=== PATIENT | male | born 1970 | race Caucasian/White ===

== ENCOUNTER 2024-09-09 12:04 | Inpatient (IN) | payer OTHER, SELFPAY ==
[2024-09-09] VITALS (14 sets, daily range): BP systolic 82–143; BP diastolic 61–116; PULSE 74–104; RESP 12–21; TEMP 35.7–36; O2SAT 94–100; BMI 22.7; BMI 23.4
--- NOTE | 2024-09-09 12:17 | ED.RN ---
PT PRESDENTS TO THE ED WITH HIS PARENTS AT BEDSIDE. PT STSTAES HE HAS BEEN HAVING A SUPRESSED APPETITE FOR APROX 8 MONTHS, WHEN HE EATS HE HAS N/V. HE HAS NOT SEEN PCP, DECIDED TO START HERE TODAY. HAS LOST APROX 60LBS IN THE PAST 8 MONTHS. NO DAILY MEDS OUTSIDE OF ELDERBERRY SUPPLEMENT AND A MULTI VIT
--- NOTE | 2024-09-09 12:38 | ED.VIS.GI ---
HPI HPI - GI History of Present Illness Chief Complaint: Abd Pain Detail of Chief Complaint: Nausea, weight loss, abdominal distention Informant: patient Narrative Narrative: Patient presents with weight loss as well as nausea and abdominal bloating ongoing for 6 to 7 months. Patient states he has no primary care physician. He finally got tired of the weight loss and he is complaining of feeling weak with no energy. He has nausea and vomiting usually after he eats about 15 to 20 minutes later.. He denies blood in stool or black tarry stool. He denies urinary symptoms. He tells me has no medical history. No prior abdominal surgeries. [facility] Medical History (Updated 09/09/24 @ 14:[address] Abbie Michelle MD) No significant past medical history Home Medications ?Medication ?Instructions ?Recorded ?Last Taken ?Type multivitamin (Daily Multi-Vitamin 1 tab PO DAILY 09/09/24 09/08/24 History tablet) Allergy/AdvReac Type Severity Reaction Status Date / Time No Known Allergies Allergy Verified 09/09/24 12:12 Family History (Updated 09/09/24 @ 14:[address] Abbie Michelle MD) Mother Hypertension Father No problems noted. Surgical History (Updated 09/09/24 @ 14:[address] Abbie Michelle MD) History of skin graft Social History (Updated 09/09/24 @ 14:[address] Abbie Michelle MD) household members: none Smoking Status: Never smoker alcohol intake: never substance use type: does not use ROS ROS ED Review of Systems ROS Unobtainable: other Constitutional Constitutional ED: Reports lethargy; Denies chills, fever(s), sweats or weight loss Eyes Eyes: Denies blurry vision, change in vision or diplopia ENT ENT ED: Denies rhinorrhea or sore throat Cardiovascular Cardiovascular: Denies chest pain, orthopnea or racing heartbeat Respiratory/Chest Respiratory/Chest: Denies cough, dyspnea, dyspnea on exertion, orthopnea or sputum Gastrointestinal Gastrointestinal: Reports nausea, vomiting and other Details: Abdominal distention, weight loss ; Denies abdominal pain or diarrhea Genitourinary Genitourinary ED: Denies dysuria, hematuria or urinary frequency Musculoskeletal Musculoskeletal: Denies arthralgias, back pain, myalgias or neck pain Integumentary Denies abscess, Abrasions or rash Neurologic Neurologic: Denies headache(s) or weakness Psychiatric Psychiatric: Denies anxiety, depression or suicidal thoughts Endocrine Endocrinology: Denies polydipsia, polyphagia or polyuria Hematologic/Lymphatic Hematologic/Lymphatic: Denies easy bleeding, easy bruising or lymphadenopathy Allergic/Immunologic Allergic/Immunologic ED: Denies mouth swelling, tongue swelling or urticaria EXAM Physical Exam Const Vital Signs: 09/09/24 12:06 09/09/24 14:05 09/09/24 14:16 Temperature 96.2 F L 96.2 F L Temperature Source Temporal Pulse Rate 104 H 94 94 Respiratory Rate 16 16 16 Blood Pressure 101/73 129/114 H 129/114 H Blood Pressure Mean 82 119 119 Pulse Ox 94 100 100 Oxygen Delivery Method Room Air Room Air Positive well nourished and well developed General Appearance ED: well developed and NAD HEENT Reports TM's clear and moist mucous membranes normocephalic and atraumatic; Negative for trauma or tenderness Tympanic Membrane ED: Yes TM's clear Eyes PERRL and EOMs intact bilaterally General Eye ED: Negative for pale conjunctiva or scleral icterus Neck no lymphadenopathy, supple and no JVD General: Negative for tenderness Chest Wall inspection of chest normal and palpation of chest normal Chest: Negative for tenderness Resp normal respiratory effort and clear to auscultation bilaterally Effort and Inspection: Negative for respiratory distress or pain with movement Auscultation: Negative for rhonchi, wheezes or diminished lung sounds Cardio regular rate, regular rhythm, S1 normal heart sound, S2 normal heart sound and no murmurs Peripheral Pulses: pulses 2+ throughout GI normal to inspection, nondistended, normoactive bowel sounds, soft to palpation, non-tender, non-distended and no masses Back/Spine no CVA tenderness and no thoracic nor lumbar tenderness Extremity normal to inspection General Extremety ED: Negative for edema General Extremity: Negative for edema Neuro oriented x3, CN's II-XII intact bilaterally, no sensory deficits noted and gait normal Sensorium / Orientation: awake, alert, oriented to person, oriented to place and oriented to time Motor Exam: strength 5/5 throughout and strength abnormal Psych mental status grossly normal Skin no rashes or lesions noted and no wounds MDM MDM MDM Narrative Medical decision making narrative: Patient presents with complaint of not feeling well for 6 to 7 months. Given history of night sweats and ongoing weight loss over 6 or 7 months concern for malignancy. Patient has not been seeing primary care physician. IV line established. CBC with differential obtained showing an 11.7 with hemoglobin 18.7 and platelet count of 206. Chemistries were significant for sodium 139 with potassium 2.4 and chloride of 82. CO2 was 16.8. BUN to 48 and creatinine 10.7. Lactate 2.0. Glucose 190. LFTs normal. Lipase was 241. CT scan of the abdomen pelvis obtained read by radiology as distended and thickened distal esophagus could represent achalasia. No other significant findings other than some mild evidence of nonfocal layer mucosal enhancement in distal small bowel which can indicate inflammatory bowel disease. Patient was ordered potassium chloride IV. Discussed case with hospitalist will evaluate patient for admission. I do not think patient has DKA suspect likely acute renal failure. Hospitalist did order beta hydroxybutyrate which was elevated 3.5 and recommended that we start patient on an insulin drip for the possibility of DKA given elevated glucose at 190. I did order the insulin drip at hospitalist request and patient will go to the ICU. Lab Data Attestation: I reviewed the patient's lab results. Labs: Laboratory Results - last 24 hr 09/09/24 09/09/24 12:15 12:58 WBC 11.7 H RBC 6.54 H Hgb 18.7 H* Hct 51.6 MCV 78.9 L MCH 28.6 MCHC 36.2 H RDW Std Deviation 36.9 RDW Coeff of Keerthi 13.1 Plt Count 206 MPV 13.8 H Immature Gran % (Auto) 0.400 Neut % (Auto) 87.9 H Lymph % (Auto) 5.9 L [place] % (Auto) 5.5 Eos % (Auto) 0.1 Baso % (Auto) 0.2 Absolute Neuts (auto) 10.3 H Absolute Lymphs (auto) 0.69 L Nucleated RBC % 0 Sodium 139 Potassium 2.4 L* Chloride 82 L Carbon Dioxide 16.8 L Anion Gap 40 H BUN 248 H* Creatinine 10.70 H* Estim Creat Clear Calc 7.44 L* Est GFR (MDRD) Non-Af 5 L BUN/Creatinine Ratio 23.2 H Glucose 190 H Lactic Acid 2.0 Calcium 10.6 Magnesium 4.8 H Total Bilirubin 1.16 AST 9 ALT 17 Alkaline Phosphatase 91 Total Protein 8.3 Albumin 5.0 Globulin 3.3 Albumin/Globulin Ratio 1.5 Lipase 241 H b-Hydroxybutyric mmol/L 3.5 Radiography Diagnostic Testing: Clinical Impression(s) from Imaging Studies Abdomen/Pelvis CT 09/09/24 13:15 IMPRESSION: The distal esophagus is dilated to 5 cm, which can indicate achalasia. Consider direct visualization. Cholelithiasis. Liver cysts There is a 2 cm uncomplicated fat containing left inguinal hernia. There is nonfocal layered mucosal enhancement in the distal small bowel, which can indicate inflammatory bowel disease. [facility] Initial EKG: Attestation: I personally reviewed and interpreted this EKG as follows: Comments: Sinus rhythm with rate of 86 bpm with prolonged QT of 458. QTc is 548 Critical Care Time Critical care time (excluding procedures): 30-74 minutes, Including time spent:, Discussing w/Patient &/or Family/Field Operations Technician, Discussing w/Consultants, Arranging Admission or Transfer, Performing Direct Patient Care at Bedside and - (30 minutes) Discharge Plan Dx/Rx/DC Orders Clinical Impression: Acute renal failure, Acute hypokalemia, Hyperglycemia, Abnormal weight loss Disposition Disposition: Acute Care [facility]
[2024-09-09 12:54] LABS: Absolute Lymphocyte Count 0.69 X10^3/uL (0.83-4.51); Absolute Neutrophil Count 10.3 X10^3/uL (2.0-7.7); Basophil# 0.02 X10^3/uL; Basophil% 0.2 % (0-1); Eosinophil# 0.01 X10^3/uL; Eosinophils% 0.1 % (0-5); Hematocrit 51.6 % (40-54); Lymphocyte # 0.69 X10^3/ul (0.83-4.51); Lymphocyte % 5.9 % (19-41); Mean Corp Hgb Conc 36.2 g/dL (32-36); Mean Corpuscular Hgb 28.6 pg (27.0-32.0); Mean Corpuscular Volume 78.9 fL (80-94); Mean Platelet Vol. 13.8 fl (6.2-12.0); Monocyte# 0.64 X10^3/uL; Monocyte% 5.5 % (0-10); NRBC Flagged by Analyzer 0 % (0-5); Neutrophil # 10.33 X10^3/uL (2.7-7.7); Neutrophil % 87.9 % (47-70); Platelet Count 206 K/mm3 (150-450); RBC Distribution Width CV 13.1 % (11.6-14.6); RBC Distribution Width SD 36.9 fl (35.1-43.9); Red Blood Count 6.54 M/mm3 (4.6-6.2); White Blood Count 11.7 K/mm3 (4.4-11.0)
[2024-09-09] MEDS: 0.9% Normal Saline (1000mL) 1,000 ML 125 ML IV (12:55)
[2024-09-09 12:56] LABS: Differential Indicated SCAN CRITERIA MET; Hemoglobin 18.7 g/dL (13.0-16.5)
--- NOTE | 2024-09-09 13:15 | CT_ITS ---
PROCEDURE: ABDOMEN/PELVIS W IV CONT ONLY 09/09/2024 REASON FOR EXAM: ABDOMINAL PAIN, WEIGHT LOSS, NIGHT SWEATS TECHNIQUE: Abdomen and pelvis CT with intravenous contrast. Coronal and Sagittal reconstruction series were provided. PATIENT PREPARATION: Per protocol ORAL CONTRAST TYPE: None. CONTRAST: 98 cc [id number] One or more dose reduction techniques were used (e.g., Automated exposure control, adjustment of the mA and/or kV according to patient size, use of iterative reconstruction technique. RADIATION DOSE SUMMARY: DLP: 631.51 mGycm COMPARISON: None FINDINGS: Lung bases: The distal esophagus is dilated to 5 cm, which can indicate achalasia. Liver: There is a cyst in the left hepatic lobe measuring 4.3 cm. There is a cyst in the left hepatic lobe measuring 3.5 cm. There is a 3 cm cyst in the medial right hepatic lobe. There is a cyst in the right hepatic lobe measuring 1 cm at the gallbladder fossa. Gallbladder: There are stones in the gallbladder with the largest measuring 0.6 cm. There is no visible gallbladder wall thickening or pericholecystic inflammation. Spleen: Unremarkable Pancreas: Unremarkable Adrenals: Unremarkable Kidneys: Unremarkable Bladder: Nondistended Reproductive Organs: Unremarkable Bowel: Gas and stool is noted in the colon with a minimal stool load. There is nonfocal layered mucosal enhancement in the distal small bowel, which can indicate inflammatory bowel disease. Small bowel loops are not distended. There is scattered diverticuli in the distal colon with no visible diverticulitis. There is a 2 cm uncomplicated fat containing left inguinal hernia. Appendix: Unremarkable Lymph nodes: There is no pathologic adenopathy. Vasculature: Unremarkable Peritoneum / Retroperitoneum: There is no free air or free fluid. Bones: There is no acute bony abnormality. CT/Abdomen/Pelvis W IV Cont ONLY IMPRESSION: The distal esophagus is dilated to 5 cm, which can indicate achalasia. Conside r direct visualization. Cholelithiasis. Liver cysts There is a 2 cm uncomplicated fat containing left inguinal hernia. There is nonfocal layered mucosal enhancement in the distal small bowel, which can indicate inflammatory bowel disease. [facility]
[2024-09-09 13:39] LABS: Lipase 241 U/L (13-75)
[2024-09-09 13:54] LABS: ALB/GLOB Ratio 1.5 RATIO (0.9-2.4); AST(SGOT) 9 U/L (<=37); Alanine Aminotransfer ALT/SGPT 17 U/L (<=46); Alkaline Phosphatase 91 U/L (40-129); Anion Gap 40 (5-15); BUN 248 mg/dL (4-19); BUN/Creat Ratio 23.2 RATIO (10-20); Calcium,Total 10.6 mg/dL (7.6-11.0); Carbon Dioxide 16.8 mmol/L (21.0-32.0); Chloride 82 mmol/L (98-108); EST Glomerular Filtration Rate 5 (>60); Estimated Creatinine Clearance 7.44 ml/min (50-250); Globulin 3.3 g/dL (2.2-4.2); Glucose 190 mg/dL (70-99); Potassium 2.4 mmol/L (3.3-5.1); Protein, Total 8.3 g/dL (5.9-8.4); Sodium Level 139 mmol/L (133-145); Total Bilirubin 1.16 mg/dL (0.00-1.30)
--- NOTE | 2024-09-09 14:08 | CM.ED ---
Social Work SW met with patient and patient parents. Patient states he has not been feeling well over the last several months and has lost a significant amount of weight. Patient and parents state that patient does not have a PCP and has not been to a physician since symptoms started. [facility] provider list was given for patient to assist in finding a primary care doctor. Patient does have a job that he works around 30 hours a week, however he states that he has not been able to work over the last week. 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 Abbi from [employer] was contacted to meet with patient, however Abbi states that patient is over income and will not qualify for Medicaid. Patient was given financial assistance forms from registration. Vee Leyva, LEATHER LEVELER, LEAD SOFTWARE TESTER
--- NOTE | 2024-09-09 14:15 | HP.PCM.HOS_ITS ---
HPI - General General Date of Admission: 09/09/24 Date of Service: 09/09/24 Chief Complaint: Intractable N/V, unable to take adequate PO, weight loss, abd bloating. HPI Narrative The patient is a 53 y/o M w/ no prior notable PMHx who presents to the [facility] ED on 09/09/2024 with history of significant persistent nausea with poor oral intake as well as abdominal bloating and distention with significant weight loss for last 6 to 7 months with no established primary care physician thus prompting eventual decision to be evaluated in the ED. He denies any alteration to the appearance of his stools or any urinary symptoms. He notes persistent emesis associated with any oral intake attempts. Has had been able to keep liquids down and some full liquids but nearly all solids come back up. He reports ~ 60-70 lb weight loss over the last 12 months. He does state he is continuing to make urine and usually urinates twice a day. He states previously had been very dark but has become more clear recently. His parents were present note that he is had a significant decline over the last 3 weeks. He also does have bruises on his lower legs and states this may be happening in his sleep even. Workup in the ED included T96.2 Temporal, heart rate 104, BP 101/73, respiratory rate 16, 94% room air, CBC with WBC 11.7, hemoglobin 18.7, platelets 206 with left shift and lymphopenia, CMP with potassium 2.4, chloride 82, carbon oxide 16.8, anion gap 40, BUN/creatinine 248/10.70, GFR 5, glucose 190, lactic acid 2.0, hepatic profile not marked appearing, lipase 241, CT abdomen pelvis with distal esophagus dilated to 5 cm possible indicative of achalasia, cholelithiasis, liver cyst, 2 cm uncomplicated fat-containing left inguinal hernia, nonfocal layered mucosal enhancement the distal small bowel of unclear significance. In the ED patient administered maintenance IV fluids. REPLACED BY [facility] Medical History (Updated 09/09/24 @ 14:[address] Abbie Michelle MD) No significant past medical history Home Medications ?Medication ?Instructions ?Recorded ?Last Taken ?Type multivitamin (Daily Multi-Vitamin 1 tab PO DAILY 09/0909/08/24 History tablet) Allergy/AdvReac Type Severity Reaction Status Date / Time No Known Allergies Allergy Verified 09/09/24 12:12 Family History (Updated 09/09/24 @ 14:[address] Abbie Michelle MD) Mother Hypertension Father No problems noted. Surgical History (Updated 09/09/24 @ 14:[address] Abbie Michelle MD) History of skin graft Social History (Updated 09/09/24 @ 14:[address] Abbie Michelle MD) household members: none Smoking Status: Never smoker alcohol intake: never substance use type: does not use ROS ROS Narrative Admission Review of Systems: CONSTITUTIONAL: No fever, chills, + weight loss, weakness or fatigue. HEENT: Eyes: No visual loss, blurred vision, double vision or yellow sclerae. Ears, Nose, Throat: No hearing loss, sneezing, congestion, runny nose or sore throat. SKIN: No rash or itching, lesions, wounds. CARDIOVASCULAR: No chest pain, chest pressure or chest discomfort, palpitations, edema, orthopnea, syncopal events. RESPIRATORY: No shortness of breath, cough or sputum, wheezing, hemoptysis. GASTROINTESTINAL: + anorexia, nausea, vomiting, abdominal distention/fullness. No constipation, diarrhea, abdominal pain, melena, BRBPR. GENITOURINARY: No dysuria, frequency, urgency or retention. NEUROLOGICAL: No headache, dizziness, syncope, paralysis, ataxia, numbness or tingling in the extremities, focal weakness, change in bowel or bladder control, seizure. MUSCULOSKELETAL: + muscle, back pain, joint pain or stiffness. HEMATOLOGIC: No anemia. + Easy bleeding/bruising. LYMPHATICS: No enlarged nodes. No history of splenectomy. PSYCHIATRIC: No history of depression or anxiety. ENDOCRINOLOGIC: No reports of sweating, cold or heat intolerance. No polyuria or polydipsia. ALLERGIES: No history of asthma, hives, eczema or rhinitis. Vital Signs Vital Signs Vital Signs: 09/09/24 12:06 Temperature 96.2 F L Temperature Source Temporal Pulse Rate 104 H Respiratory Rate 16 Blood Pressure 101/73 Blood Pressure Mean 82 Pulse Ox 94 Oxygen Delivery Method Room Air Weight Weight: 145 lb 3.2 oz Body Mass Index (BMI) 22.7 Physical Exam Narrative Physical Examination: General: Awake, alert, oriented x 3 and cooperative, seated upright in bed in no apparent distress, denies any current pain. Skin: Normal color, normal turgor, no icterus, no cyanosis except notable very stage ecchymoses especially to his distal extremities as well as some on the right lateral flank. HEENT: AT/NC, EOMI, PERRLA, mildly dry MM, no carotid bruits or JVD noted. Lungs: CTA bilaterally, moderate effort, mild decrease BL bases, no rales, ronchi or wheezing. Heart: Regular rate and rhythm; no gallop, rub audible. Abdomen: Soft, NTTP, ND, mildly hypoactive BS, no appreciated HSM. Extremities: No cyanosis, clubbing, or edema, see skin. Neurological: Patient awake, alert, oriented as noted, cognitive function intact; pupils equally reactive to light and accommodation, cranial nerves gross normal, moving all 4 extremities, no focal deficits, strength moderately globally decreased Psychiatric: Affect appears to be otherwise normal, no acute evidence of depressive or anxiety feelings. Results Lab / Micro Data 09/09/24 12:15 09/09/24 12:15 Labs: Laboratory Results - last 24 hr 09/09/24 12:15: WBC 11.7 H, RBC 6.54 H, Hgb 18.7 H*, Hct 51.6, MCV 78.9 L, MCH 28.6, MCHC 36.2 H, RDW Std Deviation 36.9, RDW Coeff of Keerthi 13.1, Plt Count 206, MPV 13.8 H, Immature Gran % (Auto) 0.400, Neut % (Auto) 87.9 H, Lymph % (Auto) 5.9 L, [place] % (Auto) 5.5, Eos % (Auto) 0.1, Baso % (Auto) 0.2, Absolute Neuts (auto) 10.3 H, Absolute Lymphs (auto) 0.69 L, Nucleated RBC % 0, Sodium 139, P otassium 2.4 L*, Chloride 82 L, Carbon Dioxide 16.8 L, Anion Gap 40 H, BUN 248 H*, Creatinine 10.70 H*, Estim Creat Clear Calc 7.44 L*, Est GFR (MDRD) Non-Af 5 L, BUN/Creatinine Ratio 23.2 H, Glucose 190 H, Calcium 10.6, Total Bilirubin 1.16, AST 9, ALT 17, Alkaline Phosphatase 91, Total Protein 8.3, Albumin 5.0, Globulin 3.3, Albumin/Globulin Ratio 1.5, Lipase 241 H 09/09/24 12:58: Lactic Acid 2.0 Imaging Radiology Impression Abdomen/Pelvis CT 09/09/24 13:15 IMPRESSION: The distal esophagus is dilated to 5 cm, which can indicate achalasia. Consider direct visualization. Cholelithiasis. Liver cysts There is a 2 cm uncomplicated fat containing left inguinal hernia. There is nonfocal layered mucosal enhancement in the distal small bowel, which can indicate inflammatory bowel disease. Reading [facility] Assessment & Plan Assessment/Plan (1) Acute renal failure: PLAN: Plan The patient is a 53 y/o M w/ no prior notable PMHx who presents to the [facility] ED on 09/09/2024 with history of significant persistent nausea with poor oral intake as well as abdominal bloating and distention with significant weight loss for last 6 to 7 months with no established primary care physician thus prompting eventual decision to be evaluated in the ED. #1. Persistent nausea, poor intake, abdominal distention with incidentally noted dilated distal esophagus: Patient with persistent emesis with oral intake attempts and given CT findings concern will admit to PCU given notable electrolyte disturbances concurrently, still awaiting workup for possible DKA new onset as noted below, will maintain on IV PPI, when oral intake at this time to clear liquids only, speech therapy consulted, gastroenterology consulted for upper endoscopy, will maintain n.p.o. status after midnight, continue aggressive hydration as noted below. #2. Acute kidney injury with #3, #4: Secondary to possible poor oral intake but significantly elevated creatinine with no clear previous baseline and unclear duration of time. Admission BUN/Cr 248/10.70, prior baseline creatinine unknown but patient denies any previous medical history. Will continue to hydrate, will initiate on bicarb,hold nephrotoxic medications and repeat chemistry in AM, will obtain UA, renal US, FeNa assessment and Nephrology consultation. #3. Metabolic acidosis with notable Hyperglycemia without diabetic history: Admission CMP with anion gap 40, glucose 190 with no diabetic history, hydroxybutyrate acid level requested, urinalysis requested, hemoglobin A1c requested, some concern for possibly new onset diabetes with DKA and conjunction with #1, will continue aggressively hydrate, awaiting these labs and if appropriate will initiate insulin drip. While awaiting hydroxybutyrate acid level will also pre-emptively obtain serum osmolality certainly could be HHS. #4. Hypokalemia: Admission K+ 2.4, magnesium level requested, supplementation given, repeat level in AM. #5. DVT prophylaxis: SCDs, will hold off on chemoprophylaxis given planned upper endoscopy in case of biopsy needs. Charges/Coding Visit Charges Inpatient E&M: 42397 Init Hosp L3
[2024-09-09] MEDS: Potassium Chloride 10mEq/100mL 10 MEQ/100 ML IV.SOLN. 100 MEQ IV BOLUS ×6 (14:28→23:12)
[2024-09-09 14:37] LABS: BETA-HYDROXYBUTYRATE 3.5 mmol/L (0.0-0.3)
--- NOTE | 2024-09-09 14:45 | EKG12_ITS ---
Test Reason : Blood Pressure : */* mmHG Vent. Rate : 86 BPM Atrial Rate : 86 BPM P-R Int : 154 ms QRS Dur : 96 ms QT Int : 458 ms P-R-T Axes : 43 2 60 degrees QTcB Int : 548 ms Normal sinus rhythm Prolonged QT Abnormal ECG Confirmed by MARII PINTO, CHAN ([id number]), image editor VARUN MACK ([id number]) on 09/14/2024 9:02:13 AM Referred By: RU/UG Confirmed By: CHAN COLVIN MD
[2024-09-09 14:48] LABS: Magnesium 4.8 mg/dL (1.5-2.2)
--- NOTE | 2024-09-09 14:51 | US_ITS ---
EXAM: US Retroperitoneal Limited, Renal CLINICAL INDICATION: EWA TECHNIQUE: Real-time limited ultrasound of the retroperitoneum with image documentation. COMPARISON: No relevant prior studies available. FINDINGS: RIGHT KIDNEY: Unremarkable. No stones. No hydronephrosis. The right kidney measures 9.2 x 5.5 x 6.5 cm. LEFT KIDNEY: Unremarkable. No stones. No hydronephrosis. The left kidney measures 10.6 x 4.9 x 6.1 cm. BLADDER: Bladder wall thickening which may be due to the decompressed state of the bladder or due to cystitis. US/Kidney and Bladder IMPRESSION: Bladder wall thickening which may be due to the decompressed state of the bladd er or due to cystitis. Reading Location: [id number]
[2024-09-09 15:22] LABS: Hemoglobin A1c 6.5 % (<=5.6)
[2024-09-09 15:27] LABS: Osmolality, Serum 406 mOsm/KG (275-295)
[2024-09-09] MEDS: Insulin Lispro 100 UNIT in 0.9% Normal Saline (100mL Bag) 99 ML 6.6 UNIT CONT INF (15:29)
[2024-09-09 15:30] LABS: Phosphorus 9.6 mg/dL (2.7-4.5)
[2024-09-09] MEDS: 0.9% Normal Saline (1000mL) 1,000 ML 999 ML IV ×2 (16:17→17:19)
[2024-09-09 16:28] LABS: Allen Test Positive; Base Excess -5 mmol/L (-2 to +2); Bicarbonate 17.9 mmol/L (22-26); Blood Gas Specimen Type ART; Mode Not entered; O2 Delivery Device Not entered; PO2 113 mmHG (75-100); SITE R Radial; SO2 99 % (95-99); Total Carbon Dioxide 19 mmol/L; pCO2 22.3 mmHg (35-45); pH 7.51 (7.35-7.45)
[2024-09-09 16:39] LABS: Bedside Glucose 130 mg/dL (74-106)
[2024-09-09 17:08] LABS: Reflex Lactate? Y
[2024-09-09 17:11] LABS: Bacteria 0 SEEN /hpf (None Seen); Mucous, Urine 0 SEEN /hpf (<or=2+)
[2024-09-09] MEDS: Pantoprazole Sodium 40 MG in 0.9% Normal Saline (100mL MB+) 100 ML 330 MG IV ×2 (17:19→21:36)
[2024-09-09] MEDS: Dextrose 10%-Water 250 ML 999 ML IV (17:20)
[2024-09-09 17:28] LABS: Bedside Glucose 54 mg/dL (74-106)
[2024-09-09 17:33] LABS: Anion Gap 33 (5-15); BUN 243 mg/dL (4-19); BUN/Creat Ratio 25.1 RATIO (10-20); Calcium,Total 9.6 mg/dL (7.6-11.0); Carbon Dioxide 16.8 mmol/L (21.0-32.0); Chloride 89 mmol/L (98-108); Creatinine, Serum 9.67 mg/dL (0.70-1.20); EST Glomerular Filtration Rate 6 (>60); Estimated Creatinine Clearance 8.23 ml/min (50-250); Glucose 82 mg/dL (70-99); Potassium 2.5 mmol/L (3.3-5.1); Sodium Level 138 mmol/L (133-145)
[2024-09-09 17:33] LABS: Color, Urine Yellow (Yellow); Glucose, Dipstick Normal (Normal); Ketone-Dipstick Negative (Negative); Leukocyte Esterase-Dipstick Negative /ul (Negative); Nitrite-Dipstick Negative (Negative); Occult Blood-Urine 25 /ul (Negative); Protein-Dipstick 30 mg/dl (Negative); Urine Clarity Sl. Cloudy (Clear); Urine Urobilinogen Normal (Normal)
[2024-09-09 17:39] LABS: Urine Bilirubin Dipstick 1 mg/dL (Negative)
[2024-09-09 18:07] LABS: Bedside Glucose 181 mg/dL (74-106)
[2024-09-09 18:12] LABS: Urine Sodium < 20 mmol/L (Not Establ.)
[2024-09-09] MEDS: KCL 20MEQ in D5.45NS 20 MEQ/1,000 ML IV.SOLN. 150 MEQ IV (18:28)
[2024-09-09 18:46] LABS: Lactic Acid 1.6 mmol/L (0.0-2.0)
[2024-09-09 18:49] LABS: Bedside Glucose 149 mg/dL (74-106)
[2024-09-09 19:11] LABS: Red Blood Cells-Urine 0-5 SEEN /hpf (0-5); Squamous Epithelial Cells - UA 0-5 SEEN /hpf (0-5); White Blood Cells 0-5 SEEN /hpf (0-5)
[2024-09-09 19:12] LABS: Amorphous Sediment 1+
--- NOTE | 2024-09-09 19:26 | EX.PCM.CON.G ---
HPI Consult Data Date of Consult: 09/11/24 HPI Narrative Reason for Consultation: Persistent nausea vomiting HPI Narrative: KESHAV ARMSTRONG, is a 53 M who presents Patient presents with weight loss as well as nausea and abdominal bloating ongoing for 6 to 7 months. Patient states he has no primary care physician. He finally got tired of the weight loss and he is complaining of feeling weak with no energy. He has nausea and vomiting usually after he eats about 15 to 20 minutes later. [facility] Medical History No significant past medical history Home Medications ?Medication ?Instructions ?Recorded ?Last Taken ?Type multivitamin (Daily Multi-Vitamin 1 tab PO DAILY 09/09/24 09/08/24 History tablet) Allergy/AdvReac Type Severity Reaction Status Date / Time No Known Allergies Allergy Verified 09/10/24 11:04 Family History Mother Hypertension Father No problems noted. Surgical History History of skin graft Social History household members: none Smoking Status: Never smoker alcohol intake: never substance use type: does not use ROS Constitutional Constitutional: Denies fatigue, fever(s), poor appetite, weight gain or weight loss Gastrointestinal Gastrointestinal: Denies belching, bloating, change in bowel habits, change in stool character, chewing difficulty, coffee ground emesis, constipation, cramping, diarrhea, dyspepsia, dysphagia, early satiety, excessive flatus, fecal incontinence, heartburn, hematemesis, hematochezia, hemorrhoids, loose stools, melena, nausea, odynophagia, rectal bleeding, tenesmus, vomiting or weight changes Physical Exam Const alert, oriented x3, no apparent distress and healthy appearing General Appearance: cooperative GI normal to inspection, nondistended, normoactive bowel sounds, soft to palpation, non-tender and non-distended Percussion: normal to percussion Rectal Exam: deferred Lab / Micro Data 09/10/24 04:52 09/11/24 04:35 Labs: Laboratory Results - last 24 hr 09/09/24 12:15: WBC 11.7 H, RBC 6.54 H, Hgb 18.7 H*, Hct 51.6, MCV 78.9 L, MCH 28.6, MCHC 36.2 H, RDW Std Deviation 36.9, RDW Coeff of [place] 13.1, Plt Count 206, MPV 13.8 H, Immature Gran % (Auto) 0.400, Neut % (Auto) 87.9 H, Lymph % (Auto) 5.9 L, [place] % (Auto) 5.5, Eos % (Auto) 0.1, Baso % (Auto) 0.2, Absolute Neuts (auto) 10.3 H, Absolute Lymphs (auto) 0.69 L, Nucleated RBC % 0, Sodium 139, Potassium 2.4 L*, Chloride 82 L, Carbon Dioxide 16.8 L, Anion Gap 40 H, BUN 248 H*, Creatinine 10.70 H*, Estim Creat Clear Calc 7.44 L*, Est GFR (MDRD) Non-Af 5 L, BUN/Creatinine Ratio 23.2 H, Glucose 190 H, Hemoglobin A1c 6.5 H, Calcium 10.6, Phosphorus 9.6 H*, Magnesium 4.8 H, Total Bilirubin 1.16, AST 9, ALT 17, Alkaline Phosphatase 91, Total Protein 8.3, Albumin 5.0, Globulin 3.3, Albumin/Globulin Ratio 1.5, Lipase 241 H, b-Hydroxybutyric mmol/L 3.5 09/09/24 12:58: Lactic Acid 2.0 09/09/24 14:40: Serum Osmolality 406 H 09/09/24 16:08: POC Glucose 130 H 09/09/24 16:20: Sodium 138, Potassium 2.5 L*, Chloride 89 L, Carbon Dioxide 16.8 L, Anion Gap 33 H, BUN 243 H*, Creatinine 9.67 H*, Estim Creat Clear Calc 8.23 L*, Est GFR (MDRD) Non-Af 6 L, BUN/Creatinine Ratio 25.1 H, Glucose 82, Calcium 9.6 09/09/24 17:00: Urine Color Yellow, Urine Clarity Sl. Cloudy, Urine pH 6.0, Ur Specific [place] 1.020, Urine Protein 30 H, Urine Glucose (UA) Normal, Urine Ketones Negative, Urine Occult Blood 25 H, Urine Nitrite Negative, Urine Bilirubin 1 H, Urine Urobilinogen Normal, Ur Leukocyte Esterase Negative, Urine RBC 0-5 SEEN, Urine WBC 0-5 SEEN, Ur Squamous Epith Cells 0-5 SEEN, Amorphous Sediment 1+, Urine Bacteria 0 SEEN, Urine Mucus 0 SEEN, Ur Random Sodium < 20, Urine Creatinine 284.00 H 09/09/24 17:11: POC Glucose 54 L 09/09/24 17:40: Lactic Acid 1.6 09/09/24 17:42: POC Glucose 181 H 09/09/24 18:28: POC Glucose 149 H Micro: Microbiology 09/09/24 16:20 Nasal Secretion MRSA (PCR) - Final ABG Data ABG results: ABG 09/09/24 16:24 Specimen Type ART Sample Site R Radial pH 7.51 H Bicarbonate Actual 17.9 L Total CO2 19 Base Excess -5 L O2 Saturation 99 O2 % 21.0 ABG pCO2 22.3 L ABG pO2 113 H [place] Test Positive O2 Delivery Device Not entered Vent Mode Not entered Imaging Radiology Impression Abdomen/Pelvis CT 09/09/24 13:15 IMPRESSION: The distal esophagus is dilated to 5 cm, which can indicate achalasia. Consider direct visualization. Cholelithiasis. Liver cysts There is a 2 cm uncomplicated fat containing left inguinal hernia. There is nonfocal layered mucosal enhancement in the distal small bowel, which can indicate inflammatory bowel disease. [facility] Renal Ultrasound 09/09/24 14:51 IMPRESSION: Bladder wall thickening which may be due to the decompressed state of the bladder or due to cystitis. Reading Location: [id number] Assessment & Plan Assessment/Plan (1) Acute renal failure: PLAN: Plan The patient is a 53 y/o with history of significant persistent nausea with poor oral intake as well as dysphagia and weight loss for last [address] findings concern for achalasia. He will need to undergo an upper endoscopy to evaluate his upper GI tract. He was explained alternatives, risk and benefits including withstanding bleeding, infection, subs, perforation, need for emergent urgent he will have an ASA of 3. Charges/Coding Visit Charges Inpatient E&M: 11261 Init Hosp L3
[2024-09-09 20:07] LABS: Bedside Glucose 132 mg/dL (74-106)
[2024-09-09] MEDS: 0.9% Saline Lock 10 ML Syringe IV (20:42)
[2024-09-09] MEDS: Ondansetron 4 MG/2 ML Vial IV (20:42)
[2024-09-09 20:54] LABS: Bedside Glucose 103 mg/dL (74-106)
[2024-09-09 21:51] LABS: Anion Gap 24 (5-15); BUN 230 mg/dL (4-19); BUN/Creat Ratio 28.5 RATIO (10-20); Calcium,Total 8.5 mg/dL (7.6-11.0); Carbon Dioxide 17.4 mmol/L (21.0-32.0); Chloride 98 mmol/L (98-108); Creatinine, Serum 8.06 mg/dL (0.70-1.20); EST Glomerular Filtration Rate 7 (>60); Estimated Creatinine Clearance 9.56 ml/min (50-250); Glucose 105 mg/dL (70-99); Potassium 2.5 mmol/L (3.3-5.1); Sodium Level 139 mmol/L (133-145)
[2024-09-09 21:53] LABS: Bedside Glucose 80 mg/dL (74-106)
[2024-09-09 22:55] LABS: Bedside Glucose 77 mg/dL (74-106)
[2024-09-10] VITALS (26 sets, daily range): BP systolic 100–130; BP diastolic 69–100; PULSE 62–93; RESP 10–18; TEMP 35.9–36.8; O2SAT 95–100; BMI 24.0
[2024-09-10] MEDS: Dextrose 10%-Water 250 ML 999 ML IV (00:20)
[2024-09-10 00:35] LABS: Bedside Glucose 59 mg/dL (74-106)
[2024-09-10 01:18] LABS: Bedside Glucose 163 mg/dL (74-106)
[2024-09-10] MEDS: KCL 20MEQ in D5.45NS 20 MEQ/1,000 ML IV.SOLN. 150 MEQ IV ×3 (01:56→18:26)
[2024-09-10 02:08] LABS: Bedside Glucose 132 mg/dL (74-106)
[2024-09-10 02:38] LABS: Anion Gap 21 (5-15); BUN 219 mg/dL (4-19); BUN/Creat Ratio 30.5 RATIO (10-20); Calcium,Total 8.2 mg/dL (7.6-11.0); Carbon Dioxide 17.4 mmol/L (21.0-32.0); Chloride 98 mmol/L (98-108); Creatinine, Serum 7.18 mg/dL (0.70-1.20); EST Glomerular Filtration Rate 8 (>60); Estimated Creatinine Clearance 10.74 ml/min (50-250); Glucose 176 mg/dL (70-99); Potassium 2.5 mmol/L (3.3-5.1); Sodium Level 137 mmol/L (133-145)
[2024-09-10 03:18] LABS: Bedside Glucose 137 mg/dL (74-106)
[2024-09-10 04:16] LABS: Bedside Glucose 169 mg/dL (74-106)
[2024-09-10] MEDS: 0.9% Saline Lock 10 ML Syringe IV (04:57)
[2024-09-10] MEDS: Potassium Chloride 10mEq/100mL 10 MEQ/100 ML IV.SOLN. 100 MEQ IV BOLUS ×5 (05:00→09:58)
[2024-09-10 05:10] LABS: Absolute Lymphocyte Count 0.87 X10^3/uL (0.83-4.51); Absolute Neutrophil Count 8.2 X10^3/uL (2.0-7.7); Basophil# 0.04 X10^3/uL; Basophil% 0.4 % (0-1); Eosinophil# 0.13 X10^3/uL; Eosinophils% 1.3 % (0-5); Hematocrit 36.9 % (40-54); Hemoglobin 13.4 g/dL (13.0-16.5); Lymphocyte # 0.87 X10^3/ul (0.83-4.51); Lymphocyte % 8.9 % (19-41); Mean Corp Hgb Conc 36.3 g/dL (32-36); Mean Corpuscular Volume 79.9 fL (80-94); Mean Platelet Vol. 12.4 fl (6.2-12.0); Monocyte# 0.55 X10^3/uL; Monocyte% 5.6 % (0-10); NRBC Flagged by Analyzer 0 % (0-5); Neutrophil % 83.6 % (47-70); Platelet Count 141 K/mm3 (150-450); RBC Distribution Width CV 13.2 % (11.6-14.6); RBC Distribution Width SD 37.7 fl (35.1-43.9); Red Blood Count 4.62 M/mm3 (4.6-6.2); White Blood Count 9.8 K/mm3 (4.4-11.0)
[2024-09-10 05:21] LABS: Bedside Glucose 100 mg/dL (74-106)
[2024-09-10 05:27] LABS: Phosphorus 3.7 mg/dL (2.7-4.5)
[2024-09-10 06:14] LABS: Magnesium 3.5 mg/dL (1.5-2.2)
[2024-09-10 06:15] LABS: Bedside Glucose 92 mg/dL (74-106)
[2024-09-10 06:55] LABS: ALB/GLOB Ratio 1.8 RATIO (0.9-2.4); AST(SGOT) 9 U/L (<=37); Alanine Aminotransfer ALT/SGPT 10 U/L (<=46); Albumin, Serum 3.5 g/dL (3.5-5.0); Alkaline Phosphatase 60 U/L (40-129); Anion Gap 22 (5-15); BUN 216 mg/dL (4-19); BUN/Creat Ratio 33.1 RATIO (10-20); Calcium,Total 8.6 mg/dL (7.6-11.0); Carbon Dioxide 17.3 mmol/L (21.0-32.0); Chloride 101 mmol/L (98-108); Creatinine, Serum 6.53 mg/dL (0.70-1.20); EST Glomerular Filtration Rate 9 (>60); Estimated Creatinine Clearance 11.81 ml/min (50-250); Glucose 90 mg/dL (70-99); Potassium 2.5 mmol/L (3.3-5.1); Protein, Total 5.5 g/dL (5.9-8.4); Sodium Level 140 mmol/L (133-145); Total Bilirubin 0.86 mg/dL (0.00-1.30)
[2024-09-10 07:06] LABS: Bedside Glucose 83 mg/dL (74-106)
[2024-09-10 08:16] LABS: Bedside Glucose 79 mg/dL (74-106)
[2024-09-10 09:18] LABS: Bedside Glucose 99 mg/dL (74-106)
[2024-09-10 10:16] LABS: Bedside Glucose 110 mg/dL (74-106)
[2024-09-10 10:20] LABS: Anion Gap 19 (5-15); BUN 204 mg/dL (4-19); Calcium,Total 8.6 mg/dL (7.6-11.0); Carbon Dioxide 18.2 mmol/L (21.0-32.0); Chloride 102 mmol/L (98-108); Creatinine, Serum 5.83 mg/dL (0.70-1.20); EST Glomerular Filtration Rate 11 (>60); Estimated Creatinine Clearance 13.22 ml/min (50-250); Glucose 108 mg/dL (70-99); Potassium 3.2 mmol/L (3.3-5.1); Sodium Level 140 mmol/L (133-145)
--- NOTE | 2024-09-10 10:45 | CASEMGMT ---
MARIEL ARIAS Assessment Face to Face with patient for initial transition planning/care coordination assessment. MARIEL ARIAS introduced self and role at [facility], pt voices understanding. Pt is A&Ox4 and is resting comfortably in bed and is calm. Pt's parents at bedside. Care providers, pharmacy, and demographics verified. Admitting dx: EWA, Concern DKA, Intractable N/V LACE Strata: 1 PCP: No PCP. A provider list has been given to the pt Specialists: Denies Preferred Pharmacy: [facility] Insurance: SP. Per chart review, Abbi has seen the pt and the pt is over income for [employer] as he works over 30 hrs/ week Prescription Benefit: Denies current. Pt educated about free services such as Good [facility]. CM to follow. LNOK: Tova and Andrew (Mother and Father) Living Arrangements: Pt lives alone in a 2 story home with 10-12 steps to enter. Pt's parents live 5 miles away ADLs/IADLs: Pt reports that he is entirely independent and denies concerns. 6-Click score is 22. Transportation: Self, parents. Denies concerns DME: Access to a cane. Per ICU rounds, there is concern for a new dx of DM. Pt states that he does not have a BGM or supplies. Pt was encouraged to get established with a PCP and/or an landscape contractor for f/u care if warranted. Pt was educated on affordable BGM and supplies through [employer] and the pt states that he would prefer to go that route if needed. Pt states that he can afford this and denies further questions or concerns at this time. HHC/SNF: Denies Pt?s goal: Home Plan: Anticipate DC home once medically ready, follow for Rx costs and new DM supplies. Pt states that he feels safe returning home alone and that he has great support through his parents that live close. Pt denies further questions, concerns, or needs at this time. Gigi Barrow RN, CM
--- NOTE | 2024-09-10 10:50 | NURSING ---
Patient off unit for EGD, report given to Endo RN, all questions and concerns answered.
[2024-09-10 11:37] LABS: Bedside Glucose 102 mg/dL (74-106)
--- NOTE | 2024-09-10 11:38 | PCM.PRE.AN2 ---
ASA Classification* ASA Classification ASA Classification: 3 (3E) Assessment & Plan Anesthesia* Anesthesia Assessment Anesthesia Assessment: Discussed sedation and/or anesthesia options, risks, benefits, and alternatives with patient/parents/legal guardian/POA. Questions invited. The patient/parents/legal guardian/POA seems to understand and agrees to proceed with anesthesia plan. Reviewed the physical assessment, medical history, allergy history and patient home medications list prior to surgery/procedure/anesthetic and documented any changes. Performed airway and anesthesia risk assessments. Procedural Plan Add'l anesthesia plan details: Patient still has an AG of 19. On an insulin GTT and being repleated potassium. Talked with GI doctor. He would still like to proceed. Will get EKG and proceed with MAC anesthetic Anesthesia Type Anesthesia Type: MAC History Source History Obtained from:: Patient and Chart Anesthesia Focused Assessment* Temperature: 97.2 F Pulse Rate: 71 Blood Pressure: 111/82 Respiratory Rate: 16 Pulse Ox: 100 Airway Assessment Mouth opens: >3 cm Mallampati Score: II Focused Labs Anesthesia Preop lab: CBC WBC 9.8 K/mm3 (4.4-11.0) 09/10/24 04:52 09/10/24 RBC 4.62 M/mm3 (4.6-6.2) 09/10/24 04:52 09/10/24 Hgb 13.4 g/dL (13.0-16.5) 09/10/24 04:52 09/10/24 Hct 36.9 % (40-54) L 09/10/24 04:52 09/10/24 Plt Count 141 K/mm3 (150-450) L 09/10/24 04:52 09/10/24 CHEMISTRY Potassium 3.2 mmol/L (3.3-5.1) L 09/10/24 09:00 09/10/24 Sodium 140 mmol/L (133-145) 09/10/24 09:00 09/10/24 Magnesium 3.5 mg/dL (1.5-2.2) H 09/10/24 04:52 09/10/24 Phosphorus 3.7 mg/dL (2.7-4.5) 09/10/24 04:52 09/10/24 BUN 204 mg/dL (4-19) H* 09/10/24 09:00 09/10/24 Creatinine 5.83 mg/dL (0.70-1.20) H 09/10/24 09:00 09/10/24 Glucose 108 mg/dL (70-99) H 09/10/24 09:00 09/10/24 POC Glucose 102 mg/dL (74-106) 09/10/24 11:03 09/10/24 COAG Pre-Assessment Diagnosis/Proposed Procedure Planned Operative Procedure(s): EGD Anesthesia History Anesthesia History - repair miller: Anesthesia History - repair miller Hx Hospitalization Any Problems With Anesthesia Cholinesterase deficiency You/Your Family Experience fever (hyperthermia) with Relationship Recent Exposure to Contagious No 09/10/24 11:06 Disease Does patient have nerve stimulator Patient instructed to have device shut off --Does patient have Pacemaker or ICD? When Was Last Pacemaker Check QUESTION #4 FULL TEXT: You/Your Family Experience fever (hyperthermia) with Anesthesia Last Oral Intake Last Oral intake: Last Oral Intake NPO since Meds taken in AM with sips of water? Meds patient instructed to take am of surgery PONV PONV - repair miller: PONV - repair miller Female HX of Motion Sickness HX of N/V After Surgery Non-Smoker Duration of Surgery greater than 60 minutes Number of Risk Factors PONV Score Height & Weight Height & Weight: Anesthesia: Height & Weight Height 5 ft 6.93 in 09/10/24 10:22 Weight: 69.4 kg 09/10/24 10:22 Body Mass Index (BMI) 24.0 09/10/24 05:33 Respiratory Assessment Respiratory Assessment - repair miller: Respiratory Tract Infection Hx - repair miller Hx Respiratory Tract Infection STOP Sleep Apnea STOP Sleep Apnea - repair miller: STOP Sleep Apnea - repair miller Hx Hypertension No 09/09/24 16:04 Hx Sleep Apnea No 09/09/24 16:04 CPAP BIPAP Do you snore loudly (louder No 09/09/24 16:04 than talking or can be heard Do you often feel tired/ No 09/09/24 16:04 fatigued/ sleepy during daytime? Has anyone observed you stop No 09/09/24 16:04 breathing during sleep? STOP Results Negative 09/09/24 16:04 QUESTION #5 FULL TEXT : Do you snore loudly (louder than talking or can be heard through closed doors)? Tobacco Use History Tobacco Use History - repair miller: Tobacco Use History - repair miller Tobacco Use Smoking Status Never smoker 09/09/24 16:04 Hx Tobacco Use No 09/09/24 16:04 Years Smoking Packs Smoked per Day Smoking Cessation Date was within the last 15 years Hx Smoking Cessation Date Hx Smoking Cessation Counseling Hematologic Medial History Hematologic Hx - repair miller: Hematologic Medical Hx - band splicer Hx of Blood Transfusion No 09/09/24 16:04 Hx of Transfusion in last 3 No 09/09/24 16:04 Months Date of Last Transfusion (if within last 3 months) Ever experience any problems No 09/09/24 16:04 with transfusion(s)? Specify any problems Hx of Preganancy in last 3 N/A 09/09/24 16:04 Months Nurse Filling Out Transfusion [email or web address] 09/09/24 16:04 & Questions: Date: 09/09/24 09/09/24 16:04 Time: 18:16 09/09/24 16:04 Patient unable to answer at this time (ie. confused, unrespo /Reproduction History /Reproductive History - repair miller: /Reproductive Hx- repair miller Hx Now Gestational Age (in weeks): EDC: Hx Hx Para Hx Section SAB Active Medications Active Medications: Current Medications Generic Name Dose Route Start Last Admin Trade Name Freq PRN Reason Stop Dose Admin Acetaminophen 650 mg 09/09/24 15:56 Acetaminophen 650 Mg Suppository RC Q4H PRN PRN Fever, pain 1-10 Acetaminophen 650 mg 09/09/24 15:56 Acetaminophen 650 Mg/20 Ml Udc PO Q4H PRN PRN fever, pain 1-10 Al Hydroxide/Mg Hydroxide 30 ml 09/09/24 15:56 Mag Hydrox/Al Hydrox/Simeth 30 Ml Udc PO Q6H PRN PRN Gastric Burning Pantoprazole Sodium 40 mg/ 110 mls @ 330 mls/hr 09/09/24 15:56 09/09/24 21:56 Sodium Chloride IV Infused Q12 FREEMAN Infusion Dextrose 250 mls @ 999 mls/hr 09/09/24 15:56 09/10/24 00:36 Dextrose 10%-Water IV Infused .Q16M PRN Infusion Hypoglycemic Protocol Protocol Potassium Chloride/Dextrose/Sod Cl 20 meq in 1,000 mls @ 150 mls/hr 09/09/24 18:10 09/10/24 10:50 IV 0 mls/hr .Q6H40M FREEMAN Infusion Ondansetron HCl 4 mg 09/09/24 15:56 09/09/24 20:42 Ondansetron 4 Mg/2 Ml Vial IV 4 mg Q8H PRN PRN Administration NAUSEA/VOMITING Senna/Docusate Sodium 2 tablet 09/09/24 15:56 Senna/Docusate Sodium 1 Tablet PO BID PRN PRN Constipation Sodium Chloride 10 - 40 ml 09/09/24 16:43 09/10/24 04:57 0.9% Saline Lock 10 Ml Syringe IV 40 ml UD PRN Administration SALINE FLUSH PFSH Medical History No significant past medical history Home Medications ?Medication ?Instructions ?Recorded ?Last Taken ?Type multivitamin (Daily Multi-Vitamin 1 tab PO DAILY 09/09/24 09/08/24 History tablet) Allergy/AdvReac Type Severity Reaction Status Date / Time No Known Allergies Allergy Verified 09/10/24 11:04 Family History Mother Hypertension Father No problems noted. Surgical History History of skin graft Social History household members: none Smoking Status: Never smoker alcohol intake: never substance use type: does not use Review of Systems (Anesthesia) ROS Narrative System reviewed and no additional complaints, except as documented. Physical Exam Const alert and oriented x3 HEENT dentition normal Resp normal respiratory effort and normal air movement Cardio regular rate and regular rhythm Neuro oriented x3 and moves all extremities
--- NOTE | 2024-09-10 11:45 | EGD_PTH ---
PATIENT: KESHAV ARMSTRONG LOC: [facility] U#:[id number] AGE/SX: 53/M ROOM: [facility] RE09/09/[address]: Dr. Jimenez Renee DO : 1970 BED: 1 DIS: 09/12/2024 SPEC #: [id number] RECD: 09/10/24 13:33 STATUS: RADHA REQ #: [id number] LUISA: 09/10/24 11:[address]: Alo Cronin DEPT: SURGICAL PATHOLOGY RECD BY: Scot Huntley ENTERED: 09/10/24 15:12 SP TYPE: EGD BIOPSY OT DR: MD Dr. Emeli hCong MD Dr. Mark Tereletsky, No Primary Care Phys Tissues: A - Esophagus, NOS Procedures: Surgery Specimen Level IV HEADER OPERATION: EGD with biopsy and dilitation PRE-OP DIAGNOSIS: Nausea/vomiting TISSUE SUBMITTED: A- Distal esophagus biopsy MICROSCOPIC DIAGNOSIS A. Esophagus, distal, biopsy: Squamous mucosa with mild reactive changes. Negative for eosinophils. MICROSCOPIC DESCRIPTION Slides are reviewed. GROSS DESCRIPTION A. Received in formalin in a container labeled with the patient's name, date of , and distal esophagus biopsy are 2 rizo-pink fragments of mucosal tissue each measuring 0.5 x 0.2 x 0.2 cm. Submitted in toto in A1. [facility] 09-10-2024 CPT:32645
--- NOTE | 2024-09-10 11:49 | EKG12_ITS ---
Test Reason : PRE OP Blood Pressure : */* mmHG Vent. Rate : 68 BPM Atrial Rate : 68 BPM P-R Int : 156 ms QRS Dur : 96 ms QT Int : 414 ms P-R-T Axes : 31 11 43 degrees QTcB Int : 440 ms Normal sinus rhythm Low voltage QRS Borderline ECG When compared with ECG of 09-Sep-2024 14:55, MANUAL COMPARISON REQUIRED DATA IS UNCONFIRMED Confirmed by MARII PINTO, CHAN ([id number]), desk editor VARUN MACK ([id number]) on 09/14/2024 9:47:35 AM Referred By: Confirmed By: CHAN COLVIN MD
--- NOTE | 2024-09-10 12:20 | PCM.PN.BLA ---
Progress Note Patient has been n.p.o. for upper endoscopy today to see why he cannot eat. Physical Exam Const alert, oriented x3, no apparent distress and healthy appearing General Appearance: cooperative GI normal to inspection, nondistended, normoactive bowel sounds, soft to palpation, non-tender and non-distended Percussion: normal to percussion Rectal Exam: deferred Assessment & Plan Assessment/Plan (1) Acute renal failure: PLAN: Plan 53 y/o M w/ no prior notable PMHx who presents to [facility] ED on 09/09/2024 with history of significant persistent nausea with poor oral intake as well as abdominal bloating and distention with significant weight loss for last 6 to 7 months Persistent nausea, poor intake, abdominal distention with incidentally noted dilated distal esophagus. Patient will undergo an upper endoscopy to evaluate upper GI tract. He was explained alternatives, risk and benefits including missed any bleeding, infection, sepsis, perforation, need for more surgery . He will have an ASA of 3. Visit Charges Inpatient E&M: 94358 Subs Hosp L3
--- NOTE | 2024-09-10 12:56 | OP.EGD_ITS ---
Patient Name: Thai Stringer Procedure Date: 09/10/2024 12:22 PM Date of : 1970 Age: 53 Procedure: Upper GI endoscopy Indications: Dysphagia Providers: Alo Cronin DO Medicines: Monitored Anesthesia Care Patient Profile: This is a 53 year old male. Refer to note in patient chart for documentation of history and physical. Patient has symptoms of dysphagia with both liquids and solids. The symptoms first began within the past few months. Complications: No immediate complications. Procedure: Pre-Anesthesia Assessment: - Prior to the procedure, a History and Physical was performed, and patient medications and allergies were reviewed. The patient is competent. The risks and benefits of the procedure and the sedation options and risks were discussed with the patient. All questions were answered and informed consent was obtained. Patient identification and proposed procedure were verified by the physician in the pre-procedure area. Mental Status Examination: alert and oriented. Airway Examination: normal oropharyngeal airway and neck mobility. Respiratory Examination: clear to auscultation. CV Examination: normal. Prophylactic Antibiotics: The patient does not require prophylactic antibiotics. Prior Anticoagulants: The patient has taken no anticoagulant or antiplatelet agents. ASA Grade Assessment: II - A patient with mild systemic disease. After reviewing the risks and benefits, the patient was deemed in satisfactory condition to undergo the procedure. The anesthesia plan was to use monitored anesthesia care (MAC). Immediately prior to administration of medications, the patient was re-assessed for adequacy to receive sedatives. The heart rate, respiratory rate, oxygen saturations, blood pressure, adequacy of pulmonary ventilation, and response to care were monitored throughout the procedure. The physical status of the patient was re-assessed after the procedure. After obtaining informed consent, the endoscope was passed under direct vision. Throughout the procedure, the patient's blood pressure, pulse, and oxygen saturations were monitored continuously. The Endoscope was introduced through the mouth, and advanced to the second part of duodenum. The upper GI endoscopy was accomplished without difficulty. The patient tolerated the procedure well. Scope In: 12:36:52 PM Scope Out: 12:44:17 PM Total Procedure Duration Time 0 hours 7 minutes 25 seconds Findings: Abnormal motility was noted in the lower third of the esophagus. The cricopharyngeus was normal. There is a decrease in motility of the esophageal body. The distal esophagus/lower esophageal sphincter is spastic, but gives up passage to the endoscope. Primary peristaltic waves are noted. Biopsies were taken with a cold forceps for histology. Verification of patient identification for the specimen was done. A guidewire was placed and the scope was withdrawn. Dilation was performed with a Savary dilator with no resistance at 51 Fr. The dilation site was examined and showed mild mucosal disruption. Estimated blood loss was minimal. No gross lesions were noted in the entire examined stomach. No gross lesions were noted in the first portion of the duodenum. Impression: - Abnormal esophageal motility, consistent with achalasia. Biopsied. Dilated. - No gross lesions in the entire stomach. - No gross lesions in the first portion of the duodenum. Recommendation: - Discharge patient to home. - Resume previous diet. - Continue present medications. - Await pathology results. Procedure Code(s): --- Professional --- 59996, Esophagogastroduodenoscopy, flexible, transoral; with insertion of guide wire followed by passage of dilator(s) through esophagus over guide wire 17855, 59,51, Esophagogastroduodenoscopy, flexible, transoral; with biopsy, single or multiple CPT copyright 2021 [employer]. All rights reserved. The codes documented in this report are preliminary and upon information coder review may be revised to meet current compliance requirements. Alo Cronin DO 09/10/2024 12:55:52 PM This report has been signed electronically. Number of Addenda: 0 Note Initiated On: 09/10/2024 12:22 PM
--- NOTE | 2024-09-10 12:56 | OP.CCLET_ITS ---
09/10/2024 No Primary Care Physician Re : Upper GI endoscopy procedure for Thai Stringer Dear Care Physician This procedure was performed on August. My impressions and recommendations are as follows: Impressions : - Abnormal esophageal motility, consistent with achalasia. Biopsied. Dilated. - No gross lesions in the entire stomach. - No gross lesions in the first portion of the duodenum. Recommendations : - Discharge patient to home. - Resume previous diet. - Continue present medications. - Await pathology results. My findings are described in the full procedure note, which is enclosed. If I can be of further assistance, please feel free to contact me at . Sincerely, Alo Cronin, 09/10/2024 12:55:52 PM This report has been signed electronically.
--- NOTE | 2024-09-10 12:59 | PCM.POST.ANE ---
Anesthesia: Postop Eval I Current Vital Signs Temperature: 98.2 F Pulse Rate: 89 Blood Pressure: 104/70 Respiratory Rate: 16 Pulse Ox: 97 Oxygen Delivery Method: Room Air Assessment Airway patent: Yes Spontaneous unlabored respirations: Yes Mental status: Awake and Calm nausea: No Vomiting: No Anesthesia Complication: No Fluid Hydration Crystalloid volume administer (ml): 50 Total IV fluid infused: 50 Progress Note Anesthesia document: Postop Eval 1 completed: Yes
[2024-09-10] MEDS: Pantoprazole Sodium 40 MG in 0.9% Normal Saline (100mL MB+) 100 ML 330 MG IV (13:55)
--- NOTE | 2024-09-10 14:35 | PCM.POSTANE2 ---
Anesthesia Postop Eval I Sum Postop Eval Completion status Anesthesia document: Postop Eval 1 completed: Yes Anesthesia Postop Eval I Summary Anesthesia Postop Eval I Summary: Anesthesia Postop Eval I: Assessment Summary Airway patent Yes 09/10/24 13:00 [email or web address] Spontaneous unlabored Yes 09/10/24 13:00 [email or web address] respirations Mental status Awake,Calm 09/10/24 13:00 [email or web address] nausea No 09/10/24 13:00 [email or web address] Vomiting No 09/10/24 13:00 [email or web address] Anesthesia Postop Eval I: Fluid Summary Crystalloid volume administer 50 09/10/24 13:00 [email or web address] (ml) Colloids volume administered ( ml) Blood Product volume administered (ml) Total IV fluid infused 50 09/10/24 13:00 [email or web address] Anesthesia Postop Eval I: Summary Notes Anesthesia Complication No 09/10/24 13:00 [email or web address] Anesthesia Complication Comment: Post-operative progress note Anesthesia: Postop Eval II Evaluation Mental status: Awake Pain Level: 0 nausea: No Vomiting: No Complications Anesthesia Complication: No
--- NOTE | 2024-09-10 14:46 | CON.PCM.RE_ITS ---
Assessment & Plan Assessment/Plan (1) Acute renal failure: (2) Acute hypokalemia: PLAN: Plan This is a pleasant 53-year-old male with no known past medical history presented to the emergency room with complaints of unintentional weight loss, extreme lethargy, lab work demonstrated creatinine 10.70, BUN to 48, hemoglobin 18.7, lactic acid 2.0, carbon dioxide 16, potassium 2.4. Patient was initially treated with aggressive IV fluid resuscitation, today creatinine improved to 5.83. Patient is nonoliguric. Potassium was low on admission, and is slowly improving. Renal ultrasound did not show any hydronephrosis, CT nondistended bladder, normal kidneys. Possible EWA from extreme volume depletion. With IV fluids kidney function improving. Can keep on current IV fluids for another day. Blood pressures acceptable. UA was of benign. No acute indication for renal placement therapy. Baseline creatinine unknown. Will follow serum creatinine trajectory. Patient was not taking any NSAIDs. Patient is off insulin drip. Hemoglobin A1c 6.5%. Lab work ordered for the morning. Further orders forthcoming as hospitalization evolves, thank you for allowing us participate in the care of Mr. Stringer. Nephrology plan reviewed with Dr. Renee. HPI Consult Data Date of Consult: 09/10/24 HPI Narrative HPI Narrative: KESHAV STRINGER, is a 53 M with no known past medical history, does not follow with PCP who presented to the emergency room yesterday with complaints of extreme lethargy, intractable nausea and vomiting, unable to take adequate oral intake and weight loss around 50 pounds over the last 4 to 6 months. Workup in the ER creatinine 10.7, BUN to 48, potassium 2.4, bicarb 16, lactic acid 2.0, white count 11.7. Patient had CT abdomen and pelvis did not show distended bladder, kidneys unremarkable, distal esophagus dilated 5 cm. Patient was admitted to ICU, concern for possible DKA and was started on insulin drip also started on IV PPI. Nephrology consulted in view of elevated creatinine. Patient denies any NSAIDs. Does not take any medications. Denies hematuria. Denies arthralgias. Denies rash. [facility] Medical History No significant past medical history Home Medications ?Medication ?Instructions ?Recorded ?Last Taken ?Type multivitamin (Daily Multi-Vitamin 1 tab PO DAILY 09/0909/08/24 History tablet) Allergy/AdvReac Type Severity Reaction Status Date / Time No Known Allergies Allergy Verified 09/10/24 11:04 Family History Mother Hypertension Father No problems noted. Surgical History History of skin graft Social History household members: none Smoking Status: Never smoker alcohol intake: never substance use type: does not use ROS ROS Narrative As in HPI Physical Exam Narrative Alert and oriented x 3, no apparent distress S1, S2, RRR Lungs sound clear Abdomen soft, nontender No edema Lab / Micro Data 09/10/24 04:52 09/10/24 09:00 Labs: Laboratory Results - last 24 hr 09/09/24 12:15: Hemoglobin A1c 6.5 H, Phosphorus 9.6 H*, Magnesium 4.8 H 09/09/24 14:40: Serum Osmolality 406 H 09/09/24 16:08: POC Glucose 130 H 09/09/24 16:20: Sodium 138, Potassium 2.5 L*, Chloride 89 L, Carbon Dioxide 16.8 L, Anion Gap 33 H, BUN 243 H*, Creatinine 9.67 H*, Estim Creat Clear Calc 8.23 L*, Est GFR (MDRD) Non-Af 6 L, BUN/Creatinine Ratio 25.1 H, Glucose 82, Calcium 9.6 09/09/24 17:00: Urine Color Yellow, Urine Clarity Sl. Cloudy, Urine pH 6.0, Ur Specific [place] 1.020, Urine Protein 30 H, Urine Glucose (UA) Normal, Urine Ketones Negative, Urine Occult Blood 25 H, Urine Nitrite Negative, Urine Bilirubin 1 H, Urine Urobilinogen Normal, Ur Leukocyte Esterase Negative, Urine RBC 0-5 SEEN, Urine WBC 0-5 SEEN, Ur Squamous Epith Cells 0-5 SEEN, Amorphous Sediment 1+, Urine Bacteria 0 SEEN, Urine Mucus 0 SEEN, Ur Random Sodium < 20, U rine Creatinine 284.00 H 09/09/24 17:11: POC Glucose 54 L 09/09/24 17:40: Lactic Acid 1.6 09/09/24 17:42: POC Glucose 181 H 09/09/24 18:28: POC Glucose 149 H 09/09/24 19:40: POC Glucose 132 H 09/09/24 20:33: Sodium 139, Potassium 2.5 L*, Chloride 98, Carbon Dioxide 17.4 L , Anion Gap 24 H, BUN 230 H*, Creatinine 8.06 H*, Estim Creat Clear Calc 9.56 L* , Est GFR (MDRD) Non-Af 7 L, BUN/Creatinine Ratio 28.5 H, Glucose 105 H, Calcium 8.5 09/09/24 20:34: POC Glucose 103 09/09/24 21:32: POC Glucose 80 09/09/24 22:38: POC Glucose 77 09/10/24 00:15: POC Glucose 59 L 09/10/24 00:58: Sodium 137, Potassium 2.5 L*, Chloride 98, Carbon Dioxide 17.4 L , Anion Gap 21 H, BUN 219 H*, Creatinine 7.18 H, Estim Creat Clear Calc 10.74 L, Est GFR (MDRD) Non-Af 8 L, BUN/Creatinine Ratio 30.5 H, Glucose 176 H, Calcium 8.2, POC Glucose 163 H 09/10/24 01:49: POC Glucose 132 H 09/10/24 02:58: POC Glucose 137 H 09/10/24 03:56: POC Glucose 169 H 09/10/24 04:52: WBC 9.8, RBC 4.62, Hgb 13.4, Hct 36.9 L, MCV 79.9 L, MCH 29.0, M CHC 36.3 H, RDW Std Deviation 37.7, RDW Coeff of Keerthi 13.2, Plt Count 141 L, MPV 12.4 H, Immature Gran % (Auto) 0.200, Neut % (Auto) 83.6 H, Lymph % (Auto) 8.9 L , [place] % (Auto) 5.6, Eos % (Auto) 1.3, Baso % (Auto) 0.4, Absolute Neuts (auto) 8.2 H, Absolute Lymphs (auto) 0.87, Nucleated RBC % 0, Sodium 140, Potassium 2.5 L*, Chloride 101, Carbon Dioxide 17.3 L, Anion Gap 22 H, BUN 216 H*, Creatinine 6.53 H, Estim Creat Clear Calc 11.81 L, Est GFR (MDRD) Non-Af 9 L, B UN/Creatinine Ratio 33.1 H, Glucose 90, Calcium 8.6, Phosphorus 3.7, Magnesium 3.5 H, Total Bilirubin 0.86, AST 9, ALT 10, Alkaline Phosphatase 60, Total Protein 5.5 L, Albumin 3.5, Globulin 2.0 L, Albumin/Globulin Ratio 1.8 09/10/24 04:59: POC Glucose 100 09/10/24 05:57: POC Glucose 92 09/10/24 06:48: POC Glucose 83 09/10/24 07:46: POC Glucose 79 09/10/24 08:53: POC Glucose 99 09/10/24 09:00: Sodium 140, Potassium 3.2 L, Chloride 102, Carbon Dioxide 18.2 L , Anion Gap 19 H, BUN 204 H*, Creatinine 5.83 H, Estim Creat Clear Calc 13.22 L, Est GFR (MDRD) Non-Af 11 L, BUN/Creatinine Ratio 35.0 H, Glucose 108 H, Calcium 8.6 09/10/24 09:57: POC Glucose 110 H 09/10/24 11:03: POC Glucose 102 Micro: Microbiology 09/09/24 16:20 Nasal Secretion MRSA (PCR) - Final ABG Data ABG results: ABG 09/09/24 16:24 Specimen Type ART Sample Site R Radial pH 7.51 H Bicarbonate Actual 17.9 L Total CO2 19 Base Excess -5 L O2 Saturation 99 O2 % 21.0 ABG pCO2 22.3 L ABG pO2 113 H [place] Test Positive O2 Delivery Device Not entered Vent Mode Not entered Imaging Radiology Impression Renal Ultrasound 09/09/24 14:51 IMPRESSION: Bladder wall thickening which may be due to the decompressed state of the bladder or due to cystitis. Reading Location: [id number]
--- NOTE | 2024-09-10 15:50 | CASEMGMT ---
Social Work Pt admitted with no health insurance. Pt has been seen by Abbi from [facility] and does not qualify for Medicaid. VIPUL met with pt and pt's parents. Pt inquiring about how to obtain insurance. Pt is employed and works 30+ hours a week. VIPUL encouraged pt to call HR department at his employer to discuss insurance coverage options through his employer. VIPUL also provided pt and parent with verbal and written information on the [place] [employer]. VIPUL provided information on [facility] and encouraged pt to make an appointment with the Tire Service Supervisor there and with a PCP. CM at [facility] can assist with applying for insurance. Pt and parents receptive to following up with and [facility] for PCP and Case Management. MERCEDES Chan
[2024-09-10] MEDS: Ensure Plus High Protein 120 ML LIQUID PO ×2 (17:26→20:37)
--- NOTE | 2024-09-10 17:42 | PN.HOSP_ITS ---
Reason for Visit Reason for Visit: Diagnoses Acute kidney failure, unspecified (09/09/24) Subjective Subjective Patient was seen and examined today, I took him off the insulin drip today-he has no evidence of diabetes. I talked with nephrology and they feel that the patient had acidosis due to renal failure. Patient underwent an EGD today due to weight loss and difficulty swallowing, there was noted to be abnormal esophageal motility consistent with achalasia, the esophagus was dilated, there was no evidence of any esophagitis or gastritis/duodenitis. Patient remains on IV fluids at this time. Patient's BUN today was 204 and creatinine was 5.83, potassium was 3.2. Objective Data Objective Data Vital Signs: Vital Signs Temp Pulse Resp BP Pulse Ox O2 Del Method 96.6 F L 89 16 130/91 H 100 Room Air 09/10/24 14:00 09/10/24 16:58 09/10/24 16:58 09/10/24 16:58 09/10/24 16:58 09/10/24 16:59 Oxygen Delivery Method Room Air Weight: 69.4 kg Body Mass Index (BMI) 24.0 Intake & Output: Intake and Output for Last 24 Hours 09/08/24 09/09/24 09/10/24 23:59 23:59 23:59 Intake Total 3542.09 / 3542.09 3600.79 / 3600.79 Output Total 200 / 200 1500 / 1500 Balance 3342.09 / 3342.09 2100.79 / 2100.79 Medical Nutrition Assessment Dietitian: Malnutrition Criteria Met Start: 09/10/24 15:49 Freq: Status: Active Protocol: Document 09/10/24 15:49 (Rec: 09/10/24 15:49 [id number]) Nutrition Malnutrition Evidence of Yes Malnutrition Exists Malnutrition (severe Chronic ): Clinical Problem Chronic Disease or Condition Related Malnutrition Etiology chronic related to swallowing difficulties Signs/Symptoms as evidenced by PO intakes meeting <75% of estimated nutrition needs for 1 year, 42lbs (21.5%) unintentional weight loss in 1 year and moderate fat/muscle loss to orbital and temporal regions Status Active Problem Recommendation Dietitian Advance diet as tolerated to CCD/Renal Low Protein diet Recommendations/ to manage medical conditions. Changes Will order 120mL ensure plus high protein 4x daily with medpass to provide supplemental energy and promote weight maintenance/gain. Lab / Micro Data 09/10/24 04:52 09/10/24 09:00 Labs: Laboratory Results - last 24 hr 09/09/24 17:00: Urine RBC 0-5 SEEN, Urine WBC 0-5 SEEN, Ur Squamous Epith Cells 0-5 SEEN, Amorphous Sediment 1+, Urine Bacteria 0 SEEN, Urine Mucus 0 SEEN, Ur Random Sodium < 20, Urine Creatinine 284.00 H 09/09/24 17:40: Lactic Acid 1.6 09/09/24 17:42: POC Glucose 181 H 09/09/24 18:28: POC Glucose 149 H 09/09/24 19:40: POC Glucose 132 H 09/09/24 20:33: Sodium 139, Potassium 2.5 L*, Chloride 98, Carbon Dioxide 17.4 L , Anion Gap 24 H, BUN 230 H*, Creatinine 8.06 H*, Estim Creat Clear Calc 9.56 L* , Est GFR (MDRD) Non-Af 7 L, BUN/Creatinine Ratio 28.5 H, Glucose 105 H, Calcium 8.5 09/09/24 20:34: POC Glucose 103 09/09/24 21:32: POC Glucose 80 09/09/24 22:38: POC Glucose 77 09/10/24 00:15: POC Glucose 59 L 09/10/24 00:58: Sodium 137, Potassium 2.5 L*, Chloride 98, Carbon Dioxide 17.4 L , Anion Gap 21 H, BUN 219 H*, Creatinine 7.18 H, Estim Creat Clear Calc 10.74 L, Est GFR (MDRD) Non-Af 8 L, BUN/Creatinine Ratio 30.5 H, Glucose 176 H, Calcium 8.2, POC Glucose 163 H 09/10/24 01:49: POC Glucose 132 H 09/10/24 02:58: POC Glucose 137 H 09/10/24 03:56: POC Glucose 169 H 09/10/24 04:52: WBC 9.8, RBC 4.62, Hgb 13.4, Hct 36.9 L, MCV 79.9 L, MCH 29.0, M CHC 36.3 H, RDW Std Deviation 37.7, RDW Coeff of Keerthi 13.2, Plt Count 141 L, MPV 12.4 H, Immature Gran % (Auto) 0.200, Neut % (Auto) 83.6 H, Lymph % (Auto) 8.9 L , [place] % (Auto) 5.6, Eos % (Auto) 1.3, Baso % (Auto) 0.4, Absolute Neuts (auto) 8.2 H, Absolute Lymphs (auto) 0.87, Nucleated RBC % 0, Sodium 140, Potassium 2.5 L*, Chloride 101, Carbon Dioxide 17.3 L, Anion Gap 22 H, BUN 216 H*, Creatinine 6.53 H, Estim Creat Clear Calc 11.81 L, Est GFR (MDRD) Non-Af 9 L, B UN/Creatinine Ratio 33.1 H, Glucose 90, Calcium 8.6, Phosphorus 3.7, Magnesium 3.5 H, Total Bilirubin 0.86, AST 9, ALT 10, Alkaline Phosphatase 60, Total Protein 5.5 L, Albumin 3.5, Globulin 2.0 L, Albumin/Globulin Ratio 1.8 09/10/24 04:59: POC Glucose 100 09/10/24 05:57: POC Glucose 92 09/10/24 06:48: POC Glucose 83 09/10/24 07:46: POC Glucose 79 09/10/24 08:53: POC Glucose 99 09/10/24 09:00: Sodium 140, Potassium 3.2 L, Chloride 102, Carbon Dioxide 18.2 L , Anion Gap 19 H, BUN 204 H*, Creatinine 5.83 H, Estim Creat Clear Calc 13.22 L, Est GFR (MDRD) Non-Af 11 L, BUN/Creatinine Ratio 35.0 H, Glucose 108 H, Calcium 8.6 09/10/24 09:57: POC Glucose 110 H 09/10/24 11:03: POC Glucose 102 Micro: Microbiology 09/09/24 16:20 Nasal Secretion MRSA (PCR) - Final Radiography Diagnostic Testing: Radiology Impression Renal Ultrasound 09/09/24 14:51 IMPRESSION: Bladder wall thickening which may be due to the decompressed state of the bladder or due to cystitis. Reading Location: [facility] Physical Exam Const alert, oriented x3, no apparent distress, average body habitus and healthy appearing General Appearance: cooperative, well kempt and well developed Orientation / Consciousness: awake, oriented to person, oriented to place and oriented to time HEENT normocephalic, head/scalp atraumatic and moist oral mucous membranes Eyes PERRL, EOMs intact bilaterally and conjunctivae normal Neck supple, no JVD, thyroid normal and no carotid bruits General: trachea midline Resp normal respiratory effort, no retractions, no use of accessory muscles and clear to auscultation bilaterally Auscultation: Negative for rales, rhonchi or wheezes Cardio regular rate, regular rhythm, S1 normal heart sound, S2 normal heart sound, no murmurs, no rub and no gallops GI normal to inspection, nondistended, normoactive bowel sounds, soft to palpation, non-tender and non-distended Extremity no clubbing, cyanosis or edema Skin no rashes or lesions noted General Skin Exam: no breakdown Neuro oriented x3, CN's II-XII intact bilaterally, moves all extremities, no focal motor deficits and no sensory deficits noted Sensorium / Orientation: awake and alert Speech: speech normal Psych affect normal Assessment & Plan Assessment/Plan (1) Acute renal failure: PLAN: Plan 1. Acute renal failure-probably secondary to dehydration, patient's BUN and creatinine are improving on IV fluids, nephrology is participating in his care. #2 anion gap acidosis-secondary to renal failure, BMP will be rechecked tomorrow morning #3 achalasia-patient's esophagus was dilated today #4 severe weight loss secondary to achalasia-nutritional services is seeing the patient #5 hypokalemia-BMP will be monitored, potassium level is improved at this time Total clinical time spent by myself addressing the patient's medical issues, reviewing all of his data, and collaborating with patient's care team: 35 minutes Charges/Coding Visit Charges Inpatient E&M: 90656 Subs Hosp L2
[2024-09-10] MEDS: Pantoprazole Sodium 40 MG Tablet PO (20:36)
[2024-09-11] VITALS: BP 106/72; PULSE 75; RESP 12; TEMP 36.6; O2SAT 92
[2024-09-11] MEDS: KCL 20MEQ in D5.45NS 20 MEQ/1,000 ML IV.SOLN. 150 MEQ IV ×4 (01:15→22:32)
[2024-09-11 04:00] VITALS: BP 116/85; PULSE 67; RESP 16; TEMP 36.8; O2SAT 99
[2024-09-11 04:34] VITALS: BMI 25.0
[2024-09-11 05:22] LABS: Phosphorus 2.7 mg/dL (2.7-4.5)
[2024-09-11 05:29] VITALS: BP 114/85; PULSE 73; RESP 18; TEMP 36.4; O2SAT 98
[2024-09-11 05:48] LABS: Albumin, Serum 3.3 g/dL (3.5-5.0); Anion Gap 14 (5-15); BUN 156 mg/dL (4-19); BUN/Creat Ratio 52.7 RATIO (10-20); Calcium,Total 8.6 mg/dL (7.6-11.0); Carbon Dioxide 19.6 mmol/L (21.0-32.0); Chloride 110 mmol/L (98-108); Creatinine, Serum 2.96 mg/dL (0.70-1.20); EST Glomerular Filtration Rate 24 (>60); Estimated Creatinine Clearance 26.04 ml/min (50-250); Glucose 153 mg/dL (70-99); Potassium 3.3 mmol/L (3.3-5.1); Sodium Level 144 mmol/L (133-145)
[2024-09-11 08:55] VITALS: BP 117/79; PULSE 73; RESP 16; TEMP 36.4; O2SAT 100
[2024-09-11] MEDS: Pantoprazole Sodium 40 MG Tablet PO ×2 (09:00→20:24)
[2024-09-11] MEDS: Ensure Plus High Protein 120 ML LIQUID PO ×3 (09:01→17:44)
[2024-09-11 15:08] VITALS: BP 104/89; PULSE 83; RESP 16; TEMP 36.8; O2SAT 98
--- NOTE | 2024-09-11 16:07 | PN.RENAL_ITS ---
Subjective Subjective no new complaints Objective Data Objective Data Vital Signs: Vital Signs Temp Pulse Resp BP Pulse Ox O2 Del Method 98.2 F 83 16 104/89 H 98 Room Air 09/11/24 15:08 09/11/24 15:08 09/11/24 15:08 09/11/24 15:08 09/11/24 15:08 09/11/24 15:08 Oxygen Delivery Method Room Air Weight: 72.5 kg Body Mass Index (BMI) 25.0 Intake & Output: Intake and Output for Last 24 Hours 09/09/24 09/10/24 09/11/24 23:59 23:59 23:59 Intake Total 3542.09 / 3542.09 4553.29 / 4553.29 3300 / 3300 Output Total 200 / 200 2300 / 3500 2900 / 2900 Balance 3342.09 / 3342.09 2253.29 / 1053.29 400 / 400 Medical Nutrition Assessment Dietitian: Malnutrition Criteria Met Start: 09/10/24 15:49 Freq: Status: Active Protocol: Document 09/10/24 15:49 LO (Rec: 09/10/24 15:49 [id number]) Nutrition Malnutrition Evidence of Yes Malnutrition Exists Malnutrition (severe Chronic ): Clinical Problem Chronic Disease or Condition Related Malnutrition Etiology chronic related to swallowing difficulties Signs/Symptoms as evidenced by PO intakes meeting <75% of estimated nutrition needs for 1 year, 42lbs (21.5%) unintentional weight loss in 1 year and moderate fat/muscle loss to orbital and temporal regions Status Active Problem Recommendation Dietitian Advance diet as tolerated to CCD/Renal Low Protein diet Recommendations/ to manage medical conditions. Changes Will order 120mL ensure plus high protein 4x daily with medpass to provide supplemental energy and promote weight maintenance/gain. Lab / Micro Data 09/10/24 04:52 09/11/24 04:35 Labs: Laboratory Results - last 24 hr 09/11/24 04:35: Sodium 144, Potassium 3.3, Chloride 110 H, Carbon Dioxide 19.6 L , Anion Gap 14, BUN 156 H*, Creatinine 2.96 H, Estim Creat Clear Calc 26.04 L, E st GFR (MDRD) Non-Af 24 L, BUN/Creatinine Ratio 52.7 H, Glucose 153 H, Calcium 8.6, Phosphorus 2.7, Albumin 3.3 L Micro: Microbiology 09/09/24 16:20 Nasal Secretion MRSA (PCR) - Final Physical Exam Narrative Alert and oriented x 3, no apparent distress S1, S2, RRR Lungs sound clear Abdomen soft, nontender No edema Assessment & Plan Assessment/Plan (1) Acute renal failure: (2) Acute hypokalemia: PLAN: Plan This is a pleasant 53-year-old male with no known past medical history presented to the emergency room with complaints of unintentional weight loss, extreme lethargy, lab work demonstrated creatinine 10.70, BUN 248, hemoglobin 18.7, lactic acid 2.0, carbon dioxide 16, potassium 2.4. Patient was initially treated with aggressive IV fluid resuscitation. Renal ultrasound did not show any hydronephrosis, CT nondistended bladder, normal kidneys. Possible EWA from extreme volume depletion. With IV fluids kidney function improving. he is now able to swallow without issues cr is better
--- NOTE | 2024-09-11 17:28 | PCM.PN.BLA ---
Progress Note Patient did tolerate liquids and would like to advance his diet. Physical Exam Const alert, oriented x3, no apparent distress, average body habitus and healthy appearing General Appearance: cooperative, well kempt and well developed Orientation / Consciousness: awake, oriented to person, oriented to place and oriented to time HEENT normocephalic, head/scalp atraumatic and moist oral mucous membranes Eyes PERRL, EOMs intact bilaterally and conjunctivae normal Neck supple, no JVD, thyroid normal and no carotid bruits General: trachea midline Resp normal respiratory effort, no retractions, no use of accessory muscles and clear to auscultation bilaterally Auscultation: Negative for rales, rhonchi or wheezes Cardio regular rate, regular rhythm, S1 normal heart sound, S2 normal heart sound, no murmurs, no rub and no gallops GI normal to inspection, nondistended, normoactive bowel sounds, soft to palpation, non-tender and non-distended Extremity no clubbing, cyanosis or edema Skin no rashes or lesions noted General Skin Exam: no breakdown Neuro oriented x3, CN's II-XII intact bilaterally, moves all extremities, no focal motor deficits and no sensory deficits noted Sensorium / Orientation: awake and alert Speech: speech normal Psych affect normal Assessment & Plan Assessment/Plan (1) Acute renal failure: (2) Acute hypokalemia: (3) Abnormal weight loss: (4) Dysphagia: PLAN: Esophageal dysphagia secondary to type I or type II achalasia. He is status post only mild dilation endoscopically. He will have to come back as an outpatient for further dilation and manometry studies to see what type of motility he has and whether he should get a myotomy with Monica fundoplication versus dilation by serial exams and Botox therapy. PLAN: Plan This is a pleasant 53-year-old male with no known past medical history presented to the emergency room with complaints of unintentional weight loss, extreme lethargy, lab work demonstrated creatinine 10.70, BUN 248, hemoglobin 18.7, lactic acid 2.0, carbon dioxide 16, potassium 2.4. Patient was initially treated with aggressive IV fluid resuscitation. Renal ultrasound did not show any hydronephrosis, CT nondistended bladder, normal kidneys. cr is better Visit Charges Inpatient E&M: 79143 Subs Hosp L3
--- NOTE | 2024-09-11 19:30 | PN.HOSP_ITS ---
Reason for Visit Reason for Visit: Diagnoses Hypokalemia (09/09/24) Acute kidney failure, unspecified (09/09/24) Dysphagia, unspecified (09/09/24) Abnormal weight loss (09/09/24) Subjective Subjective Patient was seen and examined today, his creatinine is improved-his creatinine was 2.96 and BUN was 156 today. Patient has no complaints to this examiner. BMP will be repeated in the morning. Objective Data Objective Data Vital Signs: Vital Signs Temp Pulse Resp BP Pulse Ox O2 Del Method 98.2 F 83 16 104/89 H 98 Room Air 09/11/24 15:08 09/11/24 15:08 09/11/24 15:08 09/11/24 15:08 09/11/24 15:08 09/11/24 15:08 Oxygen Delivery Method Room Air Weight: 72.5 kg Body Mass Index (BMI) 25.0 Intake & Output: Intake and Output for Last 24 Hours 09/09/24 09/10/24 09/11/24 23:59 23:59 23:59 Intake Total 3542.09 / 3542.09 4553.29 / 4553.29 3800 / 3800 Output Total 200 / 200 2300 / 3500 3550 / 3550 Balance 3342.09 / 3342.09 2253.29 / 1053.29 250 / 250 Medical Nutrition Assessment Dietitian: Malnutrition Criteria Met Start: 09/10/24 15:49 Freq: Status: Active Protocol: Document 09/10/24 15:49 LO (Rec: 09/10/24 15:49 LO [id number]) Nutrition Malnutrition Evidence of Yes Malnutrition Exists Malnutrition (severe Chronic ): Clinical Problem Chronic Disease or Condition Related Malnutrition Etiology chronic related to swallowing difficulties Signs/Symptoms as evidenced by PO intakes meeting <75% of estimated nutrition needs for 1 year, 42lbs (21.5%) unintentional weight loss in 1 year and moderate fat/muscle loss to orbital and temporal regions Status Active Problem Recommendation Dietitian Advance diet as tolerated to CCD/Renal Low Protein diet Recommendations/ to manage medical conditions. Changes Will order 120mL ensure plus high protein 4x daily with medpass to provide supplemental energy and promote weight maintenance/gain. Lab / Micro Data 09/10/24 04:52 09/12/24 05:18 Labs: Laboratory Results - last 24 hr 09/11/24 04:35: Sodium 144, Potassium 3.3, Chloride 110 H, Carbon Dioxide 19.6 L , Anion Gap 14, BUN 156 H*, Creatinine 2.96 H, Estim Creat Clear Calc 26.04 L, E st GFR (MDRD) Non-Af 24 L, BUN/Creatinine Ratio 52.7 H, Glucose 153 H, Calcium 8.6, Phosphorus 2.7, Albumin 3.3 L Micro: Microbiology 09/09/24 16:20 Nasal Secretion MRSA (PCR) - Final Physical Exam Narrative alert, oriented x3, no apparent distress, average body habitus and healthy appearing General Appearance: cooperative, well kempt and well developed Orientation / Consciousness: awake, oriented to person, oriented to place and oriented to time HEENT normocephalic, head/scalp atraumatic and moist oral mucous membranes Eyes PERRL, EOMs intact bilaterally and conjunctivae normal Neck supple, no JVD, thyroid normal and no carotid bruits General: trachea midline Resp normal respiratory effort, no retractions, no use of accessory muscles and clear to auscultation bilaterally Auscultation: Negative for rales, rhonchi or wheezes Cardio regular rate, regular rhythm, S1 normal heart sound, S2 normal heart sound, no murmurs, no rub and no gallops GI normal to inspection, nondistended, normoactive bowel sounds, soft to palpation, non-tender and non-distended Extremity no clubbing, cyanosis or edema Skin no rashes or lesions noted General Skin Exam: no breakdown Neuro oriented x3, CN's II-XII intact bilaterally, moves all extremities, no focal motor deficits and no sensory deficits noted Sensorium / Orientation: awake and alert Speech: speech normal Psych affect normal Assessment & Plan Assessment/Plan (1) Acute renal failure: PLAN: Plan 1. Acute renal failure-probably secondary to dehydration, patient's BUN and creatinine are improving on IV fluids, nephrology is participating in his care. #2 anion gap acidosis-secondary to renal failure, BMP will be rechecked tomorrow morning #3 achalasia-patient's esophagus was dilated today #4 severe weight loss secondary to achalasia-nutritional services is seeing the patient #5 hypokalemia-BMP will be monitored, potassium level is improved at this time #6 chronic moderate protein caloric malnutrition-as evidenced by p.o. intake meeting less than 75% of estimated nutritional needs for 1 year, 42 pound unintentional weight loss in 1 year and moderate fat and muscle loss to orbital and temporal regions-advance diet as tolerated to CCD/renal low-protein diet to manage medical conditions, nutritional services ordered 120 cc Ensure Plus high- protein 4 times a day with med Pass, nutritional services will follow Total clinical time spent by myself addressing the patient's medical issues, reviewing all of his data, and collaborating with patient's care team: 35 minutes Charges/Coding Visit Charges Inpatient E&M: 40524 Subs Hosp L2
[2024-09-11 20:21] VITALS: BP 121/82; PULSE 82; RESP 16; TEMP 35.9; O2SAT 97
[2024-09-12 02:30] VITALS: BP 114/85; PULSE 87; RESP 18; TEMP 35.9; O2SAT 98
[2024-09-12 05:10] VITALS: BMI 25.2
[2024-09-12] MEDS: KCL 20MEQ in D5.45NS 20 MEQ/1,000 ML IV.SOLN. 150 MEQ IV (05:17)
[2024-09-12 06:39] LABS: Anion Gap 12 (5-15); BUN 92 mg/dL (4-19); BUN/Creat Ratio 84.7 RATIO (10-20); Calcium,Total 8.5 mg/dL (7.6-11.0); Carbon Dioxide 20.8 mmol/L (21.0-32.0); Chloride 121 mmol/L (98-108); Creatinine, Serum 1.08 mg/dL (0.70-1.20); EST Glomerular Filtration Rate 82 (>60); Estimated Creatinine Clearance 71.38 ml/min (50-250); Glucose 131 mg/dL (70-99); Potassium 3.6 mmol/L (3.3-5.1); Sodium Level 154 mmol/L (133-145)
[2024-09-12 07:00] VITALS: PULSE 80
[2024-09-12 07:36] VITALS: BP 114/84; PULSE 89; RESP 16; TEMP 36.2; O2SAT 100
[2024-09-12] MEDS: 0.9% Saline Lock 10 ML Syringe IV (07:44)
[2024-09-12] MEDS: Ondansetron 4 MG/2 ML Vial IV (07:44)
[2024-09-12] MEDS: Pantoprazole Sodium 40 MG Tablet PO (07:47)
--- NOTE | 2024-09-12 10:46 | DCINST_ITS ---
Discharge Instructions Diet Discharge Diet: No restrictions DC O2, CPAP, BIPAP needs Home O2 Discharge instructions: No Dressing / Incision Discharge Activity: Return to Normal Activity Weight Bearing Status: Full weight bearing Follow Up Care Test Results: Test results from this visit will be discussed in further detail at your follow- up appointment, if applicable. Discharge Plan Admission Admit Date/Time: 09/09/24 14:43 Primary Reason for Your Visit: Acute kidney failure, achalasia Attending Provider: Jimenez Renee Primary Care Provider: Care Physician,No Primary Consulting Providers: Abbie Michelle; Emeli Lynn Instructions Additional Instructions / Restrictions: Follow-up with the primary care physician within 2 to 3 weeks Discharge Orders/Prescriptions Prescriptions: New pantoprazole 40 mg Tablet,Delayed Release (Dr/Ec) 40 mg PO BID Qty: 60 0RF Continued multivitamin [Daily Multi-Vitamin] Tablet 1 tab PO DAILY Referrals / Follow Up: Care Physician,No Primary [Primary Care Provider] - Disposition Disposition (needs filled in before D/C Order can be placed): Home, Self Care
[2024-09-12 11:00] VITALS: BP 116/76; PULSE 110; PULSE 66; RESP 14; TEMP 36.7; O2SAT 94; O2SAT 95
--- NOTE | 2024-09-12 11:12 | PCM.DC.SUM ---
Providers Date of Admission: 09/09/24 Date of Discharge: 09/12/24 Primary Care Physician: Edwina Primary Care Phys Consultations 09/09/24 15:56 Consult: Gastroenterology Routine Consulting Provider: Tr[facility] Reason for Consult: intractable N/V, abnormal esophagus EMERGENT Consult: No Notified: Yes Date Notified: 09/09/24 Time Notified: 14:45 Method of Notification: Text Consult: Nephrology Routine Consulting Provider: Emeli Lynn Reason for Consult: EWA EMERGENT Consult: No Notified: Yes Date Notified: 09/09/24 Time Notified: 14:45 Method of Notification: Verbal Reason For Visit: EWA, CONCERN DKA, MA, INTRACTABLE N/V Diagnosis Discharge Diagnosis (1) Acute renal failure: Status: Acute Code(s): N17.9 - Acute kidney failure, unspecified Plan 1. Acute renal failure-probably secondary to dehydration, patient's BUN and creatinine are improving on IV fluids, nephrology is participating in his care. #2 anion gap acidosis-secondary to renal failure, BMP will be rechecked tomorrow morning #3 achalasia-patient's esophagus was dilated today #4 severe weight loss secondary to achalasia-nutritional services is seeing the patient #5 hypokalemia-BMP will be monitored, potassium level is improved at this time #6 chronic moderate protein caloric malnutrition-as evidenced by p.o. intake meeting less than 75% of estimated nutritional needs for 1 year, 42 pound unintentional weight loss in 1 year and moderate fat and muscle loss to orbital and temporal regions-advance diet as tolerated to CCD/renal low-protein diet to manage medical conditions, nutritional services ordered 120 cc Ensure Plus high-protein 4 times a day with med Pass, nutritional services will follow DKA was ruled out Total clinical time spent by myself addressing the patient's medical issues, reviewing all of his data, and collaborating with patient's care team: 35 minutes Medications at Discharge Home Medications multivitamin (Daily Multi-Vitamin tablet) 1 tab PO DAILY 09/09/24 pantoprazole 40 mg tablet,delayed release 40 mg PO BID #60 tabs 09/12/24 Hospital Course Operations None Procedures None Summary of Care Provided Minutes Spent on Discharge: 31 Hospital Course: Patient was seen and examined in the emergency room at [facility] after being sent in from a [facility] facility with complaint of abdominal distention loss of appetite. Patient was on no medications and did not have an established family doctor. Labs obtained in the emergency room showed a slightly elevated white blood cell count at 11.7, hemoglobin was 18.7, chemistry profile revealed a potassium of 2.5, BUN was 230 and creatinine was 8. Patient's glucose was 105, CT of the abdomen and and pelvis showed the distal esophagus to be dilated to 5 cm indicating achalasia, there was a question of inflammatory bowel disease due to a known focal layered mucosal enhancement in the distal small bowel. Patient was admitted to ICU for acute renal failure and suspected DKA, initially he was placed on insulin drip but his sugars declined and he was not felt to be in DKA. Insulin drip was stopped and he was given fluids and seen in consultation by nephrology. Ultrasound of the kidneys was obtained which showed no abnormality. It was felt that the patient's renal failure was secondary to persistent vomiting and volume depletion. Potassium was administered and labs were followed. Patient's renal functions improved, on 09/12/2024, patient's creatinine was normal. On that date, patient was seen and examined: On examination he appeared in good health and spirits. Vital signs as documented. Skin warm and dry and without overt rashes. Neck without JVD, neck was supple, trachea midline, thyroid was normal. Lungs clear bilaterally, normal air movement was noted. Heart exam notable for regular rhythm, normal sounds and absence of murmurs, rubs or gallops. Abdomen unremarkable and without evidence of organomegaly, masses, or abdominal aortic enlargement. Bowel sounds are present, abdomen is not distended. Extremities nonedematous, no cyanosis was noted, no clubbing was noted. Neuro: Cranial nerves II through XII are grossly intact, no focal motor deficits were noted, sensation to light touch and pinprick intact, motor exam 5/5 throughout. Psych: Patient is alert and oriented x3, he does not appear anxious or depressed, he does not appear agitated. Patient was discharged home in stable condition on 09/12/2024. Medical Records Data Medical Nutrition Assessment Dietitian: Malnutrition Criteria Met Start: 09/10/24 15:49 Freq: Status: Active Protocol: Document 09/10/24 15:49 LO (Rec: 09/10/24 15:49 LO [id number]) Nutrition Malnutrition Evidence of Yes Malnutrition Exists Malnutrition (severe Chronic ): Clinical Problem Chronic Disease or Condition Related Malnutrition Etiology chronic related to swallowing difficulties Signs/Symptoms as evidenced by PO intakes meeting <75% of estimated nutrition needs for 1 year, 42lbs (21.5%) unintentional weight loss in 1 year and moderate fat/muscle loss to orbital and temporal regions Status Active Problem Recommendation Dietitian Advance diet as tolerated to CCD/Renal Low Protein diet Recommendations/ to manage medical conditions. Changes Will order 120mL ensure plus high protein 4x daily with medpass to provide supplemental energy and promote weight maintenance/gain. Weight / BMI Weight Weight: 72.8 kg Body Mass Index (BMI) 25.2 ABG / Lab / Microbiology Data 09/10/24 04:52 09/12/24 05:18 Laboratory: Laboratory Results - last 24 hr 09/12/24 05:18: Sodium 154 H, Potassium 3.6, Chloride 121 H, Carbon Dioxide 20.8 L, Anion Gap 12, BUN 92 H, Creatinine 1.08, Estim Creat Clear Calc 71.38, Est GFR (MDRD) Non-Af 82, BUN/Creatinine Ratio 84.7 H, Glucose 131 H, Calcium 8.5 Microbiology: Microbiology 09/09/24 16:20 Nasal Secretion MRSA (PCR) - Final D/C Instructions Discharge Diet: No restrictions Weight Bearing Status: Full weight bearing DC O2, CPAP, BIPAP Needs Home O2 Discharge instructions: No Meaningful Use Info Meaningful Use Meaningful Use Diagnoses (Choose all that apply): None applicable Ischemic Stroke Statin Dosing Therapy Reference: STATIN DOSE THERAPY REFERENCE: * Patients > 75 years receive moderate or high dose statin therapy. * Patients 75 years or YOUNGER should receive HIGH intensity statin dose unless contraindicated. You will be required to document reason for non-treatment if statin daily dose does not meet guidelines. HIGH DOSE STATIN THERAPY DAILY Atorvastatin > than or = to 40 mg Rosuvastatin > than or = to 20 mg Amlodipine + Atorvastatin > than or = to 2.5/40 mg Ezetimibe + Simvastatin 10/80 mg Simvastatin 80mg Discharge Plan Admission Admit Date/Time: 09/09/24 14:43 Primary Reason for Your Visit: Acute kidney failure, achalasia Attending Provider: Jimenez Renee Primary Care Provider: Care Physician,No Primary Consulting Providers: Abbie Michelle; Emeli Lynn Instructions Additional Instructions / Restrictions: Follow-up with the primary care physician within 2 to 3 weeks Discharge Orders/Prescriptions Prescriptions: New pantoprazole 40 mg Tablet,Delayed Release (Dr/Ec) 40 mg PO BID Qty: 60 0RF Continued multivitamin [Daily Multi-Vitamin] Tablet 1 tab PO DAILY Referrals / Follow Up: Care Physician,No Primary [Primary Care Provider] - Disposition Disposition (needs filled in before D/C Order can be placed): Home, Self Care Charges/Coding Visit Charges Inpatient E&M: 20334 Disch Hosp >30min
== END 2024-09-12 12:08 | disposition home or self-care (01) | DRG 682 ==
LOC: ED 14:17 → ICU 15:07 → PCU 09-11 09:24
PROVIDERS: Internal Medicine Gastroenterology; Nurse Practitioner Adult Health; Admitting Provider Family Medicine; Emergency Provider Emergency Medicine; Visit Provider Internal Medicine
PROC: 0DJ08ZZ Inspection of Upper Intestinal Tract, Via Natural or Artificial Opening Endoscopic (ICD-10-PCS; CPT 43235; principal; 2024-09-10 11:40)
DX: N17.9 Acute kidney failure, unspecified (principal); E43 Unspecified severe protein-calorie malnutrition; E87.20 Acidosis, unspecified; K22.0 Achalasia of cardia; R13.10 Dysphagia, unspecified; E86.0 Dehydration; E87.6 Hypokalemia; R14.0 Abdominal distension (gaseous); R11.0 Nausea; R63.4 Abnormal weight loss; Z68.22 Body mass index [BMI] 22.0-22.9, adult
CPT/HCPCS: 36415; 36600; 74177; 76770; 80048; 80053; 80069; 81001; 82010; 82570; 82803; 82962; 83036; 83605; 83690; 83735; 83930; 84100; 84300; 85025; 87641; 88305; 93005; 94668; 94762; 97802; 99284; Q9967; A4216; C1769; J2405

== ENCOUNTER 2024-11-18 05:45 | Day surgery (SDC) | payer MEDICAID, SELFPAY ==
[2024-11-18] VITALS (8 sets, daily range): BP systolic 105–121; BP diastolic 75–89; PULSE 74–80; RESP 16–18; TEMP 36.7–36.8; O2SAT 96–100; BMI 25.5
--- OUTSIDE RECORDS SUMMARY | 2024-11-18 05:48 | XMS RPT_ITS | CCD ---
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 Name Role Phone HUNTER RUVALCABA Consulting Unavaila [facility] Admitting Unava ilable [facility] Primary Care Unava ilable [facility] Attending Unava ilable PROVIDER, UNKNOWN Consulting Unavailable PROVIDER, UNKNOWN Consulting Unavailable HUNTER RUVALCABA Consulting Unavaila ble [facility] Admitting Unava ilable [facility] Primary Care Unava ilable [facility] Attending Unava ilable PROVIDER, UNKNOWN Consulting Unavailable PROVIDER, UNKNOWN Consulting Unavailable IRAHETALEO STUMMEL SELECTOR- Admitting Unavailable IRAHETA, LEO STUMMEL SELECTOR- Primary Care Unavailable IRAHETA, LEO STUMMEL SELECTOR- Attending Unavailable HUNTER RUVALCABA Consulting Unavaila ble PROVIDER, UNKNOWN Consulting Unavailable PROVIDER, UNKNOWN Consulting Unavailable Dr. Lata Duron DO Emergency Provider Care Physician, No Primary Primary Care Provider Unavailable Miguel Angel PINTO, Dr. bAbie Negron Attending Provider Dr. Abbie Michelle MD Admit Provider Dr. Emeli Lynn MD Other Provider Dr. Abbie Michelle MD Other Provider Dr. Jimenez Renee DO Attending Provider [phone] Dr. Jimenez Renee DO Other Provider [phone] Dr. Alo Cronin DO Attending Provider Care Physician, No Primary Primary Care Unava ilable Abbie Michelle Consulting Unavailable Abbie Michelle Admitting Unavailable Abbie Michelle Referring Unavailable Alo Cronin Attending Unavailable Emeli Lynn Consulting Unavailable Jimenez Renee Consulting Unavailable Jimenez Renee Referring Unavailable Braden, [place] Referring Unavailable Braden, [place] Attending Unavailable Care Physician, No Primary Primary Care Unava ilable Jimenez Renee Attending Unavailable Abbie Michelle Attending Unavailable Care Physician, No Primary Primary Care Unava ilable Aviva VSC, Kassandra Referring Unavailable Aviva VSC, Kassandra Primary Care Unavailable FriendAlo Attending Unavailable Abbie Michelle L Admitting Unavailable Abbie Michelle Consulting Unavailable Jimenez Renee Attending Unavailable Care Physician, No Primary Primary Care Unava ilable Emeli Lynn Consulting Unavailable Medications Current Medications Medication Drug Class(es) Dates Sig (Normalized) Sig (Original) Multivitamin (Daily Multi-Vitamin) tablet (2 sources) Start: 09-09-2024 Multivitamin (Daily Multi-Vitamin) tablet Active 1 {tbl} PO DAILY September 09, 2024 12:00am pantoprazole 40 mg delayed release oral tablet (1 source) Proton Pump Inhibitor Start: 09-12-2024 take 1 tablet by mouth twice daily Pantoprazole 40 mg Tablet,Delayed Release (Dr/Ec) Active 40 mg PO TWICE A DAY 60 September 12, 2024 12:00am Problems Problem Classification Problem Date Documented Da te Episodic/Chronic Abdominal pain (1 source) Unspecified abdominal pain; Translations: [Unspecified abdominal pain] Onset: 10-12-2024 Episodic Acute and unspecified renal failure (5 sources) Acute renal failure syndrome; Translations: [Acute kidney failure, unspecified] Onset: 09-23-2024 09-09-2024 Episodic Diabetes mellitus without complication (2 sources) Hyperglycemia; Translations: [Hyperglycemia, unspecified] 09-09-2024 Episodic Fluid and electrolyte disorders (4 sources) Acute hypokalemia; Translations: [Hypokalemia] Onset: 09-18-2024 09-09-2024 Episodic Other gastrointestinal disorders (2 sources) Dysphagia; Translations: [Dysphagia, unspecified] 09-11-2024 Episodic Other gastrointestinal disorders (1 source) Dysphagia, unspecified; Translations: [Dysphagia, unspecified] Onset: 09-18-2024 Episodic Other nutritional; endocrine; and metabolic disorders (3 sources) Abnormal weight loss; Translations: [Abnormal weight loss] 09-09-2024 Episodic Other nutritional; endocrine; and metabolic disorders (1 source) Abnormal weight loss; Translations: [Abnormal weight loss] Onset: 09-18-2024 Episodic Results Test Name Value Interpretation Reference Range Facility Anion gap in Serum or Plasma Ordered By: Jimenez Renee on 09-12-2024 Anion gap [Moles/Vol] 12 mmol/L - [facility] BUN/creatinine ratioOrdered By: Jimenez Renee on 09-12-2024 Urea nitrogen/Creatinine [Mass ratio] 84.7 mg/mg High 02-15 [facility] Basic Metabolic Profile (BMP )on 09-12-2024 BUN/CRE 84.7 RATIO High 02-15 [facility] Comment on above: Performed By: #### L [id number] #### [facility] [address] [place], [address] Calcium [Mass/Vol] 8.5 mg/dL Normal 7.6-11.0 [facility] Comment on above: Performed By: #### L [id number] #### [facility] [address] [place], [address] Chloride [Moles/Vol] 121 mmol/L High 98-108 [facility] Comment on above: Performed By: #### L [id number] #### [facility] [address] [place], [address] CO2 [Moles/Vol] 20.8 mmol/L Low 21.0-32.0 [facility] Comment on above: Performed By: #### L [id number] #### [facility] [address] [place], [address] Creatinine [Mass/Vol] 1.08 mg/dL Normal 0.70-1.20 [facility] Comment on above: Performed By: #### L [id number] #### [facility] [address] [place], [address] ECRCL 71.38 ml/min Normal 50-250 [facility] Comment on above: Performed By: #### L [id number] #### [facility] [address] [place], [address] GAP 12 Normal 5-15 [facility] Comment on above: Performed By: #### L [id number] #### [facility] [address] [place], [address] GFR/1.73 sq M.predicted among non-blacks MDRD (S/P/Bld) [Vol rate/Area] 82 mL/min/{1.73_m2} Normal >60 [facility] Comment on above: Result Comment: mL/m in/1.73m2 CKD-EPI Creatinine Equation (2020) Performed By: #### L 500.2500 #### [facility] [address] [place], [address] Glucose [Mass/Vol] 131 mg/dL High 70-99 [facility] Comment on above: Performed By: #### L 500.2500 #### [facility] [address] [facility] [place], [address] Potassium [Moles/Vol] 3.6 mmol/L Normal 3.3-5.1 [facility] Comment on above: Performed By: #### L 500.2500 #### [facility] [address] [place], [address] Sodium [Moles/Vol] 154 mmol/L High 133-145 [facility] Comment on above: Performed By: #### L [id number] #### [facility] [address] [place], [address] Urea nitrogen [Mass/Vol] 92 mg/dL High 4-19 [facility] Comment on above: Performed By: #### L [id number] #### [facility] [address] [place], [address] Carbon dioxide, total [Moles /volume] in Central venous bloodOrdered By: Jimenez Renee on 09-12-2024 CO2 [Moles/Vol] 20.8 mmol/L Low 21.0-32.0 [facility] Chloride assayOrdered By: Jocelin Renee on 09-12-2024 Chloride [Moles/Vol] 121 mmol/L High 98-108 [facility] Discharge Instructionon 08-27 Discharge Instruction [facility] Medical Records Department [address] [place] [address] Instructions for Home/Discharge Instructions 09/12/24 1046 MR#: [id number] Acct: [id number] Name: KESHAV ARMSTRONG Rep #: [id number] : 1970 53 From: Jimenez Renee DO PCP: Care Physician,No Primary Status:ADM IN Discharge Instructions Diet Discharge Diet: No restrictions DC O2, CPAP, BIPAP needs Home O2 Discharge instructions: No Dressing / Incision Discharge Activity: Return to Normal Activity Weight Bearing Status: Full weight bearing Follow Up Care Test Results: Test results from this visit will be discussed in further detail at your follow-up appointment, if applicable. Discharge Plan Admission Admit Date/Time: 09/09/24 14:43 Primary Reason for Your Visit: Acute kidney failure, achalasia Attending Provider: Jimenez Renee Primary Care Provider: Care Physician,No Primary Consulting Providers: Abbie Michelle; Emeli Lynn Instructions Additional Instructions / Restrictions: Follow-up with the primary care physician within 2 to 3 weeks Discharge Orders/Prescription s Prescriptions: New pantoprazole 40 mg Tablet,Delayed Release (Dr/Ec) 40 mg PO BID Qty: 60 0RF Continued multivitamin [Daily Multi-Vitamin] Tablet 1 tab PO DAILY Referrals / Follow Up: Care Physician,No Primary [Primary Care Provider] - Disposition Disposition (needs filled in before D/C Order can be placed): Home, Self Care 09/12/24 1112 Jimenez Renee DO CC: Dr. Abbie Michelle MD; Dr. Emeli Lynn MD; No Primary Care Physician Signed Normal [facility] Glomerular filtration rate ( GFR) estimation/1.73 sq m using serum, plasma, or whole bOrdered By: Jimenez Renee on 09-12-2024 GFR/1.73 sq M.predicted among non-blacks MDRD (S/P/Bld) [Vol rate/Area] 82 mL/min/{1.73_m2} >60 [facility] Comment on above: mL/min/1.73m2 CKD-EP I Creatinine Equation (2020) Potassium measurement (mass/ volume)Ordered By: Jimenez Renee on 09-12-2024 Potassium (Unsp spec) [Mass/Vol] 3.6 mmol/L 3.3-5.1 [facility] Serum creatinine measurement (mass/volume)Ordered By: Jimenez Renee on 09-12-2024 Creatinine [Mass/Vol] 1.08 mg/dL 0.70-1.20 [facility] Serum glucose measurement (m ass/volume)Ordered By: Jimenez Renee on 09-12-2024 Glucose [Mass/Vol] 131 mg/dL High 70-99 [facility] Serum or plasma calcium agueda urement (mass/volume)Ordered By: Jimenez Renee on 09-12-2024 Calcium [Mass/Vol] 8.5 mg/dL 7.6-11.0 [facility] Serum or plasma urea nitroge n measurement (mass/volume)Ordered By: Jimenez Renee on 09-12-2024 Urea nitrogen [Mass/Vol] 92 mg/dL High 4-19 [facility] Sodium levelOrdered By: Jimenez Renee on 09-12-2024 Sodium [Moles/Vol] 154 mmol/L High 133-145 [facility] Renal Profileon 09-11-2024 Albumin [Mass/Vol] 3.3 g/dL Low 3.5-5.0 [facility] Comment on above: Performed By: #### L 501.5500, L501.1200 #### [facility] [address] [place], [address] BUN/CRE 52.7 RATIO High 10-20 [facility] Comment on above: Performed By: #### L 501.5500, L501.1200 #### [facility] [address] [facility] [place], [address] Calcium [Mass/Vol] 8.6 mg/dL Normal 7.6-11.0 [facility] Comment on above: Performed By: #### L 501.5500, L501.1200 #### [facility] [address] [place], [address] Chloride [Moles/Vol] 110 mmol/L High 98-108 [facility] Comment on above: Performed By: #### L 501.5500, L501.1200 #### [facility] [address] [place], [address] CO2 [Moles/Vol] 19.6 mmol/L Low 21.0-32.0 [facility] Comment on above: Performed By: #### L 501.5500, L501.1200 #### [facility] [address] [place], [address] Creatinine [Mass/Vol] 2.96 mg/dL High 0.70-1.20 [facility] Comment on above: Performed By: #### L [id number], L501.1200 #### [facility] [address] [place], [address] ECRCL 26.04 ml/min Low 50-250 [facility] Comment on above: Performed By: #### L [id number], L501.1200 #### [facility] [address] [place], [address] GAP 14 Normal 5-15 [facility] Comment on above: Performed By: #### L [id number], L501.1200 #### [facility] [address] [place], [address] GFR/1.73 sq M.predicted among non-blacks MDRD (S/P/Bld) [Vol rate/Area] 24 mL/min/{1.73_m2} Low >60 [facility] Comment on above: Result Comment: mL/m in/1.73m2 CKD-EPI Creatinine Equation (2020) Performed By: #### L 501.5500, L501.1200 #### [facility] [address] [place], [address] Glucose [Mass/Vol] 153 mg/dL High 70-99 [facility] Comment on above: Performed By: #### L 501.5500, L501.1200 #### [facility] [address] [place], [address] Potassium [Moles/Vol] 3.3 mmol/L Normal 3.3-5.1 [facility] Comment on above: Result Comment: Hemo lysis present, Results??could be affected. ?? Performed By: #### L 501.5500, L501.1200 #### [facility] [address] [place], [address] Sodium [Moles/Vol] 144 mmol/L Normal 133-145 [facility] Comment on above: Performed By: #### L 501.5500, L501.1200 #### [facility] [address] [place], [address] Urea nitrogen [Mass/Vol] 156 mg/dL Invalid Interpretation Code 4 [facility] Comment on above: Result Comment: Crit ical Result(s) Called at: 09/11/2024-03:56 by: Ignacio Michelle to Debi Marcelo??Results read back by same. Performed By: #### L [id number], L501.1200 #### [facility] [address] [place], [address] Serum or plasma albumin agueda urement (mass/volume)Ordered By: Keyur Manning on 09-11-2024 Albumin [Mass/Vol] 3.3 g/dL Low 3.5-5.0 [facility] 12 Lead EKGon 09-10-2024 12 Lead EKG [facility] Services [address] [place] [address] 12 Lead EKG 09/10/24 1156 MR#: [id number] Acct: [id number] Name: KESHAV ARMSTRONG Rep #: [id number] : 1970 53 From: Tu Feliciano MD Attending Dr: Dr. Jimenez Renee DO Status: D IS IN Ordering Dr: Luis Torres MD Date: 09/10/24 Location: [facility] Sex: M C Admitted: 09/09/24 Test Reason : PRE OP Blood Pressure : */* mmHG Vent. Rate : 68 BPM Atrial Rate : 68 BPM P-R Int : 156 ms QRS Dur : 96 ms QT Int : 414 ms P-R-T Axes : 31 11 43 degrees QTcB Int : 440 ms Normal sinus rhythm Low voltage QRS Borderline ECG When compared with ECG of 09-Sep-2024 14:55, MANUAL COMPARISON REQUIRED DATA IS UNCONFIRMED Confirmed by BRADEN PINTO, TU ([id number]), station engineer chief VARUN MACK ([id number]) on 09/14/2024 9:47:35 AM Referred By: Confirmed By: TU FELICIANO MD 09/14/24 0947 Date Tu Feliciano MD CC: Dr. Luis Torres MD; Dr. Jimenez Renee, ; No Primary Care Physician Signed Normal [facility] Absolute lymphocyte countOrd ered By: Abbie Miguel Angel on 09-10-2024 Lymphocytes Auto (Unsp spec) [#/Vol] 0.87 10*3/uL 0.83-4.51 [facility] Absolute neutrophil countOrd ered By: Miguel Angel on 09-10-2024 Neutrophils (Bld) [#/Vol] 8.2 10*3/uL High 2.0-7.7 [facility] Automated lymphocyte count a s percentage of total leukocytesOrdered By: Miguel Angel on 09-10-2024 Lymphocytes/100 WBC Auto (Unsp spec) 8.9 % Low 19-41 [facility] Basic Metabolic Profile (BMP )on 09-10-2024 BUN/CRE 35.0 RATIO High 10-20 [facility] Comment on above: Performed By: #### L 501.5500, L501.1200 #### [facility] [address] [place], [place] [address], [address] Calcium [Mass/Vol] 8.6 mg/dL Normal 7.6-11.0 [facility] Comment on above: Performed By: #### L [id number], L501.1200 #### [facility] [address] [place], [address] Chloride [Moles/Vol] 102 mmol/L Normal 98-108 [facility] Comment on above: Performed By: #### L 501.5500, L501.1200 #### [facility] [address] [place], [address] CO2 [Moles/Vol] 18.2 mmol/L Low 21.0-32.0 [facility] Comment on above: Performed By: #### L 501.5500, L501.1200 #### [facility] [address] [place], [address] Creatinine [Mass/Vol] 5.83 mg/dL High 0.70-1.20 [facility] Comment on above: Performed By: #### L 501.5500, L501.1200 #### [facility] [address] [place], [address] ECRCL 13.22 ml/min Low 50-250 [facility] Comment on above: Performed By: #### L 501.5500, L501.1200 #### [facility] [address] [place], [address] GAP 19 High 5-15 [facility] Comment on above: Performed By: #### L 501.5500, L501.1200 #### [facility] [address] [place], [address] GFR/1.73 sq M.predicted among non-blacks MDRD (S/P/Bld) [Vol rate/Area] 11 mL/min/{1.73_m2} Low >60 [facility] Comment on above: Result Comment: mL/m in/1.73m2 CKD-EPI Creatinine Equation (2020) Performed By: #### L 501.5500, L501.1200 #### [facility] [address] [place], [address] Glucose [Mass/Vol] 108 mg/dL High 70-99 [facility] Comment on above: Performed By: #### L 501.5500, L501.1200 #### [facility] [address] [place], [address] Potassium [Moles/Vol] 3.2 mmol/L Low 3.3-5.1 [facility] Comment on above: Performed By: #### L 501.5500, L501.1200 #### [facility] [address] [place], [address] Sodium [Moles/Vol] 140 mmol/L Normal 133-145 [facility] Comment on above: Performed By: #### L 501.5500, L501.1200 #### [facility] [address] [place], [address] Urea nitrogen [Mass/Vol] 204 mg/dL Invalid Interpretation Code 4-19 [facility] Comment on above: Result Comment: Crit ical Result(s) Called at 1020: by: KEYUR ZAMORA TO [facility]. ??Results read back by same. Performed By: #### L [id number], L501.1200 #### [facility] [address] [place], [address] BUN/CRE 30.5 RATIO High 10-20 [facility] Comment on above: Order Comment: Call MD with results STAT Performed By: #### L 501.080 #### [facility] [address] [place], [address] Calcium [Mass/Vol] 8.2 mg/dL Normal 7.6-11.0 [facility] Comment on above: Order Comment: Call MD with results STAT Performed By: #### L 501.080 #### [facility] [address] [place], [address] Chloride [Moles/Vol] 98 mmol/L Normal 98-108 [facility] Comment on above: Order Comment: Call MD with results STAT Performed By: #### L 501.080 #### [facility] [address] [place], [address] CO2 [Moles/Vol] 17.4 mmol/L Low 21.0-32.0 [facility] Comment on above: Order Comment: Call MD with results STAT Performed By: #### L 501.080 #### [facility] [address] [place], [address] Creatinine [Mass/Vol] 7.18 mg/dL High 0.70-1.20 [facility] Comment on above: Order Comment: Call MD with results STAT Performed By: #### L 501.080 #### [facility] [address] [place], [address] ECRCL 10.74 ml/min Low 50-250 [facility] Comment on above: Order Comment: Call MD with results STAT Performed By: #### L 501.080 #### [facility] [address] [place], [address] GAP 21 High 5-15 [facility] Comment on above: Order Comment: Call MD with results STAT Performed By: #### L 501.080 #### [facility] [address] [place], [address] GFR/1.73 sq M.predicted among non-blacks MDRD (S/P/Bld) [Vol rate/Area] 8 mL/min/{1.73_m2} Low >60 [facility] Comment on above: Order Comment: Call MD with results STAT Result Comment: mL/m in/1.73m2 CKD-EPI Creatinine Equation (2020) Performed By: #### L 501.080 #### [facility] [address] [place], [address] Glucose [Mass/Vol] 176 mg/dL High 70-99 [facility] Comment on above: Order Comment: Call MD with results STAT Performed By: #### L 501.080 #### [facility] [address] [place], [address] Potassium [Moles/Vol] 2.5 mmol/L Invalid Interpretation Code 3.3-5.1 [facility] Comment on above: Order Comment: Call MD with results STAT Result Comment: Crit ical Result(s) Called at: by:??Results read back by same. Performed By: #### L 501.080 #### [facility] [address] [place], [address] Sodium [Moles/Vol] 137 mmol/L Normal 133-145 [facility] Comment on above: Order Comment: Call MD with results STAT Performed By: #### L 501.080 #### [facility] [address] [place], [address] Urea nitrogen [Mass/Vol] 219 mg/dL Invalid Interpretation Code 4-19 [facility] Comment on above: Order Comment: Call MD with results STAT Result Comment: Crit ical Result(s) Called at: 0237 by:??BELINDA ALLEN Results read back by same. Performed By: #### L 501.080 #### [facility] [address] [place], [address] Basophil percentageOrdered B y: Abbie White on 09-10-2024 Basophils/100 WBC (Bld) 0.4 % 0-1 [facility] Bedside Glucoseon 09-10-2024 FINGERSTICK GLU 102 mg/dL Normal 74-106 [facility] Comment on above: Result Comment: JAZMIN FERNANDES OF PATIENT CARE PER NURSING PROTOCOL Performed By: #### L [id number], L501.1200 #### [facility] [address] [place], [address] FINGERSTICK GLU 110 mg/dL High 74-106 [facility] Comment on above: Result Comment: JAZMIN GEMENT OF PATIENT CARE PER NURSING PROTOCOL Performed By: #### L [id number], L501.1200 #### [facility] [address] [place], [address] FINGERSTICK GLU 99 mg/dL Normal 74-106 [facility] Comment on above: Result Comment: JAZMIN GEMENT OF PATIENT CARE PER NURSING PROTOCOL Performed By: #### L 501.080 #### [facility] [address] [place], [address] FINGERSTICK GLU 79 mg/dL Normal 74-106 [facility] [facility] Comment on above: Result Comment: JAZMIN GEMENT OF PATIENT CARE PER NURSING PROTOCOL Performed By: #### L 501.5500, L501.1200 #### [facility] [address] [place], [address] FINGERSTICK GLU 83 mg/dL Normal 74-106 [facility] Comment on above: Result Comment: JAZMIN GEMENT OF PATIENT CARE PER NURSING PROTOCOL Performed By: #### L 501.5500, L501.1200 #### [facility] [address] [place], [address] FINGERSTICK GLU 92 mg/dL Normal 74-106 [facility] Comment on above: Result Comment: JAZMIN GEMENT OF PATIENT CARE PER NURSING PROTOCOL Performed By: #### L 501.5500, L501.1200 #### [facility] [address] [place], [address] FINGERSTICK GLU 100 mg/dL Normal 74-106 [facility] Comment on above: Result Comment: JAZMIN GEMENT OF PATIENT CARE PER NURSING PROTOCOL Performed By: #### L [id number] #### [facility] [address] [place], [address] FINGERSTICK GLU 169 mg/dL High 74-106 [facility] Comment on above: Result Comment: JAZMIN GEMENT OF PATIENT CARE PER NURSING PROTOCOL Performed By: #### L [id number] #### [facility] [address] [place], [address] FINGERSTICK GLU 137 mg/dL High 74-106 [facility] Comment on above: Result Comment: JAZMIN GEMENT OF PATIENT CARE PER NURSING PROTOCOL Performed By: #### L 501.080 #### [facility] [address] [place], [address] FINGERSTICK GLU 132 mg/dL High 74-106 [facility] Comment on above: Result Comment: JAZMIN GEMENT OF PATIENT CARE PER NURSING PROTOCOL Performed By: #### L 501.080 #### [facility] [address] [place], [address] FINGERSTICK GLU 163 mg/dL High 74-106 [facility] Comment on above: Result Comment: JAZMIN GEMENT OF PATIENT CARE PER NURSING PROTOCOL Performed By: #### L 501.080 #### [facility] [address] [place], [address] FINGERSTICK GLU 59 mg/dL Low 74-106 [facility] Comment on above: Result Comment: JAZMIN GEMENT OF PATIENT CARE PER NURSING PROTOCOL Performed By: #### L 501.080 #### [facility] [address] [place], [address] Bilirubin, totalOrdered By: Abbie Michelle on 09-10-2024 Bilirubin [Mass/Vol] 0.86 mg/dL 0.00-1.30 [facility] CBC W/Diff, Automatedon 08-27 Absolute Lymph 0.87 X10 3/uL Normal 0.83-4.51 [facility] Comment on above: Performed By: #### L 501.5500, L501.1200 #### [facility] [address] [place], [address] Absolute Neut 8.2 X10 3/uL High 2.0-7.7 [facility] Comment on above: Performed By: #### L [id number], L501.1200 #### [facility] [address] [place], [address] Basophils/100 WBC (Bld) 0.4 % Normal 0-1 [facility] Comment on above: Performed By: #### L [id number], L501.1200 #### [facility] [address] [place], [address] Eosinophils/100 WBC (Bld) 1.3 % Normal 0-5 [facility] Comment on above: Performed By: #### L [id number], L501.1200 #### [facility] [address] [place], [address] Erythrocyte distribution width (RBC) [Ratio] 13.2 % Normal 11.6-14.6 [facility] Comment on above: Performed By: #### L 501.5500, L501.1200 #### [facility] [address] [place], [address] Hematocrit (Bld) [Volume fraction] 36.9 % Low 40-54 [facility] Comment on above: Performed By: #### L 501.5500, L501.1200 #### [facility] [address] [place], [address] Hemoglobin (Bld) [Mass/Vol] 13.4 g/dL Normal 13.0-16.5 [facility] Comment on above: Performed By: #### L 501.5500, L501.1200 #### [facility] [address] [place], [address] IG% 0.200 Normal 0.0-0.9 [facility] Comment on above: Result Comment: IG% - Immature Granulocytes (promyelocytes, myelocytes and metamyelocytes) > 1% indicates that a LEFT SHIFT is Present. Performed By: #### L 501.5500, L501.1200 #### [facility] [address] [place], [address] Lymphocytes/100 WBC (Bld) 8.9 % Low 19-41 [facility] Comment on above: Performed By: #### L 501.5500, L501.1200 #### [facility] [address] [place], [address] MCH (RBC) [Entitic mass] 29.0 pg Normal 27.0-32.0 [facility] Comment on above: Performed By: #### L 501.5500, L501.1200 #### [facility] [address] [place], [address] MCHC (RBC) [Mass/Vol] 36.3 g/dL High 32-36 [facility] Comment on above: Performed By: #### L 501.5500, L501.1200 #### [facility] [address] [place], [address] MCV (RBC) [Entitic vol] 79.9 fL Low 80-94 [facility] Comment on above: Performed By: #### L 501.5500, L501.1200 #### [facility] [address] [place], [address] Monocytes/100 WBC (Bld) 5.6 % Normal 0-10 [facility] Comment on above: Performed By: #### L 501.5500, L501.1200 #### [facility] [address] [place], [address] Neutrophils/100 WBC (Bld) 83.6 % High 47-70 [facility] Comment on above: Performed By: #### L 501.5500, L501.1200 #### [facility] [address] [place], [address] Nucleated RBC (Bld) [#/Vol] 0 10*3/uL Normal 0-5 [facility] Comment on above: Performed By: #### L 501.5500, L501.1200 #### [facility] [address] [place], [address] Platelet mean volume (Bld) [Entitic vol] 12.4 fL High 6.2-12.0 [facility] Comment on above: Performed By: #### L 501.5500, L501.1200 #### [facility] [address] [place], [address] Platelets (Bld) [#/Vol] 141 10*3/uL Low 150-450 [facility] Comment on above: Performed By: #### L 501.5500, L501.1200 #### [facility] [address] [place], [address] RBC (Bld) [#/Vol] 4.62 10*6/uL Normal 4.6-6.2 [facility] Comment on above: Performed By: #### L 501.5500, L501.1200 #### [facility] [address] [place], [address] RDW SD 37.7 fl Normal 35.1-43.9 [facility] Comment on above: Performed By: #### L 501.5500, L501.1200 #### [facility] [address] [place], [address] WBC (Bld) [#/Vol] 9.8 10*3/uL Normal 4.4-11.0 [facility] Comment on above: Performed By: #### L 501.5500, L501.1200 #### [facility] [address] [place], [address] Comprehensive Metabolic Prof ilon 09-10-2024 Albumin [Mass/Vol] 3.5 g/dL Normal 3.5-5.0 [facility] Comment on above: Order Comment: Call MD with results STAT Performed By: #### L 501.080 #### [facility] [address] [place], [address] Albumin/Globulin [Mass ratio] 1.8 {ratio} Normal 0.9-2.4 [facility] Comment on above: Order Comment: Call MD with results STAT Performed By: #### L 501.080 #### [facility] [address] [place], [address] ALK PHOS 60 U/L Normal 40-129 [facility] Comment on above: Order Comment: Call MD with results STAT Performed By: #### L 501.080 #### [facility] [address] [place], [address] ALT [Catalytic activity/Vol] 10 U/L Normal <=46 [facility] Comment on above: Order Comment: Call MD with results STAT Performed By: #### L 501.080 #### [facility] [address] [place], [address] AST [Catalytic activity/Vol] 9 U/L Normal <=37 [facility] Comment on above: Order Comment: Call MD with results STAT Performed By: #### L 501.080 #### [facility] [address] [place], [address] Bilirubin [Mass/Vol] 0.86 mg/dL Normal 0.00-1.30 [facility] Comment on above: Order Comment: Call MD with results STAT Performed By: #### L 501.080 #### [facility] [address] [place], [address] BUN/CRE 33.1 RATIO High 10-20 [facility] Comment on above: Order Comment: Call MD with results STAT Performed By: #### L 501.080 #### [facility] [address] [place], [address] Calcium [Mass/Vol] 8.6 mg/dL Normal 7.6-11.0 [facility] Comment on above: Order Comment: Call MD with results STAT Performed By: #### L 501.080 #### [facility] [address] [place], [address] Chloride [Moles/Vol] 101 mmol/L Normal 98-108 [facility] Comment on above: Order Comment: Call MD with results STAT Performed By: #### L 501.080 #### [facility] [address] [place], [address] CO2 [Moles/Vol] 17.3 mmol/L Low 21.0-32.0 [facility] Comment on above: Order Comment: Call MD with results STAT Performed By: #### L 501.080 #### [facility] [address] [place], [address] Creatinine [Mass/Vol] 6.53 mg/dL High 0.70-1.20 [facility] Comment on above: Order Comment: Call MD with results STAT Performed By: #### L 501.080 #### [facility] [address] [place], [address] ECRCL 11.81 ml/min Low 50-250 [facility] Comment on above: Order Comment: Call MD with results STAT Performed By: #### L 501.080 #### [facility] [address] [place], [address] GAP 22 High 5-15 [facility] Comment on above: Order Comment: Call MD with results STAT Performed By: #### L 501.080 #### [facility] [address] [place], [address] GFR/1.73 sq M.predicted among non-blacks MDRD (S/P/Bld) [Vol rate/Area] 9 mL/min/{1.73_m2} Low >60 [facility] Comment on above: Order Comment: Call MD with results STAT Result Comment: mL/m in/1.73m2 CKD-EPI Creatinine Equation (2020) Performed By: #### L 501.080 #### [facility] [address] [place], [address] Globulin (S) [Mass/Vol] 2.0 g/dL Low 2.2-4.2 [facility] Comment on above: Order Comment: Call MD with results STAT Performed By: #### L 501.080 #### [facility] [address] [place], [address] Glucose [Mass/Vol] 90 mg/dL Normal 70-99 [facility] Comment on above: Order Comment: Call MD with results STAT Performed By: #### L 501.080 #### [facility] [address] [place], [address] Potassium [Moles/Vol] 2.5 mmol/L Invalid Interpretation Code 3.3-5.1 [facility] Comment on above: Order Comment: Call MD with results STAT Result Comment: Crit ical Result(s) Called at 0651: [facility] ??Results read back by same. Critical Result(s) Called at: by:??Results read back by same. Critical Result(s) Called at: by:??Results read back by same. Performed By: #### L 501.080 #### [facility] [address] [place], [address] Sodium [Moles/Vol] 140 mmol/L Normal 133-145 [facility] Comment on above: Order Comment: Call MD with results STAT Performed By: #### L 501.080 #### [facility] [address] [place], [address] T PROT 5.5 g/dL Low 5.9-8.4 [facility] Comment on above: Order Comment: Call MD with results STAT Performed By: #### L 501.080 #### [facility] [address] [place], [address] Urea nitrogen [Mass/Vol] 216 mg/dL Invalid Interpretation Code 4 [facility] Comment on above: Order Comment: Call MD with results STAT Result Comment: CRIT ICAL RESULT CALLED TO [place] BY KEYUR ZAMORA. RESULTS READ BACK BY SAME. 0655 Critical Result(s) Called at: by:??Results read back by same. Performed By: #### L 501.080 #### [facility] [address] [facility] [place], [place], [address] Consultation - Nephrologyon 09-10-2024 Consultation - Nephrology [facility] Medical Records Department [address] [place] [address] Consultation - Nephrology 09/10/24 1446 MR#: [id number] Acct: [id number] Name: KESHAV ARMSTRONG Rep #: [id number] : 1970 53 From: Keyur Manning [employer] PCP: Care Physician,No Primary Status:ADM IN Location: [place] [address] Assessment Plan Assessment/Plan (1) Acute renal failure: (2) Acute hypokalemia: PLAN: Plan This is a pleasant 53-year-old male with no known past medical history presented to the emergency room with complaints of unintentional weight loss, extreme lethargy, lab work demonstrated creatinine 10.70, BUN to 48, hemoglobin 18.7, lactic acid 2.0, carbon dioxide 16, potassium 2.4. Patient was initially treated with aggressive IV fluid resuscitation, today creatinine improved to 5.83. Patient is nonoliguric. Potassium was low on admission, and is slowly improving. Renal ultrasound did not show any hydronephrosis, CT nondistended bladder, normal kidneys. Possible EWA from extreme volume depletion. With IV fluids kidney function improving. Can keep on current IV fluids for another day. Blood pressures acceptable. UA was of benign. No acute indication for renal placement therapy. Baseline creatinine unknown. Will follow serum creatinine trajectory. Patient was not taking any NSAIDs. Patient is off insulin drip. Hemoglobin A1c 6.5%. Lab work ordered for the morning. Further orders forthcoming as hospitalization evolves, thank you for allowing us participate in the care of Mr. Armstrong. Nephrology plan reviewed with Dr. Renee. HPI Consult Data Date of Consult: 09/10/24 HPI Narrative HPI Narrative: KESHAV ARMSTRONG, is a 53 M with no known past medical history, does not follow with PCP who presented to the emergency room yesterday with complaints of extreme lethargy, intractable nausea and vomiting, unable to take adequate oral intake and weight loss around 50 pounds over the last 4 to 6 months. Workup in the ER creatinine 10.7, BUN to 48, potassium 2.4, bicarb 16, lactic acid 2.0, white count 11.7. Patient had CT abdomen and pelvis did not show distended bladder, kidneys unremarkable, distal esophagus dilated 5 cm. Patient was admitted to ICU, concern for possible DKA and was started on insulin drip also started on IV PPI. Nephrology consulted in view of elevated creatinine. Patient denies any NSAIDs. Does not take any medications. Denies hematuria. Denies arthralgias. Denies rash. [facility] Medical History No significant past medical history Home Medications ???Medication ???Instructions ???Recorded ???Last Taken ???Type multivitamin (Daily Multi-Vitamin 1 tab PO DAILY 09/09/24 09/08/24 History tablet) Allergy/AdvReac Type Severity Reaction Status Date / Time No Known Allergies Allergy Verified 09/10/24 11:04 Family History Mother Hypertension Father No problems noted. Surgical History History of skin graft Social History household members: none Smoking Status: Never smoker alcohol intake: never substance use type: does not use ROS ROS Narrative As in HPI Physical Exam Narrative Alert and oriented x 3, no apparent distress S1, S2, RRR Lungs sound clear Abdomen soft, nontender No edema Lab / Micro Data 09/10/24 04:52 09/10/24 09:00 Labs: Laboratory Results - last 24 hr 09/09/24 12:15: Hemoglobin A1c 6.5 H, Phosphorus 9.6 H*, Magnesium 4.8 H 09/09/24 14:40: Serum Osmolality 406 H 09/09/24 16:08: POC Glucose 130 H 09/09/24 16:20: Sodium 138, Potassium 2.5 L*, Chloride 89 L, Carbon Dioxide 16.8 L, Anion Gap 33 H, BUN 243 H*, Creatinine 9.67 H*, Estim Creat Clear Calc 8.23 L*, Est GFR (MDRD) Non-Af 6 L, B UN/Creatinine Ratio 25.1 H, Glucose 82, Calcium 9.6 09/09/24 17:00: Urine Color Yellow, Urine Clarity Sl. Cloudy, Urine pH 6.0, Ur Specific [place] 1.020, Urine Protein 30 H, Urine Glucose (UA) Normal, Urine Ketones Negative, Urine Occult Blood 25 H, Urine Nitrite Negative, Urine Bilirubin 1 H, Urine Urobilinogen Normal, Ur Leukocyte Esterase Negative, Urine RBC 0-5 SEEN, Urine WBC 0-5 SEEN, Ur Squamous Epith Cells 0-5 SEEN, Amorphous Sediment 1+, Urine Bacteria 0 SEEN, Urine Mucus 0 SEEN, Ur Random Sodium < 20, Urine Creatinine 284.00 H 09/09/24 17:11: POC Glucose 54 L 09/09/24 17:40: Lactic Acid 1.6 09/09/24 17:42: POC Glucose 181 H 09/09/24 18:28: POC Glucose 149 H 09/09/24 19:40: POC Glucose 132 H 09/09/24 20:33: Sodium 139, Potassium 2.5 L*, Chloride 98, Carbon Dioxide 17.4 L, Anion Gap 24 H, B UN 230 H*, Creatinine 8.06 H*, Estim Creat Clear Calc 9.56 L*, Est GFR (MDRD) Non-Af 7 L, B UN/Creatinine Ratio 28.5 H, (more content not included)... Normal [facility] EGD Reporton 09-10-2024 EGD Report [facility] Medical Records Department [address] [place] [address] EGD Report MR#: [id number] Acct: [id number] Name: KESHAV ARMSTRONG Rep #: [id number] : 1970 53 From: Alo Cronin DO PCP: Care Physician,No Primary Status:ADM IN Patient Name: Keshav Armstrong Procedure Date: 09/10/2024 12:22 PM Date of : 1970 Age: 53 Procedure: Upper GI endoscopy Indications: Dysphagia Providers: Alo Cronin DO Medicines: Monitored Anesthesia Care Patient Profile: This is a 53 year old male. Refer to note in patient chart for documentation of history and physical. Patient has symptoms of dysphagia with both liquids and solids. The symptoms first began within the past few months. Complications: No immediate complications. Procedure: Pre-Anesthesia Assessment: - Prior to the procedure, a History and Physical was performed, and patient medications and allergies were reviewed. The patient is competent. The risks and benefits of the procedure and the sedation options and risks were discussed with the patient. All questions were answered and informed consent was obtained. Patient identification and proposed procedure were verified by the physician in the pre-procedure area. Mental Status Examination: alert and oriented. Airway Examination: normal oropharyngeal airway and neck mobility. Respiratory Examination: clear to auscultation. CV Examination: normal. Prophylactic Antibiotics: The patient does not require prophylactic antibiotics. Prior Anticoagulants: The patient has taken no anticoagulant or antiplatelet agents. ASA Grade Assessment: II - A patient with mild systemic disease. After reviewing the risks and benefits, the patient was deemed in satisfactory condition to undergo the procedure. The anesthesia plan was to use monitored anesthesia care (MAC). Immediately prior to administration of medications, the patient was re-assessed for adequacy to receive sedatives. The heart rate, respiratory rate, oxygen saturations, blood pressure, adequacy of pulmonary ventilation, and response to care were monitored throughout the procedure. The physical status of the patient was re-assessed after the procedure. After obtaining informed consent, the endoscope was passed under direct vision. Throughout the procedure, the patient's blood pressure, pulse, and oxygen saturations were monitored continuously. The Endoscope was introduced through the mouth, and advanced to the second part of duodenum. The upper GI endoscopy was accomplished without difficulty. The patient tolerated the procedure well. Scope In: 12:36:52 PM Scope Out: 12:44:17 PM Total Procedure Duration Time 0 hours 7 minutes 25 seconds Findings: Abnormal motility was noted in the lower third of the esophagus. The cricopharyngeus was normal. There is a decrease in motility of the esophageal body. The distal esophagus/lower esophageal sphincter is spastic, but gives up passage to the endoscope. Primary peristaltic waves are noted. Biopsies were taken with a cold forceps for histology. Verification of patient identification for the specimen was done. A guidewire was placed and the scope was withdrawn. Dilation was performed with a Savary dilator with no resistance at 51 Fr. The dilation site was examined and showed mild mucosal disruption. Estimated blood loss was minimal. No gross lesions were noted in the entire examined stomach. No gross lesions were noted in the first portion of the duodenum. Impression: - Abnormal esophageal motility, consistent with achalasia. Biopsied. Dilated. - No gross lesions in the entire stomach. - No gross lesions in the first portion of the duodenum. Recommendation: - Discharge patient to home. - Resume previous diet. - Continue present medications. - Await pathology results. Procedure Code(s): --- Professional --- 28055, Esophagogastroduode noscopy, flexible, transoral; with insertion of guide wire followed by passage of dilator(s) through esophagus over guide wire 73113, 59,51, Esophagogastroduode noscopy, flexible, transoral; with biopsy, single or multiple CPT copyright 2021 [employer]. All rights reserved. The codes documented in this report are preliminary and upon debone supervisor review may be revised to meet current compliance requirements. Alo Cronin DO 09/10/2024 12:55:52 PM This report has been signed electronically. Number of Addenda: 0 Note Initiated On: 09/10/2024 12:22 PM 09/10/24 1255 Date Alo Cronin DO Cosigner Signature: Date (if indicated) CC: No Primary Care Physician; Alo Cronin DO Date Dictated: 09/10/24 1222 Date Transcribed: Software Quality Assurance Specialist: MILDRED Signed Normal [facility] Eosinophil percentageOrdered By: Abbie Miguel Angel on 09-10-2024 Eosinophils/100 WBC (Bld) 1.3 % 0-5 [facility] Erythrocyte distribution wid th ratioOrdered By: Abbie Michelle on 09-10-2024 Erythrocyte distribution width (RBC) [Ratio] 13.2 % 11.6-14.6 [facility] Erythrocyte distribution wid th standard deviationOrdered By: Abbie Michelle on 09-10-2024 Erythrocyte distribution width (RBC) [Ratio] 37.7 fl 35.1-43.9 [facility] deOrdered By: Jimenez Renee on 09-10-2024 Glucose [Mass/Vol] 102 mg/dL 74-106 [facility] Comment on above: MANAGEMENT OF PATIEN T CARE PER NURSING PROTOCOL Hematocrit Auto (Bld) [Volum e fraction]Ordered By: Abbie Michelle on 09-10-2024 Hematocrit (Bld) [Volume fraction] 36.9 % Low 40-54 [facility] Hemoglobin measurementOrdere d By: Abbie Michelle on 09-10-2024 Hemoglobin (Bld) [Mass/Vol] 13.4 g/dL 13.0-16.5 [facility] Immature granulocytes/100 WB C Auto (Bld)Ordered By: Abbie Michelle on 09-10-2024 Immature granulocytes/100 WBC (Bld) 0.200 % 0.0-0.9 [facility] Comment on above: IG% - Immature Granu locytes (promyelocytes, myelocytes and metamyelocytes) > 1% indicates that a LEFT SHIFT is Present. Laboratory - Chemistry and C hemistry - challengeOrdered By: Abbie Michelle on 09-10-2024 AST [Catalytic activity/Vol] 9 U/L <38 [facility] MCV (mean corpuscular volume ) determinationOrdered By: Abbie Michelle on 09-10-2024 MCV (RBC) [Entitic vol] 79.9 fL Low 80-94 [facility] MR/POSTOP.ANEon 09-10-2024 MR/POSTOP.ANE [facility] Medical Records Department [address] [place] [address] Anesthesia Postop Eval I 09/10/24 1259 MR#: [id number] Acct: [id number] Name: KESHAV ARMSTRONG Rep #: [id number] : 1970 53 From: To Green PCP: Care Physician,No Primary Status:ADM IN Y Race: C Location: ICU ICU09-27 Anesthesia: Postop Eval I Current Vital Signs Temperature: 98.2 F Pulse Rate: 89 Blood Pressure: 104/70 Respiratory Rate: 16 Pulse Ox: 97 Oxygen Delivery Method: Room Air Assessment Airway patent: Yes Spontaneous unlabored respirations: Yes Mental status: Awake and Calm nausea: No Vomiting: No Anesthesia Complication: No Fluid Hydration Crystalloid volume administer (ml): 50 Total IV fluid infused: 50 Progress Note Anesthesia document: Postop Eval 1 completed: Yes 09/10/24 1300 Date To Andersonignradha Signature: Date CC: Signed Normal [facility] MR/[id number] 09-10-2024 [facility] Medical Records Department [address] [place] [address] Anesthesia Postop Eval II 09/10/24 1435 MR#: [id number] Acct: [id number] Name: KESHAV ARMSTRONG Rep #: [id number] : 1970 53 From: Luis Torres MD PCP: Care Physician,No Primary Status:ADM IN Y Race: C Location: ICU ICU09-27 Anesthesia Postop Eval I Sum Postop Eval Completion status Anesthesia document: Postop Eval 1 completed: Yes Anesthesia Postop Eval I Summary Anesthesia Postop Eval I Summary: Anesthesia Postop Eval I: Assessment Summary Airway patent Yes 09/10/24 13:00 [email or web address] Spontaneous unlabored Yes 09/10/24 13:00 [email or web address] respirations Mental status Awake,Calm 09/10/24 13:00 [email or web address] nausea No 09/10/24 13:00 [email or web address] Vomiting No 09/10/24 13:00 [email or web address] Anesthesia Postop Eval I: Fluid Summary Crystalloid volume administer 50 09/10/24 13:00 [email or web address] (ml) Colloids volume administered ( ml) Blood Product volume administered (ml) Total IV fluid infused 50 09/10/24 13:00 [email or web address] Anesthesia Postop Eval I: Summary Notes Anesthesia Complication No 09/10/24 13:00 [email or web address] Anesthesia Complication Comment: Post-operative progress note Anesthesia: Postop Eval II Evaluation Mental status: Awake Pain Level: 0 nausea: No Vomiting: No Complications Anesthesia Complication: No 09/10/24 1435 Date Luis Torres MD Cosigner Signature: Date CC: Signed Normal [facility] Magnesiumon 09-10-2024 Magnesium [Mass/Vol] 3.5 mg/dL High 1.5-2.2 [facility] Comment on above: Performed By: #### L 501.080 #### [facility] Laboratory [address] [place] [address], [address] Magnesium measurement (mass/ volume)Ordered By: Abbie Michelle on 09-10-2024 Magnesium (Unsp spec) [Mass/Vol] 3.5 mg/dL High 1.5-2.2 [facility] Mean corpuscular hemoglobin (MCH) determinationOrdered By: Abbie Michelle on 09-10-2024 MCH (RBC) [Entitic mass] 29.0 pg 27.0-32.0 [facility] Mean corpuscular hemoglobin concentration (MCHC) determinationOrdered By: Abbie Michelle on 09-10-2024 MCHC (RBC) [Mass/Vol] 36.3 g/dL High 32-36 [facility] Mean platelet volume determi nationOrdered By: Abbie Michelle on 09-10-2024 Platelet mean volume (Bld) [Entitic vol] 12.4 fL High 6.2-12.0 [facility] Monocyte percentageOrdered B y: White on 09-10-2024 Monocytes/100 WBC (Bld) 5.6 % 0-10 [facility] Neutrophil percentageOrdered By: on 09-10-2024 Neutrophils/100 WBC (Bld) 83.6 % High 47-70 [facility] Nucleated red blood cell per centageOrdered By: White on 09-10-2024 Nucleated RBC/100 WBC (Bld) [Ratio] 0 % 0-5 [facility] Phosphoruson 09-10-2024 Phosphate [Mass/Vol] 3.7 mg/dL Normal 2.7-4.5 [facility] Comment on above: Performed By: #### L 501.080 #### [facility] Laboratory [address] [place] [address], [address] Platelet countOrdered By: Nette varghese Miguel Angel on 09-10-2024 Platelets (Bld) [#/Vol] 141 10*3/uL Low 150-450 [facility] RBC Auto (Bld) [#/Vol]Ordere d By: White on 09-10-2024 RBC (Bld) [#/Vol] 4.62 10*6/uL 4.6-6.2 [facility] Serum globulin measurementOr dered By: on 09-10-2024 Globulin (S) [Mass/Vol] 2.0 g/dL Low 2.2-4.2 [facility] Serum or plasma alanine rea otransferase (ALT) measurementOrdered By: on 09-10-2024 ALT [Catalytic activity/Vol] 10 U/L <47 [facility] Serum or plasma albumin/glob ulin mass ratioOrdered By: on 09-10-2024 Albumin/Globulin [Mass ratio] 1.8 {ratio} 0.9-2.4 [facility] Serum or plasma alkaline radha sphatase measurementOrdered By: on 09-10-2024 ALP [Catalytic activity/Vol] 60 U/L 40-129 [facility] Surgery Specimen Level Meli 09-10-2024 Surgery Specimen Level IV Patient Age/Sex Location Account Attending Physician KESHAV ARMSTRONG 53/M [facility] [id number] Dr. Jimenez Renee DO Specimen: [id number] Received: 09/10/24869 Status: RADHA Billingsley Num: [id number] Spec Type: EGD BIOPSY Evette Dr: Alo Cronin DO HEADER OPERATION: EGD with biopsy and dilitation PRE-OP DIAGNOSIS: Nausea/vomiting TISSUE SUBMITTED: A- Distal esophagus biopsy MICROSCOPIC DIAGNOSIS A. Esophagus, distal, biopsy: Squamous mucosa with mild reactive changes. Negative for eosinophils. MICROSCOPIC DESCRIPTION Slides are reviewed. GROSS DESCRIPTION A. Received in formalin in a container labeled with the patient's name, date of , and distal esophagus biopsy" are 2 rizo-pink fragments of mucosal tissue each measuring 0.5 x 0.2 x 0.2 cm. Submitted in toto in A1. [facility] 09-10-2024 [facility]:[id number] Patient Age/Sex Location Account Attending Physician KESHAV ARMSTRONG 53/M [facility] [id number] Dr. Jimenez Renee DO Signed (signatur e on file) Dr. Eliza Kay MD 09/22/24 7865 Normal [facility] Comment on above: Performed By: #### L [id number], L501.1200 #### [facility] Laboratory [address] [place], [address] Total proteinOrdered By: Nilda ray White on 09-10-2024 Protein [Mass/Vol] 5.5 g/dL Low 5.9-8.4 [facility] White blood cell (WBC) count Ordered By: Abbie White on 09-10-2024 WBC (Bld) [#/Vol] 9.8 10*3/uL 4.4-11.0 [facility] 12 Lead EKGon 09-09-2024 12 Lead EKG [facility] Cardiovascular Services [address] [place] [address] 12 Lead EKG 09/09/24 1455 MR#: [id number] Acct: [id number] Name: KESHAV ARMSTRONG Rep #: [id number] : 1970 53 From: Tu Feliciano MD Attending Dr: Dr. Jimenez Renee DO Status: D IS IN Ordering Dr: Lata Duron DO Date: 09/09/24 Location: [facility] Sex: M C Admitted: 09/09/24 Test Reason : Blood Pressure : */* mmHG Vent. Rate : 86 BPM Atrial Rate : 86 BPM P-R Int : 154 ms QRS Dur : 96 ms QT Int : 458 ms P-R-T Axes : 43 2 60 degrees QTcB Int : 548 ms Normal sinus rhythm Prolonged QT Abnormal ECG Confirmed by TU FELICIANO MD ([id number]), station engineer chief VARUN MACK ([id number]) on 09/14/2024 9:02:13 AM Referred By: CHRISTOFER/ORLANDO Confirmed By: TU FELICIANO MD 09/14/24 0902 Date Tu Feliciano MD CC: Dr. Jimenez Renee DO; Dr. Lata Duron DO; No Primary Care Physician Signed Normal [facility] Abdomen/Pelvis W IV Cont ONL Yon 09-09-2024 Abdomen/Pelvis W IV Cont ONLY [facility] Imaging Services [address] [place], [place] [address] Abdomen/Pelvis W IV Cont ONLY MR#: [id number] Acct: [id number] Name: KESHAV ARMSTRONG Rep #: [id number] : 1970 M 53 From: Yuri Mazariegos MD PCP: Care Physician,No Primary Status: REG ER Study: Abdomen/Pelvis W IV Cont ONLY Date of Exam: Exam# [id number] Ordering Dr: Lata Duron DO PROCEDURE: ABDOMEN/PELVIS W IV CONT ONLY 09/09/2024 REASON FOR EXAM: ABDOMINAL PAIN, WEIGHT LOSS, NIGHT SWEATS TECHNIQUE: Abdomen and pelvis CT with intravenous contrast. Coronal and Sagittal reconstruction series were provided. PATIENT PREPARATION: Per protocol ORAL CONTRAST TYPE: None. CONTRAST: 98 cc Isovue-300 One or more dose reduction techniques were used (e.g., Automated exposure control, adjustment of the mA and/or kV according to patient size, use of iterative reconstruction technique. RADIATION DOSE SUMMARY: DLP: 631.51 mGycm COMPARISON: None FINDINGS: Lung bases: The distal esophagus is dilated to 5 cm, which can indicate achalasia. Liver: There is a cyst in the left hepatic lobe measuring 4.3 cm. There is a cyst in the left hepatic lobe measuring 3.5 cm. There is a 3 cm cyst in the medial right hepatic lobe. There is a cyst in the right hepatic lobe measuring 1 cm at the gallbladder fossa. Gallbladder: There are stones in the gallbladder with the largest measuring 0.6 cm. There is no visible gallbladder wall thickening or pericholecystic inflammation. Spleen: Unremarkable Pancreas: Unremarkable Adrenals: Unremarkable Kidneys: Unremarkable Bladder: Nondistended Reproductive Organs: Unremarkable Bowel: Gas and stool is noted in the colon with a minimal stool load. There is nonfocal layered mucosal enhancement in the distal small bowel, which can indicate inflammatory bowel disease. Small bowel loops are not distended. There is scattered diverticuli in the distal colon with no visible diverticulitis. There is a 2 cm uncomplicated fat containing left inguinal hernia. Appendix: Unremarkable Lymph nodes: There is no pathologic adenopathy. Vasculature: Unremarkable Peritoneum / Retroperitoneum: There is no free air or free fluid. Bones: There is no acute bony abnormality. CT/Abdomen/Pelvis W IV Cont ONLY IMPRESSION: The distal esophagus is dilated to 5 cm, which can indicate achalasia. Consider direct visualization. Cholelithiasis. Liver cysts There is a 2 cm uncomplicated fat containing left inguinal hernia. There is nonfocal layered mucosal enhancement in the distal small bowel, which can indicate inflammatory bowel disease. Reading Location: LE CC: Dr. Lata Duron, DO; No Primary Care Physician Software Quality Assurance Specialist: Signed Normal [facility] Absolute lymphocyte countOrd ered By: Lata Duron on 09-09-2024 Lymphocytes Auto (Unsp spec) [#/Vol] 0.69 10*3/uL Low 0.83-4.51 [facility] Absolute neutrophil countOrd ered By: Lata Duron on 09-09-2024 Neutrophils (Bld) [#/Vol] 10.3 10*3/uL High 2.0-7.7 [facility] Amorphous sediment detection in urine sediment by light microscopyOrdered By: Lata Duron on 09-09-2024 Amorphous sediment LM Ql (Urine sed) 1+ [facility] Anion gap in Serum or Plasma Ordered By: Lata Duron on 09-09-2024 Anion gap [Moles/Vol] 40 mmol/L High 5-15 [facility] Assessment of wrist artery p atency prior to arterial punctureOrdered By: Abbie Michelle on 09-09-2024 Arterial patency Wrist artery --pre arterial puncture Positive [facility] Automated lymphocyte count a s percentage of total leukocytesOrdered By: Lata Duron on 09-09-2024 Lymphocytes/100 WBC Auto (Unsp spec) 5.9 % Low 19-41 [facility] BUN/creatinine ratioOrdered By: Lata Duron on 09-09-2024 Urea nitrogen/Creatinine [Mass ratio] 23.2 mg/mg High 10-20 [facility] Basic Metabolic Profile (BMP )on 09-09-2024 BUN/CRE 28.5 RATIO High 10- [facility] Comment on above: Order Comment: Call MD with results STAT Performed By: #### L [id number] #### [facility] Laboratory [address] [place] [place], [address] Calcium [Mass/Vol] 8.5 mg/dL Normal 7.6-11.0 [facility] Comment on above: Order Comment: Call MD with results STAT Performed By: #### L [id number] #### [facility] [address] [place], [address] Chloride [Moles/Vol] 98 mmol/L Normal 98-108 [facility] Comment on above: Order Comment: Call MD with results STAT Performed By: #### L [id number] #### [facility] [address] [place], [address] CO2 [Moles/Vol] 17.4 mmol/L Low 21.0-32.0 [facility] Comment on above: Order Comment: Call MD with results STAT Performed By: #### L [id number] #### [facility] [address] [place], [address] Creatinine [Mass/Vol] 8.06 mg/dL Invalid Interpretation Code 0.70-1.20 [facility] Comment on above: Order Comment: Call MD with results STAT Result Comment: Crit ical Result(s) Called at: by:??Results read back by same. Critical Result(s) Called at: 2150 by:??YESENIA BLACKWOOD TO PARMINDER TOURE Results read back by same. Performed By: #### L [id number] #### [facility] [address] [place], [address] ECRCL 9.56 ml/min Invalid Interpretation Code 50-250 [facility] Comment on above: Order Comment: Call MD with results STAT Performed By: #### L [id number] #### [facility] [address] [place], [address] GAP 24 High 5-15 [facility] Comment on above: Order Comment: Call MD with results STAT Performed By: #### L [id number] #### [facility] [address] [place], [address] GFR/1.73 sq M.predicted among non-blacks MDRD (S/P/Bld) [Vol rate/Area] 7 mL/min/{1.73_m2} Low >60 [facility] Comment on above: Order Comment: Call MD with results STAT Result Comment: mL/m in/1.73m2 CKD-EPI Creatinine Equation (2020) Performed By: #### L [id number] #### [facility] [address] [place], [address] Glucose [Mass/Vol] 105 mg/dL High 70-99 [facility] Comment on above: Order Comment: Call MD with results STAT Performed By: #### L [id number] #### [facility] [address] [place], [address] Potassium [Moles/Vol] 2.5 mmol/L Invalid Interpretation Code 3.3-5.1 [facility] Comment on above: Order Comment: Call MD with results STAT Result Comment: Crit ical Result(s) Called at: 2149 by: YESENIA BLACKWOOD TO PARMINDER TOURE??Results read back by same. Performed By: #### L [id number] #### [facility] [address] [place], [address] Sodium [Moles/Vol] 139 mmol/L Normal 133-145 [facility] Comment on above: Order Comment: Call MD with results STAT Performed By: #### L [id number] #### [facility] [address] [place], [address] Urea nitrogen [Mass/Vol] 230 mg/dL Invalid Interpretation Code 4-19 [facility] Comment on above: Order Comment: Call MD with results STAT Result Comment: Crit ical Result(s) Called at: 0 by:??YESENIA MORTON PARMINDER RAMOSUX Results read back by same. Performed By: #### L [id number] #### [facility] [address] [place], [address] BUN/CRE 25.1 RATIO High 10-20 [facility] Comment on above: Order Comment: Call MD with results STAT Performed By: #### L [id number], L501.1200 #### [facility] [address] [place], [address] Calcium [Mass/Vol] 9.6 mg/dL Normal 7.6-11.0 [facility] Comment on above: Order Comment: Call MD with results STAT Performed By: #### L [id number], L501.1200 #### [facility] [address] [place], [address] Chloride [Moles/Vol] 89 mmol/L Low 98-108 [facility] Comment on above: Order Comment: Call MD with results STAT Performed By: #### L [id number], L501.1200 #### [facility] [address] [place], [address] CO2 [Moles/Vol] 16.8 mmol/L Low 21.0-32.0 [facility] Comment on above: Order Comment: Call MD with results STAT Performed By: #### L [id number], [id number] #### [facility] [address] [place], [address] Creatinine [Mass/Vol] 9.67 mg/dL Invalid Interpretation Code 0.70-1.20 [facility] Comment on above: Order Comment: Call MD with results STAT Result Comment: Crit ical Result(s) Called at: by:??Results read back by same. Critical Result(s) Called at: 1732 by:??YESENIA CHÁVEZ Results read back by same. Performed By: #### L [id number], [id number] #### [facility] [address] [place], [address] ECRCL 8.23 ml/min Invalid Interpretation Code 50-250 [facility] Comment on above: Order Comment: Call MD with results STAT Performed By: #### L [id number], [id number] #### [facility] [address] [place], [address] GAP 33 High 5-15 [facility] Comment on above: Order Comment: Call MD with results STAT Performed By: #### L [id number], L501.1200 #### [facility] [address] [place], [address] GFR/1.73 sq M.predicted among non-blacks MDRD (S/P/Bld) [Vol rate/Area] 6 mL/min/{1.73_m2} Low >60 [facility] Comment on above: Order Comment: Call MD with results STAT Result Comment: mL/m in/1.73m2 CKD-EPI Creatinine Equation (2020) Performed By: #### L [id number], L501.1200 #### [facility] [address] [place], [address] Glucose [Mass/Vol] 82 mg/dL Normal 70-99 [facility] Comment on above: Order Comment: Call MD with results STAT Performed By: #### L [id number], [id number] #### [facility] [address] [place], [address] Potassium [Moles/Vol] 2.5 mmol/L Invalid Interpretation Code 3.3-5.1 [facility] Comment on above: Order Comment: Call MD with results STAT Result Comment: Crit ical Result(s) Called at: 1732 by:??YESENIA BLACKWOOD TO SHAW CHÁVEZ Results read back by same. Performed By: #### L [id number], [id number] #### [facility] [address] [place], [address] Sodium [Moles/Vol] 138 mmol/L Normal 133-145 [facility] Comment on above: Order Comment: Call MD with results STAT Performed By: #### L [id number], [id number] #### [facility] [address] [place], [address] Urea nitrogen [Mass/Vol] 243 mg/dL Invalid Interpretation Code 4-19 [facility] Comment on above: Order Comment: Call MD with results STAT Result Comment: Crit ical Result(s) Called at: 1732 by: YESENIA BLACKWOOD TO SHAW CHÁVEZ??Results read back by same. Performed By: #### L [id number], [id number] #### [facility] [address] [place], [address] Basophil percentageOrdered B y: Remus Ungur on 09-09-2024 Basophils/100 WBC (Bld) 0.2 % 0-1 [facility] Bedside Glucoseon 09-09-2024 FINGERSTICK GLU 77 mg/dL Normal 74-106 [facility] Comment on above: Result Comment: JAZMIN GEMENT OF PATIENT CARE PER NURSING PROTOCOL Performed By: #### L [id number] #### [facility] [address] [place], [address] FINGERSTICK GLU 80 mg/dL Normal 74-106 [facility] Comment on above: Result Comment: JAZMIN GEMENT OF PATIENT CARE PER NURSING PROTOCOL Performed By: #### L 501.080 #### [facility] [address] [place], [address] FINGERSTICK GLU 103 mg/dL Normal 74-106 [facility] Comment on above: Result Comment: JAZMIN GEMENT OF PATIENT CARE PER NURSING PROTOCOL Performed By: #### L [id number] #### [facility] [address] [place], [address] FINGERSTICK GLU 132 mg/dL High 74-106 [facility] Comment on above: Result Comment: JAZMIN GEMENT OF PATIENT CARE PER NURSING PROTOCOL Performed By: #### L 501.080 #### [facility] [address] [place], [address] FINGERSTICK GLU 149 mg/dL High 74-106 [facility] Comment on above: Result Comment: JAZMIN GEMENT OF PATIENT CARE PER NURSING PROTOCOL Performed By: #### L 501.080 #### [facility] [address] [place], [address] FINGERSTICK GLU 181 mg/dL High 74-106 [facility] Comment on above: Result Comment: JAZMIN GEMENT OF PATIENT CARE PER NURSING PROTOCOL Performed By: #### L 501.080 #### [facility] [address] [place], [address] FINGERSTICK GLU 54 mg/dL Low 74-106 [facility] Comment on above: Result Comment: JAZMIN GEMENT OF PATIENT CARE PER NURSING PROTOCOL Performed By: #### L [id number], [id number] #### [facility] [address] [place], [address] FINGERSTICK GLU 130 mg/dL High 74-106 [facility] Comment on above: Result Comment: JAZMIN GEMENT OF PATIENT CARE PER NURSING PROTOCOL Performed By: #### L 501.080 #### [facility] [address] [place], [address] Beta-Hydroxbytyrateon 2024 BETA-HYDROXYBUT 3.5 mmol/L Normal 0.0-0.3 [facility] Comment on above: Order Comment: Comme nts: may add to ED labs Performed By: #### L 501.6901, L501.5200 #### [facility] [address] [place], [address] Beta-hydroxybutyrateOrdered By: Abbie Michelle on 09-09-2024 Beta hydroxybutyrate [Mass/Vol] 3.5 mmol/L 0.0-0.3 [facility] Bilirubin Test strip Ql (U)O rdered By: Lata Duron on 09-09-2024 Bilirubin Ql (U) 1 mg/dL High Negative [facility] Comment on above: COLOR OF URINE MAY A FFECT DIPSTICK RESULTS. Bilirubin, totalOrdered By: Lata Duron on 09-09-2024 Bilirubin [Mass/Vol] 1.16 mg/dL 0.00-1.30 [facility] Blood Gases by CPSon 025 NING TEST Positive Normal [facility] Comment on above: Performed By: #### L 501.080 #### [facility] [address] [place], [address] Base excess Calc (Bld) [Moles/Vol] -5 mmol/L Low -2 to +2 [facility] Comment on above: Performed By: #### L [id number] #### [facility] [address] [place], [address] Blood Gas Type ART [facility] Comment on above: Performed By: #### L 501.080 #### [facility] [address] [place], [address] CO2 [Moles/Vol] 19 mmol/L [facility] Comment on above: Performed By: #### L 501.080 #### [facility] [address] [place], [address] FI02 21.0 Normal [facility] Comment on above: Performed By: #### L 501.080 #### [facility] [address] [place], [address] HCO3 (Bld) [Moles/Vol] 17.9 mmol/L Low 22-26 [facility] Comment on above: Performed By: #### L 501.080 #### [facility] [address] [place], [address] Mode Not entered Normal [facility] Comment on above: Performed By: #### L 501.080 #### [facility] [address] [place], [address] O2 Delivery Dev Not entered [facility] Comment on above: Performed By: #### L 501.080 #### [facility] [address] [place], [address] pCO2 22.3 mmHg Low 35-45 [facility] Comment on above: Performed By: #### L 501.080 #### [facility] [address] [place], [address] pH (Bld) 7.51 [pH] High 7.35-7.45 [facility] Comment on above: Performed By: #### L 501.080 #### [facility] [address] [place], [address] PO2 113 mmHG High 75-100 [facility] Comment on above: Performed By: #### L 501.080 #### [facility] [address] [place], [address] SITE R Radial Normal [facility] Comment on above: Performed By: #### L 501.080 #### [facility] [address] [place], [address] SO2 99 Normal 95-99 [facility] Comment on above: Performed By: #### L 501.080 #### [facility] [address] [place], [address] Blood base excess determinat ionOrdered By: Abbie Michelle on 09-09-2024 Base excess Calc (BldV) [Moles/Vol] -5 mmol/L Low -2-2 [facility] Blood bicarbonate measuremen tOrdered By: Abbie Michelle on 09-09-2024 HCO3 (Bld) [Moles/Vol] 17.9 mmol/L Low 22-26 [facility] CBC W/Diff, Automatedon Hemoglobin (Bld) [Mass/Vol] 18.7 g/dL Invalid Interpretation Code 13.0-16.5 [facility] Comment on above: Result Comment: CRIT ICAL VALUE CALLED TO DANI FLOYD (ER) 09/09/24 1256 Benedict Bustos. RESULTS READ BACK BY SAME. Performed By: #### L 501.5500, L501.1200 #### [facility] [address] [place], [address] Absolute Lymph 0.69 X10 3/uL Low 0.83-4.51 [facility] Comment on above: Performed By: #### L 501.5500, L501.1200 #### [facility] [address] [place], [address] Absolute Neut 10.3 X10 3/uL High 2.0-7.7 [facility] Comment on above: Performed By: #### L 501.5500, L501.1200 #### [facility] [address] [place], [address] Basophils/100 WBC (Bld) 0.2 % Normal 0-1 [facility] Comment on above: Performed By: #### L 501.5500, L501.1200 #### [facility] [address] [place], [address] Eosinophils/100 WBC (Bld) 0.1 % Normal 0-5 [facility] Comment on above: Performed By: #### L 501.5500, L501.1200 #### [facility] [address] [place], [address] Erythrocyte distribution width (RBC) [Ratio] 13.1 % Normal 11.6-14.6 [facility] Comment on above: Performed By: #### L 501.5500, L501.1200 #### [facility] [address] [place], [address] Hematocrit (Bld) [Volume fraction] 51.6 % Normal 40-54 [facility] Comment on above: Performed By: #### L 501.5500, L501.1200 #### [facility] [address] [place], [address] IG% 0.400 Normal 0.0-0.9 [facility] Comment on above: Result Comment: IG% - Immature Granulocytes (promyelocytes, myelocytes and metamyelocytes) > 1% indicates that a LEFT SHIFT is Present. Performed By: #### L 501.5500, L501.1200 #### [facility] [address] [place], [address] Lymphocytes/100 WBC (Bld) 5.9 % Low 19-41 [facility] Comment on above: Performed By: #### L 501.5500, L501.1200 #### [facility] [address] [place], [address] MCH (RBC) [Entitic mass] 28.6 pg Normal 27.0-32.0 [facility] Comment on above: Performed By: #### L 501.5500, L501.1200 #### [facility] [address] [place], [address] MCHC (RBC) [Mass/Vol] 36.2 g/dL High 32-36 [facility] Comment on above: Performed By: #### L 501.5500, L501.1200 #### [facility] [address] [place], [address] MCV (RBC) [Entitic vol] 78.9 fL Low 80-94 [facility] Comment on above: Performed By: #### L 501.5500, L501.1200 #### [facility] [address] [place], [address] Monocytes/100 WBC (Bld) 5.5 % Normal 0-10 [facility] Comment on above: Performed By: #### L 501.5500, L501.1200 #### [facility] [address] [place], [address] Neutrophils/100 WBC (Bld) 87.9 % High 47-70 [facility] Comment on above: Performed By: #### L 501.5500, L501.1200 #### [facility] [address] [place], [address] Nucleated RBC (Bld) [#/Vol] 0 10*3/uL Normal 0-5 [facility] Comment on above: Performed By: #### L 501.5500, L501.1200 #### [facility] [address] [place], [address] Platelet mean volume (Bld) [Entitic vol] 13.8 fL High 6.2-12.0 [facility] Comment on above: Performed By: #### L 501.5500, L501.1200 #### [facility] [address] [place], [address] Platelets (Bld) [#/Vol] 206 10*3/uL Normal 150-450 [facility] Comment on above: Performed By: #### L 501.5500, L501.1200 #### [facility] [address] [place], [address] RBC (Bld) [#/Vol] 6.54 10*6/uL High 4.6-6.2 [facility] Comment on above: Performed By: #### L 501.5500, L501.1200 #### [facility] [address] [place], [address] RDW SD 36.9 fl Normal 35.1-43.9 [facility] Comment on above: Performed By: #### L 501.5500, L501.1200 #### [facility] [address] [place], [address] WBC (Bld) [#/Vol] 11.7 10*3/uL High 4.4-11.0 [facility] Comment on above: Performed By: #### L 501.5500, L501.1200 #### [facility] [address] [place], [address] Carbon dioxide, total [Moles /volume] in Central venous bloodOrdered By: Lata Duron on 09-09-2024 CO2 [Moles/Vol] 16.8 mmol/L Low 21.0-32.0 [facility] Chloride assayOrdered By: Re long Duron on 09-09-2024 Chloride [Moles/Vol] 82 mmol/L Low 98-108 [facility] Comprehensive Metabolic Prof ilon 09-09-2024 Albumin [Mass/Vol] 5.0 g/dL Normal 3.5-5.0 [facility] Comment on above: Performed By: #### L 501.5500, L501.1200 #### [facility] [address] [place], [address] Albumin/Globulin [Mass ratio] 1.5 {ratio} Normal 0.9-2.4 [facility] Comment on above: Performed By: #### L 501.5500, L501.1200 #### [facility] [address] [place], [address] ALK PHOS 91 U/L Normal 40-129 [facility] Comment on above: Performed By: #### L 501.5500, L501.1200 #### [facility] [address] [place], [address] ALT [Catalytic activity/Vol] 17 U/L Normal <=46 [facility] Comment on above: Performed By: #### L 501.5500, L501.1200 #### [facility] [address] [place], [address] AST [Catalytic activity/Vol] 9 U/L Normal <=37 [facility] Comment on above: Performed By: #### L 501.5500, L501.1200 #### [facility] [address] [place], [address] Bilirubin [Mass/Vol] 1.16 mg/dL Normal 0.00-1.30 [facility] Comment on above: Performed By: #### L 501.5500, L501.1200 #### [facility] [address] [place], [address] BUN/CRE 23.2 RATIO High 10-20 [facility] Comment on above: Performed By: #### L 501.5500, L501.1200 #### [facility] [address] [place], [address] Calcium [Mass/Vol] 10.6 mg/dL Normal 7.6-11.0 [facility] Comment on above: Performed By: #### L 501.5500, L501.1200 #### [facility] [address] [place], [address] Chloride [Moles/Vol] 82 mmol/L Low 98-108 [facility] Comment on above: Performed By: #### L 501.5500, L501.1200 #### [facility] [address] [place], [address] CO2 [Moles/Vol] 16.8 mmol/L Low 21.0-32.0 [facility] Comment on above: Performed By: #### L 501.5500, L501.1200 #### [facility] [address] [place], [address] Creatinine [Mass/Vol] 10.70 mg/dL Invalid Interpretation Code 0.70-1.20 [facility] Comment on above: Result Comment: Crit ical Result(s) Called at: by:??Results read back by same. Critical Result(s) Called at 1354: by: KEYUR ZAMORA TO DTENNANT. ??Results read back by same. Performed By: #### L 501.5500, L501.1200 #### [facility] [address] [place], [address] ECRCL 7.44 ml/min Invalid Interpretation Code 50-250 [facility] Comment on above: Performed By: #### L 501.5500, L501.1200 #### [facility] [address] [place], [address] GAP 40 High 5-15 [facility] Comment on above: Performed By: #### L 501.5500, L501.1200 #### [facility] [address] [place], [address] GFR/1.73 sq M.predicted among non-blacks MDRD (S/P/Bld) [Vol rate/Area] 5 mL/min/{1.73_m2} Low >60 [facility] Comment on above: Result Comment: mL/m in/1.73m2 CKD-EPI Creatinine Equation (2020) Performed By: #### L 501.5500, L501.1200 #### [facility] [address] [place], [address] Globulin (S) [Mass/Vol] 3.3 g/dL Normal 2.2-4.2 [facility] Comment on above: Performed By: #### L 501.5500, L501.1200 #### [facility] [address] [place], [address] Glucose [Mass/Vol] 190 mg/dL High 70-99 [facility] Comment on above: Performed By: #### L 501.5500, L501.1200 #### [facility] [address] [place], [address] Potassium [Moles/Vol] 2.4 mmol/L Invalid Interpretation Code 3.3-5.1 [facility] Comment on above: Result Comment: Crit ical Result(s) Called at 1354: by: KEYUR ZAMORA TO DTENNANT. ??Results read back by same. Performed By: #### L 501.5500, L501.1200 #### [facility] [address] [place], [address] Sodium [Moles/Vol] 139 mmol/L Normal 133-145 [facility] Comment on above: Performed By: #### L 501.5500, L501.1200 #### [facility] [address] [place], [address] T PROT 8.3 g/dL Normal 5.9-8.4 [facility] Comment on above: Performed By: #### L 501.5500, L501.1200 #### [facility] [address] [place], [address] Urea nitrogen [Mass/Vol] 248 mg/dL Invalid Interpretation Code 4-19 [facility] Comment on above: Result Comment: Crit ical Result(s) Called at 1353: by: KEYUR ZAMORA TO DTENNANT. ??Results read back by same. Performed By: #### L 501.5500, L501.1200 #### [facility] [address] [place], [address] Creatinine, Urine (random)on 09-09-2024 UR CREAT 284.00 mg/dL High 39.00-259.00 [facility] Comment on above: Performed By: #### L 501.5500, L501.1200 #### [facility] [address] [place], [address] Emergency Department Summary on 09-09-2024 Emergency Department Summary [facility] Medical Records Department [address] [place] [address] Emergency Department Summary 09/09/24 MR#: [id number] Acct: [id number] Name: PIETROJULIAKESHAV DARRICK Rep #: [id number] : 1970 53 From: Remus Ungur DO PCP: Care Physician,No Primary Status:ADM IN Location: ICU ICU06-1 HPI HPI - GI History of Present Illness Chief Complaint: Abd Pain Detail of Chief Complaint: Nausea, weight loss, abdominal distention Informant: patient Narrative Narrative: Patient presents with weight loss as well as nausea and abdominal bloating ongoing for 6 to 7 months. Patient states he has no primary care physician. He finally got tired of the weight loss and he is complaining of feeling weak with no energy. He has nausea and vomiting usually after he eats about 15 to 20 minutes later.. He denies blood in stool or black tarry stool. He denies urinary symptoms. He tells me has no medical history. No prior abdominal surgeries. [facility] Medical History (Updated 09/09/24 @ 14:[address] Abbie Michelle MD) No significant past medical history Home Medications ???Medication ???Instructions ???Recorded ???Last Taken ???Type multivitamin (Daily Multi-Vitamin 1 tab PO DAILY 09/09/24 09/08/24 History tablet) Allergy/AdvReac Type Severity Reaction Status Date / Time No Known Allergies Allergy Verified 09/09/24 12:12 Family History (Updated 09/09/24 @ 14:[address] Abbie Mcihelle MD) Mother Hypertension Father No problems noted. Surgical History (Updated 09/09/24 @ 14:[address] Abbie Michelle MD) History of skin graft Social History (Updated 09/09/24 @ 14:[address] Abbie Michelle MD) household members: none Smoking Status: Never smoker alcohol intake: never substance use type: does not use ROS ROS ED Review of Systems ROS Unobtainable: other Constitutional Constitutional ED: Reports lethargy; Denies chills, fever(s), sweats or weight loss Eyes Eyes: Denies blurry vision, change in vision or diplopia ENT ENT ED: Denies rhinorrhea or sore throat Cardiovascular Cardiovascular: Denies chest pain, orthopnea or racing heartbeat Respiratory/Chest Respiratory/Chest: Denies cough, dyspnea, dyspnea on exertion, orthopnea or sputum Gastrointestinal Gastrointestinal: Reports nausea, vomiting and other Details: Abdominal distention, weight loss ; Denies abdominal pain or diarrhea Genitourinary Genitourinary ED: Denies dysuria, hematuria or urinary frequency Musculoskeletal Musculoskeletal: Denies arthralgias, back pain, myalgias or neck pain Integumentary Denies abscess, Abrasions or rash Neurologic Neurologic: Denies headache(s) or weakness Psychiatric Psychiatric: Denies anxiety, depression or suicidal thoughts Endocrine Endocrinology: Denies polydipsia, polyphagia or polyuria Hematologic/Lymphat ic Hematologic/Lymphat ic: Denies easy bleeding, easy bruising or lymphadenopathy Allergic/Immunologi c Allergic/Immunologi c ED: Denies mouth swelling, tongue swelling or urticaria EXAM Physical Exam Const Vital Signs: 09/09/24 12:06 09/09/24 14:05 09/09/24 14:16 Temperature 96.2 F L 96.2 F L Temperature Source Temporal Pulse Rate 104 H 94 94 Respiratory Rate 16 16 16 Blood Pressure 101/73 129/114 H 129/114 H Blood Pressure Mean 82 119 119 Pulse Ox 94 100 100 Oxygen Delivery Method Room Air Room Air Positive well nourished and well developed General Appearance ED: well developed and NAD HEENT Reports TM's clear and moist mucous membranes normocephalic and atraumatic; Negative for trauma or tenderness Tympanic Membrane ED: Yes TM's clear Eyes PERRL and EOMs intact bilaterally General Eye ED: Negative for pale conjunctiva or scleral icterus Neck no lymphadenopathy, supple and no JVD General: Negative for tenderness Chest Wall inspection of chest normal and palpation of chest normal Chest: Negative for tenderness Resp normal respiratory effort and clear to auscultation bilaterally Effort and Inspection: Negative for respiratory distress or pain with movement Auscultation: Negative for rhonchi, wheezes or diminished lung sounds Cardio regular rate, regular rhythm, S1 normal heart sound, S2 normal heart sound and no murmurs Peripheral Pulses: pulses 2+ throughout GI normal to inspection, nondistended, normoactive bowel sounds, soft to palpation, non-tender, non- distended and no masses Back/Spine no CVA tenderness and no thoracic nor lumbar tenderness Extremity normal to inspection General Extremety ED: Negative for edema General Extremity: Negative for edema Neuro oriented x3, CN's II-XII intact bilaterally, no sensory deficits noted and gait normal Sensorium / Orientation: awake, alert, oriented to person, oriented to place and oriented to time Motor Exam: stren (more content not included)... Normal [facility] Eosinophil percentageOrdered By: Lata Duron on 09-09-2024 Eosinophils/100 WBC (Bld) 0.1 % 0-5 [facility] Erythrocyte distribution wid th ratioOrdered By: Lata Koenigefrain on 09-09-2024 Erythrocyte distribution width (RBC) [Ratio] 13.1 % 11.6-14.6 [facility] Erythrocyte distribution wid th standard deviationOrdered By: Rem Oliverio on 09-09-2024 Erythrocyte distribution width (RBC) [Ratio] 36.9 fl 35.1-43.9 [facility] Glomerular filtration rate ( GFR) estimation/1.73 sq m using serum, plasma, or whole bOrdered By: Lata Duron on 09-09-2024 GFR/1.73 sq M.predicted among non-blacks MDRD (S/P/Bld) [Vol rate/Area] 5 mL/min/{1.73_m2} Low >60 [facility] Comment on above: mL/min/1.73m2 CKD-EP I Creatinine Equation (2020) H AND P Exam - [facility] 09-09-2024 H&P Exam - Hospitalist [facility] Medical Records Department [address] [place] [address] H P Exam - Hospitalist 09/09/24 1415 MR#: [id number] Acct: [id number] Name: KESHAV ARMSTRONG Rep #: [id number] : 1970 53 From: Abbie Michelle MD PCP: Care Physician,No Primary Status:ADM IN Location: ICU ICU06-1 HPI - General General Date of Admission: 09/09/24 Date of Service: 09/09/24 Chief Complaint: Intractable N/V, unable to take adequate PO, weight loss, abd bloating. HPI Narrative The patient is a 53 y/o M w/ no prior notable PMHx who presents to the [facility] ED on 09/09/2024 with history of significant persistent nausea with poor oral intake as well as abdominal bloating and distention with significant weight loss for last 6 to 7 months with no established primary care physician thus prompting eventual decision to be evaluated in the ED. He denies any alteration to the appearance of his stools or any urinary symptoms. He notes persistent emesis associated with any oral intake attempts. Has had been able to keep liquids down and some full liquids but nearly all solids come back up. He reports 60-70 lb weight loss over the last 12 months. He does state he is continuing to make urine and usually urinates twice a day. He states previously had been very dark but has become more clear recently. His parents were present note that he is had a significant decline over the last 3 weeks. He also does have bruises on his lower legs and states this may be happening in his sleep even. Workup in the ED included T96.2 Temporal, heart rate 104, BP 101/73, respiratory rate 16, 94% room air, CBC with WBC 11.7, hemoglobin 18.7, platelets 206 with left shift and lymphopenia, CMP with potassium 2.4, chloride 82, carbon oxide 16.8, anion gap 40, BUN/creatinine 248/10.70, GFR 5, glucose 190, lactic acid 2.0, hepatic profile not marked appearing, lipase 241, CT abdomen pelvis with distal esophagus dilated to 5 cm possible indicative of achalasia, cholelithiasis, liver cyst, 2 cm uncomplicated fat-containing left inguinal hernia, nonfocal layered mucosal enhancement the distal small bowel of unclear significance. In the ED patient administered maintenance IV fluids. [facility] Medical History (Updated 09/09/24 @ 14:[address] Abbie Michelle MD) No significant past medical history Home Medications ???Medication ???Instructions ???Recorded ???Last Taken ???Type multivitamin (Daily Multi-Vitamin 1 tab PO DAILY 09/09/24 09/08/24 History tablet) Allergy/AdvReac Type Severity Reaction Status Date / Time No Known Allergies Allergy Verified 09/09/24 12:12 Family History (Updated 09/09/24 @ 14:[address] Abbie Michelle MD) Mother Hypertension Father No problems noted. Surgical History (Updated 09/09/24 @ 14:[address] Abbie Michelle MD) History of skin graft Social History (Updated 09/09/24 @ 14:[address] Abbie Michelle MD) household members: none Smoking Status: Never smoker alcohol intake: never substance use type: does not use ROS ROS Narrative Admission Review of Systems: CONSTITUTIONAL: No fever, chills, + weight loss, weakness or fatigue. HEENT: Eyes: No visual loss, blurred vision, double vision or yellow sclerae. Ears, Nose, Throat: No hearing loss, sneezing, congestion, runny nose or sore throat. SKIN: No rash or itching, lesions, wounds. CARDIOVASCULAR: No chest pain, chest pressure or chest discomfort, palpitations, edema, orthopnea, syncopal events. RESPIRATORY: No shortness of breath, cough or sputum, wheezing, hemoptysis. GASTROINTESTINAL: + anorexia, nausea, vomiting, abdominal distention/fullness . No constipation, diarrhea, abdominal pain, melena, BRBPR. GENITOURINARY: No dysuria, frequency, urgency or retention. NEUROLOGICAL: No headache, dizziness, syncope, paralysis, ataxia, numbness or tingling in the extremities, focal weakness, change in bowel or bladder control, seizure. MUSCULOSKELETAL: + muscle, back pain, joint pain or stiffness. HEMATOLOGIC: No anemia. + Easy bleeding/bruising. LYMPHATICS: No enlarged nodes. No history of splenectomy. PSYCHIATRIC: No history of depression or anxiety. ENDOCRINOLOGIC: No reports of sweating, cold or heat intolerance. No polyuria or polydipsia. ALLERGIES: No history of asthma, hives, eczema or rhinitis. Vital Signs Vital Signs Vital Signs: 09/09/24 12:06 Temperature 96.2 F L Temperature Source Temporal Pulse Rate 104 H Respiratory Rate 16 Blood Pressure 101/73 Blood Pressure Mean 82 Pulse Ox 94 Oxygen Delivery Method Room Air Weight Weight: 145 lb 3.2 oz Body Mass Index (BMI) 22.7 Physical Exam Narrative Physical Examination: General: Awake, alert, oriented x 3 and cooperative, seated upright in bed in no apparent distress, denies any current pain. (more content not included)... Normal [facility] Hematocrit Auto (Bld) [Volum e fraction]Ordered By: Lata Duron on 09-09-2024 Hematocrit (Bld) [Volume fraction] 51.6 % 40-54 [facility] Hemoglobin A1con 09-09-2024 HbA1c (Bld) [Mass fraction] 6.5 % High <=5.6 [facility] Comment on above: Result Comment: Norm al < 5.7 % Prediabetic 5.7 - 6.4 % Diabetic >or= 6.5 % Please note range changes. Performed By: #### L [id number] #### [facility] Laboratory [address] [place], [place], [address] Hemoglobin A1c percentageOrd ered By: Abibe Michelle on 09-09-2024 HbA1c (Bld) [Mass fraction] 6.5 % High <5.7 [facility] Comment on above: Normal < 5.7 % Predi abetic 5.7 - 6.4 % Diabetic >or= 6.5 % Please note range changes. Hemoglobin measurementOrdere d By: Lata Duron on 09-09-2024 Hemoglobin (Bld) [Mass/Vol] 18.7 g/dL High 13.0-16.5 [facility] Comment on above: CRITICAL VALUE BRIGGS D TO DANI FLOYD (ER)09/09/24 1256 Benedict Bustos.RESULTS READ BACK BY SAME. Immature granulocytes/100 WB C Auto (Bld)Ordered By: Lata Duron on 09-09-2024 Immature granulocytes/100 WBC (Bld) 0.400 % 0.0-0.9 [facility] Comment on above: IG% - Immature Granu locytes (promyelocytes, myelocytes and metamyelocytes) > 1% indicates that a LEFT SHIFT is Present. Ketones Test strip Ql (U)Ord ered By: Lata Duron on 09-09-2024 Ketones Ql (U) Negative Negative [facility] Kidney and Bladderon 025 Kidney and Bladder [facility] Imaging Services [address] [place], [place] [address] Kidney and Bladder MR#: [id number] Acct: [id number] Name: KESHAV ARMSTRONG Rep #: [id number] : 1970 M 53 From: Jimenez Bhakta MD PCP: Care Physician,No Primary Status: ADM IN Study: Kidney and Bladder Date of Exam: 09/09/24 Exam# [id number] Ordering Dr: Abbie Michelle MD EXAM: US Retroperitoneal Limited, Renal CLINICAL INDICATION: EWA TECHNIQUE: Real-time limited ultrasound of the retroperitoneum with image documentation. COMPARISON: No relevant prior studies available. FINDINGS: RIGHT KIDNEY: Unremarkable. No stones. No hydronephrosis. The right kidney measures 9.2 x 5.5 x 6.5 cm. LEFT KIDNEY: Unremarkable. No stones. No hydronephrosis. The left kidney measures 10.6 x 4.9 x 6.1 cm. BLADDER: Bladder wall thickening which may be due to the decompressed state of the bladder or due to cystitis. US/Kidney and Bladder IMPRESSION: Bladder wall thickening which may be due to the decompressed state of the bladder or due to cystitis. Reading Location: [facility] CC: Dr. Abbie Michelle MD; No Primary Care Physician Software Quality Assurance Specialist: Signed Normal [facility] Laboratory - Chemistry and C hemistry - challengeOrdered By: Lata Duron on 09-09-2024 AST [Catalytic activity/Vol] 9 U/L <38 [facility] Lactic Acidon 09-09-2024 Lactate [Moles/Vol] 1.6 mmol/L Normal 0.0-2.0 [facility] Comment on above: Performed By: #### L 501.080 #### [facility] [address] [place], [place], [id number] Lactate [Moles/Vol] 2.0 mmol/L Normal 0.0-2.0 [facility] Comment on above: Order Comment: Y Result Comment: Crit ical Result(s) Called at 1354: by: KEYUR ZAMORA TO DTENNANT. ??Results read back by same. Performed By: #### L [id number], L501.1200 #### [facility] [address] [place], [place], [id number] Lactic acid measurementOrder ed By: Lata Duron on 09-09-2024 Lactate [Moles/Vol] 1.6 mmol/L 0.0-2.0 [facility] Lactate [Moles/Vol] 2.0 mmol/L 0.0-2.0 [facility] Comment on above: Critical Result(s) C alled at 1354: by: KEYUR ZAMORA TO DTENNANT. Results read back by same. Lipaseon 09-09-2024 Lipase [Catalytic activity/Vol] 241 U/L High 13-75 [facility] Comment on above: Result Comment: Plea note: LIPASE revised reference range effective 22. New Lipase methodology. Expected to produce lower values than the previous assay method. NEW Reference Range: 13 - 75 U/L Performed By: #### L 503.6005, L501.2450, L500.4050 #### [facility] [address] [place], [address] Lipase measurementOrdered By : Lata Duron on 09-09-2024 Lipase [Catalytic activity/Vol] 241 U/L High - [facility] Comment on above: Please note:LIPASE r evised reference range effective 22. New Lipase methodology. Expected to produce lower values than the previous assay method. NEW Reference Range: 13 - 75 U/L M8200.1000on 09-09-2024 M8200.1000 Normal Reference Range = Negative MRSA DNA Nose Ql AYSHA+probe GeneXpert Instrument, PCR method MRSA PCR MRSA NEGATIVE Normal [facility] Comment on above: Performed By: #### L 501.5500, L501.1200 #### [facility] [address] [facility] [place], [address] MCV (mean corpuscular volume ) determinationOrdered By: Lata Duron on 09-09-2024 MCV (RBC) [Entitic vol] 78.9 fL Low 80-94 [facility] MR/CON.PCM.GIon 09-09-2024 MR/CON.PCM.GI [facility] Medical Records Department [address] [place] [address] Consultation - GI 09/09/241925 MR#: [id number] Acct: [id number] Name: KESHAV ARMSTRONG Rep #: [id number] : 1970 53 From: Alo Friend DO PCP: Care Physician,No Primary Status:[facility]M [facility] Consult Data Date of Consult: 09/11/24 HPI Narrative Reason for Consultation: Persistent nausea vomiting HPI Narrative: KESHAV ARMSTRONG, is a 53 M who presents Patient presents with weight loss as well as nausea and abdominal bloating ongoing for 6 to 7 months. Patient states he has no primary care physician. He finally got tired of the weight loss and he is complaining of feeling weak with no energy. He has nausea and vomiting usually after he eats about 15 to 20 minutes later. [facility] Medical History No significant past medical history Home Medications ???Medication ???Instructions ???Recorded ???Last Taken ???Type multivitamin (Daily Multi-Vitamin 1 tab PO DAILY 09/09/24 09/08/24 History tablet) Allergy/AdvReac Type Severity Reaction Status Date / Time No Known Allergies Allergy Verified 09/10/24 11:04 Family History Mother Hypertension Father No problems noted. Surgical History History of skin graft Social History household members: none Smoking Status: Never smoker alcohol intake: never substance use type: does not use ROS Constitutional Constitutional: Denies fatigue, fever(s), poor appetite, weight gain or weight loss Gastrointestinal Gastrointestinal: Denies belching, bloating, change in bowel habits, change in stool character, chewing difficulty, coffee ground emesis, constipation, cramping, diarrhea, dyspepsia, dysphagia, early satiety, excessive flatus, fecal incontinence, heartburn, hematemesis, hematochezia, hemorrhoids, loose stools, melena, nausea, odynophagia, rectal bleeding, tenesmus, vomiting or weight changes Physical Exam Const alert, oriented x3, no apparent distress and healthy appearing General Appearance: cooperative GI normal to inspection, nondistended, normoactive bowel sounds, soft to palpation, non-tender and non- distended Percussion: normal to percussion Rectal Exam: deferred Lab / Micro Data 09/10/24 04:52 09/11/24 04:35 Labs: Laboratory Results - last 24 hr 09/09/24 12:15: WBC 11.7 H, RBC 6.54 H, Hgb 18.7 H*, Hct 51.6, MCV 78.9 L, MCH 28.6, MCHC 36.2 H, RDW Std Deviation 36.9, RDW Coeff of Keerthi 13.1, Plt Count 206, MPV 13.8 H, Immature Gran % (Auto) 0.400, Neut % (Auto) 87.9 H, Lymph % (Auto) 5.9 L, Forrest % (Auto) 5.5, Eos % (Auto) 0.1, Baso % (Auto) 0.2, Absolute Neuts (auto) 10.3 H, Absolute Lymphs (auto) 0.69 L, Nucleated RBC % 0, Sodium 139, Potassium 2.4 L*, Chloride 82 L, Carbon Dioxide 16.8 L, Anion Gap 40 H, BUN 248 H*, Creatinine 10.70 H*, Estim Creat Clear Calc 7.44 L*, Est GFR (MDRD) Non-Af 5 L, BUN/Creatinine Ratio 23.2 H, G lucose 190 H, Hemoglobin A1c 6.5 H, Calcium 10.6, Phosphorus 9.6 H*, Magnesium 4.8 H, Total Bilirubin 1.16, AST 9, ALT 17, Alkaline Phosphatase 91, Total Protein 8.3, Albumin 5.0, Globulin 3.3, Albumin/Globulin Ratio 1.5, Lipase 241 H, b-Hydroxybutyric mmol/L 3.5 09/09/24 12:58: Lactic Acid 2.0 09/09/24 14:40: Serum Osmolality 406 H 09/09/24 16:08: POC Glucose 130 H 09/09/24 16:20: Sodium 138, Potassium 2.5 L*, Chloride 89 L, Carbon Dioxide 16.8 L, Anion Gap 33 H, BUN 243 H*, Creatinine 9.67 H*, Estim Creat Clear Calc 8.23 L*, Est GFR (MDRD) Non-Af 6 L, B UN/Creatinine Ratio 25.1 H, Glucose 82, Calcium 9.6 09/09/24 17:00: Urine Color Yellow, Urine Clarity Sl. Cloudy, Urine pH 6.0, Ur Specific [place] 1.020, Urine Protein 30 H, Urine Glucose (UA) Normal, Urine Ketones Negative, Urine Occult Blood 25 H, Urine Nitrite Negative, Urine Bilirubin 1 H, Urine Urobilinogen Normal, Ur Leukocyte Esterase Negative, Urine RBC 0-5 SEEN, Urine WBC 0-5 SEEN, Ur Squamous Epith Cells 0-5 SEEN, Amorphous Sediment 1+, Urine Bacteria 0 SEEN, Urine Mucus 0 SEEN, Ur Random Sodium < 20, Urine Creatinine 284.00 H 09/09/24 17:11: POC Glucose 54 L 09/09/24 17:40: Lactic Acid 1.6 09/09/24 17:42: POC Glucose 181 H 09/09/24 18:28: POC Glucose 149 H Micro: Microbiology 09/09/24 16:20 Nasal Secretion MRSA (PCR) - Final ABG Data ABG results: ABG 09/09/24 16:24 Specimen Type ART Sample Site R Radial pH 7.51 H Bicarbonate Actual 17.9 L Total CO2 19 Base Excess -5 L O2 Saturation 99 O2 % 21.0 ABG pCO2 22.3 L ABG pO2 113 H Ning Test Positive O2 Delivery Device Not entered Vent Mode Not entered Imaging Ra (more content not included)... Normal [facility] Magnesiumon 09-09-2024 Magnesium [Mass/Vol] 4.8 mg/dL High 1.5-2.2 [facility] Comment on above: Order Comment: Comme nts: may add to ED labs Performed By: #### L 501.6901, L501.5200 #### [facility] [address] [place], [place], [id number] Magnesium measurement (mass/ volume)Ordered By: Abbie Michelle on 09-09-2024 Magnesium (Unsp spec) [Mass/Vol] 4.8 mg/dL High 1.5-2.2 [facility] Mean corpuscular hemoglobin (MCH) determinationOrdered By: Lata Duron on 09-09-2024 MCH (RBC) [Entitic mass] 28.6 pg 27.0-32.0 [facility] Mean corpuscular hemoglobin concentration (MCHC) determinationOrdered By: Lata Duron on 09-09-2024 MCHC (RBC) [Mass/Vol] 36.2 g/dL High 32-36 [facility] Mean platelet volume determi nationOrdered By: Lata Duron on 09-09-2024 Platelet mean volume (Bld) [Entitic vol] 13.8 fL High 6.2-12.0 [facility] Measurement, pHOrdered By: A ana m Michelle on 09-09-2024 pH (Unsp spec) 7.51 [pH] High 7.35-7.45 [facility] Microscopic analysis of urin e for red blood cells (RBC)Ordered By: Lata Duron on 09-09-2024 Microscopic analysis of urine for red blood cells (RBC) 0-5 SEEN /hpf 0-5 [facility] Monocyte percentageOrdered B y: Lata Duron on 09-09-2024 Monocytes/100 WBC (Bld) 5.5 % 0-10 [facility] Mucus LM Ql (Urine sed)Order ed By: Lata Duron on 09-09-2024 Mucus Ql (Urine sed) 0 SEEN /hpf [facility] Nasal methicillin resistant Staphylococcus aureus (MRSA) DNA detection by PCROrdered By: Abbie Michelle on 09-09-2024 MRSA DNA AYSHA+probe Ql (Nose) [facility] Neutrophil percentageOrdered By: Lata Duron on 09-09-2024 Neutrophils/100 WBC (Bld) 87.9 % High 47-70 [facility] Nitrite Test strip Ql (U)Ord ered By: Lata Duron on 09-09-2024 Nitrite Ql (U) Negative Negative [facility] No Panel InformationOrdered By: Abbie Michelle on 09-09-2024 Blood Gas Sample Site R Radial [facility] Blood Gas Specimen Type ART [facility] Blood Gas Vent Mode Not entered [facility] Oxygen Delivery Device Not entered [facility] Nucleated red blood cell per centageOrdered By: Lata Duron on 09-09-2024 Nucleated RBC/100 WBC (Bld) [Ratio] 0 % 0-5 [facility] Osmolality, Serumon 09-10-19 25 OSMOLALITY,SER 406 mOsm/KG High 275-295 [facility] Comment on above: Performed By: #### L 501.5500, L501.1200 #### [facility] [address] [place], [address] Phosphoruson 09-09-2024 Phosphate [Mass/Vol] 9.6 mg/dL Invalid Interpretation Code 2.7-4.5 [facility] Comment on above: Order Comment: Comme nts: May add to ED labs Result Comment: Crit ical Result(s) Called at: 1530 by: YESENIA BLACKWOOD TO DENI??Results read back by same. Performed By: #### L 501.5500, L501.1200 #### [facility] [address] [place], [address] Platelet countOrdered By: Margaux Duron on 09-09-2024 Platelets (Bld) [#/Vol] 206 10*3/uL 150-450 [facility] Potassium measurement (mass/ volume)Ordered By: Lata Duron on 09-09-2024 Potassium (Unsp spec) [Mass/Vol] 2.4 mmol/L Low 3.3-5.1 [facility] Comment on above: Critical Result(s) C alled at 1354: by: KEYUR ZAMORA TO [facility]. Results read back by same. Protein Test strip Ql (U)Ord ered By: Lata Duron on 09-09-2024 Protein Ql (U) 30 mg/dl High Negative [facility] RBC Auto (Bld) [#/Vol]Ordere d By: Lata Duron on 09-09-2024 RBC (Bld) [#/Vol] 6.54 10*6/uL High 4.6-6.2 [facility] Random urine creatinine agueda urement (mass/volume)Ordered By: Abbie Michelle on 09-09-2024 Creatinine Unsp time (U) [Mass/Vol] 284.00 mg/dL High 39.00-259.00 [facility] Serum creatinine measurement (mass/volume)Ordered By: Lata Duron on 09-09-2024 Creatinine [Mass/Vol] 10.70 mg/dL High 0.70-1.[address] [facility] Comment on above: Critical Result(s) C alled at: by: Results read back by same.Critical Result(s) Called at 1354: by: KEYUR ZAMORA TO DTENNANT. Results read back by same. Serum globulin measurementOr dered By: Lata Duron on 09-09-2024 Globulin (S) [Mass/Vol] 3.3 g/dL 2.2-4.2 [facility] Serum glucose measurement (m ass/volume)Ordered By: Lata Duron on 09-09-2024 Glucose [Mass/Vol] 190 mg/dL High 70-99 [facility] Serum or plasma alanine rea otransferase (ALT) measurementOrdered By: Lata Duron on 09-09-2024 ALT [Catalytic activity/Vol] 17 U/L <47 [facility] Serum or plasma albumin agueda urement (mass/volume)Ordered By: Lata Duron on 09-09-2024 Albumin [Mass/Vol] 5.0 g/dL 3.5-5.0 [facility] Serum or plasma albumin/glob ulin mass ratioOrdered By: Lata Duron on 09-09-2024 Albumin/Globulin [Mass ratio] 1.5 {ratio} 0.9-2.4 [facility] Serum or plasma alkaline radha sphatase measurementOrdered By: Lata Duron on 09-09-2024 ALP [Catalytic activity/Vol] 91 U/L 40-129 [facility] Serum or plasma calcium agueda urement (mass/volume)Ordered By: Lata Duron on 09-09-2024 Calcium [Mass/Vol] 10.6 mg/dL 7.6-11.0 [facility] Serum or plasma urea nitroge n measurement (mass/volume)Ordered By: Lata Duron on 09-09-2024 Urea nitrogen [Mass/Vol] 248 mg/dL High 4-19 [facility] Comment on above: Critical Result(s) C alled at 1353: by: KEYUR ZAMORA TO DTENNANT. Results read back by same. Sodium levelOrdered By: Justo Duron on 09-09-2024 Sodium [Moles/Vol] 139 mmol/L 133-145 [facility] Squamous epithelial cells de tection in urine sediment by light microscopyOrdered By: Lata Duron on 09-09-2024 Epithelial cells.squamous LM Ql (Urine sed) 0-5 SEEN /hpf 0-5 [facility] Total carbon dioxide measure mentOrdered By: Abbie Michelle on 09-09-2024 CO2 [Moles/Vol] 19 mmol/L [facility] Total proteinOrdered By: Maria Dolores Duron on 09-09-2024 Protein [Mass/Vol] 8.3 g/dL 5.9-8.4 [facility] Urinalysis, Completeon 09-09 AMORPHOUS 1+ Normal [facility] Comment on above: Order Comment: CLEAN CATCH Performed By: #### L 501.5500, L501.1200 #### [facility] [address] [place], [address] EPI,SQUAMOUS 0-5 SEEN Normal 0-5 [facility] Comment on above: Order Comment: CLEAN CATCH Performed By: #### L 501.5500, L501.1200 #### [facility] [address] [place], [address] RBC 0-5 SEEN Normal 0-5 [facility] Comment on above: Order Comment: CLEAN CATCH Performed By: #### L 501.5500, L501.1200 #### [facility] [address] [place], [address] WBC 0-5 SEEN Normal 0-5 [facility] Comment on above: Order Comment: CLEAN CATCH Performed By: #### L 501.5500, L501.1200 #### [facility] [address] [place], [address] BACTERIA 0 SEEN Normal None Seen [facility] Comment on above: Order Comment: CLEAN CATCH Performed By: #### L 501.5500, L501.1200 #### [facility] [address] [place], [address] Mucus Ql (Urine sed) 0 SEEN Normal [facility] Comment on above: Order Comment: CLEAN CATCH Performed By: #### L 501.5500, L501.1200 #### [facility] [address] [place], [address] Urine Sodiumon 09-09-2024 UR NA < 20 Normal Not Establ. [facility] Comment on above: Performed By: #### L 501.5500, L501.1200 #### [facility] [address] [place], [address] Urine clarityOrdered By: Maria Dolores Duron on 09-09-2024 Clarity (U) Sl. Cloudy Clear [facility] Urine color determinationOrd ered By: Lata Duron on 09-09-2024 Color (U) Yellow Yellow [facility] Urine glucose detectionOrder ed By: Lata Duron on 09-09-2024 Glucose Ql (U) Normal mg/dl Normal [facility] Urine leukocyte esterase det ection by dipstickOrdered By: Lata Duron on 09-09-2024 Leukocyte esterase Test strip Ql (U) Negative Negative [facility] Urine pHOrdered By: Lata Tejeda gur on 09-09-2024 pH (U) 6.0 [pH] 5.0 - 8.0 [facility] Urine sediment bacteria coun t by microscopy (number/high power field)Ordered By: Lata Duron on 09-09-2024 Bacteria LM.HPF (Urine sed) [#/Area] 0 /[HPF] None Seen [facility] Urine sodium measurement (mo les/volume)Ordered By: Abbie Michelle on 09-09-2024 Sodium (U) [Moles/Vol] mmol/L Not Establ. [facility] Urine specific gravity measu rementOrdered By: Lata Duron on 09-09-2024 Specific gravity (U) [Rel density] 1.020 1.002-1.030 [facility] Urine urobilinogen measureme ntOrdered By: Lata Duron on 09-09-2024 Urobilinogen Ql (U) Normal mg/dl Normal [facility] White blood cell (WBC) count Ordered By: Lata Duron on 09-09-2024 WBC (Bld) [#/Vol] 11.7 10*3/uL High 4.4-11.0 [facility] White blood cell countOrdere d By: Lata Duron on 09-09-2024 White blood cell count 0-5 SEEN /hpf 0-5 [facility] Vital Signs Date Time Vital Sign Value Performing Clinician Faci lity 09-12-2024 07:36-0400 Body temperature 97.1 [degF] Dr. Lata Duron DO Work Phone: [facility] 09-12-2024 07:36-0400 Diastolic blood pressure 84 mm[Hg] Dr. Lata Duron DO Work Phone: 5(910)908-843359 [place] [address] 09-12-2024 07:36-0400 Heart rate 89 /min Dr. Lata Duron DO Work Phone: 8(845)471-855036 [place] [address] 09-12-2024 07:36-0400 Respiratory rate 16 /min Dr. Lata Duron DO Work Phone: 0(422)538-445259 [place] [address] 09-12-2024 07:36-0400 SaO2% (BldA) [Mass fraction] 100 % Dr. Lata Duron DO Work Phone: 7(034)585-158436 [place] [address] 09-12-2024 07:36-0400 Systolic blood pressure 114 mm[Hg] Dr. Lata Duron DO Work Phone: 5(970)710-186459 [place] [address] 09-12-2024 05:10-0400 Body mass index (BMI) [Ratio] 25.2 kg/m2 Dr. Lata Duron DO Work Phone: 7(800)046-687059 [place] [address] 09-12-2024 05:10-0400 Body weight 72.[address] Lata Duron DO Work Phone: 3(362)740-204559 [place] [address] 09-10-2024 10:22-0400 Body height [address] Lata Duron DO Work Phone: 1(495)923-833159 [place] [address] 09-09-2024 14:16-0400 Body temperature 96.2 [degF] Dr. Lata Duron DO Work Phone: 5(782)978-928459 [place] [address] 09-09-2024 14:16-0400 Diastolic blood pressure 114 mm[Hg] Dr. Lata Duron DO Work Phone: 1(015)656-073959 [place] [address] 09-09-2024 14:16-0400 Heart rate 94 /min Dr. Lata Duron DO Work Phone: 9(658)311-722459 [place] [address] 09-09-2024 14:16-0400 Respiratory rate 16 /min Dr. Lata Duron DO Work Phone: [facility] 09-09-2024 14:16-0400 SaO2% (BldA) [Mass fraction] 100 % Dr. Lata Duorn DO Work Phone: [facility] 09-09-2024 14:16-0400 Systolic blood pressure 129 mm[Hg] Dr. Lata Duron DO Work Phone: [facility] 09-09-2024 12:06-0400 Body height 170.[address] Lata Duron DO Work Phone: [facility] 09-09-2024 12:06-0400 Body mass index (BMI) [Ratio] 22.7 kg/m2 Dr. Lata Duron DO Work Phone: [facility] 09-09-2024 12:06-0400 Body weight 65.[address] Lata Duron DO Work Phone: [facility] [facility] Encounters Encounter Date Encounter Type Care Provider Facility Start: 11-18-2024 ambulatory Kassandra Chcias [facility] Faci lity:[facility] Start: 09-11-2024 Non-patient / Non-visit Dr. Jimenez [facility] Work Phone: Start: 09-11-2024 Non-patient / Non-visit Alo Beltre nd DO -[facility] Start: 09-10-2024 Non-patient / Non-visit Dr. Jimenez [facility] Work Phone: Start: 09-10-2024 Non-patient / Non-visit Alo Beltre nd DO -[facility] Start: 09-10-2024 End: 09-10-2024 ambulatory Tu Feliciano Facility:[facility] Start: 09-09-2024 Non-patient / Non-visit Alo Frie nd DO -[facility] Start: 09-09-2024 End: 09-12-2024 Evaluation and management of inpatient Dr. Abbie Michelle MD -Intensive Care Unit Work Phone: Start: 09-09-2024 ambulatory No Primary Car e Physician Facility:[facility] Start: 09-09-2024 Non-patient / Non-visit Dr. Abbie Michelle MD -[facility] Work Phone: Start: 01-30-2021 End: 01-30-[address] [facility] Start: 09-02-2020 End: 09-02-2020 ambulatory [facility] Start: 02-23-2020 End: 02-23-2020 [facility] Procedures Date Procedure Procedure Detail Performing Clinician Start: 09-12-[address] Lata Duron DO Work Phone: Start: 09-11-2024 Serum inorganic phosphate measurement Dr. Lata Duron DO Work Phone: Start: 09-10-[address] Lata zuniga DO Work Phone: Start: 09-09-2024 Urnls dip stick/tablet reagent auto microscopy Dr. Lata Duron DO Work Phone: Start: 09-09-2024 Carbon dioxide measurement, partial pressure Dr. Lata Duron DO Work Phone: Start: 09-09-2024 Gases blood o2 saturation only direct agueda Dr. Lata Duron DO Work Phone: Start: 09-09-2024 Measurement of partial pressure of oxygen in blood Dr. Lata Duron DO Work Phone: Start: 09-09-[address] Lata Duron DO Work Phone: Start: 09-09-2024 Complete ultrasound of kidneys and bladder Dr. Lata Duron DO Work Phone: Start: 09-09-2024 Osmolality measurement, serum Dr. Lata Duron DO Work Phone: Start: 09-09-[address] Lata mccauley DO Work Phone: Start: 09-09-2024 Computed tomography of abdomen and pelvis with intravenous contrast Dr. Lata Duron DO Work Phone: Start: 09-09-[address] Lata Duron DO Work Phone: Start: 09-09-2024 Serum inorganic phosphate measurement Dr. Lata Duron DO Work Phone: Comment on above: Critical Result(s) Called at: 1530 by: Suzanne BLACKWOOD TO DENI Results read back by same. Plan of Treatment Date Care Activity Detail Author Start: 09-12-2024 Patient discharge [facility] Start: 09-11-2024 Provision of activit y privileges [facility] Start: 09-10-2024 Application of inter mittent pneumatic compression device [facility] Start: 09-10-2024 Serum inorganic phos phate measurement [facility] Start: 09-09-2024 Assessment of risk o f venous thromboembolism [facility] Start: 09-09-2024 Continuous pulse oximetry [facility] Start: 09-09-2024 End: 09-09-2024 Following clinical pathway protocol [facility] Start: 09-09-2024 Incentive spirometry [facility] Start: 09-09-2024 Inhalation therapy procedure [facility] Start: 09-09-2024 Insertion of cathete r into peripheral vein [facility] Start: 09-09-2024 Introduction of urin jose catheter [facility] Start: 09-09-2024 Lab findings surveillance [facility] Start: 09-09-2024 Measuring intake and output [facility] Start: 09-09-2024 Methicillin resistan t Staphylococcus aureus (MRSA) DNA [Presence] in Nose by AYSHA with probe detection [facility] Start: 09-09-2024 Notification of physician [facility] Start: 09-09-2024 Oxygen therapy [facility] Start: 09-09-2024 Patient education [facility] Start: 09-09-2024 Patient referral to dietitian [facility] Start: 09-09-2024 Providing care accor ding to standard [facility] Start: 09-09-2024 Provision of activit y privileges [facility] Start: 09-09-2024 Referral to gastroen terology service [facility] Start: 09-09-2024 Referral to special ed assistant [facility] Start: 09-09-2024 Referral to occupati onal therapist [facility] Start: 09-09-2024 Referral to service [facility] Start: 09-09-2024 Vital signs measurements [facility] Start: 09-09-2024 [facility] Start: 09-09-2024 Gas panel - Arterial blood [facility] Start: 09-09-2024 Complete ultrasound of kidneys and bladder Kidney and Bladder [facility] Start: 09-09-2024 Gas panel - Arterial blood [facility] Start: 09-09-2024 Verification routine [facility] Start: 09-09-2024 Admission procedure [facility] Start: 09-09-2024 Patient referral to dietitian [facility] Alanine aminotransfe rase [Enzymatic activity/volume] in Serum or Plasma [facility] Albumin [Mass/volume ] in Serum or Plasma [facility] Alkaline phosphatase [Enzymatic activity/volume] in Serum or Plasma [facility] Anion gap in Serum or Plasma [facility] Anion gap in Serum or Plasma [facility] Anion gap in Serum or Plasma [facility] Anion gap in Serum or Plasma [facility] Bilirubin measurement, urine [facility] Bilirubin, total measurement [facility] BUN/Creatinine ratio [facility] BUN/Creatinine ratio [facility] BUN/Creatinine ratio [facility] BUN/Creatinine ratio [facility] Calcium [Mass/volume ] in Serum or Plasma [facility] Calcium [Mass/volume ] in Serum or Plasma [facility] Calcium [Mass/volume ] in Serum or Plasma [facility] Calcium [Mass/volume ] in Serum or Plasma [facility] Carbon dioxide, tota l [Moles/volume] in Central venous blood [facility] Carbon dioxide, tota l [Moles/volume] in Central venous blood [facility] Carbon dioxide, tota l [Moles/volume] in Central venous blood [facility] Carbon dioxide, tota l [Moles/volume] in Central venous blood [facility] Creatinine [Mass/vol ume] in Serum or Plasma [facility] Creatinine [Mass/vol ume] in Serum or Plasma [facility] Creatinine [Mass/vol ume] in Serum or Plasma [facility] Creatinine [Mass/vol ume] in Serum or Plasma [facility] Creatinine [Mass/vol ume] in Urine collected for unspecified duration [facility] Erythrocyte mean cor puscular volume determination [facility] Glucose [Mass/volume ] in Serum or Plasma [facility] Glucose [Mass/volume ] in Serum or Plasma [facility] Glucose [Mass/volume ] in Serum or Plasma [facility] Glucose [Mass/volume ] in Serum or Plasma [facility] Hematocrit [Volume F raction] of Blood [facility] Hemoglobin [Mass/vol ume] in Blood [facility] Hemoglobin [Presence ] in Urine [facility] Leukocytes [#/volume ] in Blood [facility] Magnesium measurement [facility] Mean corpuscular hem oglobin concentration determination [facility] Mean corpuscular hem oglobin determination [facility] Measurement of keton es in urine using dipstick [facility] Measurement of renal function [facility] Measurement of renal function [facility] Measurement of renal function [facility] Measurement of renal function [facility] Microscopic urinalysis [facility] Neutrophil count [facility] Neutrophil percent differential count [facility] Patient referral [facility] Work Phone: pH of Urine [facility] Platelets [#/volume] in Blood [facility] Potassium measurement [facility] Potassium measurement [facility] Potassium measurement [facility] Potassium measurement [facility] Red blood cell count [facility] Red cell distributio n width determination [facility] Serum chloride measurement [facility] Serum chloride measurement [facility] Serum chloride measurement [facility] Serum chloride measurement [facility] Sodium [Moles/volume ] in Urine [facility] Sodium measurement [facility] Sodium measurement [facility] Sodium measurement [facility] Sodium measurement [facility] Specific gravity of Urine [facility] Total protein measurement [facility] Urea nitrogen [Mass/ volume] in Serum or Plasma [facility] Urea nitrogen [Mass/ volume] in Serum or Plasma [facility] Urea nitrogen [Mass/ volume] in Serum or Plasma [facility] Urea nitrogen [Mass/ volume] in Serum or Plasma [facility] Urine blood test [facility] Urine dipstick for glucose [facility] Urine dipstick for l eukocyte esterase [facility] Urine dipstick for nitrite [facility] Urine dipstick for protein [facility] Urine examination [facility] Urine microscopy: ep ithelial cells [facility] Urine Microscopy: wh ite cells [facility] Urobilinogen [Presen ce] in Urine [facility] Payers Date Payer Category Payer Unknown [id number] 2024 Self-pay 2024 Unknown [id number] Unknown [id number] 2.16.8 [id number] Unknown [id number] 2.16.8 [id number] Unknown [id number] 2.16.8 [id number] Unknown [id number] 2.16.8 [id number] Unknown [id number] 2.16.8 [id number] Unknown [id number] 2.16.8 [id number] Unknown [id number] 2.16.8 [id number] Unknown [id number] 2.16.8 [id number] Unknown [id number] 2.16.8 [id number] Unknown [id number] 2.16.8 [id number] Social History Date Type Detail Facility Start: 09-09-2024 End: 09-09-2024 Tobacco smoking status NHIS Never smoked tobacco (finding) [facility] Start: 1970 Sex Assigned At Male [facility] Goals Date Patient Goal Desired Activity /State Functional Status Date Assessment Result Facility 09-12-2024 Functional status Ambulates [facility] Work Phone: Mental Status Date Assessment Result Facility 09-12-2024 Cognitive function Appropriate;Cooperativ e [facility] Work Phone: 09-12-2024 Cognitive function Arousable To Voice/Nam e [facility] Work Phone: Clinical Notes 09-09-2024 to 09-12-2024 Note Date & Type Note Facility 09-12-2024 Progress note Note Date/Time September 12, 2024 9:21am [facility] Medical Records Department [address] [place] [address] Progress Note - Hospitalist 09/11/241929 MR#: [id number] Acct: [id number] Name: KESHAV ARMSTRONG Rep #:[id number] : 1970 53 From: Jimenez Renee DO PCP: Care Physician,No Primary Status :ADM IN Location: [place] [address] Reason for Visit Reason for Visit: Diagnoses Hypokalemia (09/09/24) Acute kidney failure, unspecified (09/09/24) Dysphagia, unspecified (09/09/24) Abnormal weight loss (09/09/24) Subjective Subjective Patient was seen and examined today, his creatinine is improved-his creatinine was 2.96 and BUN was 156 today. Patient has no complaints to this examiner. BMP will be repeated in the morning. Objective Data Objective Data Vital Signs: Vital Signs Temp Pulse Resp BP Pulse Ox O2 Del Method 98.2 F 83 16 104/89 H 98 Room Air 09/11/24 15:08 09/11/24 15:08 09/11/24 15:08 09/11/24 15:08 09/11/24 15:08 09/11/24 15:08 Oxygen Delivery Method Room Air Weight: 72.5 kg Body Mass Index (BMI) 25.0 Intake & Output: Intake and Output for Last 24 Hours 09/09/24 09/10/24 09/11/24 23:59 23:59 23:59 Intake Total 3542.09 / 3542.09 4553.29 / 4553.29 3800 / 3800 Output Total 200 / 200 2300 / 3500 3550 / 3550 Balance 3342.09 / 3342.09 2253.29 / 1053.29 250 / 250 Medical Nutrition Assessment Dietitian: Malnutrition Criteria Met Start: 09/10/24 15:49 Freq: Status: Active Protocol: Document 09/10/24 15:49 LO (Rec: 09/10/24 15:49 LO [id number]) Nutrition Malnutrition Evidence of Yes Malnutrition Exists Malnutrition (severe Chronic ): Clinical Problem Chronic Disease or Condition Related Malnutrition Etiology chronic related to swallowing difficulties Signs/Symptoms as evidenced by PO intakes meeting <75% of estimated nutrition needs for 1 year, 42lbs (21.5%) unintentional weight loss in 1 year and moderate fat/muscle loss to orbital and temporal regions Status Active Problem Recommendation Dietitian Advance diet as tolerated to CCD/Renal Low Protein diet Recommendations/ to manage medical conditions. Changes Will order 120mL ensure plus high protein 4x daily with medpass to provide supplemental energy and promote weight maintenance/gain. Lab / Micro Data 09/10/24 04:52 09/12/24 05:18 Labs: Laboratory Results - last 24 hr 09/11/24 04:35: Sodium 144, Potassium 3.3, Chloride 110 H, Carbon Dioxide 19.6 L, Anion Gap 14, BUN 156 H*, Creatinine 2.96 H, Estim Creat Clear Calc 26.04 L, Est GFR (MDRD) Non-Af 24 L, BUN/Creatinine Ratio 52.7 H, Glucose 153 H, Calcium 8.6, Phosphorus 2.7, Albumin 3.3 L Micro: Microbiology 09/09/24 16:20 Nasal Secretion MRSA (PCR) - Final Physical Exam Narrative alert, oriented x3, no apparent distress, average body habitus and healthy appearing General Appearance: cooperative, well kempt and well developed Orientation / Consciousness: awake, oriented to person, oriented to place and oriented to time HEENT normocephalic, head/scalp atraumatic and moist oral mucous membranes Eyes PERRL, EOMs intact bilaterally and conjunctivae normal Neck supple, no JVD, thyroid normal and no carotid bruits General: trachea midline Resp normal respiratory effort, no retractions, no use of accessory muscles and clearto auscultation bilaterally Auscultation: Negative for rales, rhonchi or wheezes Cardio regular rate, regular rhythm, S1 normal heart sound, S2 normal heart sound, no murmurs, no rub and no gallops GI normal to inspection, nondistended, normoactive bowel sounds, soft to palpation,non-tender and non-distended Extremity no clubbing, cyanosis or edema Skin no rashes or lesions noted General Skin Exam: no breakdown Neuro oriented x3, CN's II-XII intact bilaterally, moves all extremities, no focal motor deficits and no sensory deficits noted Sensorium / Orientation: awake and alert Speech: speech normal Psych affect normal Assessment & Plan Assessment/Plan (1) Acute renal failure: PLAN: Plan 1. Acute renal failure-probably secondary to dehydration, patient's BUN and creatinine are improving on IV fluids, nephrology is participating in his care. #2 anion gap acidosis-secondary to renal failure, BMP will be rechecked tomorrowmorning #3 achalasia-patient's esophagus was dilated today #4 severe weight loss secondary to achalasia-nutritional services is seeing the patient #5 hypokalemia-BMP will be monitored, potassium level is improved at this time #6 chronic moderate protein caloric malnutrition-as evidenced by p.o. intake meeting less than 75% of estimated nutritional needs for 1 year, 42 pound unintentional weight loss in 1 year and moderate fat and muscle loss to orbital and temporal regions-advance diet as tolerated to CCD/renal low-protein diet to manage medical conditions, nutritional services ordered 120 cc Ensure Plus high-protein 4 times a day with Appiny, nutritional services will follow Total clinical time spent by myself addressing the patient's medical issues, reviewing all of his data, and collaborating with patient's care team: 35 minutes Charges/Coding Visit Charges Inpatient E&M: 00652 Subs Hosp L2 09/12/24 0909 <Electronically signed by Jimenez Renee DO> Cosigner Signature (if applicable): CC: ~ Signed [facility] Work Phone: 1(292) 804-673505-17-2025 Discharge summary [facility] Medical Records Department [address] [place] [id number] Instructions for Home/Discharge Instructions 09/12/24 1046 MR#: [id number] Acct: [id number] Name: KESHAV ARMSTRONG Rep #:[id number] : 1970 53 From: Jimenez Renee DO PCP: Care Physician,No Primary Status :ADM IN Discharge Instructions Diet Discharge Diet: No restrictions DC O2, CPAP, BIPAP needs Home O2 Discharge instructions: No Dressing / Incision Discharge Activity: Return to Normal Activity Weight Bearing Status: Full weight bearing Follow Up Care Test Results: Test results from this visit will be discussed in further detail at your follow- up appointment, if applicable. Discharge Plan Admission Admit Date/Time: 09/09/24 14:43 Primary Reason for Your Visit: Acute kidney failure, achalasia Attending Provider: Jimenez Renee Primary Care Provider: Care Physician,No Primary Consulting Providers: Abbie Michelle; Emeli Lynn Instructions Additional Instructions / Restrictions: Follow-up with the primary care physician within 2 to 3 weeks Discharge Orders/Prescriptions Prescriptions: New pantoprazole 40 mg Tablet,Delayed Release (Dr/Ec) 40 mg PO BID Qty: 60 0RF Continued multivitamin [Daily Multi-Vitamin] Tablet 1 tab PO DAILY Referrals / Follow Up: Care Physician,No Primary [Primary Care Provider] - Disposition Disposition (needs filled in before D/C Order can be placed): Home, Self Care 09/12/24 1112Jimenez Thelma FERRIS CC: Dr. Abbie Michelle MD; Dr. Emeli Lynn MD; No Primary Care Physician ~ Signed [facility]05-17-2025 [facility] Medical Records Department [address] [place] [id number] Discharge Summary 09/12/24 1112 MR#: [id number] Acct: [id number] Name: KESHAV ARMSTRONG Rep #: [id number] : 1970 53 From: Jimenez Renee DO PCP: Care Physician,No Primary Status:DIS IN Location: [facility] [id number] Providers Date of Admission: 09/09/24 Date of Discharge: 09/12/24 Primary Care Physician: No Primary Care Phys Consultations 09/09/24 15:56 Consult: Gastroenterology Routine Consulting Provider: [facility] Reason for Consult: intractable N/V, abnormal esophagus EMERGENT Consult: No MD Notified: Yes Date Notified: 09/09/24 Time Notified: 14:45 Method of Notification: Text Consult: Nephrology Routine Consulting Provider: Emeli Lynn Reason for Consult: EWA EMERGENT Consult: No Notified: Yes Date Notified: 09/09/24 Time Notified: 14:45 Method of Notification: Verbal Reason For Visit: EWA, CONCERN DKA, MA, INTRACTABLE N/V Diagnosis Discharge Diagnosis (1) Acute renal failure: Status: Acute Code(s): N17.9 - Acute kidney failure, unspecified Plan 1. Acute renal failure-probably secondary to dehydration, patient's BUN and creatinine are improving on IV fluids, nephrology is participating in his care. #2 anion gap acidosis-secondary to renal failure, BMP will be rechecked tomorrow morning #3 achalasia-patient's esophagus was dilated today #4 severe weight loss secondary to achalasia-nutritional services is seeing the patient #5 hypokalemia-BMP will be monitored, potassium level is improved at this time #6 chronic moderate protein caloric malnutrition-as evidenced by p.o. intake meeting less than 75% of estimated nutritional needs for 1 year, 42 pound unintentional weight loss in 1 year and moderate fat and muscle loss to orbital and temporal regions-advance diet as tolerated to CCD/renal low- protein diet to manage medical conditions, nutritional services ordered 120 cc Ensure Plus high- protein 4 times a day with med Pass, nutritional services will follow DKA was ruled out Total clinical time spent by myself addressing the patient's medical issues, reviewing all of his data, and collaborating with patient's care team: 35 minutes Medications at Discharge Home Medications multivitamin (Daily Multi-Vitamin tablet) 1 tab PO DAILY 09/09/24 pantoprazole 40 mg tablet,delayed release 40 mg PO BID #60 tabs 09/12/24 Hospital Course Operations None Procedures None Summary of Care Provided Minutes Spent on Discharge: 31 Hospital Course: Patient was seen and examined in the emergency room at [facility] after being sent in from a family practice facility with complaint of abdominal distention loss of appetite. Patient was on no medications and did not have an established family doctor. Labs obtained in the emergency room showed a slightly elevated white blood cell count at 11.7, hemoglobin was 18.7, chemistry profile revealed a potassium of 2.5, BUN was 230 and creatinine was 8. Patient's glucose was 105, CT of the abdomen and and pelvis showed the distal esophagus to be dilated to 5 cm indicating achalasia, there was a question of inflammatory bowel disease due to a known focal layered mucosal enhancement in the distal small bowel. Patient was admitted to ICU for acute renal failure and suspected DKA, initially he was placed on insulin drip but his sugars declined and he was not felt to be in DKA. Insulin drip was stopped and he was given fluids and seen in consultation by nephrology. Ultrasound of the kidneys was obtained which showed no abnormality. It was felt that the patient's renal failure was secondary to persistent vomiting and volume depletion. Potassium was administered and labs were followed. Patient's renal functions improved, on 09/12/2024, patient's creatinine was normal. On that date, patient was seen and examined: On examination he appeared in good health and spirits. Vital signs as documented. Skin warm and dry and without overt rashes. Neck without JVD, neck was supple, trachea midline, thyroid was normal. Lungs clear bilaterally, normal air movement was noted. Heart exam notable for regular rhythm, normal sounds and absence of murmurs, rubs or gallops. Abdomen unremarkable and without evidence of organomegaly, masses, or abdominal aortic enlargement. Bowel sounds are present, abdomen is not distended. Extremities nonedematous, no cyanosis was noted, no clubbing was noted. Neuro: Cranial nerves II through XII are grossly intact, no focal motor deficits were noted, sensation to light touch and pinprick intact, motor exam 5/5 throughout. Psych: Patient is alert and oriented x3, he does not appear anxious or depressed, he does not appear agitated. Patient was discharged home in stable condition on 09/12/2024. Medical Rec (more content not included)...[facility]05-17-2025 Progress note [facility] Medical Records Department [address] [place] [address] Progress Note - Hospitalist 09/11/241929 MR#: [id number] Acct: [id number] Name: KESHAV ARMSTRONG Rep #:[id number] 2 : 1970 53 From: Jimenez Renee DO PCP: Care Physician,No Primary Status :ADM IN Location: U [id number] Reason for Visit Reason for Visit: Diagnoses Hypokalemia (09/09/24) Acute kidney failure, unspecified (09/09/24) Dysphagia, unspecified (09/09/24) Abnormal weight loss (09/09/24) Subjective Subjective Patient was seen and examined today, his creatinine is improved-his creatinine was 2.96 and BUN [id number] today. Patient has no complaints to this examiner. BMP will be repeated in the morning. Objective Data Objective Data Vital Signs: Vital Signs Temp Pulse Resp BP Pulse Ox O2 Del Method 98.2 F 83 16 104/89 H 98 Room Air 09/11/24 15:08 09/11/24 15:08 09/11/24 15:08 09/11/24 15:08 09/11/24 15:08 09/11/24 15:08 Oxygen Delivery Method Room Air Weight: 72.5 kg Body Mass Index (BMI) 25.0 Intake & Output: Intake and Output for Last 24 Hours 09/09/24 09/10/24 09/11/24 23:59 23:59 23:59 Intake Total 3542.09 / 3542.09 4553.29 / 4553.29 3800 / 3800 Output Total 200 / 200 2300 / 3500 3550 / 3550 Balance 3342.09 / 3342.09 2253.29 / 1053.29 250 / 250 Medical Nutrition Assessment Dietitian: Malnutrition Criteria Met Start: 09/10/24 15:49 Freq: Status: Active Protocol: Document 09/10/24 15:49 LO (Rec: 09/10/24 15:49 LO [id number]) Nutrition Malnutrition Evidence of Yes Malnutrition Exists Malnutrition (severe Chronic ): Clinical Problem Chronic Disease or Condition Related Malnutrition Etiology chronic related to swallowing difficulties Signs/Symptoms as evidenced by PO intakes meeting <75% of estimated nutrition needs for 1 year, 42lbs (21.5%) unintentional weight loss in 1 year and moderate fat/muscle loss to orbital and temporal regions Status Active Problem Recommendation Dietitian Advance diet as tolerated to CCD/Renal Low Protein diet Recommendations/ to manage medical conditions. Changes Will order 120mL ensure plus high protein 4x daily with medpass to provide supplemental energy and promote weight maintenance/gain. Lab / Micro Data 09/10/24 04:52 09/12/24 05:18 Labs: Laboratory Results - last 24 hr 09/11/24 04:35: Sodium 144, Potassium 3.3, Chloride 110 H, Carbon Dioxide 19.6 L, Anion Gap 14, [id number] H*, Creatinine 2.96 H, Estim Creat Clear Calc 26.04 L, Est GFR (MDRD) Non-Af 24 L, BUN/Creatinine Ratio 52.7 H, Glucose 153 H, Calcium 8.6, Phosphorus 2.7, Albumin 3.3 L Micro: Microbiology 09/09/24 16:20 Nasal Secretion MRSA (PCR) - Final Physical Exam Narrative alert, oriented x3, no apparent distress, average body habitus and healthy appearing General Appearance: cooperative, well kempt and well developed Orientation / Consciousness: awake, oriented to person, oriented to place and oriented to time HEENT normocephalic, head/scalp atraumatic and moist oral mucous membranes Eyes PERRL, EOMs intact bilaterally and conjunctivae normal Neck supple, no JVD, thyroid normal and no carotid bruits General: trachea midline Resp normal respiratory effort, no retractions, no use of accessory muscles and clearto auscultation bilaterally Auscultation: Negative for rales, rhonchi or wheezes Cardio regular rate, regular rhythm, S1 normal heart sound, S2 normal heart sound, no murmurs, no rub and no gallops GI normal to inspection, nondistended, normoactive bowel sounds, soft to palpation,non-tender and non-distended Extremity no clubbing, cyanosis or edema Skin no rashes or lesions noted General Skin Exam: no breakdown Neuro oriented x3, CN's II-XII intact bilaterally, moves all extremities, no focal motor deficits and no sensory deficits noted Sensorium / Orientation: awake and alert Speech: speech normal Psych affect normal Assessment & Plan Assessment/Plan (1) Acute renal failure: PLAN: Plan 1. Acute renal failure-probably secondary to dehydration, patient's BUN and creatinine are improving on IV fluids, nephrology is participating in his care. #2 anion gap acidosis-secondary to renal failure, BMP will be rechecked tomorrowmorning #3 achalasia-patient's esophagus was dilated today #4 severe weight loss secondary to achalasia-nutritional services is seeing the patient #5 hypokalemia-BMP will be monitored, potassium level is improved at this time #6 chronic moderate protein caloric malnutrition-as evidenced by p.o. intake meeting less than 75% of estimated nutritional needs for 1 year, 42 pound unintentional weight loss in 1 year and moderatefat and muscle loss to orbital and temporal regions-advance diet as tolerated to CCD/renal low-protein diet to manage medical conditions, nutritional services ordered 120 cc Ensure Plus high- protein 4 times a day with med Pass, nutritional services will follow Total clinical time spent by myself addressing the patient's medical issues, reviewing all of his data, and collaborating with patient's care team: 35 minutes Charges/Coding Visit Charges Inpatient E&M: 61833 Subs Hosp L2 09/12/24 0921 Cosigner Signature (if applicable): CC: ~ Signed [facility]05-16-2025 Progress note Author Alo Cronin [facility] Note Date/Time September 11, 2024 5:30p m [facility] Medical Records Department [address] [place] [address] Progress Note 09/11/24 1728 MR#: [id number] Acct: [id number] Name: KESHAV ARMSTRONG Rep #:[id number] : 1970 53 From: Alo Cronin DO PCP: Care Physician,No Primary Status :ADM IN Location: [place] [address] Progress Note Patient did tolerate liquids and would like to advance his diet. Physical Exam Const alert, oriented x3, no apparent distress, average body habitus and healthy appearing General Appearance: cooperative, well kempt and well developed Orientation / Consciousness: awake, oriented to person, oriented to place and oriented to time HEENT normocephalic, head/scalp atraumatic and moist oral mucous membranes Eyes PERRL, EOMs intact bilaterally and conjunctivae normal Neck supple, no JVD, thyroid normal and no carotid bruits General: trachea midline Resp normal respiratory effort, no retractions, no use of accessory muscles and clearto auscultation bilaterally Auscultation: Negative for rales, rhonchi or wheezes Cardio regular rate, regular rhythm, S1 normal heart sound, S2 normal heart sound, no murmurs, no rub and no gallops GI normal to inspection, nondistended, normoactive bowel sounds, soft to palpation,non-tender and non-distended Extremity no clubbing, cyanosis or edema Skin no rashes or lesions noted General Skin Exam: no breakdown Neuro oriented x3, CN's II-XII intact bilaterally, moves all extremities, no focal motor deficits and no sensory deficits noted Sensorium / Orientation: awake and alert Speech: speech normal Psych affect normal Assessment & Plan Assessment/Plan (1) Acute renal failure: (2) Acute hypokalemia: (3) Abnormal weight loss: (4) Dysphagia: PLAN: Esophageal dysphagia secondary to type I or type II achalasia. He is status post only mild dilation endoscopically. He will have to come back as an outpatient for further dilation and manometry studies to see what type of motility he has and whether he should get a myotomy with Monica fundoplication versus dilation by serial exams and Botox therapy. PLAN: Plan This is a pleasant 53-year-old male with no known past medical history presentedto the emergency room with complaints of unintentional weight loss, extreme lethargy, lab work demonstrated creatinine 10.70, BUN 248, hemoglobin 18.7, lactic acid 2.0, carbon dioxide 16, potassium 2.4. Patient was initially treated with aggressive IV fluid resuscitation. Renal ultrasound did not show any hydronephrosis, CT nondistended bladder, normal kidneys. cr is better Visit Charges Inpatient E&M: 50031 Subs Hosp L3 09/11/24 1730 <Electronically signed by Alo Cronin DO> Alo Cronin DO Cosigner Signature (if applicable): CC: ~ Signed [facility] Work Phone: [phone]) 347-502705-16-2025 Progress note Author Emeli Lynn [facility] Note Date/Time September 11, 2024 4:08p m [facility] Medical Records Department [address] [place] [address] Progress Note - Nephrology 09/11/24 1607 MR#: [id number] Acct: [id number] Name: KESHAV ARMSTRONG Rep #:[id number] 5 : 1970 53 From: Emeli alonzo MD PCP: Care Physician,No Primary Status :ADM IN Location: [place] [address] Subjective Subjective no new complaints Objective Data Objective Data Vital Signs: Vital Signs Temp Pulse Resp BP Pulse Ox O2 Del Method 98.2 F 83 16 104/89 H 98 Room Air 09/11/24 15:08 09/11/24 15:08 09/11/24 15:08 09/11/24 15:08 09/11/24 15:08 09/11/24 15:08 Oxygen Delivery Method Room Air Weight: 72.5 kg Body Mass Index (BMI) 25.0 Intake & Output: Intake and Output for Last 24 Hours 09/09/24 09/10/24 09/11/24 23:59 23:59 23:59 Intake Total 3542.09 / 3542.09 4553.29 / 4553.29 3300 / 3300 Output Total 200 / 200 2300 / 3500 2900 / 2900 Balance 3342.09 / 3342.09 2253.29 / 1053.29 400 / 400 Medical Nutrition Assessment Dietitian: Malnutrition Criteria Met Start: 09/10/24 15:49 Freq: Status: Active Protocol: Document 09/10/24 15:49 LO (Rec: 09/10/24 15:49 [id number]) Nutrition Malnutrition Evidence of Yes Malnutrition Exists Malnutrition (severe Chronic ): Clinical Problem Chronic Disease or Condition Related Malnutrition Etiology chronic related to swallowing difficulties Signs/Symptoms as evidenced by PO intakes meeting <75% of estimated nutrition needs for 1 year, 42lbs (21.5%) unintentional weight loss in 1 year and moderate fat/muscle loss to orbital and temporal regions Status Active Problem Recommendation Dietitian Advance diet as tolerated to CCD/Renal Low Protein diet Recommendations/ to manage medical conditions. Changes Will order 120mL ensure plus high protein 4x daily with medpass to provide supplemental energy and promote weight maintenance/gain. Lab / Micro Data 09/10/24 04:52 09/11/24 04:35 Labs: Laboratory Results - last 24 hr 09/11/24 04:35: Sodium 144, Potassium 3.3, Chloride 110 H, Carbon Dioxide 19.6 L, Anion Gap 14, BUN 156 H*, Creatinine 2.96 H, Estim Creat Clear Calc 26.04 L, Est GFR (MDRD) Non-Af 24 L, BUN/Creatinine Ratio 52.7 H, Glucose 153 H, Calcium 8.6, Phosphorus 2.7, Albumin 3.3 L Micro: Microbiology 09/09/24 16:20 Nasal Secretion MRSA (PCR) - Final Physical Exam Narrative Alert and oriented x 3, no apparent distress S1, S2, RRR Lungs sound clear Abdomen soft, nontender No edema Assessment & Plan Assessment/Plan (1) Acute renal failure: (2) Acute hypokalemia: PLAN: Plan This is a pleasant 53-year-old male with no known past medical history presentedto the emergency room with complaints of unintentional weight loss, extreme lethargy, lab work demonstrated creatinine 10.70, BUN 248, hemoglobin 18.7, lactic acid 2.0, carbon dioxide 16, potassium 2.4. Patient was initially treated with aggressive IV fluid resuscitation. Renal ultrasound did not show any hydronephrosis, CT nondistended bladder, normal kidneys. Possible EWA from extreme volume depletion. With IV fluids kidney function improving. he is now able to swallow without issues cr is better 09/11/24 1608 <Electronically signed by Emeli Lynn MD> Cosigner Signature (if applicable): CC: ~ Signed [facility] Work Phone: [phone] Progress note [facility] Medical Records Department [address] [place] [address] Progress Note 09/11/24 1728 MR#: [id number] Acct: [id number] Name: KESHAV ARMSTRONG Rep #:[id number] 3 : 1970 53 From: Alo Cronin DO PCP: Care Physician,No Primary Status :ADM IN Location: [place] [address] Progress Note Patient did tolerate liquids and would like to advance his diet. Physical Exam Const alert, oriented x3, no apparent distress, average body habitus and healthy appearing General Appearance: cooperative, well kempt and well developed Orientation / Consciousness: awake, oriented to person, oriented to place and oriented to time HEENT normocephalic, head/scalp atraumatic and moist oral mucous membranes Eyes PERRL, EOMs intact bilaterally and conjunctivae normal Neck supple, no JVD, thyroid normal and no carotid bruits General: trachea midline Resp normal respiratory effort, no retractions, no use of accessory muscles and clearto auscultation bilaterally Auscultation: Negative for rales, rhonchi or wheezes Cardio regular rate, regular rhythm, S1 normal heart sound, S2 normal heart sound, no murmurs, no rub and no gallops GI normal to inspection, nondistended, normoactive bowel sounds, soft to palpation,non-tender and non-distended Extremity no clubbing, cyanosis or edema Skin no rashes or lesions noted General Skin Exam: no breakdown Neuro oriented x3, CN's II-XII intact bilaterally, moves all extremities, no focal motor deficits and no sensory deficits noted Sensorium / Orientation: awake and alert Speech: speech normal Psych affect normal Assessment & Plan Assessment/Plan (1) Acute renal failure: (2) Acute hypokalemia: (3) Abnormal weight loss: (4) Dysphagia: PLAN: Esophageal dysphagia secondary to type I or type II achalasia. He is status post only mild dilation endoscopically. He will have to come back as an outpatient for further dilation and manometrystudies to see what type of motility he has and whether he should get a myotomy with Monica fundoplication versus dilation by serial exams and Botox therapy. PLAN: Plan This is a pleasant 53-year-old male with no known past medical history presentedto the emergency room with complaints of unintentional weight loss, extreme lethargy, lab work demonstrated creatinine 10.70, BUN 248, hemoglobin 18.7, lactic acid 2.0, carbon dioxide 16, potassium 2.4. Patient was initially treated with aggressive IV fluid resuscitation. Renal ultrasound did not show any hydronephrosis, CT nondistended bladder, normal kidneys. cr is better Visit Charges Inpatient E&M: 87086 Subs Hosp L3 09/11/24 1730 Alo Friend DO Cosigner Signature (if applicable): CC: ~ Signed [facility]05-16-2025 Progress note [facility] Medical Records Department [address] [place] [address] Progress Note - Nephrology 09/11/24 1607 MR#: [id number] Acct: [id number] Name: KESHAV ARMSTRONG Rep #:[id number] 5 : 1970 53 From: Emeli alonzo MD PCP: Care Physician,No Primary Status :ADM IN Location: [place] [address] Subjective Subjective no new complaints Objective Data Objective Data Vital Signs: Vital Signs Temp Pulse Resp BP Pulse Ox O2 Del Method 98.2 F 83 16 104/89 H 98 Room Air 09/11/24 15:08 09/11/24 15:08 09/11/24 15:08 09/11/24 15:08 09/11/24 15:08 09/11/24 15:08 Oxygen Delivery Method Room Air Weight: 72.5 kg Body Mass Index (BMI) 25.0 Intake & Output: Intake and Output for Last 24 Hours 09/09/24 09/10/24 09/11/24 23:59 23:59 23:59 Intake Total 3542.09 / 3542.09 4553.29 / 4553.29 3300 / 3300 Output Total 200 / 200 2300 / 3500 2900 / 2900 Balance 3342.09 / 3342.09 2253.29 / 1053.29 400 / 400 Medical Nutrition Assessment Dietitian: Malnutrition Criteria Met Start: 09/10/24 15:49 Freq: Status: Active Protocol: Document 09/10/24 15:49 LO (Rec: 09/10/24 15:49 LO [id number]) Nutrition Malnutrition Evidence of Yes Malnutrition Exists Malnutrition (severe Chronic ): Clinical Problem Chronic Disease or Condition Related Malnutrition Etiology chronic related to swallowing difficulties Signs/Symptoms as evidenced by PO intakes meeting <75% of estimated nutrition needs for 1 year, 42lbs (21.5%) unintentional weight loss in 1 year and moderate fat/muscle loss to orbital and temporal regions Status Active Problem Recommendation Dietitian Advance diet as tolerated to CCD/Renal Low Protein diet Recommendations/ to manage medical conditions. Changes Will order 120mL ensure plus high protein 4x daily with medpass to provide supplemental energy and promote weight maintenance/gain. Lab / Micro Data 09/10/24 04:52 09/11/24 04:35 Labs: Laboratory Results - last 24 hr 09/11/24 04:35: Sodium 144, Potassium 3.3, Chloride 110 H, Carbon Dioxide 19.6 L, Anion Gap 14, [id number] H*, Creatinine 2.96 H, Estim Creat Clear Calc 26.04 L, Est GFR (MDRD) Non-Af 24 L, BUN/Creatinine Ratio 52.7 H, Glucose 153 H, Calcium 8.6, Phosphorus 2.7, Albumin 3.3 L Micro: Microbiology 09/09/24 16:20 Nasal Secretion MRSA (PCR) - Final Physical Exam Narrative Alert and oriented x 3, no apparent distress S1, S2, RRR Lungs sound clear Abdomen soft, nontender No edema Assessment & Plan Assessment/Plan (1) Acute renal failure: (2) Acute hypokalemia: PLAN: Plan This is a pleasant 53-year-old male with no known past medical history presentedto the emergency room with complaints of unintentional weight loss, extreme lethargy, lab work demonstrated creatinine 10.70, BUN 248, hemoglobin 18.7, lactic acid 2.0, carbon dioxide 16, potassium 2.4. Patient was initially treated with aggressive IV fluid resuscitation. Renal ultrasound did not show any hydronephrosis, CT nondistended bladder, normal kidneys. Possible EWA from extreme volume depletion. With IV fluids kidney function improving. he is now able to swallow without issues cr is better 09/11/24 1608 Cosigner Signature (if applicable): CC: ~ Signed [facility]05-16-2025 Consult note Author Keyur Manning [facility] Note Date/Time September 11, 2024 10:09 am [facility] Medical Records Department [address] [place] [id number] Consultation - Nephrology 09/10/24 1446 MR#: [id number] Acct: [id number] Name: KESHAV ARMSTRONG Rep #:[id number] 2 : 1970 53 From: Keyur sellers NP-C PCP: Care Physician,No Primary Status :ADM IN Location: [place] [address] Assessment & Plan Assessment/Plan (1) Acute renal failure: (2) Acute hypokalemia: PLAN: Plan This is a pleasant 53-year-old male with no known past medical history presentedto the emergency room with complaints of unintentional weight loss, extreme lethargy, lab work demonstrated creatinine 10.70, BUN to 48, hemoglobin 18.7, lactic acid 2.0, carbon dioxide 16, potassium 2.4. Patient was initially treated with aggressive IV fluid resuscitation, today creatinine improved to 5.83. Patient is nonoliguric. Potassium was low on admission, and is slowly improving. Renal ultrasound did not show any hydronephrosis, CT nondistended bladder, normal kidneys. Possible EWA from extreme volume depletion. With IV fluids kidney function improving. Can keep on current IV fluids for another day. Blood pressures acceptable. UA was of benign. No acute indication for renal placement therapy. Baseline creatinine unknown. Will follow serum creatinine trajectory. Patient was not taking any NSAIDs. Patient is off insulin drip. Hemoglobin A1c 6.5%. Lab work ordered for the morning. Further orders forthcoming as hospitalization evolves, thank you for allowing us participate in the care of Mr. Armstrong. Nephrology plan reviewed with Dr. Renee. HPI Consult Data Date of Consult: 09/10/24 HPI Narrative HPI Narrative: KESHAV ARMSTRONG, is a 53 M with no known past medical history, does not follow with PCP who presented to the emergency room yesterday with complaints of extreme lethargy, intractable nausea and vomiting, unable to take adequate oral intake and weight loss around 50 pounds over the last 4 to 6 months. Workup in the ER creatinine 10.7, BUN to 48, potassium 2.4, bicarb 16, lactic acid 2.0, white count 11.7. Patient had CT abdomen and pelvis did not show distended bladder, kidneys unremarkable, distal esophagus dilated 5 cm. Patient was admitted to ICU, concern for possible DKA and was started on insulin drip also started on IV PPI. Nephrology consulted in view of elevated creatinine. Patient denies any NSAIDs. Does not take any medications. Denies hematuria. Denies arthralgias. Denies rash. [facility] Medical History No significant past medical history Home Medications ?Medication ?Instructions ?Recorded ?Last Taken ?Type multivitamin (Daily Multi-Vitamin 1 tab PO DAILY 09/0909/08/24 History tablet) Allergy/AdvReac Type Severity Reaction Status Date / Time No Known Allergies Allergy Verified 09/10/24 11:04 Family History Mother Hypertension Father No problems noted. Surgical History History of skin graft Social History household members: none Smoking Status: Never smoker alcohol intake: never substance use type: does not use ROS ROS Narrative As in HPI Physical Exam Narrative Alert and oriented x 3, no apparent distress S1, S2, RRR Lungs sound clear Abdomen soft, nontender No edema Lab / Micro Data 09/10/24 04:52 09/10/24 09:00 Labs: Laboratory Results - last 24 hr 09/09/24 12:15: Hemoglobin A1c 6.5 H, Phosphorus 9.6 H*, Magnesium 4.8 H 09/09/24 14:40: Serum Osmolality 406 H 09/09/24 16:08: POC Glucose 130 H 09/09/24 16:20: Sodium 138, Potassium 2.5 L*, Chloride 89 L, Carbon Dioxide 16.8L, Anion Gap 33 H, BUN 243 H*, Creatinine 9.67 H*, Estim Creat Clear Calc 8.23 L*, Est GFR (MDRD) Non-Af 6 L, BUN/Creatinine Ratio 25.1 H, Glucose 82, Calcium 9.6 09/09/24 17:00: Urine Color Yellow, Urine Clarity Sl. Cloudy, Urine pH 6.0, Ur Specific [place] 1.020, Urine Protein 30 H, Urine Glucose (UA) Normal, Urine Ketones Negative, Urine Occult Blood 25 H, Urine Nitrite Negative, Urine Bilirubin 1 H, Urine Urobilinogen Normal, Ur Leukocyte Esterase Negative, Urine RBC 0-5 SEEN, Urine WBC 0-5 SEEN, Ur Squamous Epith Cells 0-5 SEEN, Amorphous Sediment 1+, Urine Bacteria 0 SEEN, Urine Mucus 0 SEEN, Ur Random Sodium < 20, Urine Creatinine 284.00 H 09/09/24 17:11: POC Glucose 54 L 09/09/24 17:40: Lactic Acid 1.6 09/09/24 17:42: POC Glucose 181 H 09/09/24 18:28: POC Glucose 149 H 09/09/24 19:40: POC Glucose 132 H 09/09/24 20:33: Sodium 139, Potassium 2.5 L*, Chloride 98, Carbon Dioxide 17.4 L, Anion Gap 24 H, BUN 230 H*, Creatinine 8.06 H*, Estim Creat Clear Calc 9.56 L*, Est GFR (MDRD) Non-Af 7 L, BUN/Creatinine Ratio 28.5 H, Glucose 105 H, Calcium8.5 09/09/24 20:34: POC Glucose 103 09/09/24 21:32: POC Glucose 80 09/09/24 22:38: POC Glucose 77 09/10/24 00:15: POC Glucose 59 L 09/10/24 00:58: Sodium 137, Potassium 2.5 L*, Chloride 98, Carbon Dioxide 17.4 L, Anion Gap 21 H, BUN 219 H*, Creatinine 7.18 H, Estim Creat Clear Calc 10.74 L,Est GFR (MDRD) Non-Af 8 L, BUN/Creatinine Ratio 30.5 H, Glucose 176 H, Calcium 8.2, POC Glucose 163 H 09/10/24 01:49: POC Glucose 132 H 09/10/24 02:58: POC Glucose 137 H 09/10/24 03:56: POC Glucose 169 H 09/10/24 04:52: WBC 9.8, RBC 4.62, Hgb 13.4, Hct 36.9 L, MCV 79.9 L, MCH 29.0, MCHC 36.3 H, RDW Std Deviation 37.7, RDW Coeff of [place] 13.2, Plt Count 141 L, MPV 12.4 H, Immature Gran % (Auto) 0.200, Neut % (Auto) 83.6 H, Lymph % (Auto) 8.9 L, Forrest % (Auto) 5.6, Eos % (Auto) 1.3, Baso % (Auto) 0.4, Absolute Neuts (auto) 8.2 H, Absolute Lymphs (auto) 0.87, Nucleated RBC % 0, Sodium 140, Potassium 2.5L*, Chloride 101, Carbon Dioxide 17.3 L, Anion Gap 22 H, BUN 216 H*, Creatinine 6.53 H, Estim Creat Clear Calc 11.81 L, Est GFR (MDRD) Non-Af 9 L, BUN/Creatinine Ratio 33.1 H, Glucose 90, Calcium 8.6, Phosphorus 3.7, Magnesium 3.5 H, Total Bilirubin 0.86, AST 9, ALT 10, Alkaline Phosphatase 60, Total Protein 5.5 L, Albumin 3.5, Globulin 2.0 L, Albumin/Globulin Ratio 1.8 09/10/24 04:59: POC Glucose 100 09/10/24 05:57: POC Glucose 92 09/10/24 06:48: POC Glucose 83 09/10/24 07:46: POC Glucose 79 09/10/24 08:53: POC Glucose 99 09/10/24 09:00: Sodium 140, Potassium 3.2 L, Chloride 102, Carbon Dioxide 18.2 L, Anion Gap 19 H, BUN 204 H*, Creatinine 5.83 H, Estim Creat Clear Calc 13.22 L,Est GFR (MDRD) Non-Af 11 L, BUN/Creatinine Ratio 35.0 H, Glucose 108 H, Calcium 8.6 09/10/24 09:57: POC Glucose 110 H 09/10/24 11:03: POC Glucose 102 Micro: Microbiology 09/09/24 16:20 Nasal Secretion MRSA (PCR) - Final ABG Data ABG results: ABG 09/09/24 16:24 Specimen Type ART Sample Site R Radial pH 7.51 H Bicarbonate Actual 17.9 L Total CO2 19 Base Excess -5 L O2 Saturation 99 O2 % 21.0 ABG pCO2 22.3 L ABG pO2 113 H Ning Test Positive O2 Delivery Device Not entered Vent Mode Not entered Imaging Radiology Impression Renal Ultrasound 09/09/24 14:51 IMPRESSION: Bladder wall thickening which may be due to the decompressed state of the bladder or due to cystitis. Reading Location: [facility] 09/10/24 2812 <Electronically signed by Keyur MCKEON> Cosigner Signature (if applicable): 09/11/24 1009 <Electronically signed by Emeli Lynn MD> CC: No Primary Care Physician~ Signed [facility] Work Phone: 1(965) 995-577705-16-2025 Consult note Author lAo Cronin [facility] Note Date/Time September 11, 2024 8:36a m [facility] Medical Records Department [address] [place] [id number] Consultation - GI 09/09/241925 MR#: [id number] Acct: [id number] Name: KESHAV ARMSTRONG Rep #:[id number] : 1970 53 From: Alo Cronin DO PCP: Care Physician,No Primary Status :ADM IN Location: [facility] [id number]- [id number] HPI Consult Data Date of Consult: 09/11/24 HPI Narrative Reason for Consultation: Persistent nausea vomiting HPI Narrative: KESHAV ARMSTRONG, is a 53 M who presents Patient presents with weight loss as well as nausea and abdominal bloating ongoing for 6 to 7 months. Patient states he has no primary care physician. Hefinally got tired of the weight loss and he is complaining of feeling weak with no energy. He has nausea and vomiting usually after he eats about 15 to 20 minutes later. [facility] Medical History No significant past medical history Home Medications ?Medication ?Instructions ?Recorded ?Last Taken ?Type multivitamin (Daily Multi-Vitamin 1 tab PO DAILY 09/0909/08/24 History tablet) Allergy/AdvReac Type Severity Reaction Status Date / Time No Known Allergies Allergy Verified 09/10/24 11:04 Family History Mother Hypertension Father No problems noted. Surgical History History of skin graft Social History household members: none Smoking Status: Never smoker alcohol intake: never substance use type: does not use ROS Constitutional Constitutional: Denies fatigue, fever(s), poor appetite, weight gain or weight loss Gastrointestinal Gastrointestinal: Denies belching, bloating, change in bowel habits, change in stool character, chewing difficulty, coffee ground emesis, constipation, cramping, diarrhea, dyspepsia, dysphagia, early satiety, excessive flatus, fecalincontinence, heartburn, hematemesis, hematochezia, hemorrhoids, loose stools, melena, nausea, odynophagia, rectal bleeding, tenesmus, vomiting or weight changes Physical Exam Const alert, oriented x3, no apparent distress and healthy appearing General Appearance: cooperative GI normal to inspection, nondistended, normoactive bowel sounds, soft to palpation,non-tender and non-distended Percussion: normal to percussion Rectal Exam: deferred Lab / Micro Data 09/10/24 04:52 09/11/24 04:35 Labs: Laboratory Results - last 24 hr 09/09/24 12:15: WBC 11.7 H, RBC 6.54 H, Hgb 18.7 H*, Hct 51.6, MCV 78.9 L, MCH 28.6, MCHC 36.2 H, RDW Std Deviation 36.9, RDW Coeff of Keerthi 13.1, Plt Count 206,MPV 13.8 H, Immature Gran % (Auto) 0.400, Neut % (Auto) 87.9 H, Lymph % (Auto) 5.9 L, Forrest % (Auto) 5.5, Eos % (Auto) 0.1, Baso % (Auto) 0.2, Absolute Neuts (auto) 10.3 H, Absolute Lymphs (auto) 0.69 L, Nucleated RBC % 0, Sodium 139, Potassium 2.4 L*, Chloride 82 L, Carbon Dioxide 16.8 L, Anion Gap 40 H, BUN 248 H*, Creatinine 10.70 H*, Estim Creat Clear Calc 7.44 L*, Est GFR (MDRD) Non-Af 5L, BUN/Creatinine Ratio 23.2 H, Glucose 190 H, Hemoglobin A1c 6.5 H, Calcium 10.6, Phosphorus 9.6 H*, Magnesium 4.8 H, Total Bilirubin 1.16, AST 9, ALT 17, Alkaline Phosphatase 91, Total Protein 8.3, Albumin 5.0, Globulin 3.3, Albumin/Globulin Ratio 1.5, Lipase 241 H, b-Hydroxybutyric mmol/L 3.5 09/09/24 12:58: Lactic Acid 2.0 09/09/24 14:40: Serum Osmolality 406 H 09/09/24 16:08: POC Glucose 130 H 09/09/24 16:20: Sodium 138, Potassium 2.5 L*, Chloride 89 L, Carbon Dioxide 16.8L, Anion Gap 33 H, BUN 243 H*, Creatinine 9.67 H*, Estim Creat Clear Calc 8.23 L*, Est GFR (MDRD) Non-Af 6 L, BUN/Creatinine Ratio 25.1 H, Glucose 82, Calcium 9.6 09/09/24 17:00: Urine Color Yellow, Urine Clarity Sl. Cloudy, Urine pH 6.0, Ur Specific [place] 1.020, Urine Protein 30 H, Urine Glucose (UA) Normal, Urine Ketones Negative, Urine Occult Blood 25 H, Urine Nitrite Negative, Urine Bilirubin 1 H, Urine Urobilinogen Normal, Ur Leukocyte Esterase Negative, Urine RBC 0-5 SEEN, Urine WBC 0-5 SEEN, Ur Squamous Epith Cells 0-5 SEEN, Amorphous Sediment 1+, Urine Bacteria 0 SEEN, Urine Mucus 0 SEEN, Ur Random Sodium < 20, Urine Creatinine 284.00 H 09/09/24 17:11: POC Glucose 54 L 09/09/24 17:40: Lactic Acid 1.6 09/09/24 17:42: POC Glucose 181 H 09/09/24 18:28: POC Glucose 149 H Micro: Microbiology 09/09/24 16:20 Nasal Secretion MRSA (PCR) - Final ABG Data ABG results: ABG 09/09/24 16:24 Specimen Type ART Sample Site R Radial pH 7.51 H Bicarbonate Actual 17.9 L Total CO2 19 Base Excess -5 L O2 Saturation 99 O2 % 21.0 ABG pCO2 22.3 L ABG pO2 113 H Ning Test Positive O2 Delivery Device Not entered Vent Mode Not entered Imaging Radiology Impression Abdomen/Pelvis CT 09/09/24 13:15 IMPRESSION: The distal esophagus is dilated to 5 cm, which can indicate achalasia. Considerdirect visualization. Cholelithiasis. Liver cysts There is a 2 cm uncomplicated fat containing left inguinal hernia. There is nonfocal layered mucosal enhancement in the distal small bowel, which can indicate inflammatory bowel disease. Reading Location: [facility] 09/09/24 14:51 IMPRESSION: Bladder wall thickening which may be due to the decompressed state of the bladder or due to cystitis. Reading Location: [id number] Assessment & Plan Assessment/Plan (1) Acute renal failure: PLAN: Plan The patient is a 53 y/o with history of significant persistent nausea with poor oral intake as well as dysphagia and weight loss for last [address] findings concern for achalasia. He will need to undergo an upper endoscopy to evaluate his upper GI tract. He was explained alternatives, risk and benefits including withstanding bleeding, infection, subs, perforation, need for emergenturgent he will have an ASA of 3. Charges/Coding Visit Charges Inpatient E&M: 46940 Init Hosp L3 09/11/24 0836 <Electronically signed by Alo Friend DO> Cosigner Signature (if applicable): CC: No Primary Care Physician~ Signed [facility] Work Phone: [phone] Consult note [facility] Medical Records Department [address] [place] [address] Consultation - Nephrology 09/10/24 1446 MR#: [id number] Acct: [id number] Name: KESHAV ARMSTRONG Rep #:[id number] : 1970 53 From: [employer] PCP: Care Physician,No Primary Status :ADM IN Location: [place] [address] Assessment & Plan Assessment/Plan (1) Acute renal failure: (2) Acute hypokalemia: PLAN: Plan This is a pleasant 53-year-old male with no known past medical history presentedto the emergency room with complaints of unintentional weight loss, extreme lethargy, lab work demonstrated creatinine 10.70, BUN to 48, hemoglobin 18.7, lactic acid 2.0, carbon dioxide 16, potassium 2.4. Patient was initially treated with aggressive IV fluid resuscitation, today creatinine improved to 5.83. Patient is nonoliguric. Potassium was low on admission, and is slowly improving. Renal ultrasound did not show any hydronephrosis, CT nondistended bladder, normal kidneys. Possible EWA from extreme volume depletion. With IV fluids kidney function improving. Can keep on current IV fluids for another day. Blood pressures acceptable. UA was of benign. No acute indication for renal placement therapy. Baseline creatinine unknown. Will follow serum creatinine trajectory. Patient was not taking any NSAIDs. Patient is off insulin drip. Hemoglobin A1c 6.5%. Lab work ordered for the morning. Further orders forthc oming as hospitalization evolves, thank you for allowing us participate in the care of Mr. Armstrong. Nephrology plan reviewed with Dr. Renee. HPI Consult Data Date of Consult: 09/10/24 HPI Narrative HPI Narrative: KESHAV ARMSTRONG, is a 53 M with no known past medical history, does not follow with PCP who presentedto the emergency room yesterday with complaints of extreme lethargy, intractable nausea and vomiting, unable to take adequate oral intake and weight loss around 50 pounds over the last 4 to 6 months.Workup in the ER creatinine 10.7, BUN to 48, potassium 2.4, bicarb 16, lactic acid 2.0, white count11.7. Patient had CT abdomen and pelvis did not show distended bladder, kidneys unremarkable, distal esophagus dilated 5 cm. Patient was admitted to ICU, concern for possible DKA and was started on insulin drip also started on IV PPI. Nephrology consulted in view of elevated creatinine. Patient denies any NSAIDs. Does not take any medications. Denies hematuria. Denies arthralgias. Denies rash. [facility] Medical History No significant past medical history Home Medications ?Medication ?Instructions ?Recorded ?Last Taken ?Type multivitamin (Daily Multi-Vitamin 1 tab PO DAILY 09/0909/08/24 History tablet) Allergy/AdvReac Type Severity Reaction Status Date / Time No Known Allergies Allergy Verified 09/10/24 11:04 Family History Mother Hypertension Father No problems noted. Surgical History History of skin graft Social History household members: none Smoking Status: Never smoker alcohol intake: never substance use type: does not use ROS ROS Narrative As in HPI Physical Exam Narrative Alert and oriented x 3, no apparent distress S1, S2, RRR Lungs sound clear Abdomen soft, nontender No edema Lab / Micro Data 09/10/24 04:52 09/10/24 09:00 Labs: Laboratory Results - last 24 hr 09/09/24 12:15: Hemoglobin A1c 6.5 H, Phosphorus 9.6 H*, Magnesium 4.8 H 09/09/24 14:40: Serum Osmolality 406 H 09/09/24 16:08: POC Glucose 130 H 09/09/24 16:20: Sodium 138, Potassium 2.5 L*, Chloride 89 L, Carbon Dioxide 16.8L, Anion Gap 33 H, BUN 243 H*, Creatinine 9.67 H*, Estim Creat Clear Calc 8.23 L*, Est GFR (MDRD) Non-Af 6 L, BUN/Creatinine Ratio 25.1 H, Glucose 82, Calcium 9.6 09/09/24 17:00: Urine Color Yellow, Urine Clarity Sl. Cloudy, Urine pH 6.0, Ur Specific [place] 1.020, Urine Protein 30 H, Urine Glucose (UA) Normal, Urine Ketones Negative, Urine Occult Blood 25 H, Urine Nitrite Negative, Urine Bilirubin 1 H, Urine Urobilinogen Normal, Ur Leukocyte Esterase Negative, Urine RBC 0-5 SEEN, Urine WBC 0-5 SEEN, Ur Squamous Epith Cells 0-5 SEEN, Amorphous Sediment 1+,Urine Bacteria 0 SEEN, Urine Mucus 0 SEEN, Ur Random Sodium < 20, Urine Creatinine 284.00 H 09/09/24 17:11: POC Glucose 54 L 09/09/24 17:40: Lactic Acid 1.6 09/09/24 17:42: POC Glucose 181 H 09/09/24 18:28: POC Glucose 149 H 09/09/24 19:40: POC Glucose 132 H 09/09/24 20:33: Sodium 139, Potassium 2.5 L*, Chloride 98, Carbon Dioxide 17.4 L, Anion Gap 24 H, BUN 230 H*, Creatinine 8.06 H*, Estim Creat Clear Calc 9.56 L*, Est GFR (MDRD) Non-Af 7 L, BUN/Creatinine Ratio 28.5 H, Glucose 105 H, Calcium8.5 09/09/24 20:34: POC Glucose 103 09/09/24 21:32: POC Glucose 80 09/09/24 22:38: POC Glucose 77 09/10/24 00:15: POC Glucose 59 L 09/10/24 00:58: Sodium 137, Potassium 2.5 L*, Chloride 98, Carbon Dioxide 17.4 L, Anion Gap 21 H, BUN 219 H*, Creatinine 7.18 H, Estim Creat Clear Calc 10.74 L,Est GFR (MDRD) Non-Af 8 L, BUN/Creatinine Ratio 30.5 H, Glucose 176 H, Calcium 8.2, POC Glucose 163 H 09/10/24 01:49: POC Glucose 132 H 09/10/24 02:58: POC Glucose 137 H 09/10/24 03:56: POC Glucose 169 H 09/10/24 04:52: WBC 9.8, RBC 4.62, Hgb 13.4, Hct 36.9 L, MCV 79.9 L, MCH 29.0, MCHC 36.3 H, RDW StdDeviation 37.7, RDW Coeff of Keerthi 13.2, Plt Count 141 L, MPV 12.4 H, Immature Gran % (Auto) 0.200, Neut % (Auto) 83.6 H, Lymph % (Auto) 8.9 L, Forrest % (Auto) 5.6, Eos % (Auto) 1.3, Baso % (Auto) 0.4, Absolute Neuts (auto) 8.2 H, Absolute Lymphs (auto) 0.87, Nucleated RBC % 0, Sodium 140, Potassium 2.5 L*, Chloride 101, Carbon Dioxide 17.3 L, Anion Gap 22 H, BUN 216 H*, Creatinine 6.53 H, Estim CreatClear Calc 11.81 L, Est GFR (MDRD) Non-Af 9 L, BUN/Creatinine Ratio 33.1 H, Glucose 90, Calcium 8.6, Phosphorus 3.7, Magnesium 3.5 H, Total Bilirubin 0.86, AST 9, ALT 10, Alkaline Phosphatase 60, Total Protein 5.5 L, Albumin 3.5, Globulin 2.0 L, Albumin/Globulin Ratio 1.8 09/10/24 04:59: POC Glucose 100 09/10/24 05:57: POC Glucose 92 09/10/24 06:48: POC Glucose 83 09/10/24 07:46: POC Glucose 79 09/10/24 08:53: POC Glucose 99 09/10/24 09:00: Sodium 140, Potassium 3.2 L, Chloride 102, Carbon Dioxide 18.2 L, Anion Gap 19 H, BUN 204 H*, Creatinine 5.83 H, Estim Creat Clear Calc 13.22 L,Est GFR (MDRD) Non-Af 11 L, BUN/Creatinine Ratio 35.0 H, Glucose 108 H, Calcium 8.6 09/10/24 09:57: POC Glucose 110 H 09/10/24 11:03: POC Glucose 102 Micro: Microbiology 09/09/24 16:20 Nasal Secretion MRSA (PCR) - Final ABG Data ABG results: ABG 09/09/24 16:24 Specimen Type ART Sample Site R Radial pH 7.51 H Bicarbonate Actual 17.9 L Total CO2 19 Base Excess -5 L O2 Saturation 99 O2 % 21.0 ABG pCO2 22.3 L ABG pO2 113 H Ning Test Positive O2 Delivery Device Not entered Vent Mode Not entered Imaging Radiology Impression Renal Ultrasound 09/09/24 14:51 IMPRESSION: Bladder wall thickening which may be due to the decompressed state of the bladder or due to cystitis. Reading Location: [id number] 09/10/24 1458 Cosigner Signature (if applicable): 09/11/24 1009 CC: No Primary Care Physician~ Signed [facility]05-16-2025 Consult note [facility] Medical Records Department [address] [place] [address] Consultation - GI 09/09/241925 MR#: [id number] Acct: [id number] Name: KESHAV ARMSTRONG Rep #:[id number] : 1970 53 From: Alo Cronin DO PCP: Care Physician,No Primary Status :ADM IN Location: [facility] [id number] HPI Consult Data Date of Consult: 09/11/24 HPI Narrative Reason for Consultation: Persistent nausea vomiting HPI Narrative: KESHAV ARMSTRONG, is a 53 M who presents Patient presents with weight loss as well as nausea and abdominal bloating ongoing for 6 to 7 months. Patient states he has no primary care physician. Hefinally got tired of the weight loss and he iscomplaining of feeling weak with no energy. He has nausea and vomiting usually after he eats about 15 to 20 minutes later. [facility] Medical History No significant past medical history Home Medications ?Medication ?Instructions ?Recorded ?Last Taken ?Type multivitamin (Daily Multi-Vitamin 1 tab PO DAILY 09/0909/08/24 History tablet) Allergy/AdvReac Type Severity Reaction Status Date / Time No Known Allergies Allergy Verified 09/10/24 11:04 Family History Mother Hypertension Father No problems noted. Surgical History History of skin graft Social History household members: none Smoking Status: Never smoker alcohol intake: never substance use type: does not use ROS Constitutional Constitutional: Denies fatigue, fever(s), poor appetite, weight gain or weight loss Gastrointestinal Gastrointestinal: Denies belching, bloating, change in bowel habits, change in stool character, chewing difficulty, coffee ground emesis, constipation, cramping, diarrhea, dyspepsia, dysphagia, earlysatiety, excessive flatus, fecalincontinence, heartburn, hematemesis, hematochezia, hemorrhoids, loose stools, melena, nausea, odynophagia, rectal bleeding, tenesmus, vomiting or weight changes Physical Exam Const alert, oriented x3, no apparent distress and healthy appearing General Appearance: cooperative GI normal to inspection, nondistended, normoactive bowel sounds, soft to palpation,non-tender and non-distended Percussion: normal to percussion Rectal Exam: deferred Lab / Micro Data 09/10/24 04:52 09/11/24 04:35 Labs: Laboratory Results - last 24 hr 09/09/24 12:15: WBC 11.7 H, RBC 6.54 H, Hgb 18.7 H*, Hct 51.6, MCV 78.9 L, MCH 28.6, MCHC 36.2 H, RDW Std Deviation 36.9, RDW Coeff of Keerthi 13.1, Plt Count 206,MPV 13.8 H, Immature Gran % (Auto) 0.400, Neut % (Auto) 87.9 H, Lymph % (Auto) 5.9 L, Forrest % (Auto) 5.5, Eos % (Auto) 0.1, Baso % (Auto) 0.2, Absolute Neuts (auto) 10.3 H, Absolute Lymphs (auto) 0.69 L, Nucleated RBC % 0, Sodium 139, Potassium 2.4 L*, Chloride 82 L, Carbon Dioxide 16.8 L, Anion Gap 40 H, BUN 248 H*, Creatinine 10.70 H*, Estim Creat Clear Calc 7.44 L*, Est GFR (MDRD) Non- Af 5L, BUN/Creatinine Ratio 23.2 H, Glucose 190 H,Hemoglobin A1c 6.5 H, Calcium 10.6, Phosphorus 9.6 H*, Magnesium 4.8 H, Total Bilirubin 1.16, AST 9, ALT 17, Alkaline Phosphatase 91, Total Protein 8.3, Albumin 5.0, Globulin 3.3, Albumin/Globulin Ratio 1.5, Lipase 241 H, b-Hydroxybutyric mmol/L 3.5 09/09/24 12:58: Lactic Acid 2.0 09/09/24 14:40: Serum Osmolality 406 H 09/09/24 16:08: POC Glucose 130 H 09/09/24 16:20: Sodium 138, Potassium 2.5 L*, Chloride 89 L, Carbon Dioxide 16.8L, Anion Gap 33 H, BUN 243 H*, Creatinine 9.67 H*, Estim Creat Clear Calc 8.23 L*, Est GFR (MDRD) Non-Af 6 L, BUN/Creatinine Ratio 25.1 H, Glucose 82, Calcium 9.6 09/09/24 17:00: Urine Color Yellow, Urine Clarity Sl. Cloudy, Urine pH 6.0, Ur Specific [place] 1.020, Urine Protein 30 H, Urine Glucose (UA) Normal, Urine Ketones Negative, Urine Occult Blood 25 H, Urine Nitrite Negative, Urine Bilirubin 1 H, Urine Urobilinogen Normal, Ur Leukocyte Esterase Negative, Urine RBC 0-5 SEEN, Urine WBC 0-5 SEEN, Ur Squamous Epith Cells 0-5 SEEN, Amorphous Sediment 1+,Urine Bacteria 0 SEEN, Urine Mucus 0 SEEN, Ur Random Sodium < 20, Urine Creatinine 284.00 H 09/09/24 17:11: POC Glucose 54 L 09/09/24 17:40: Lactic Acid 1.6 09/09/24 17:42: POC Glucose 181 H 09/09/24 18:28: POC Glucose 149 H Micro: Microbiology 09/09/24 16:20 Nasal Secretion MRSA (PCR) - Final ABG Data ABG results: ABG 09/09/24 16:24 Specimen Type ART Sample Site R Radial pH 7.51 H Bicarbonate Actual 17.9 L Total CO2 19 Base Excess -5 L O2 Saturation 99 O2 % 21.0 ABG pCO2 22.3 L ABG pO2 113 H Ning Test Positive O2 Delivery Device Not entered Vent Mode Not entered Imaging Radiology Impression Abdomen/Pelvis CT 09/09/24 13:15 IMPRESSION: The distal esophagus is dilated to 5 cm, which can indicate achalasia. Considerdirect visualization. Cholelithiasis. Liver cysts There is a 2 cm uncomplicated fat containing left inguinal hernia. There is nonfocal layered mucosal enhancement in the distal small bowel, which can indicate inflammatory bowel disease. [facility] 09/09/24 14:51 IMPRESSION: Bladder wall thickening which may be due to the decompressed state of the bladder or due to cystitis. Reading Location: [id number] Assessment & Plan Assessment/Plan (1) Acute renal failure: PLAN: Plan The patient is a 53 y/o with history of significant persistent nausea with poor oral intake as wellas dysphagia and weight loss for last [address] findings concern for achalasia. He will need to undergo an upper endoscopy to evaluate his upper GI tract. He was explained alternatives, risk and benefits including withstanding bleeding, infection, subs, perforation, need for emergenturgent he will have an ASA of 3. Charges/Coding Visit Charges Inpatient E&M: 01914 Init Hosp L3 09/11/24 0836 Cosigner Signature (if applicable): CC: No Primary Care Physician~ Signed [facility]05-15-2025 Progress note Author [facility] Note Date/Time September 10, 2024 5:48p m [facility] Medical Records Department [address] [place] [address] Progress Note - Hospitalist 09/10/24 1742 MR#: [id number] Acct: [id number] Name: KESHAV ARMSTRONG Rep #:[id number] : 1970 53 From: Jimenez Renee DO PCP: Care Physician,No Primary Status :ADM IN Location: ICU ICU06-1 Reason for Visit Reason for Visit: Diagnoses Acute kidney failure, unspecified (09/09/24) Subjective Subjective Patient was seen and examined today, I took him off the insulin drip today-he has no evidence of diabetes. I talked with nephrology and they feel that the patient had acidosis due to renal failure. Patient underwent an EGD today due to weight loss and difficulty swallowing, there was noted to be abnormal esophageal motility consistent with achalasia, the esophagus was dilated, there was no evidence of any esophagitis or gastritis/duodenitis. Patient remains on IV fluids at this time. Patient's BUN today was 204 and creatinine was 5.83, potassium was 3.2. Objective Data Objective Data Vital Signs: Vital Signs Temp Pulse Resp BP Pulse Ox O2 Del Method 96.6 F L 89 16 130/91 H 100 Room Air 09/10/24 14:00 09/10/24 16:58 09/10/24 16:58 09/10/24 16:58 09/10/24 16:58 09/10/24 16:59 Oxygen Delivery Method Room Air Weight: 69.4 kg Body Mass Index (BMI) 24.0 Intake & Output: Intake and Output for Last 24 Hours 09/08/24 09/09/24 09/10/24 23:59 23:59 23:59 Intake Total 3542.09 / 3542.09 3600.79 / 3600.79 Output Total 200 / 200 1500 / 1500 Balance 3342.09 / 3342.09 2100.79 / 2100.79 Medical Nutrition Assessment Dietitian: Malnutrition Criteria Met Start: 09/10/24 15:49 Freq: Status: Active Protocol: Document 09/10/24 15:49 LO (Rec: 09/10/24 15:49 LO [id number]) Nutrition Malnutrition Evidence of Yes Malnutrition Exists Malnutrition (severe Chronic ): Clinical Problem Chronic Disease or Condition Related Malnutrition Etiology chronic related to swallowing difficulties Signs/Symptoms as evidenced by PO intakes meeting <75% of estimated nutrition needs for 1 year, 42lbs (21.5%) unintentional weight loss in 1 year and moderate fat/muscle loss to orbital and temporal regions Status Active Problem Recommendation Dietitian Advance diet as tolerated to CCD/Renal Low Protein diet Recommendations/ to manage medical conditions. Changes Will order 120mL ensure plus high protein 4x daily with medpass to provide supplemental energy and promote weight maintenance/gain. Lab / Micro Data 09/10/24 04:52 09/10/24 09:00 Labs: Laboratory Results - last 24 hr 09/09/24 17:00: Urine RBC 0-5 SEEN, Urine WBC 0-5 SEEN, Ur Squamous Epith Cells 0-5 SEEN, Amorphous Sediment 1+, Urine Bacteria 0 SEEN, Urine Mucus 0 SEEN, Ur Random Sodium < 20, Urine Creatinine 284.00 H 09/09/24 17:40: Lactic Acid 1.6 09/09/24 17:42: POC Glucose 181 H 09/09/24 18:28: POC Glucose 149 H 09/09/24 19:40: POC Glucose 132 H 09/09/24 20:33: Sodium 139, Potassium 2.5 L*, Chloride 98, Carbon Dioxide 17.4 L, Anion Gap 24 H, BUN 230 H*, Creatinine 8.06 H*, Estim Creat Clear Calc 9.56 L*, Est GFR (MDRD) Non-Af 7 L, BUN/Creatinine Ratio 28.5 H, Glucose 105 H, Calcium8.5 09/09/24 20:34: POC Glucose 103 09/09/24 21:32: POC Glucose 80 09/09/24 22:38: POC Glucose 77 09/10/24 00:15: POC Glucose 59 L 09/10/24 00:58: Sodium 137, Potassium 2.5 L*, Chloride 98, Carbon Dioxide 17.4 L, Anion Gap 21 H, BUN 219 H*, Creatinine 7.18 H, Estim Creat Clear Calc 10.74 L,Est GFR (MDRD) Non-Af 8 L, BUN/Creatinine Ratio 30.5 H, Glucose 176 H, Calcium 8.2, POC Glucose 163 H 09/10/24 01:49: POC Glucose 132 H 09/10/24 02:58: POC Glucose 137 H 09/10/24 03:56: POC Glucose 169 H 09/10/24 04:52: WBC 9.8, RBC 4.62, Hgb 13.4, Hct 36.9 L, MCV 79.9 L, MCH 29.0, MCHC 36.3 H, RDW Std Deviation 37.7, RDW Coeff of Keerthi 13.2, Plt Count 141 L, MPV 12.4 H, Immature Gran % (Auto) 0.200, Neut % (Auto) 83.6 H, Lymph % (Auto) 8.9 L, Forrest % (Auto) 5.6, Eos % (Auto) 1.3, Baso % (Auto) 0.4, Absolute Neuts (auto) 8.2 H, Absolute Lymphs (auto) 0.87, Nucleated RBC % 0, Sodium 140, Potassium 2.5L*, Chloride 101, Carbon Dioxide 17.3 L, Anion Gap 22 H, BUN 216 H*, Creatinine 6.53 H, Estim Creat Clear Calc 11.81 L, Est GFR (MDRD) Non-Af 9 L, BUN/Creatinine Ratio 33.1 H, Glucose 90, Calcium 8.6, Phosphorus 3.7, Magnesium 3.5 H, Total Bilirubin 0.86, AST 9, ALT 10, Alkaline Phosphatase 60, Total Protein 5.5 L, Albumin 3.5, Globulin 2.0 L, Albumin/Globulin Ratio 1.8 09/10/24 04:59: POC Glucose 100 09/10/24 05:57: POC Glucose 92 09/10/24 06:48: POC Glucose 83 09/10/24 07:46: POC Glucose 79 09/10/24 08:53: POC Glucose 99 09/10/24 09:00: Sodium 140, Potassium 3.2 L, Chloride 102, Carbon Dioxide 18.2 L, Anion Gap 19 H, BUN 204 H*, Creatinine 5.83 H, Estim Creat Clear Calc 13.22 L,Est GFR (MDRD) Non-Af 11 L, BUN/Creatinine Ratio 35.0 H, Glucose 108 H, Calcium 8.6 09/10/24 09:57: POC Glucose 110 H 09/10/24 11:03: POC Glucose 102 Micro: Microbiology 09/09/24 16:20 Nasal Secretion MRSA (PCR) - Final Radiography Diagnostic Testing: Radiology Impression Renal Ultrasound 09/09/24 14:51 IMPRESSION: Bladder wall thickening which may be due to the decompressed state of the bladder or due to cystitis. Reading Location: [facility] Physical Exam Const alert, oriented x3, no apparent distress, average body habitus and healthy appearing General Appearance: cooperative, well kempt and well developed Orientation / Consciousness: awake, oriented to person, oriented to place and oriented to time HEENT normocephalic, head/scalp atraumatic and moist oral mucous membranes Eyes PERRL, EOMs intact bilaterally and conjunctivae normal Neck supple, no JVD, thyroid normal and no carotid bruits General: trachea midline Resp normal respiratory effort, no retractions, no use of accessory muscles and clearto auscultation bilaterally Auscultation: Negative for rales, rhonchi or wheezes Cardio regular rate, regular rhythm, S1 normal heart sound, S2 normal heart sound, no murmurs, no rub and no gallops GI normal to inspection, nondistended, normoactive bowel sounds, soft to palpation,non-tender and non-distended Extremity no clubbing, cyanosis or edema Skin no rashes or lesions noted General Skin Exam: no breakdown Neuro oriented x3, CN's II-XII intact bilaterally, moves all extremities, no focal motor deficits and no sensory deficits noted Sensorium / Orientation: awake and alert Speech: speech normal Psych affect normal Assessment & Plan Assessment/Plan (1) Acute renal failure: PLAN: Plan 1. Acute renal failure-probably secondary to dehydration, patient's BUN and creatinine are improving on IV fluids, nephrology is participating in his care. #2 anion gap acidosis-secondary to renal failure, BMP will be rechecked tomorrowmorning #3 achalasia-patient's esophagus was dilated today #4 severe weight loss secondary to achalasia-nutritional services is seeing the patient #5 hypokalemia-BMP will be monitored, potassium level is improved at this time Total clinical time spent by myself addressing the patient's medical issues, reviewing all of his data, and collaborating with patient's care team: 35 minutes Charges/Coding Visit Charges Inpatient E&M: 96673 Subs Hosp L2 09/10/241747 <Electronically signed by Jimenez Renee DO> Cosigner Signature (if applicable): CC: ~ Signed [facility] Work Phone: 1(193) 930-624605-15-2025 Progress note [facility] Medical Records Department [address] [place] [address] Progress Note - Hospitalist 09/10/24 174 MR#: [id number] Acct: [id number] Name: KESHAV ARMSTRONG Rep #:[id number] : 1970 53 From: Jimenez Renee DO PCP: Care Physician,No Primary Status :ADM IN Location: ICU ICU06-1 Reason for Visit Reason for Visit: Diagnoses Acute kidney failure, unspecified (09/09/24) Subjective Subjective Patient was seen and examined today, I took him off the insulin drip today-he has no evidence of diabetes. I talked with nephrology and they feel that the patient had acidosis due to renal failure. Patient underwent an EGD today due to weight loss and difficulty swallowing, there was noted to be abnormal esophageal motility consistent with achalasia, the esophagus was dilated, there was no evidence of any esophagitis or gastritis/duodenitis. Patient remains on IV fluids at this time. Patient's BUN today was 204 and creatinine was 5.83, potassium was 3.2. Objective Data Objective Data Vital Signs: Vital Signs Temp Pulse Resp BP Pulse Ox O2 Del Method 96.6 F L 89 16 130/91 H 100 Room Air 09/10/24 14:00 09/10/24 16:58 09/10/24 16:58 09/10/24 16:58 09/10/24 16:58 09/10/24 16:59 Oxygen Delivery Method Room Air Weight: 69.4 kg Body Mass Index (BMI) 24.0 Intake & Output: Intake and Output for Last 24 Hours 09/08/24 09/09/24 09/10/24 23:59 23:59 23:59 Intake Total 3542.09 / 3542.09 3600.79 / 3600.79 Output Total 200 / 200 1500 / 1500 Balance 3342.09 / 3342.09 2100.79 / 2100.79 Medical Nutrition Assessment Dietitian: Malnutrition Criteria Met Start: 09/10/24 15:49 Freq: Status: Active Protocol: Document 09/10/24 15:49 LO (Rec: 09/10/24 15:49 LO [id number]) Nutrition Malnutrition Evidence of Yes Malnutrition Exists Malnutrition (severe Chronic ): Clinical Problem Chronic Disease or Condition Related Malnutrition Etiology chronic related to swallowing difficulties Signs/Symptoms as evidenced by PO intakes meeting <75% of estimated nutrition needs for 1 year, 42lbs (21.5%) unintentional weight loss in 1 year and moderate fat/muscle loss to orbital and temporal regions Status Active Problem Recommendation Dietitian Advance diet as tolerated to CCD/Renal Low Protein diet Recommendations/ to manage medical conditions. Changes Will order 120mL ensure plus high protein 4x daily with medpass to provide supplemental energy and promote weight maintenance/gain. Lab / Micro Data 09/10/24 04:52 09/10/24 09:00 Labs: Laboratory Results - last 24 hr 09/09/24 17:00: Urine RBC 0-5 SEEN, Urine WBC 0-5 SEEN, Ur Squamous Epith Cells 0-5 SEEN, AmorphousSediment 1+, Urine Bacteria 0 SEEN, Urine Mucus 0 SEEN, Ur Random Sodium < 20, Urine Creatinine 284.00 H 09/09/24 17:40: Lactic Acid 1.6 09/09/24 17:42: POC Glucose 181 H 09/09/24 18:28: POC Glucose 149 H 09/09/24 19:40: POC Glucose 132 H 09/09/24 20:33: Sodium 139, Potassium 2.5 L*, Chloride 98, Carbon Dioxide 17.4 L, Anion Gap 24 H, BUN 230 H*, Creatinine 8.06 H*, Estim Creat Clear Calc 9.56 L*, Est GFR (MDRD) Non-Af 7 L, BUN/Creatinine Ratio 28.5 H, Glucose 105 H, Calcium8.5 09/09/24 20:34: POC Glucose 103 09/09/24 21:32: POC Glucose 80 09/09/24 22:38: POC Glucose 77 09/10/24 00:15: POC Glucose 59 L 09/10/24 00:58: Sodium 137, Potassium 2.5 L*, Chloride 98, Carbon Dioxide 17.4 L, Anion Gap 21 H, BUN 219 H*, Creatinine 7.18 H, Estim Creat Clear Calc 10.74 L,Est GFR (MDRD) Non-Af 8 L, BUN/Creatinine Ratio 30.5 H, Glucose 176 H, Calcium 8.2, POC Glucose 163 H 09/10/24 01:49: POC Glucose 132 H 09/10/24 02:58: POC Glucose 137 H 09/10/24 03:56: POC Glucose 169 H 09/10/24 04:52: WBC 9.8, RBC 4.62, Hgb 13.4, Hct 36.9 L, MCV 79.9 L, MCH 29.0, MCHC 36.3 H, RDW StdDeviation 37.7, RDW Coeff of Keerthi 13.2, Plt Count 141 L, MPV 12.4 H, Immature Gran % (Auto) 0.200, Neut % (Auto) 83.6 H, Lymph % (Auto) 8.9 L, Forrest % (Auto) 5.6, Eos % (Auto) 1.3, Baso % (Auto) 0.4, Absolute Neuts (auto) 8.2 H, Absolute Lymphs (auto) 0.87, Nucleated RBC % 0, Sodium 140, Potassium 2.5 L*, Chloride 101, Carbon Dioxide 17.3 L, Anion Gap 22 H, BUN 216 H*, Creatinine 6.53 H, Estim CreatClear Calc 11.81 L, Est GFR (MDRD) Non-Af 9 L, BUN/Creatinine Ratio 33.1 H, Glucose 90, Calcium 8.6, Phosphorus 3.7, Magnesium 3.5 H, Total Bilirubin 0.86, AST 9, ALT 10, Alkaline Phosphatase 60, Total Protein 5.5 L, Albumin 3.5, Globulin 2.0 L, Albumin/Globulin Ratio 1.8 09/10/24 04:59: POC Glucose 100 09/10/24 05:57: POC Glucose 92 09/10/24 06:48: POC Glucose 83 09/10/24 07:46: POC Glucose 79 09/10/24 08:53: POC Glucose 99 09/10/24 09:00: Sodium 140, Potassium 3.2 L, Chloride 102, Carbon Dioxide 18.2 L, Anion Gap 19 H, BUN 204 H*, Creatinine 5.83 H, Estim Creat Clear Calc 13.22 L,Est GFR (MDRD) Non-Af 11 L, BUN/Creatinine Ratio 35.0 H, Glucose 108 H, Calcium 8.6 09/10/24 09:57: POC Glucose 110 H 09/10/24 11:03: POC Glucose 102 Micro: Microbiology 09/09/24 16:20 Nasal Secretion MRSA (PCR) - Final Radiography Diagnostic Testing: Radiology Impression Renal Ultrasound 09/09/24 14:51 IMPRESSION: Bladder wall thickening which may be due to the decompressed state of the bladder or due to cystitis. Reading Location: [facility] Physical Exam Const alert, oriented x3, no apparent distress, average body habitus and healthy appearing General Appearance: cooperative, well kempt and well developed Orientation / Consciousness: awake, oriented to person, oriented to place and oriented to time HEENT normocephalic, head/scalp atraumatic and moist oral mucous membranes Eyes PERRL, EOMs intact bilaterally and conjunctivae normal Neck supple, no JVD, thyroid normal and no carotid bruits General: trachea midline Resp normal respiratory effort, no retractions, no use of accessory muscles and clearto auscultation bilaterally Auscultation: Negative for rales, rhonchi or wheezes Cardio regular rate, regular rhythm, S1 normal heart sound, S2 normal heart sound, no murmurs, no rub and no gallops GI normal to inspection, nondistended, normoactive bowel sounds, soft to palpation,non-tender and non-distended Extremity no clubbing, cyanosis or edema Skin no rashes or lesions noted General Skin Exam: no breakdown Neuro oriented x3, CN's II-XII intact bilaterally, moves all extremities, no focal motor deficits and no sensory deficits noted Sensorium / Orientation: awake and alert Speech: speech normal Psych affect normal Assessment & Plan Assessment/Plan (1) Acute renal failure: PLAN: Plan 1. Acute renal failure-probably secondary to dehydration, patient's BUN and creatinine are improving on IV fluids, nephrology is participating in his care. #2 anion gap acidosis-secondary to renal failure, BMP will be rechecked tomorrowmorning #3 achalasia-patient's esophagus was dilated today #4 severe weight loss secondary to achalasia-nutritional services is seeing the patient #5 hypokalemia-BMP will be monitored, potassium level is improved at this time Total clinical time spent by myself addressing the patient's medical issues, reviewing all of his data, and collaborating with patient's care team: 35 minutes Charges/Coding Visit Charges Inpatient E&M: 72376 Subs Hosp L2 09/10/24 4828 Cosigner Signature (if applicable): CC: ~ Signed [facility]05-15-2025 Consult note Author Luis Torres [facility] Note Date/Time September 10, 2024 2:35p m [facility] Medical Records Department [address] [place] [address] Anesthesia Postop Eval II 09/10/24 1435 MR#: [id number] Acct: [id number] Name: KESHAV ARMSTRONG Rep #:[id number] : 1970 53 From: Luis Westfall PCP: Care Physician,No Primary Status :ADM IN Y Race: C Location: ICU ICU06 -1 Anesthesia Postop Eval I Sum Postop Eval Completion status Anesthesia document: Postop Eval 1 completed: Yes Anesthesia Postop Eval I Summary Anesthesia Postop Eval I Summary: Anesthesia Postop Eval I: Assessment Summary Airway patent Yes 09/10/24 13:00 [email or web address] Spontaneous unlabored Yes 09/10/24 13:00 [email or web address] respirations Mental status Awake,Calm 09/10/24 13:00 [email or web address] nausea No 09/10/24 13:00 [email or web address] Vomiting No 09/10/24 13:00 [email or web address] Anesthesia Postop Eval I: Fluid Summary Crystalloid volume administer 50 09/10/24 13:00 [email or web address] (ml) Colloids volume administered ( ml) Blood Product volume administered (ml) Total IV fluid infused 50 09/10/24 13:00 [email or web address] Anesthesia Postop Eval I: Summary Notes Anesthesia Complication No 09/10/24 13:00 [email or web address] Anesthesia Complication Comment: Post-operative progress note Anesthesia: Postop Eval II Evaluation Mental status: Awake Pain Level: 0 nausea: No Vomiting: No Complications Anesthesia Complication: No 09/10/24 2526 <Electronically signed by Luis Torres MD> Date _ Luis [facility] Signature: Date CC: ~ Signed [facility] Work Phone: [phone]) 123-534505-15-2025 Consult note Author To Green [facility] Note Date/Time September 10, 2024 1:00p [facility] Medical Records Department [address] [place] [address] Anesthesia Postop Eval I 09/10/24 1259 MR#: [id number] Acct: [id number] Name: KESHAV ARMSTRONG Rep #:[id number] : 1970 53 From: To Green PCP: Care Physician,No Primary Status :ADM IN Y Race: C Location: ICU ICU06 -1 Anesthesia: Postop Eval I Current Vital Signs Temperature: 98.2 F Pulse Rate: 89 Blood Pressure: 104/70 Respiratory Rate: 16 Pulse Ox: 97 Oxygen Delivery Method: Room Air Assessment Airway patent: Yes Spontaneous unlabored respirations: Yes Mental status: Awake and Calm nausea: No Vomiting: No Anesthesia Complication: No Fluid Hydration Crystalloid volume administer (ml): 50 Total IV fluid infused: 50 Progress Note Anesthesia document: Postop Eval 1 completed: Yes 09/10/24 1300 <Electronically signed by To Green > Date _ To Andersonignradha Signature: Date CC: ~ Signed [facility] Work Phone: [phone]) [phone] Consult note [facility] Medical Records Department [address] [place] [address] Anesthesia Postop Eval II 09/10/24 1435 MR#: [id number] Acct: [id number] Name: KESHAV ARMSTRONG Rep #:[id number] : 1970 53 From: Luis Westfall PCP: Care Physician,No Primary Status :ADM IN Y Race: C Location: ICU ICU06 -1 Anesthesia Postop Eval I Sum Postop Eval Completion status Anesthesia document: Postop Eval 1 completed: Yes Anesthesia Postop Eval I Summary Anesthesia Postop Eval I Summary: Anesthesia Postop Eval I: Assessment Summary Airway patent Yes 09/10/24 13:00 [email or web address] Spontaneous unlabored Yes 09/10/24 13:00 [email or web address] respirations Mental status Awake,Calm 09/10/24 13:00 [email or web address] nausea No 09/10/24 13:00 [email or web address] Vomiting No 09/10/24 13:00 [email or web address] Anesthesia Postop Eval I: Fluid Summary Crystalloid volume administer 50 09/10/24 13:00 [email or web address] (ml) Colloids volume administered ( ml) Blood Product volume administered (ml) Total IV fluid infused 50 09/10/24 13:00 [email or web address] Anesthesia Postop Eval I: Summary Notes Anesthesia Complication No 09/10/24 13:00 [email or web address] Anesthesia Complication Comment: Post-operative progress note Anesthesia: Postop Eval II Evaluation Mental status: Awake Pain Level: 0 nausea: No Vomiting: No Complications Anesthesia Complication: No 09/10/24 1435 MD> Date _ Luis Torres MD Cosigner Signature: Date CC: ~ Signed [facility]05-15-2025 Progress note Author Alo Cronin [facility] Note Date/Time September 10, 2024 12:22 pm [facility] Medical Records Department [address] [place] [address] Progress Note 09/10/24 1220 MR#: [id number] Acct: [id number] Name: KESHAV ARMSTRONG Rep #:[id number] : 1970 53 From: Alo Cronin DO PCP: Care Physician,No Primary Status :ADM IN Location: ICU ICU06-1 Progress Note Patient has been n.p.o. for upper endoscopy today to see why he cannot eat. Physical Exam Const alert, oriented x3, no apparent distress and healthy appearing General Appearance: cooperative GI normal to inspection, nondistended, normoactive bowel sounds, soft to palpation,non-tender and non-distended Percussion: normal to percussion Rectal Exam: deferred Assessment & Plan Assessment/Plan (1) Acute renal failure: PLAN: Plan 53 y/o M w/ no prior notable PMHx who presents to the [facility] ED on 09/09/2024 with history of significant persistent nausea with poor oral intake as well as abdominal bloating and distention with significant weightloss for last 6 to 7 months Persistent nausea, poor intake, abdominal distention with incidentally noted dilated distal esophagus. Patient will undergo an upper endoscopy to evaluate upper GI tract. He was explained alternatives, risk and benefits including missed any bleeding, infection, sepsis, perforation, need for more surgery . He will have an ASA of 3. Visit Charges Inpatient E&M: 21747 Subs Hosp L3 09/10/24 1222 <Electronically signed by Alo Cronin DO> Alo Cronin DO Cosigner Signature (if applicable): CC: ~ Signed [facility] Work Phone: [phone]) 551-149405-15-2025 Consult note Author Luis Torres [facility] Note Date/Time September 10, 2024 11:51 am [facility] Medical Records Department [address] [place] [address] Pre-Anesthesia Evaluation 09/10/24 1138 MR#: [id number] Acct: [id number] Name: KESHAV ARMSTRONG Rep #:[id number] : 1970 53 From: Luis Westfall PCP: Care Physician,No Primary Status :ADM IN Y Race: C Location: ICU ICU -1 ASA Classification* ASA Classification ASA Classification: 3 (3E) Assessment & Plan Anesthesia* Anesthesia Assessment Anesthesia Assessment: Discussed sedation and/or anesthesia options, risks, benefits, and alternatives with patient/parents/legal guardian/POA. Questions invited. The patient/parents/legal guardian/POA seems to understand and agrees to proceedwith anesthesia plan. Reviewed the physical assessment, medical history, allergy history and patient home medications list prior to surgery/procedure/anesthetic and documented any changes. Performed airway and anesthesia risk assessments. Procedural Plan Add'l anesthesia plan details: Patient still has an AG of 19. On an insulin GTT and being repleated potassium. Talked with GI doctor. He would still like to proceed. Will get EKG and proceed with MAC anesthetic Anesthesia Type Anesthesia Type: MAC History Source History Obtained from:: Patient and Chart Anesthesia Focused Assessment* Temperature: 97.2 F Pulse Rate: 71 Blood Pressure: 111/82 Respiratory Rate: 16 Pulse Ox: 100 Airway Assessment Mouth opens: >3 cm Mallampati Score: II Focused Labs Anesthesia Preop lab: CBC WBC 9.8 K/mm3 (4.4-11.0) 09/10/24 04:52 09/10/24 RBC 4.62 M/mm3 (4.6-6.2) 09/10/24 04:52 09/10/24 Hgb 13.4 g/dL (13.0-16.5) 09/10/24 04:52 09/10/24 Hct 36.9 % (40-54) L 09/10/24 04:52 09/10/24 Plt Count 141 K/mm3 (150-450) L 09/10/24 04:52 09/10/24 CHEMISTRY Potassium 3.2 mmol/L (3.3-5.1) L 09/10/24 09:00 09/10/24 Sodium 140 mmol/L (133-145) 09/10/24 09:00 09/10/24 Magnesium 3.5 mg/dL (1.5-2.2) H 09/10/24 04:52 09/10/24 Phosphorus 3.7 mg/dL (2.7-4.5) 09/10/24 04:52 09/10/24 BUN 204 mg/dL (4-19) H* 09/10/24 09:00 09/10/24 Creatinine 5.83 mg/dL (0.70-1.20) H 09/10/24 09:00 Glucose 108 mg/dL (70-99) H 09/10/24 09:00 09/10/24 POC Glucose 102 mg/dL (74-106) 09/10/24 11:03 09/10/24 COAG Pre-Assessment Diagnosis/Proposed Procedure Planned Operative Procedure(s): EGD Anesthesia History 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 When Was Last Pacemaker Check QUESTION #4 FULL TEXT: You/Your Family Experience fever (hyperthermia) with Anesthesia Last Oral Intake Last Oral intake: Last Oral Intake NPO since Meds taken in AM with sips of water? Meds patient instructed to take am of surgery PONV PONV - muffler installer: PONV - muffler installer Female HX of Motion Sickness HX of N/V After Surgery Non-Smoker Duration of Surgery greater than 60 minutes Number of Risk Factors PONV Score Height & Weight Height & Weight: Anesthesia: Height & Weight Height 5 ft 6.93 in 09/10/24 10:22 Weight: 69.4 kg 09/10/24 10:22 Body Mass Index (BMI) 24.0 09/10/24 05:33 Respiratory Assessment Respiratory Assessment - muffler installer: Respiratory Tract Infection Hx - muffler installer Hx Respiratory Tract Infection STOP Sleep Apnea STOP Sleep Apnea - muffler installer: STOP Sleep Apnea - muffler installer Hx Hypertension No 09/09/24 16:04 Hx Sleep Apnea No 09/09/24 16:04 CPAP BIPAP Do you snore loudly (louder No 09/09/24 16:04 than talking or can be heard Do you often feel tired/ No 09/09/24 16:04 fatigued/ sleepy during daytime? Has anyone observed you stop No 09/09/24 16:04 breathing during sleep? STOP Results Negative 09/09/24 16:04 QUESTION #5 FULL TEXT : Do you snore loudly (louder than talking or can be heard through closed doors)? Tobacco Use History Tobacco Use History - muffler installer: Tobacco Use History - muffler installer Tobacco Use Smoking Status Never smoker 09/09/24 16:04 Hx Tobacco Use No 09/09/24 16:04 Years Smoking Packs Smoked per Day Smoking Cessation Date was within the last 15 years Hx Smoking Cessation Date Hx Smoking Cessation Counseling Hematologic Medial History Hematologic Hx - muffler installer: Hematologic Medical Hx - presiding judge Hx of Blood Transfusion No 09/09/24 16:04 Hx of Transfusion in last 3 No 09/09/24 16:04 Months Date of Last Transfusion (if within last 3 months) Ever experience any problems No 09/09/24 16:04 with transfusion(s)? Specify any problems Hx of Preganancy in last 3 N/A 09/09/24 16:04 Months Nurse Filling Out Transfusion [email or web address] 09/09/24 16:04 & Questions: Date: 09/09/24 09/09/24 16:04 Time: 18:16 09/09/24 16:04 Patient unable to answer at this time (ie. confused, unrespo /Reproduction History /Reproductive History - muffler installer: /Reproductive Hx- muffler installer Hx Now Gestational Age (in weeks): EDC: Hx Hx Para Hx Section SAB Active Medications Active Medications: Current Medications Generic Name Dose Route Start Last Admin Trade Name Freq PRN Reason Stop Dose Admin Acetaminophen 650 mg 09/09/24 15:56 Acetaminophen 650 Mg Suppository RC Q4H PRN PRN Fever, pain 1-10 Acetaminophen 650 mg 09/09/24 15:56 Acetaminophen 650 Mg/20 Ml Udc PO Q4H PRN PRN fever, pain 1-10 Al Hydroxide/Mg Hydroxide 30 ml 09/09/24 15:56 Mag Hydrox/Al Hydrox/Simeth 30 Ml Udc PO Q6H PRN PRN Gastric Burning Pantoprazole Sodium 40 mg/ 110 mls @ 330 mls/hr 09/09/24 15:56 09/09/24 21:56 Sodium Chloride IV Infused Q12 FREEMAN Infusion Dextrose 250 mls @ 999 mls/hr 09/09/24 15:56 09/10/24 00:36 Dextrose 10%-Water IV Infused .Q16M PRN Infusion Hypoglycemic Protocol Protocol Potassium Chloride/Dextrose/Sod Cl 20 meq in 1,000 mls @ 150 mls/hr 09/09/24 18:10 09/10/24 10:50 IV 0 mls/hr .Q6H40M FREEMAN Infusion Ondansetron HCl 4 mg 09/09/24 15:56 09/09/24 20:42 Ondansetron 4 Mg/2 Ml Vial IV 4 mg Q8H PRN PRN Administration NAUSEA/VOMITING Senna/Docusate Sodium 2 tablet 09/09/24 15:56 Senna/Docusate Sodium 1 Tablet PO BID PRN PRN Constipation Sodium Chloride 10 - 40 ml 09/09/24 16:43 09/10/24 04:57 0.9% Saline Lock 10 Ml Syringe IV 40 ml UD PRN Administration SALINE FLUSH PFSH Medical History No significant past medical history Home Medications ?Medication ?Instructions ?Recorded ?Last Taken ?Type multivitamin (Daily Multi-Vitamin 1 tab PO DAILY 09/0909/08/24 History tablet) Allergy/AdvReac Type Severity Reaction Status Date / Time No Known Allergies Allergy Verified 09/10/24 11:04 Family History Mother Hypertension Father No problems noted. Surgical History History of skin graft Social History household members: none Smoking Status: Never smoker alcohol intake: never substance use type: does not use Review of Systems (Anesthesia) ROS Narrative System reviewed and no additional complaints, except as documented. Physical Exam Const alert and oriented x3 HEENT dentition normal Resp normal respiratory effort and normal air movement Cardio regular rate and regular rhythm Neuro oriented x3 and moves all extremities 09/10/24 1151 <Electronically signed by Luis Torres MD> Date _ Luis Torres MD Cosigner Signature: Date CC: ~ Signed [facility] Work Phone: [phone]) 616-975805-15-2025 Consult note [facility] Medical Records Department [address] [place] [address] Anesthesia Postop Eval I 09/10/24 1259 MR#: [id number] Acct: [id number] Name: KESHAV ARMSTRONG Rep #:[id number] 5 : 1970 53 From: To Green PCP: Care Physician,No Primary Status :ADM IN Y Race: C Location: ICU ICU06 - Anesthesia: Postop Eval I Current Vital Signs Temperature: 98.2 F Pulse Rate: 89 Blood Pressure: 104/70 Respiratory Rate: 16 Pulse Ox: 97 Oxygen Delivery Method: Room Air Assessment Airway patent: Yes Spontaneous unlabored respirations: Yes Mental status: Awake and Calm nausea: No Vomiting: No Anesthesia Complication: No Fluid Hydration Crystalloid volume administer (ml): 50 Total IV fluid infused: 50 Progress Note Anesthesia document: Postop Eval 1 completed: Yes 09/10/24 1300 > Date _ To Child Signature: Date CC: ~ Signed [facility]05-15-2025 Procedure note [facility] Medical Records Department [address] [place] [address] EGD Report MR#: [id number] Acct: [id number] Name: KESHAV ARMSTRONG Rep #:[id number] 1 : 1970 53 From: Alo Cronin DO PCP: Care Physician,No Primary Status :ADM IN Patient Name: Keshav Armstrong Procedure Date: 09/10/2024 12:22 PM Date of : 1970 Age: 53 Procedure: Upper GI endoscopy Indications: Dysphagia Providers: Alo Cronin DO Medicines: Monitored Anesthesia Care Patient Profile: This is a 53 year old male. Refer to note in patient chart for documentation of history and physical. Patient has symptoms of dysphagia with both liquids and solids. The symptoms first began within the past few months. Complications: No immediate complications. Procedure: Pre-Anesthesia Assessment: - Prior to the procedure, a History and Physical was performed, and patient medications and allergies were reviewed. The patient is competent. The risks and benefits of the procedure and the sedation options and risks were discussed with the patient. All questions were answered and informed consent was obtained. Patient identification and proposed procedure were verified by the physician in the pre-procedure area. Mental Status Examination: alert and oriented. Airway Examination: normal oropharyngeal airway and neck mobility. Respiratory Examination: clear to auscultation. CV Examination: normal. Prophylactic Antibiotics: The patient does not require prophylactic antibiotics. Prior Anticoagulants: The patient has taken no anticoagulant or antiplatelet agents. ASA Grade Assessment: II - A patient with mild systemic disease. After reviewing the risks and benefits, the patient was deemed in satisfactory condition to undergo the procedure. The anesthesia plan was to use monitored anesthesia care (MAC). Immediately prior to administration of medications, the patient was re-assessed for adequacy to receive sedatives. The heart rate, respiratory rate, oxygen saturations, blood pressure, adequacy of pulmonary ventilation, and response to care were monitored throughout the procedure. The physical status of the patient was re-assessed after the procedure. After obtaining informed consent, the endoscope was passed under direct vision. Throughout the procedure, the patient's blood pressure, pulse, and oxygen saturations were monitored continuously. The Endoscope was introduced through the mouth, and advanced to the second part of duodenum. The upper GI endoscopy was accomplished without difficulty. The patient tolerated the procedure well. Scope In: 12:36:52 PM Scope Out: 12:44:17 PM Total Procedure Duration Time 0 hours 7 minutes 25 seconds Findings: Abnormal motility was noted in the lower third of the esophagus. The cricopharyngeus was normal. There is a decrease in motility of the esophageal body. The distal esophagus/lower esophageal sphincter is spastic, but gives up passage to the endoscope. Primary peristaltic waves are noted. Biopsies were taken with a cold forceps for histology. Verification of patient identification for the specimen was done. A guidewire was placed and the scope was withdrawn. Dilation was performed with a Savary dilator with no resistance at 51 Fr. The dilation site was examined and showed mild mucosal disruption. Estimated blood loss was minimal. No gross lesions were noted in the entire examined stomach. No gross lesions were noted in the first portion of the duodenum. Impression: - Abnormal esophageal motility, consistent with achalasia. Biopsied. Dilated. - No gross lesions in the entire stomach. - No gross lesions in the first portion of the duodenum. Recommendation: - Discharge patient to home. - Resume previous diet. - Continue present medications. - Await pathology results. Procedure Code(s): --- Professional --- 63296, Esophagogastroduodenoscopy, flexible, transoral; with insertion of guide wire followed by passage of dilator(s) through esophagus over guide wire 85565, 59,51, Esophagogastroduodenoscopy, flexible, transoral; with biopsy, single or multiple CPT copyright 2021 [employer]. All rights reserved. The codes documented in this report are preliminary and upon debone supervisor review may be revised to meet current compliance requirements. Alo Cronin DO 09/10/2024 12:55:52 PM This report has been signed electronically. Number of Addenda: 0 Note Initiated On: 09/10/2024 12:22 PM 09/10/241254 Date _ Alo Cronin DO Cosigner Signature: Date (if indicated) CC: No Primary Care Physician; Alo Cronin DO ~ Date Dictated: 09/10/24 1222 Date Transcribed: Software Quality Assurance Specialist: RF Signed [facility]05-15-2025 Procedure note [facility] Medical Records Department [address] [place] [address] [place] [address] Operative Report - CC Letter MR#: [id number] Acct: [id number] Name: KESHAV ARMSTRONG Rep #:[id number] 2 : 1970 53 From: Alo Cronin DO PCP: Care Physician,No Primary Status :ADM IN 09/10/2024 No Primary Care Physician Re : Upper GI endoscopy procedure for Keshav Armstrong Dear Care Physician This procedure was performed on August. My impressions and recommendations are as follows: Impressions : - Abnormal esophageal motility, consistent with achalasia. Biopsied. Dilated. - No gross lesions in the entire stomach. - No gross lesions in the first portion of the duodenum. Recommendations : - Discharge patient to home. - Resume previous diet. - Continue present medications. - Await pathology results. My findings are described in the full procedure note, which is enclosed. If I can be of further assistance, please feel free to contact me at . Sincerely, Alo Cronin DO 09/10/2024 12:55:52 PM This report has been signed electronically. 09/10/241254 Date _ Alo Cat Signature: Date (if indicated) CC: Dr. Abbie Michelle MD; Dr. Emeli Lynn MD; Dr. Jimenez Renee DO;No Primary Care Physician ~ Date Dictated: 09/10/24 1222 Date Transcribed: Software Quality Assurance Specialist: RF Signed [facility]05-15-2025 Progress note [facility] Medical Records Department [address] [place] [address] Progress Note 09/10/241219 MR#: [id number] Acct: [id number] Name: KESHAV ARMSTRONG Rep #:[id number] 6 : 1970 53 From: Alo Cronin DO PCP: Care Physician,No Primary Status :ADM IN Location: ICU ICU06-1 Progress Note Patient has been n.p.o. for upper endoscopy today to see why he cannot eat. Physical Exam Const alert, oriented x3, no apparent distress and healthy appearing General Appearance: cooperative GI normal to inspection, nondistended, normoactive bowel sounds, soft to palpation,non-tender and non-distended Percussion: normal to percussion Rectal Exam: deferred Assessment & Plan Assessment/Plan (1) Acute renal failure: PLAN: Plan 53 y/o M w/ no prior notable PMHx who presents to the [facility] ED on 09/09/2024 with history of significant persistent nausea with poor oral intake as well as abdominal bloating and distention with significant weightloss for last 6 to 7 months Persistent nausea, poor intake, abdominal distention with incidentally noted dilated distal esophagus. Patient will undergo an upper endoscopy to evaluate upper GI tract. He was explained alternatives, risk and benefits including missed any bleeding, infection, sepsis, perforation, need for more surgery . He will have an ASA of 3. Visit Charges Inpatient E&M: 56198 Subs Hosp L3 09/10/24 122 Alo Cronin DO Cosigner Signature (if applicable): CC: ~ Signed [facility]05-15-2025 Consult note [facility] Medical Records Department [address] [place] [address] Pre-Anesthesia Evaluation 09/10/24 1138 MR#: [id number] Acct: [id number] Name: KESHAV ARMSTRONG Rep #:[id number] 2 : 1970 53 From: Luis Wesftall PCP: Care Physician,No Primary Status :ADM IN Y Race: C Location: ICU [place] [address] ASA Classification* ASA Classification ASA Classification: 3 (3E) Assessment & Plan Anesthesia* Anesthesia Assessment Anesthesia Assessment: Discussed sedation and/or anesthesia options, risks, benefits, and alternatives with patient/parents/legal guardian/POA. Questions invited. The patient/parents/legal guardian/POA seems to understand and agrees to proceedwith anesthesia plan. Reviewed the physical assessment, medical history, allergy history and patient home medications list prior to surgery/procedure/anesthetic and documented any changes. Performed airway and anesthesia risk assessments. Procedural Plan Add'l anesthesia plan details: Patient still has an AG of 19. On an insulin GTT and being repleatedpotassium. Talked with GI doctor. He would still like to proceed. Will get EKG and proceed with MACanesthetic Anesthesia Type Anesthesia Type: MAC History Source History Obtained from:: Patient and Chart Anesthesia Focused Assessment* Temperature: 97.2 F Pulse Rate: 71 Blood Pressure: 111/82 Respiratory Rate: 16 Pulse Ox: 100 Airway Assessment Mouth opens: >3 cm Mallampati Score: II Focused Labs Anesthesia Preop lab: CBC WBC 9.8 K/mm3 (4.4-11.0) 09/10/24 04:52 09/10/24 RBC 4.62 M/mm3 (4.6-6.2) 09/10/24 04:52 09/10/24 Hgb 13.4 g/dL (13.0-16.5) 09/10/24 04:52 09/10/24 Hct 36.9 % (40-54) L 09/10/24 04:52 09/10/24 Plt Count 141 K/mm3 (150-450) L 09/10/24 04:52 09/10/24 CHEMISTRY Potassium 3.2 mmol/L (3.3-5.1) L 09/10/24 09:00 09/10/24 Sodium 140 mmol/L (133-145) 09/10/24 09:00 09/10/24 Magnesium 3.5 mg/dL (1.5-2.2) H 09/10/24 04:52 09/10/24 Phosphorus 3.7 mg/dL (2.7-4.5) 09/10/24 04:52 09/10/24 BUN 204 mg/dL (4-19) H* 09/10/24 09:00 09/10/24 Creatinine 5.83 mg/dL (0.70-1.20) H 09/10/24 09:00 Glucose 108 mg/dL (70-99) H 09/10/24 09:00 09/10/24 POC Glucose 102 mg/dL (74-106) 09/10/24 11:03 09/10/24 COAG Pre-Assessment Diagnosis/Proposed Procedure Planned Operative Procedure(s): EGD Anesthesia History 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 When Was Last Pacemaker Check QUESTION #4 FULL TEXT: You/Your Family Experience fever (hyperthermia) with Anesthesia Last Oral Intake Last Oral intake: Last Oral Intake NPO since Meds taken in AM with sips of water? Meds patient instructed to take am of surgery PONV PONV - muffler installer: PONV - muffler installer Female HX of Motion Sickness HX of N/V After Surgery Non-Smoker Duration of Surgery greater than 60 minutes Number of Risk Factors PONV Score Height & Weight Height & Weight: Anesthesia: Height & Weight Height 5 ft 6.93 in 09/10/24 10:22 Weight: 69.4 kg 09/10/24 10:22 Body Mass Index (BMI) 24.0 09/10/24 05:33 Respiratory Assessment Respiratory Assessment - muffler installer: Respiratory Tract Infection Hx - muffler installer Hx Respiratory Tract Infection STOP Sleep Apnea STOP Sleep Apnea - muffler installer: STOP Sleep Apnea - muffler installer Hx Hypertension No 09/09/24 16:04 Hx Sleep Apnea No 09/09/24 16:04 CPAP BIPAP Do you snore loudly (louder No 09/09/24 16:04 than talking or can be heard Do you often feel tired/ No 09/09/24 16:04 fatigued/ sleepy during daytime? Has anyone observed you stop No 09/09/24 16:04 breathing during sleep? STOP Results Negative 09/09/24 16:04 QUESTION #5 FULL TEXT : Do you snore loudly (louder than talking or can be heard through closeddoors)? Tobacco Use History Tobacco Use History - muffler installer: Tobacco Use History - muffler installer Tobacco Use Smoking Status Never smoker 09/09/24 16:04 Hx Tobacco Use No 09/09/24 16:04 Years Smoking Packs Smoked per Day Smoking Cessation Date was within the last 15 years Hx Smoking Cessation Date Hx Smoking Cessation Counseling Hematologic Medial History Hematologic Hx - muffler installer: Hematologic Medical Hx - presiding judge Hx of Blood Transfusion No 09/09/24 16:04 Hx of Transfusion in last 3 No 09/09/24 16:04 Months Date of Last Transfusion (if within last 3 months) Ever experience any problems No 09/09/24 16:04 with transfusion(s)? Specify any problems Hx of Preganancy in last 3 N/A 09/09/24 16:04 Months Nurse Filling Out Transfusion [email or web address] 09/09/24 16:04 & Questions: Date: 09/09/24 09/09/24 16:04 Time: 18:16 09/09/24 16:04 Patient unable to answer at this time (ie. confused, unrespo /Reproduction History /Reproductive History - muffler installer: /Reproductive Hx- muffler installer Hx Now Gestational Age (in weeks): EDC: Hx Hx Para Hx Section SAB Active Medications Active Medications: Current Medications Generic Name Dose Route Start Last Admin Trade Name Freq PRN Reason Stop Dose Admin Acetaminophen 650 mg 09/09/24 15:56 Acetaminophen 650 Mg Suppository RC Q4H PRN PRN Fever, pain 1-10 Acetaminophen 650 mg 09/09/24 15:56 Acetaminophen 650 Mg/20 Ml Udc PO Q4H PRN PRN fever, pain 1-10 Al Hydroxide/Mg Hydroxide 30 ml 09/09/24 15:56 Mag Hydrox/Al Hydrox/Simeth 30 Ml Udc PO Q6H PRN PRN Gastric Burning Pantoprazole Sodium 40 mg/ 110 mls @ 330 mls/hr 09/09/24 15:56 09/09/24 21:56 Sodium Chloride IV Infused Q12 FREEMAN Infusion Dextrose 250 mls @ 999 mls/hr 09/09/24 15:56 09/10/24 00:36 Dextrose 10%-Water IV Infused .Q16M PRN Infusion Hypoglycemic Protocol Protocol Potassium Chloride/Dextrose/Sod Cl 20 meq in 1,000 mls @ 150 mls/hr 09/09/24 18:10 09/10/24 10:50 IV 0 mls/hr .Q6H40M FREEMAN Infusion Ondansetron HCl 4 mg 09/09/24 15:56 09/09/24 20:42 Ondansetron 4 Mg/2 Ml Vial IV 4 mg Q8H PRN PRN Administration NAUSEA/VOMITING Senna/Docusate Sodium 2 tablet 09/09/24 15:56 Senna/Docusate Sodium 1 Tablet PO BID PRN PRN Constipation Sodium Chloride 10 - 40 ml 09/09/24 16:43 09/10/24 04:57 0.9% Saline Lock 10 Ml Syringe IV 40 ml UD PRN Administration SALINE FLUSH PFSH Medical History No significant past medical history Home Medications ?Medication ?Instructions ?Recorded ?Last Taken ?Type multivitamin (Daily Multi-Vitamin 1 tab PO DAILY 09/0909/08/24 History tablet) Allergy/AdvReac Type Severity Reaction Status Date / Time No Known Allergies Allergy Verified 09/10/24 11:04 Family History Mother Hypertension Father No problems noted. Surgical History History of skin graft Social History household members: none Smoking Status: Never smoker alcohol intake: never substance use type: does not use Review of Systems (Anesthesia) ROS Narrative System reviewed and no additional complaints, except as documented. Physical Exam Const alert and oriented x3 HEENT dentition normal Resp normal respiratory effort and normal air movement Cardio regular rate and regular rhythm Neuro oriented x3 and moves all extremities 09/10/24 1151 MD> Date _ Luis Child Signature: Date CC: ~ Signed [facility]05-14-2025 Discharge summary Author Lata Duron [facility] Note Date/Time September 09, 2024 3:48p m [facility] Medical Records Department [address] [place] [address] Emergency Department Summary 09/09/24 MR#: [id number] Acct: [id number] Name: KESHAV ARMSTRONG Rep #:[id number] 2 : 1970 53 From: Lata Duron DO PCP: Care Physician,No Primary Status :ADM IN Location: ICU ICU06-1 HPI HPI - GI History of Present Illness Chief Complaint: Abd Pain Detail of Chief Complaint: Nausea, weight loss, abdominal distention Informant: patient Narrative Narrative: Patient presents with weight loss as well as nausea and abdominal bloating ongoing for 6 to 7 months. Patient states he has no primary care physician. Hefinally got tired of the weight loss and he is complaining of feeling weak with no energy. He has nausea and vomiting usually after he eats about 15 to 20 minutes later.. He denies blood in stool or black tarry stool. He denies urinary symptoms. He tells me has no medical history. No prior abdominal surgeries. [facility] Medical History (Updated 09/09/24 @ 14:[address] Abbie Michelle MD) No significant past medical history Home Medications ?Medication ?Instructions ?Recorded ?Last Taken ?Type multivitamin (Daily Multi-Vitamin 1 tab PO DAILY 09/0909/08/24 History tablet) Allergy/AdvReac Type Severity Reaction Status Date / Time No Known Allergies Allergy Verified 09/09/24 12:12 Family History (Updated 09/09/24 @ 14:[address] Abbie Michelle MD) Mother Hypertension Father No problems noted. Surgical History (Updated 09/09/24 @ 14:[address] Abbie Michelle MD) History of skin graft Social History (Updated 09/09/24 @ 14:[address] Abbie Michelle MD) household members: none Smoking Status: Never smoker alcohol intake: never substance use type: does not use ROS ROS ED Review of Systems ROS Unobtainable: other Constitutional Constitutional ED: Reports lethargy; Denies chills, fever(s), sweats or weight loss Eyes Eyes: Denies blurry vision, change in vision or diplopia ENT ENT ED: Denies rhinorrhea or sore throat Cardiovascular Cardiovascular: Denies chest pain, orthopnea or racing heartbeat Respiratory/Chest Respiratory/Chest: Denies cough, dyspnea, dyspnea on exertion, orthopnea or sputum Gastrointestinal Gastrointestinal: Reports nausea, vomiting and other Details: Abdominal distention, weight loss ; Denies abdominal pain or diarrhea Genitourinary Genitourinary ED: Denies dysuria, hematuria or urinary frequency Musculoskeletal Musculoskeletal: Denies arthralgias, back pain, myalgias or neck pain Integumentary Denies abscess, Abrasions or rash Neurologic Neurologic: Denies headache(s) or weakness Psychiatric Psychiatric: Denies anxiety, depression or suicidal thoughts Endocrine Endocrinology: Denies polydipsia, polyphagia or polyuria Hematologic/Lymphatic Hematologic/Lymphatic: Denies easy bleeding, easy bruising or lymphadenopathy Allergic/Immunologic Allergic/Immunologic ED: Denies mouth swelling, tongue swelling or urticaria EXAM Physical Exam Const Vital Signs: 09/09/24 12:06 09/09/24 14:05 09/09/24 14:16 Temperature 96.2 F L 96.2 F L Temperature Source Temporal Pulse Rate 104 H 94 94 Respiratory Rate 16 16 16 Blood Pressure 101/73 129/114 H 129/114 H Blood Pressure Mean 82 119 119 Pulse Ox 94 100 100 Oxygen Delivery Method Room Air Room Air Positive well nourished and well developed General Appearance ED: well developed and NAD HEENT Reports TM's clear and moist mucous membranes normocephalic and atraumatic; Negative for trauma or tenderness Tympanic Membrane ED: Yes TM's clear Eyes PERRL and EOMs intact bilaterally General Eye ED: Negative for pale conjunctiva or scleral icterus Neck no lymphadenopathy, supple and no JVD General: Negative for tenderness Chest Wall inspection of chest normal and palpation of chest normal Chest: Negative for tenderness Resp normal respiratory effort and clear to auscultation bilaterally Effort and Inspection: Negative for respiratory distress or pain with movement Auscultation: Negative for rhonchi, wheezes or diminished lung sounds Cardio regular rate, regular rhythm, S1 normal heart sound, S2 normal heart sound and no murmurs Peripheral Pulses: pulses 2+ throughout GI normal to inspection, nondistended, normoactive bowel sounds, soft to palpation,non-tender, non-distended and no masses Back/Spine no CVA tenderness and no thoracic nor lumbar tenderness Extremity normal to inspection General Extremety ED: Negative for edema General Extremity: Negative for edema Neuro oriented x3, CN's II-XII intact bilaterally, no sensory deficits noted and gait normal Sensorium / Orientation: awake, alert, oriented to person, oriented to place andoriented to time Motor Exam: strength 5/5 throughout and strength abnormal Psych mental status grossly normal Skin no rashes or lesions noted and no wounds MDM MDM MDM Narrative Medical decision making narrative: Patient presents with complaint of not feeling well for 6 to 7 months. Given history of night sweats and ongoing weight loss over 6 or 7 months concern for malignancy. Patient has not been seeing primary care physician. IV line established. CBC with differential obtained showing an 11.7 with hemoglobin 18.7 and platelet count of 206. Chemistries were significant for sodium 139 with potassium 2.4 and chloride of 82. CO2 was 16.8. BUN to 48 and creatinine 10.7. Lactate 2.0. Glucose 190. LFTs normal. Lipase was 241. CT scan of theabdomen pelvis obtained read by radiology as distended and thickened distal esophagus could represent achalasia. No other significant findings other than some mild evidence of nonfocal layer mucosal enhancement in distal small bowel which can indicate inflammatory bowel disease. Patient was ordered potassium chloride IV. Discussed case with hospitalist will evaluate patient for admission. I do not think patient has DKA suspect likely acute renal failure. Hospitalist did order beta hydroxybutyrate which was elevated 3.5 and recommended that we start patient on an insulin drip for the possibility of DKA given elevated glucose at 190. I did order the insulin drip at hospitalist request and patient will go to the ICU. Lab Data Attestation: I reviewed the patient's lab results. Labs: Laboratory Results - last 24 hr 09/09/24 09/09/24 12:15 12:58 WBC 11.7 H RBC 6.54 H Hgb 18.7 H* Hct 51.6 MCV 78.9 L MCH 28.6 MCHC 36.2 H RDW Std Deviation 36.9 RDW Coeff of Keerthi 13.1 Plt Count 206 MPV 13.8 H Immature Gran % (Auto) 0.400 Neut % (Auto) 87.9 H Lymph % (Auto) 5.9 L Forrest % (Auto) 5.5 Eos % (Auto) 0.1 Baso % (Auto) 0.2 Absolute Neuts (auto) 10.3 H Absolute Lymphs (auto) 0.69 L Nucleated RBC % 0 Sodium 139 Potassium 2.4 L* Chloride 82 L Carbon Dioxide 16.8 L Anion Gap 40 H BUN 248 H* Creatinine 10.70 H* Estim Creat Clear Calc 7.44 L* Est GFR (MDRD) Non-Af 5 L BUN/Creatinine Ratio 23.2 H Glucose 190 H Lactic Acid 2.0 Calcium 10.6 Magnesium 4.8 H Total Bilirubin 1.16 AST 9 ALT 17 Alkaline Phosphatase 91 Total Protein 8.3 Albumin 5.0 Globulin 3.3 Albumin/Globulin Ratio 1.5 Lipase 241 H b-Hydroxybutyric mmol/L 3.5 Radiography Diagnostic Testing: Clinical Impression(s) from Imaging Studies Abdomen/Pelvis CT 09/09/24 13:15 IMPRESSION: The distal esophagus is dilated to 5 cm, which can indicate achalasia. Considerdirect visualization. Cholelithiasis. Liver cysts There is a 2 cm uncomplicated fat containing left inguinal hernia. There is nonfocal layered mucosal enhancement in the distal small bowel, which can indicate inflammatory bowel disease. [facility] Initial [facility]KG: Attestation: I personally reviewed and interpreted this EKG as follows: Comments: Sinus rhythm with rate of 86 bpm with prolonged QT of 458. QTc is 548 Critical Care Time Critical care time (excluding procedures): 30-74 minutes, Including time spent:,Discussing w/Patient &/or Family/Fish Hatchery Superintendent, Discussing w/Consultants, ArrangingAdmission or Transfer, Performing Direct Patient Care at Bedside and - (30 minutes) Discharge Plan Dx/Rx/DC Orders Clinical Impression: Acute renal failure, Acute hypokalemia, Hyperglycemia, Abnormal weight loss Disposition Disposition: Acute Care Hospital [facility] What to do if you have Problems For any increased pain, shortness of breath, bleeding, nausea or vomiting, chestpain, or any unexpected problems, contact your Primary Care Provider. Call [facility] ([phone]) or report to the closest Emergency Room. Call 911 if necessary. 09/09/24 1548 <Electronically signed by Lata Duron DO> Cosigner Signature (if applicable): CC: No Primary Care Physician ~ Signed [facility] Work Phone: [phone]) 676-247105-14-2025 Radiology Diagnostic study note [facility] Imaging Services [address] [place] [address] Kidney and Bladder MR#: [id number] Acct: [id number] Name: KESHAV ARMSTRONG Rep #: [id number] : 1970 M 53 From: Lynne Bhakta MD PCP: Care Physician,No Primary Status: ADM IN Study:Kidney and Bladder Date of Exam: 0 09/09/24 Exam# [id number] Ordering Dr: Nette Michelle MD EXAM: US Retroperitoneal Limited, Renal CLINICAL INDICATION: EWA TECHNIQUE: Real-time limited ultrasound of the retroperitoneum with image documentation. COMPARISON: No relevant prior studies available. FINDINGS: RIGHT KIDNEY: Unremarkable. No stones. No hydronephrosis. The right kidney measures 9.2 x 5.5 x 6.5cm. LEFT KIDNEY: Unremarkable. No stones. No hydronephrosis. The left kidney measures 10.6 x 4.9 x 6.1 cm. BLADDER: Bladder wall thickening which may be due to the decompressed state of the bladder or due to cystitis. US/Kidney and Bladder IMPRESSION: Bladder wall thickening which may be due to the decompressed state of the bladder or due to cystitis. Reading Location: [facility] CC: Dr. Abbie Michelle MD; No Primary Care Physician ~ Software Quality Assurance Specialist: Signed [facility]05-14-2025 History and physical note Author Abbie Michelle [facility] Note Date/Time September 09, 2024 3:27p m [facility] Medical Records Department [address] [place] [address] H&P Exam - Hospitalist 09/09/24 1415 MR#: [id number] Acct: [id number] Name: KESHAV ARMSTRONG Rep #:[id number] : 1970 53 From: Abbie Michelle MD PCP: Care Physician,No Primary Status :ADM IN Location: ICU ICU06-1 HPI - General General Date of Admission: 09/09/24 Date of Service: 09/09/24 Chief Complaint: Intractable N/V, unable to take adequate PO, weight loss, abd bloating. HPI Narrative The patient is a 53 y/o M w/ no prior notable PMHx who presents to the [facility] ED on 09/09/2024 with history of significant persistent nauseawith poor oral intake as well as abdominal bloating and distention with significant weight loss for last 6 to 7 months with no established primary care physician thus prompting eventual decision to be evaluated in the ED. He deniesany alteration to the appearance of his stools or any urinary symptoms. He notes persistent emesis associated with any oral intake attempts. Has had been able to keep liquids down and some full liquids but nearly all solids come back up. He reports ~ 60-70 lb weight loss over the last 12 months. He does state heis continuing to make urine and usually urinates twice a day. He states previously had been very dark but has become more clear recently. His parents were present note that he is had a significant decline over the last 3 weeks. He also does have bruises on his lower legs and states this may be happening in his sleep even. Workup in the ED included T96.2 Temporal, heart rate 104, BP 101/73, respiratory rate 16, 94% room air, CBC with WBC 11.7, hemoglobin 18.7, platelets 206 with left shift and lymphopenia, CMP with potassium 2.4, chloride 82, carbon oxide 16.8, anion gap 40, BUN/creatinine 248/10.70, GFR 5, glucose 190, lactic acid 2.0, hepatic profile not marked appearing, lipase 241, CT abdomen pelvis with distal esophagus dilated to 5 cm possible indicative of achalasia, cholelithiasis, liver cyst, 2 cm uncomplicated fat-containing left inguinal hernia, nonfocal layered mucosal enhancement the distal small bowel of unclear significance. In the ED patient administered maintenance IV fluids. [facility] Medical History (Updated 09/09/24 @ 14:[address] Abbie Michelle MD) No significant past medical history Home Medications ?Medication ?Instructions ?Recorded ?Last Taken ?Type multivitamin (Daily Multi-Vitamin 1 tab PO DAILY 09/0909/08/24 History tablet) Allergy/AdvReac Type Severity Reaction Status Date / Time No Known Allergies Allergy Verified 09/09/24 12:12 Family History (Updated 09/09/24 @ 14:[address] Abbie Michelle MD) Mother Hypertension Father No problems noted. Surgical History (Updated 09/09/24 @ 14:[address] Abbie Michelle MD) History of skin graft Social History (Updated 09/09/24 @ 14:[address] Abbie Michelle MD) household members: none Smoking Status: Never smoker alcohol intake: never substance use type: does not use ROS ROS Narrative Admission Review of Systems: CONSTITUTIONAL: No fever, chills, + weight loss, weakness or fatigue. HEENT: Eyes: No visual loss, blurred vision, double vision or yellow sclerae. Ears, Nose, Throat: No hearing loss, sneezing, congestion, runny nose or sore throat. SKIN: No rash or itching, lesions, wounds. CARDIOVASCULAR: No chest pain, chest pressure or chest discomfort, palpitations,edema, orthopnea, syncopal events. RESPIRATORY: No shortness of breath, cough or sputum, wheezing, hemoptysis. GASTROINTESTINAL: + anorexia, nausea, vomiting, abdominal distention/fullness. No constipation, diarrhea, abdominal pain, melena, BRBPR. GENITOURINARY: No dysuria, frequency, urgency or retention. NEUROLOGICAL: No headache, dizziness, syncope, paralysis, ataxia, numbness or tingling in the extremities, focal weakness, change in bowel or bladder control,seizure. MUSCULOSKELETAL: + muscle, back pain, joint pain or stiffness. HEMATOLOGIC: No anemia. + Easy bleeding/bruising. LYMPHATICS: No enlarged nodes. No history of splenectomy. PSYCHIATRIC: No history of depression or anxiety. ENDOCRINOLOGIC: No reports of sweating, cold or heat intolerance. No polyuria orpolydipsia. ALLERGIES: No history of asthma, hives, eczema or rhinitis. Vital Signs Vital Signs Vital Signs: 09/09/24 12:06 Temperature 96.2 F L Temperature Source Temporal Pulse Rate 104 H Respiratory Rate 16 Blood Pressure 101/73 Blood Pressure Mean 82 Pulse Ox 94 Oxygen Delivery Method Room Air Weight Weight: 145 lb 3.2 oz Body Mass Index (BMI) 22.7 Physical Exam Narrative Physical Examination: General: Awake, alert, oriented x 3 and cooperative, seated upright in bed in noapparent distress, denies any current pain. Skin: Normal color, normal turgor, no icterus, no cyanosis except notable very stage ecchymoses especially to his distal extremities as well as some on the right lateral flank. HEENT: AT/NC, EOMI, PERRLA, mildly dry MM, no carotid bruits or JVD noted. Lungs: CTA bilaterally, moderate effort, mild decrease BL bases, no rales, ronchi or wheezing. Heart: Regular rate and rhythm; no gallop, rub audible. Abdomen: Soft, NTTP, ND, mildly hypoactive BS, no appreciated HSM. Extremities: No cyanosis, clubbing, or edema, see skin. Neurological: Patient awake, alert, oriented as noted, cognitive function intact; pupils equally reactive to light and accommodation, cranial nerves grossnormal, moving all 4 extremities, no focal deficits, strength moderately globally decreased Psychiatric: Affect appears to be otherwise normal, no acute evidence of depressive or anxiety feelings. Results Lab / Micro Data 09/09/24 12:15 09/09/24 12:15 Labs: Laboratory Results - last 24 hr 09/09/24 12:15: WBC 11.7 H, RBC 6.54 H, Hgb 18.7 H*, Hct 51.6, MCV 78.9 L, MCH 28.6, MCHC 36.2 H, RDW Std Deviation 36.9, RDW Coeff of Keerthi 13.1, Plt Count 206,MPV 13.8 H, Immature Gran % (Auto) 0.400, Neut % (Auto) 87.9 H, Lymph % (Auto) 5.9 L, Forrest % (Auto) 5.5, Eos % (Auto) 0.1, Baso % (Auto) 0.2, Absolute Neuts (auto) 10.3 H, Absolute Lymphs (auto) 0.69 L, Nucleated RBC % 0, Sodium 139, Potassium 2.4 L*, Chloride 82 L, Carbon Dioxide 16.8 L, Anion Gap 40 H, BUN 248 H*, Creatinine 10.70 H*, Estim Creat Clear Calc 7.44 L*, Est GFR (MDRD) Non-Af 5L, BUN/Creatinine Ratio 23.2 H, Glucose 190 H, Calcium 10.6, Total Bilirubin 1.16, AST 9, ALT 17, Alkaline Phosphatase 91, Total Protein 8.3, Albumin 5.0, Globulin 3.3, Albumin/Globulin Ratio 1.5, Lipase 241 H 09/09/24 12:58: Lactic Acid 2.0 Imaging Radiology Impression Abdomen/Pelvis CT 09/09/24 13:15 IMPRESSION: The distal esophagus is dilated to 5 cm, which can indicate achalasia. Considerdirect visualization. Cholelithiasis. Liver cysts There is a 2 cm uncomplicated fat containing left inguinal hernia. There is nonfocal layered mucosal enhancement in the distal small bowel, which can indicate inflammatory bowel disease. Reading Location: [facility] Assessment & Plan Assessment/Plan (1) Acute renal failure: PLAN: Plan The patient is a 53 y/o M w/ no prior notable PMHx who presents to the [facility] ED on 09/09/2024 with history of significant persistent nauseawith poor oral intake as well as abdominal bloating and distention with significant weight loss for last 6 to 7 months with no established primary care physician thus prompting eventual decision to be evaluated in the ED. #1. Persistent nausea, poor intake, abdominal distention with incidentally noted dilated distal esophagus: Patient with persistent emesis with oral intake attempts and given CT findings concern will admit to PCU given notable electrolyte disturbances concurrently, still awaiting workup for possible DKA new onset as noted below, will maintain on IV PPI, when oral intake at this timeto clear liquids only, speech therapy consulted, gastroenterology consulted for upper endoscopy, will maintain n.p.o. status after midnight, continue aggressivehydration as noted below. #2. Acute kidney injury with #3, #4: Secondary to possible poor oral intake butsignificantly elevated creatinine with no clear previous baseline and unclear duration of time. Admission BUN/Cr 248/10.70, prior baseline creatinine unknown but patient denies any previous medical history. Will continue to hydrate, will initiate on bicarb,hold nephrotoxic medications and repeat chemistry in AM,will obtain UA, renal US, FeNa assessment and Nephrology consultation. #3. Metabolic acidosis with notable Hyperglycemia without diabetic history: Admission CMP with anion gap 40, glucose 190 with no diabetic history, hydroxybutyrate acid level requested, urinalysis requested, hemoglobin A1c requested, some concern for possibly new onset diabetes with DKA and conjunctionwith #1, will continue aggressively hydrate, awaiting these labs and if appropriate will initiate insulin drip. While awaiting hydroxybutyrate acid level will also pre-emptively obtain serum osmolality certainly could be HHS. #4. Hypokalemia: Admission K+ 2.4, magnesium level requested, supplementation given, repeat level in AM. #5. DVT prophylaxis: SCDs, will hold off on chemoprophylaxis given planned upper endoscopy in case of biopsy needs. Charges/Coding Visit Charges Inpatient E&M: 10674 Init Hosp L3 09/09/24 1442 <Electronically signed by Abbie Michelle MD> Cosigner Signature (if applicable): CC: Dr. Abbie Michelle MD; No Primary Care Physician~ Signed ADDENDUM by Dr. Abbie Michelle MD on 09/09/24 at 1455 Addendum Hydroxybutyrate acid came back elevated 3.5, patient initiated on insulin drip in the ED and given an additional 1 L normal saline bolus per ED physician. Concern for new onset diabetes with DKA, awaiting hemoglobin A1c: Given this as noted previously with next the ICU, continue on insulin drip, check serial K+, glucose w/ IVF changes pending these levels, serial chemistry, obtain mag, phos daily w/ repletion as needed, nutrition consulted, hemoglobin A1c pending. Severe protein calorie malnutrition: Patient although BMI 22.7 has lost 60 to 70pounds of the last year because of poor oral intake debility, as noted also concern for new onset diabetes with DKA, awaiting hemoglobin A1c, nutrition consulted for recommendations and evaluation. 09/09/24 1455<Electronically signed by Abbie Michelle MD> Cosigner Signature (if applicable): cc: Dr. Abbie Michelle MD; No Primary Care Physician ~* Signed ADDENDUM by Dr. Abbie Michelle MD on 09/09/24 at 1527 Addendum HgbA1c 6.5%, certainly could be a component of presentation but again anion gap and hydroxybutyrate acid levels also likely elevated given EWA/uremia. Given however the level that it is we will continue insulin drip for now. 09/09/24 1527<Electronically signed by Abbie Michelle MD> Cosigner Signature (if applicable): cc: Dr. Abbie Michelle MD; No Primary Care Physician ~* Signed [facility] Work Phone: 1([phone]) 727-564905-14-2025 Evaluation note* Diagnosis Onset Date Resolution Status Admit Date Abnormal weight loss acute September 09, 2024 2:43pm Acute hypokalemia acute August 2:43pm Acute renal failure acute August 272024 2:43pm Dysphagia acute September 09, 2024 2:43pm [facility] Work Phone: 1([phone]) 678-433905-14-2025 Discharge summary [facility] Medical Records Department [address] [place] [address] Emergency Department Summary 09/09/24 MR#: [id number] Acct: [id number] Name: KESHAV ARMSTRONG Rep #:[id number] : 1970 53 From: Lata Duron DO PCP: Care Physician,No Primary Status :ADM IN Location: ICU ICU06-1 HPI HPI - GI History of Present Illness Chief Complaint: Abd Pain Detail of Chief Complaint: Nausea, weight loss, abdominal distention Informant: patient Narrative Narrative: Patient presents with weight loss as well as nausea and abdominal bloating ongoing for 6 to 7 months. Patient states he has no primary care physician. Hefinally got tired of the weight loss and he iscomplaining of feeling weak with no energy. He has nausea and vomiting usually after he eats about 15 to 20 minutes later.. He denies blood in stool or black tarry stool. He denies urinary symptoms. He tells me has no medical history. No prior abdominal surgeries. [facility] Medical History (Updated 09/09/24 @ 14:[address] Abbie Michelle MD) No significant past medical history Home Medications ?Medication ?Instructions ?Recorded ?Last Taken ?Type multivitamin (Daily Multi-Vitamin 1 tab PO DAILY 09/0909/08/24 History tablet) Allergy/AdvReac Type Severity Reaction Status Date / Time No Known Allergies Allergy Verified 09/09/24 12:12 Family History (Updated 09/09/24 @ 14:[address] Abbie Michelle MD) Mother Hypertension Father No problems noted. Surgical History (Updated 09/09/24 @ 14:[address] Abbie Michelle MD) History of skin graft Social History (Updated 09/09/24 @ 14:[address] Abbie Michelle MD) household members: none Smoking Status: Never smoker alcohol intake: never substance use type: does not use ROS ROS ED Review of Systems ROS Unobtainable: other Constitutional Constitutional ED: Reports lethargy; Denies chills, fever(s), sweats or weight loss Eyes Eyes: Denies blurry vision, change in vision or diplopia ENT ENT ED: Denies rhinorrhea or sore throat Cardiovascular Cardiovascular: Denies chest pain, orthopnea or racing heartbeat Respiratory/Chest Respiratory/Chest: Denies cough, dyspnea, dyspnea on exertion, orthopnea or sputum Gastrointestinal Gastrointestinal: Reports nausea, vomiting and other Details: Abdominal distention, weight loss ; Denies abdominal pain or diarrhea Genitourinary Genitourinary ED: Denies dysuria, hematuria or urinary frequency Musculoskeletal Musculoskeletal: Denies arthralgias, back pain, myalgias or neck pain Integumentary Denies abscess, Abrasions or rash Neurologic Neurologic: Denies headache(s) or weakness Psychiatric Psychiatric: Denies anxiety, depression or suicidal thoughts Endocrine Endocrinology: Denies polydipsia, polyphagia or polyuria Hematologic/Lymphatic Hematologic/Lymphatic: Denies easy bleeding, easy bruising or lymphadenopathy Allergic/Immunologic Allergic/Immunologic ED: Denies mouth swelling, tongue swelling or urticaria EXAM Physical Exam Const Vital Signs: 09/09/24 12:06 09/09/24 14:05 09/09/24 14:16 Temperature 96.2 F L 96.2 F L Temperature Source Temporal Pulse Rate 104 H 94 94 Respiratory Rate 16 16 16 Blood Pressure 101/73 129/114 H 129/114 H Blood Pressure Mean 82 119 119 Pulse Ox 94 100 100 Oxygen Delivery Method Room Air Room Air Positive well nourished and well developed General Appearance ED: well developed and NAD HEENT Reports TM's clear and moist mucous membranes normocephalic and atraumatic; Negative for trauma or tenderness Tympanic Membrane ED: Yes TM's clear Eyes PERRL and EOMs intact bilaterally General Eye ED: Negative for pale conjunctiva or scleral icterus Neck no lymphadenopathy, supple and no JVD General: Negative for tenderness Chest Wall inspection of chest normal and palpation of chest normal Chest: Negative for tenderness Resp normal respiratory effort and clear to auscultation bilaterally Effort and Inspection: Negative for respiratory distress or pain with movement Auscultation: Negative for rhonchi, wheezes or diminished lung sounds Cardio regular rate, regular rhythm, S1 normal heart sound, S2 normal heart sound and no murmurs Peripheral Pulses: pulses 2+ throughout GI normal to inspection, nondistended, normoactive bowel sounds, soft to palpation,non-tender, non-distended and no masses Back/Spine no CVA tenderness and no thoracic nor lumbar tenderness Extremity normal to inspection General Extremety ED: Negative for edema General Extremity: Negative for edema Neuro oriented x3, CN's II-XII intact bilaterally, no sensory deficits noted and gait normal Sensorium / Orientation: awake, alert, oriented to person, oriented to place andoriented to time Motor Exam: strength 5/5 throughout and strength abnormal Psych mental status grossly normal Skin no rashes or lesions noted and no wounds MDM MDM MDM Narrative Medical decision making narrative: Patient presents with complaint of not feeling well for 6 to 7 months. Given history of night sweats and ongoing weight loss over 6 or 7 months concern for malignancy. Patient has not been seeing primary care physician. IV line established. CBC with differential obtained showing an 11.7 with hemoglobin 18.7 and platelet count of 206. Chemistries were significant for sodium 139 with potassium 2.4 and chloride of 82. CO2 was 16.8. BUN to 48 and creatinine 10.7. Lactate 2.0. Glucose 190. LFTs normal. Lipase was 241. CT scan of theabdomen pelvis obtained read by radiology as distended and thickened distal esophagus could represent achalasia. No other significant findings other than some mild evidence of nonfocal layer mucosal enhancement in distal small bowel which can indicate inflammatory bowel disease. Patient was ordered potassium chloride IV. Discussed case with hospitalist will evaluate patient for admission. I do not think patient has DKA suspect likely acute renal failure. Hospitalist did order beta hydroxybutyrate which was elevated 3.5 and recommended that we start patient on an insulin drip for the possibility of DKA given elevated glucose at 190. I did order the insulin drip at hospitalist request and patient will go to the ICU. Lab Data Attestation: I reviewed the patient's lab results. Labs: Laboratory Results - last 24 hr 09/09/24 09/09/24 12:15 12:58 WBC 11.7 H RBC 6.54 H Hgb 18.7 H* Hct 51.6 MCV 78.9 L MCH 28.6 MCHC 36.2 H RDW Std Deviation 36.9 RDW Coeff of Keerthi 13.1 Plt Count 206 MPV 13.8 H Immature Gran % (Auto) 0.400 Neut % (Auto) 87.9 H Lymph % (Auto) 5.9 L Forrest % (Auto) 5.5 Eos % (Auto) 0.1 Baso % (Auto) 0.2 Absolute Neuts (auto) 10.3 H Absolute Lymphs (auto) 0.69 L Nucleated RBC % 0 Sodium 139 Potassium 2.4 L* Chloride 82 L Carbon Dioxide 16.8 L Anion Gap 40 H BUN 248 H* Creatinine 10.70 H* Estim Creat Clear Calc 7.44 L* Est GFR (MDRD) Non-Af 5 L BUN/Creatinine Ratio 23.2 H Glucose 190 H Lactic Acid 2.0 Calcium 10.6 Magnesium 4.8 H Total Bilirubin 1.16 AST 9 ALT 17 Alkaline Phosphatase 91 Total Protein 8.3 Albumin 5.0 Globulin 3.3 Albumin/Globulin Ratio 1.5 Lipase 241 H b-Hydroxybutyric mmol/L 3.5 Radiography Diagnostic Testing: Clinical Impression(s) from Imaging Studies Abdomen/Pelvis CT 09/09/24 13:15 IMPRESSION: The distal esophagus is dilated to 5 cm, which can indicate achalasia. Considerdirect visualization. Cholelithiasis. Liver cysts There is a 2 cm uncomplicated fat containing left inguinal hernia. There is nonfocal layered mucosal enhancement in the distal small bowel, which can indicate inflammatory bowel disease. Reading [facility] EK Initial EKG: Attestation: I personally reviewed and interpreted this EKG as follows: Comments: Sinus rhythm with rate of 86 bpm with prolonged QT of 458. QTc is 548 Critical Care Time Critical care time (excluding procedures): 30-74 minutes, Including time spent:,Discussing w/Patient &/or Family/Fish Hatchery Superintendent, Discussing w/Consultants, ArrangingAdmission or Transfer, Performing Direct Patient Care at Bedside and - (30 minutes) Discharge Plan Dx/Rx/DC Orders Clinical Impression: Acute renal failure, Acute hypokalemia, Hyperglycemia, Abnormal weight loss Disposition Disposition: Acute Care Hospital [facility] What to do if you have Problems For any increased pain, shortness of breath, bleeding, nausea or vomiting, chestpain, or any unexpected problems, contact your Primary Care Provider. Call [facility] ([phone]) or report tothe closest Emergency Room. Call 911 if necessary. 09/09/24 3192 Cosigner Signature (if applicable): CC: No Primary Care Physician ~ Signed [facility]05-14-2025 History and physical note [facility] Medical Records Department [address] [place] [address] H&P Exam - Hospitalist 09/09/24 1415 MR#: [id number] Acct: [id number] Name: KESHAV ARMSTRONG Rep #:[id number] : 1970 53 From: Abbie Michelle MD PCP: Care Physician,No Primary Status :ADM IN Location: ICU ICU06-1 HPI - General General Date of Admission: 09/09/24 Date of Service: 09/09/24 Chief Complaint: Intractable N/V, unable to take adequate PO, weight loss, abd bloating. HPI Narrative The patient is a 53 y/o M w/ no prior notable PMHx who presents to the [facility] ED on 09/09/2024 with history of significant persistent nauseawith poor oral intake as well as abdominal bloating and distention with significant weight loss for last 6 to 7 months with no established primary care physician thus prompting eventual decision to be evaluated in the ED. He deniesany alteration to the appearance of his stools or any urinary symptoms. He notes persistent emesis associatedwith any oral intake attempts. Has had been able to keep liquids down and some full liquids but nearly all solids come back up. He reports ~ 60-70 lb weight loss over the last 12 months. He does state heis continuing to make urine and usually urinates twice a day. He states previously had been verydark but has become more clear recently. His parents were present note that he is had a significantdecline over the last 3 weeks. He also does have bruises on his lower legs and states this may be happening in his sleep even. Workup in the ED included T96.2 Temporal, heart rate 104, BP 101/73, respiratory rate 16, 94% room air, CBC with WBC 11.7, hemoglobin 18.7, platelets 206 with left shift and lymphopenia, CMP with potassium 2.4, chloride 82, carbon oxide 16.8, anion gap 40, BUN/creatinine 248/10.70, GFR 5, glucose 190, lactic acid 2.0, hepatic profile not marked appearing, lipase 241, CTabdomen pelvis with distal esophagus dilated to 5 cm possible indicative of achalasia, cholelithiasis, liver cyst, 2 cm uncomplicated fat-containing left inguinal hernia, nonfocal layered mucosal enhancement the distal small bowel of unclear significance. In the ED patient administered maintenance IV fluids. [facility] Medical History (Updated 09/09/24 @ 14:[address] Abbie Michelle MD) No significant past medical history Home Medications ?Medication ?Instructions ?Recorded ?Last Taken ?Type multivitamin (Daily Multi-Vitamin 1 tab PO DAILY 09/0909/08/24 History tablet) Allergy/AdvReac Type Severity Reaction Status Date / Time No Known Allergies Allergy Verified 09/09/24 12:12 Family History (Updated 09/09/24 @ 14:[address] Abbie Michelle MD) Mother Hypertension Father No problems noted. Surgical History (Updated 09/09/24 @ 14:[address] Abbie Michelle MD) History of skin graft Social History (Updated 09/09/24 @ 14:[address] Abbie Michelle MD) household members: none Smoking Status: Never smoker alcohol intake: never substance use type: does not use ROS ROS Narrative Admission Review of Systems: CONSTITUTIONAL: No fever, chills, + weight loss, weakness or fatigue. HEENT: Eyes: No visual loss, blurred vision, double vision or yellow sclerae. Ears, Nose, Throat: No hearing loss, sneezing, congestion, runny nose or sore throat. SKIN: No rash or itching, lesions, wounds. CARDIOVASCULAR: No chest pain, chest pressure or chest discomfort, palpitations,edema, orthopnea, syncopal events. RESPIRATORY: No shortness of breath, cough or sputum, wheezing, hemoptysis. GASTROINTESTINAL: + anorexia, nausea, vomiting, abdominal distention/fullness. No constipation, diarrhea, abdominal pain, melena, BRBPR. GENITOURINARY: No dysuria, frequency, urgency or retention. NEUROLOGICAL: No headache, dizziness, syncope, paralysis, ataxia, numbness or tingling in the extremities, focal weakness, change in bowel or bladder control,seizure. MUSCULOSKELETAL: + muscle, back pain, joint pain or stiffness. HEMATOLOGIC: No anemia. + Easy bleeding/bruising. LYMPHATICS: No enlarged nodes. No history of splenectomy. PSYCHIATRIC: No history of depression or anxiety. ENDOCRINOLOGIC: No reports of sweating, cold or heat intolerance. No polyuria orpolydipsia. ALLERGIES: No history of asthma, hives, eczema or rhinitis. Vital Signs Vital Signs Vital Signs: 09/09/24 12:06 Temperature 96.2 F L Temperature Source Temporal Pulse Rate 104 H Respiratory Rate 16 Blood Pressure 101/73 Blood Pressure Mean 82 Pulse Ox 94 Oxygen Delivery Method Room Air Weight Weight: 145 lb 3.2 oz Body Mass Index (BMI) 22.7 Physical Exam Narrative Physical Examination: General: Awake, alert, oriented x 3 and cooperative, seated upright in bed in noapparent distress, denies any current pain. Skin: Normal color, normal turgor, no icterus, no cyanosis except notable very stage ecchymoses especially to his distal extremities as well as some on the right lateral flank. HEENT: AT/NC, EOMI, PERRLA, mildly dry MM, no carotid bruits or JVD noted. Lungs: CTA bilaterally, moderate effort, mild decrease BL bases, no rales, ronchi or wheezing. Heart: Regular rate and rhythm; no gallop, rub audible. Abdomen: Soft, NTTP, ND, mildly hypoactive BS, no appreciated HSM. Extremities: No cyanosis, clubbing, or edema, see skin. Neurological: Patient awake, alert, oriented as noted, cognitive function intact; pupils equally reactive to light and accommodation, cranial nerves grossnormal, moving all 4 extremities, no focal deficits, strength moderately globally decreased Psychiatric: Affect appears to be otherwise normal, no acute evidence of depressive or anxiety feelings. Results Lab / Micro Data 09/09/24 12:15 09/09/24 12:15 Labs: Laboratory Results - last 24 hr 09/09/24 12:15: WBC 11.7 H, RBC 6.54 H, Hgb 18.7 H*, Hct 51.6, MCV 78.9 L, MCH 28.6, MCHC 36.2 H, RDW Std Deviation 36.9, RDW Coeff of Keerthi 13.1, Plt Count 206,MPV 13.8 H, Immature Gran % (Auto) 0.400, Neut % (Auto) 87.9 H, Lymph % (Auto) 5.9 L, Forrest % (Auto) 5.5, Eos % (Auto) 0.1, Baso % (Auto) 0.2, Absolute Neuts (auto) 10.3 H, Absolute Lymphs (auto) 0.69 L, Nucleated RBC % 0, Sodium 139, Potassium 2.4 L*, Chloride 82 L, Carbon Dioxide 16.8 L, Anion Gap 40 H, BUN 248 H*, Creatinine 10.70 H*, Estim Creat Clear Calc 7.44 L*, Est GFR (MDRD) Non- Af 5L, BUN/Creatinine Ratio 23.2 H, Glucose 190 H,Calcium 10.6, Total Bilirubin 1.16, AST 9, ALT 17, Alkaline Phosphatase 91, Total Protein 8.3, Albumin 5.0, Globulin 3.3, Albumin/Globulin Ratio 1.5, Lipase 241 H 09/09/24 12:58: Lactic Acid 2.0 Imaging Radiology Impression Abdomen/Pelvis CT 09/09/24 13:15 IMPRESSION: The distal esophagus is dilated to 5 cm, which can indicate achalasia. Considerdirect visualization. Cholelithiasis. Liver cysts There is a 2 cm uncomplicated fat containing left inguinal hernia. There is nonfocal layered mucosal enhancement in the distal small bowel, which can indicate inflammatory bowel disease. Reading Location: [facility] Assessment & Plan Assessment/Plan (1) Acute renal failure: PLAN: Plan The patient is a 53 y/o M w/ no prior notable PMHx who presents to the [facility] ED on 09/09/2024 with history of significant persistent nauseawith poor oral intake as well as abdominal bloating and distention with significant weight loss for last 6 to 7 months with no established primary care physician thus prompting eventual decision to be evaluated in the ED. #1. Persistent nausea, poor intake, abdominal distention with incidentally noted dilated distal esophagus: Patient with persistent emesis with oral intake attempts and given CT findings concern will admit to PCU given notable electrolyte disturbances concurrently, still awaiting workup for possibleDKA new onset as noted below, will maintain on IV PPI, when oral intake at this timeto clear liquids only, speech therapy consulted, gastroenterology consulted for upper endoscopy, will maintain n.p.o. status after midnight, continue aggressivehydration as noted below. #2. Acute kidney injury with #3, #4: Secondary to possible poor oral intake butsignificantly elevated creatinine with no clear previous baseline and unclear duration of time. Admission BUN/Cr 248/10.70, prior baseline creatinine unknown but patient denies any previous medical history. Will continueto hydrate, will initiate on bicarb,hold nephrotoxic medications and repeat chemistry in AM,will obtain UA, renal US, FeNa assessment and Nephrology consultation. #3. Metabolic acidosis with notable Hyperglycemia without diabetic history: Admission CMP with anion gap 40, glucose 190 with no diabetic history, hydroxybutyrate acid level requested, urinalysis requested, hemoglobin A1c requested, some concern for possibly new onset diabetes with DKA and conjuncti onwith #1, will continue aggressively hydrate, awaiting these labs and if appropriate will initiateinsulin drip. While awaiting hydroxybutyrate acid level will also pre-emptively obtain serum osmolality certainly could be HHS. #4. Hypokalemia: Admission K+ 2.4, magnesium level requested, supplementation given, repeat level in AM. #5. DVT prophylaxis: SCDs, will hold off on chemoprophylaxis given planned upper endoscopy in case of biopsy needs. Charges/Coding Visit Charges Inpatient E&M: 27572 Init Hosp L3 09/09/24 1442 Cosigner Signature (if applicable): CC: Dr. Abbie Michelle MD; No Primary Care Physician~ Signed ADDENDUM by Dr. Abbie Michelle MD on 09/09/24 at 1455 Addendum Hydroxybutyrate acid came back elevated 3.5, patient initiated on insulin drip in the ED and given an additional 1 L normal saline bolus per ED physician. Concern for new onset diabetes with DKA, awaiting hemoglobin A1c: Given this as noted previously with next the ICU, continue on insulin drip, check serial K+, glucose w/ IVF changes pending these levels, serial chemistry, obtain mag, phos daily w/ repletion as needed, nutrition consulted, hemoglobin A1c pending. Severe protein calorie malnutrition: Patient although BMI 22.7 has lost 60 to 70pounds of the last year because of poor oral intake debility, as noted also concern for new onset diabetes with DKA, awaiting hemoglobin A1c, nutrition consulted for recommendations and evaluation. 09/09/24 1455 Cosigner Signature (if applicable): cc: Dr. Abbie Michelle MD; No Primary Care Physician ~* Signed ADDENDUM by Dr. Abbie Michelle MD on 09/09/24 at 1527 Addendum HgbA1c 6.5%, certainly could be a component of presentation but again anion gap and hydroxybutyrateacid levels also likely elevated given EWA/uremia. Given however the level that it is we will continue insulin drip for now. 09/09/24 1527 Cosigner Signature (if applicable): cc: Dr. Abbie Michelle MD; No Primary Care Physician ~* Signed [facility]05-14-2025 Discharge summary Author Lata Duron [facility] Note Date/Time September 09, 2024 3:48p m [facility] Medical Records Department [address] [place] [address] Emergency Department Summary 09/09/24 MR#: [id number] Acct: [id number] Name: KESHAV ARMSTRONG Rep #:[id number] : 1970 53 From: Lata Duron DO PCP: Care Physician,No Primary Status :ADM IN Location: ICU ICU06-1 HPI HPI - GI History of Present Illness Chief Complaint: Abd Pain Detail of Chief Complaint: Nausea, weight loss, abdominal distention Informant: patient Narrative Narrative: Patient presents with weight loss as well as nausea and abdominal bloating ongoing for 6 to 7 months. Patient states he has no primary care physician. Hefinally got tired of the weight loss and he is complaining of feeling weak with no energy. He has nausea and vomiting usually after he eats about 15 to 20 minutes later.. He denies blood in stool or black tarry stool. He denies urinary symptoms. He tells me has no medical history. No prior abdominal surgeries. [facility] Medical History (Updated 09/09/24 @ 14:[address] Abbie Michelle MD) No significant past medical history Home Medications ?Medication ?Instructions ?Recorded ?Last Taken ?Type multivitamin (Daily Multi-Vitamin 1 tab PO DAILY 09/0909/08/24 History tablet) Allergy/AdvReac Type Severity Reaction Status Date / Time No Known Allergies Allergy Verified 09/09/24 12:12 Family History (Updated 09/09/24 @ 14:[address] Abbie Michelle MD) Mother Hypertension Father No problems noted. Surgical History (Updated 09/09/24 @ 14:[address] Abbie Michelle MD) History of skin graft Social History (Updated 09/09/24 @ 14:[address] Abbie Michelle MD) household members: none Smoking Status: Never smoker alcohol intake: never substance use type: does not use ROS ROS ED Review of Systems ROS Unobtainable: other Constitutional Constitutional ED: Reports lethargy; Denies chills, fever(s), sweats or weight loss Eyes Eyes: Denies blurry vision, change in vision or diplopia ENT ENT ED: Denies rhinorrhea or sore throat Cardiovascular Cardiovascular: Denies chest pain, orthopnea or racing heartbeat Respiratory/Chest Respiratory/Chest: Denies cough, dyspnea, dyspnea on exertion, orthopnea or sputum Gastrointestinal Gastrointestinal: Reports nausea, vomiting and other Details: Abdominal distention, weight loss ; Denies abdominal pain or diarrhea Genitourinary Genitourinary ED: Denies dysuria, hematuria or urinary frequency Musculoskeletal Musculoskeletal: Denies arthralgias, back pain, myalgias or neck pain Integumentary Denies abscess, Abrasions or rash Neurologic Neurologic: Denies headache(s) or weakness Psychiatric Psychiatric: Denies anxiety, depression or suicidal thoughts Endocrine Endocrinology: Denies polydipsia, polyphagia or polyuria Hematologic/Lymphatic Hematologic/Lymphatic: Denies easy bleeding, easy bruising or lymphadenopathy Allergic/Immunologic Allergic/Immunologic ED: Denies mouth swelling, tongue swelling or urticaria EXAM Physical Exam Const Vital Signs: 09/09/24 12:06 09/09/24 14:05 09/09/24 14:16 Temperature 96.2 F L 96.2 F L Temperature Source Temporal Pulse Rate 104 H 94 94 Respiratory Rate 16 16 16 Blood Pressure 101/73 129/114 H 129/114 H Blood Pressure Mean 82 119 119 Pulse Ox 94 100 100 Oxygen Delivery Method Room Air Room Air Positive well nourished and well developed General Appearance ED: well developed and NAD HEENT Reports TM's clear and moist mucous membranes normocephalic and atraumatic; Negative for trauma or tenderness Tympanic Membrane ED: Yes TM's clear Eyes PERRL and EOMs intact bilaterally General Eye ED: Negative for pale conjunctiva or scleral icterus Neck no lymphadenopathy, supple and no JVD General: Negative for tenderness Chest Wall inspection of chest normal and palpation of chest normal Chest: Negative for tenderness Resp normal respiratory effort and clear to auscultation bilaterally Effort and Inspection: Negative for respiratory distress or pain with movement Auscultation: Negative for rhonchi, wheezes or diminished lung sounds Cardio regular rate, regular rhythm, S1 normal heart sound, S2 normal heart sound and no murmurs Peripheral Pulses: pulses 2+ throughout GI normal to inspection, nondistended, normoactive bowel sounds, soft to palpation,non-tender, non-distended and no masses Back/Spine no CVA tenderness and no thoracic nor lumbar tenderness Extremity normal to inspection General Extremety ED: Negative for edema General Extremity: Negative for edema Neuro oriented x3, CN's II-XII intact bilaterally, no sensory deficits noted and gait normal Sensorium / Orientation: awake, alert, oriented to person, oriented to place andoriented to time Motor Exam: strength 5/5 throughout and strength abnormal Psych mental status grossly normal Skin no rashes or lesions noted and no wounds MDM MDM MDM Narrative Medical decision making narrative: Patient presents with complaint of not feeling well for 6 to 7 months. Given history of night sweats and ongoing weight loss over 6 or 7 months concern for malignancy. Patient has not been seeing primary care physician. IV line established. CBC with differential obtained showing an 11.7 with hemoglobin 18.7 and platelet count of 206. Chemistries were significant for sodium 139 with potassium 2.4 and chloride of 82. CO2 was 16.8. BUN to 48 and creatinine 10.7. Lactate 2.0. Glucose 190. LFTs normal. Lipase was 241. CT scan of theabdomen pelvis obtained read by radiology as distended and thickened distal esophagus could represent achalasia. No other significant findings other than some mild evidence of nonfocal layer mucosal enhancement in distal small bowel which can indicate inflammatory bowel disease. Patient was ordered potassium chloride IV. Discussed case with hospitalist will evaluate patient for admission. I do not think patient has DKA suspect likely acute renal failure. Hospitalist did order beta hydroxybutyrate which was elevated 3.5 and recommended that we start patient on an insulin drip for the possibility of DKA given elevated glucose at 190. I did order the insulin drip at hospitalist request and patient will go to the ICU. Lab Data Attestation: I reviewed the patient's lab results. Labs: Laboratory Results - last 24 hr 09/09/24 09/09/24 12:15 12:58 WBC 11.7 H RBC 6.54 H Hgb 18.7 H* Hct 51.6 MCV 78.9 L MCH 28.6 MCHC 36.2 H RDW Std Deviation 36.9 RDW Coeff of Keerthi 13.1 Plt Count 206 MPV 13.8 H Immature Gran % (Auto) 0.400 Neut % (Auto) 87.9 H Lymph % (Auto) 5.9 L Forrest % (Auto) 5.5 Eos % (Auto) 0.1 Baso % (Auto) 0.2 Absolute Neuts (auto) 10.3 H Absolute Lymphs (auto) 0.69 L Nucleated RBC % 0 Sodium 139 Potassium 2.4 L* Chloride 82 L Carbon Dioxide 16.8 L Anion Gap 40 H BUN 248 H* Creatinine 10.70 H* Estim Creat Clear Calc 7.44 L* Est GFR (MDRD) Non-Af 5 L BUN/Creatinine Ratio 23.2 H Glucose 190 H Lactic Acid 2.0 Calcium 10.6 Magnesium 4.8 H Total Bilirubin 1.16 AST 9 ALT 17 Alkaline Phosphatase 91 Total Protein 8.3 Albumin 5.0 Globulin 3.3 Albumin/Globulin Ratio 1.5 Lipase 241 H b-Hydroxybutyric mmol/L 3.5 Radiography Diagnostic Testing: Clinical Impression(s) from Imaging Studies Abdomen/Pelvis CT 09/09/24 13:15 IMPRESSION: The distal esophagus is dilated to 5 cm, which can indicate achalasia. Considerdirect visualization. Cholelithiasis. Liver cysts There is a 2 cm uncomplicated fat containing left inguinal hernia. There is nonfocal layered mucosal enhancement in the distal small bowel, which can indicate inflammatory bowel disease. Reading Location: [facility] EKG Initial EKG: Attestation: I personally reviewed and interpreted this EKG as follows: Comments: Sinus rhythm with rate of 86 bpm with prolonged QT of 458. QTc is 548 Critical Care Time Critical care time (excluding procedures): 30-74 minutes, Including time spent:,Discussing w/Patient &/or Family/Fish Hatchery Superintendent, Discussing w/Consultants, ArrangingAdmission or Transfer, Performing Direct Patient Care at Bedside and - (30 minutes) Discharge Plan Dx/Rx/DC Orders Clinical Impression: Acute renal failure, Acute hypokalemia, Hyperglycemia, Abnormal weight loss Disposition Disposition: [facility] What to do if you have Problems For any increased pain, shortness of breath, bleeding, nausea or vomiting, chestpain, or any unexpected problems, contact your Primary Care Provider. Call [facility] ([phone]) or report to the closest Emergency Room. Call 911 if necessary. 09/09/24 1548 <Electronically signed by Lata Duron DO> Cosigner Signature (if applicable): CC: No Primary Care Physician ~ Signed [facility] Work Phone: [phone] Radiology Diagnostic study note [facility] Imaging Services [address] [place] [address] [id number] Abdomen/Pelvis W IV Cont ONLY MR#: [id number] Acct: [id number] Name: KESHAV ARMSTRONG Rep #: [id number] : 1970 M 53 From: Tiffanie Mazariegos MD PCP: Care Physician,No Primary Status: REG ER Study:Abdomen/Pelvis W IV Cont ONLY Date of E xam: 09/09/24 Exam# [id number] Ordering Dr: Margaux Duron DO PROCEDURE: ABDOMEN/PELVIS W IV CONT ONLY 09/09/2024 REASON FOR EXAM: ABDOMINAL PAIN, WEIGHT LOSS, NIGHT SWEATS TECHNIQUE: Abdomen and pelvis CT with intravenous contrast. Coronal and Sagittal reconstruction series were provided. PATIENT PREPARATION: Per protocol ORAL CONTRAST TYPE: None. CONTRAST: 98 cc Isovue-300 One or more dose reduction techniques were used (e.g., Automated exposure control, adjustment of the mA and/or kV according to patient size, use of iterative reconstruction technique. RADIATION DOSE SUMMARY: DLP: 631.51 mGycm COMPARISON: None FINDINGS: Lung bases: The distal esophagus is dilated to 5 cm, which can indicate achalasia. Liver: There is a cyst in the left hepatic lobe measuring 4.3 cm. There is a cyst in the left hepatic lobe measuring 3.5 cm. There is a 3 cm cyst in the medial right hepatic lobe. There is a cyst in the right hepatic lobe measuring 1 cm at the gallbladder fossa. Gallbladder: There are stones in the gallbladder with the largest measuring 0.6 cm. There is no visible gallbladder wall thickening or pericholecystic inflammation. Spleen: Unremarkable Pancreas: Unremarkable Adrenals: Unremarkable Kidneys: Unremarkable Bladder: Nondistended Reproductive Organs: Unremarkable Bowel: Gas and stool is noted in the colon with a minimal stool load. There is nonfocal layered mucosal enhancement in the distal small bowel, which can indicate inflammatory bowel disease. Small bowel loops are not distended. There is scattered diverticuli in the distal colon with no visible diverticulitis. There is a 2 cmuncomplicated fat containing left inguinal hernia. Appendix: Unremarkable Lymph nodes: There is no pathologic adenopathy. Vasculature: Unremarkable Peritoneum / Retroperitoneum: There is no free air or free fluid. Bones: There is no acute bony abnormality. CT/Abdomen/Pelvis W IV Cont ONLY IMPRESSION: The distal esophagus is dilated to 5 cm, which can indicate achalasia. Considerdirect visualization. Cholelithiasis. Liver cysts There is a 2 cm uncomplicated fat containing left inguinal hernia. There is nonfocal layered mucosal enhancement in the distal small bowel, which can indicate inflammatory bowel disease. Reading Location: [facility] CC: Dr. Lata Duron, DO; No Primary Care Physician ~ Software Quality Assurance Specialist: Signed [facility] Author Jimenez Renee [facility] Note Date/Time September 12, 2024 11:12 am [facility] Medical Records Department [address] [place] [address] Instructions for Home/Discharge Instructions 09/12/24 1046 MR#: [id number] Acct: [id number] Name: KESHAV ARMSTRONG Rep #:[id number] : 1970 53 From: Jimenez Renee DO PCP: Care Physician,No Primary Status :ADM IN Discharge Instructions Diet Discharge Diet: No restrictions DC O2, CPAP, BIPAP needs Home O2 Discharge instructions: No Dressing / Incision Discharge Activity: Return to Normal Activity Weight Bearing Status: Full weight bearing Follow Up Care Test Results: Test results from this visit will be discussed in further detail at your follow- up appointment, if applicable. Discharge Plan Admission Admit Date/Time: 09/09/24 14:43 Primary Reason for Your Visit: Acute kidney failure, achalasia Attending Provider: Jimenez Renee Primary Care Provider: Care Physician,No Primary Consulting Providers: Abbie Michelle; Emeli Lynn Instructions Additional Instructions / Restrictions: Follow-up with the primary care physician within 2 to 3 weeks Discharge Orders/Prescriptions Prescriptions: New pantoprazole 40 mg Tablet,Delayed Release (Dr/Ec) 40 mg PO BID Qty: 60 0RF Continued multivitamin [Daily Multi-Vitamin] Tablet 1 tab PO DAILY Referrals / Follow Up: Care Physician,No Primary [Primary Care Provider] - Disposition Disposition (needs filled in before D/C Order can be placed): Home, Self Care 09/12/24 1112<Electronically signed by Jimenez Renee DO>Jimenez Renee DO CC: Dr. Abbie Michelle MD; Dr. Emeli Lynn MD; No Primary Care Physician ~ Signed [facility] Work Phone: Evaluation note* Diagnosis Onset Date Resolution Status Admit Date Acute renal failure acute August 272024 2:43pm [facility] Work Phone: History and physical note Author Abbie Michelle [facility] Note Date/Time September 09, 2024 3:27p m [facility] Medical Records Department [address] [place] [id number] H&P Exam - Hospitalist 09/09/24 1415 MR#: [id number] Acct: [id number] Name: KESHAV ARMSTRONG Rep #:[id number] : 1970 53 From: Abbie Michelle MD PCP: Care Physician,No Primary Status :ADM IN Location: ICU ICU06-1 HPI - General General Date of Admission: 09/09/24 Date of Service: 09/09/24 Chief Complaint: Intractable N/V, unable to take adequate PO, weight loss, abd bloating. HPI Narrative The patient is a 53 y/o M w/ no prior notable PMHx who presents to the [facility] ED on 09/09/2024 with history of significant persistent nauseawith poor oral intake as well as abdominal bloating and distention with significant weight loss for last 6 to 7 months with no established primary care physician thus prompting eventual decision to be evaluated in the ED. He deniesany alteration to the appearance of his stools or any urinary symptoms. He notes persistent emesis associated with any oral intake attempts. Has had been able to keep liquids down and some full liquids but nearly all solids come back up. He reports ~ 60-70 lb weight loss over the last 12 months. He does state heis continuing to make urine and usually urinates twice a day. He states previously had been very dark but has become more clear recently. His parents were present note that he is had a significant decline over the last 3 weeks. He also does have bruises on his lower legs and states this may be happening in his sleep even. Workup in the ED included T96.2 Temporal, heart rate 104, BP 101/73, respiratory rate 16, 94% room air, CBC with WBC 11.7, hemoglobin 18.7, platelets 206 with left shift and lymphopenia, CMP with potassium 2.4, chloride 82, carbon oxide 16.8, anion gap 40, BUN/creatinine 248/10.70, GFR 5, glucose 190, lactic acid 2.0, hepatic profile not marked appearing, lipase 241, CT abdomen pelvis with distal esophagus dilated to 5 cm possible indicative of achalasia, cholelithiasis, liver cyst, 2 cm uncomplicated fat-containing left inguinal hernia, nonfocal layered mucosal enhancement the distal small bowel of unclear significance. In the ED patient administered maintenance IV fluids. [facility]LY [facility] Medical History (Updated 09/09/24 @ 14:[address] Abbie Michelle MD) No significant past medical history Home Medications ?Medication ?Instructions ?Recorded ?Last Taken ?Type multivitamin (Daily Multi-Vitamin 1 tab PO DAILY 09/0909/08/24 History tablet) Allergy/AdvReac Type Severity Reaction Status Date / Time No Known Allergies Allergy Verified 09/09/24 12:12 Family History (Updated 09/09/24 @ 14:[address] Abbie Michelle MD) Mother Hypertension Father No problems noted. Surgical History (Updated 09/09/24 @ 14:[address] Abbie Michelle MD) History of skin graft Social History (Updated 09/09/24 @ 14:[address] Abbie Michelle MD) household members: none Smoking Status: Never smoker alcohol intake: never substance use type: does not use ROS ROS Narrative Admission Review of Systems: CONSTITUTIONAL: No fever, chills, + weight loss, weakness or fatigue. HEENT: Eyes: No visual loss, blurred vision, double vision or yellow sclerae. Ears, Nose, Throat: No hearing loss, sneezing, congestion, runny nose or sore throat. SKIN: No rash or itching, lesions, wounds. CARDIOVASCULAR: No chest pain, chest pressure or chest discomfort, palpitations,edema, orthopnea, syncopal events. RESPIRATORY: No shortness of breath, cough or sputum, wheezing, hemoptysis. GASTROINTESTINAL: + anorexia, nausea, vomiting, abdominal distention/fullness. No constipation, diarrhea, abdominal pain, melena, BRBPR. GENITOURINARY: No dysuria, frequency, urgency or retention. NEUROLOGICAL: No headache, dizziness, syncope, paralysis, ataxia, numbness or tingling in the extremities, focal weakness, change in bowel or bladder control,seizure. MUSCULOSKELETAL: + muscle, back pain, joint pain or stiffness. HEMATOLOGIC: No anemia. + Easy bleeding/bruising. LYMPHATICS: No enlarged nodes. No history of splenectomy. PSYCHIATRIC: No history of depression or anxiety. ENDOCRINOLOGIC: No reports of sweating, cold or heat intolerance. No polyuria orpolydipsia. ALLERGIES: No history of asthma, hives, eczema or rhinitis. Vital Signs Vital Signs Vital Signs: 09/09/24 12:06 Temperature 96.2 F L Temperature Source Temporal Pulse Rate 104 H Respiratory Rate 16 Blood Pressure 101/73 Blood Pressure Mean 82 Pulse Ox 94 Oxygen Delivery Method Room Air Weight Weight: 145 lb 3.2 oz Body Mass Index (BMI) 22.7 Physical Exam Narrative Physical Examination: General: Awake, alert, oriented x 3 and cooperative, seated upright in bed in noapparent distress, denies any current pain. Skin: Normal color, normal turgor, no icterus, no cyanosis except notable very stage ecchymoses especially to his distal extremities as well as some on the right lateral flank. HEENT: AT/NC, EOMI, PERRLA, mildly dry MM, no carotid bruits or JVD noted. Lungs: CTA bilaterally, moderate effort, mild decrease BL bases, no rales, ronchi or wheezing. Heart: Regular rate and rhythm; no gallop, rub audible. Abdomen: Soft, NTTP, ND, mildly hypoactive BS, no appreciated HSM. Extremities: No cyanosis, clubbing, or edema, see skin. Neurological: Patient awake, alert, oriented as noted, cognitive function intact; pupils equally reactive to light and accommodation, cranial nerves grossnormal, moving all 4 extremities, no focal deficits, strength moderately globally decreased Psychiatric: Affect appears to be otherwise normal, no acute evidence of depressive or anxiety feelings. Results Lab / Micro Data 09/09/24 12:15 09/09/24 12:15 Labs: Laboratory Results - last 24 hr 09/09/24 12:15: WBC 11.7 H, RBC 6.54 H, Hgb 18.7 H*, Hct 51.6, MCV 78.9 L, MCH 28.6, MCHC 36.2 H, RDW Std Deviation 36.9, RDW Coeff of Keerthi 13.1, Plt Count 206,MPV 13.8 H, Immature Gran % (Auto) 0.400, Neut % (Auto) 87.9 H, Lymph % (Auto) 5.9 L, Forrest % (Auto) 5.5, Eos % (Auto) 0.1, Baso % (Auto) 0.2, Absolute Neuts (auto) 10.3 H, Absolute Lymphs (auto) 0.69 L, Nucleated RBC % 0, Sodium 139, Potassium 2.4 L*, Chloride 82 L, Carbon Dioxide 16.8 L, Anion Gap 40 H, BUN 248 H*, Creatinine 10.70 H*, Estim Creat Clear Calc 7.44 L*, Est GFR (MDRD) Non-Af 5L, BUN/Creatinine Ratio 23.2 H, Glucose 190 H, Calcium 10.6, Total Bilirubin 1.16, AST 9, ALT 17, Alkaline Phosphatase 91, Total Protein 8.3, Albumin 5.0, Globulin 3.3, Albumin/Globulin Ratio 1.5, Lipase 241 H 09/09/24 12:58: Lactic Acid 2.0 Imaging Radiology Impression Abdomen/Pelvis CT 09/09/24 13:15 IMPRESSION: The distal esophagus is dilated to 5 cm, which can indicate achalasia. Considerdirect visualization. Cholelithiasis. Liver cysts There is a 2 cm uncomplicated fat containing left inguinal hernia. There is nonfocal layered mucosal enhancement in the distal small bowel, which can indicate inflammatory bowel disease. [facility] Assessment & Plan Assessment/Plan (1) Acute renal failure: PLAN: Plan The patient is a 53 y/o M w/ no prior notable PMHx who presents to the [facility] ED on 09/09/2024 with history of significant persistent nauseawith poor oral intake as well as abdominal bloating and distention with significant weight loss for last 6 to 7 months with no established primary care physician thus prompting eventual decision to be evaluated in the ED. #1. Persistent nausea, poor intake, abdominal distention with incidentally noted dilated distal esophagus: Patient with persistent emesis with oral intake attempts and given CT findings concern will admit to PCU given notable electrolyte disturbances concurrently, still awaiting workup for possible DKA new onset as noted below, will maintain on IV PPI, when oral intake at this timeto clear liquids only, speech therapy consulted, gastroenterology consulted for upper endoscopy, will maintain n.p.o. status after midnight, continue aggressivehydration as noted below. #2. Acute kidney injury with #3, #4: Secondary to possible poor oral intake butsignificantly elevated creatinine with no clear previous baseline and unclear duration of time. Admission BUN/Cr 248/10.70, prior baseline creatinine unknown but patient denies any previous medical history. Will continue to hydrate, will initiate on bicarb,hold nephrotoxic medications and repeat chemistry in AM,will obtain UA, renal US, FeNa assessment and Nephrology consultation. #3. Metabolic acidosis with notable Hyperglycemia without diabetic history: Admission CMP with anion gap 40, glucose 190 with no diabetic history, hydroxybutyrate acid level requested, urinalysis requested, hemoglobin A1c requested, some concern for possibly new onset diabetes with DKA and conjunctionwith #1, will continue aggressively hydrate, awaiting these labs and if appropriate will initiate insulin drip. While awaiting hydroxybutyrate acid level will also pre-emptively obtain serum osmolality certainly could be HHS. #4. Hypokalemia: Admission K+ 2.4, magnesium level requested, supplementation given, repeat level in AM. #5. DVT prophylaxis: SCDs, will hold off on chemoprophylaxis given planned upper endoscopy in case of biopsy needs. Charges/Coding Visit Charges Inpatient E&M: 00120 Init Hosp L3 09/09/24 1442 <Electronically signed by Abbie Michelle MD> Cosigner Signature (if applicable): CC: Dr. Abbie Michelle MD; No Primary Care Physician~ Signed ADDENDUM by Dr. Abbie Michelle MD on 09/09/24 at 1455 Addendum Hydroxybutyrate acid came back elevated 3.5, patient initiated on insulin drip in the ED and given an additional 1 L normal saline bolus per ED physician. Concern for new onset diabetes with DKA, awaiting hemoglobin A1c: Given this as noted previously with next the ICU, continue on insulin drip, check serial K+, glucose w/ IVF changes pending these levels, serial chemistry, obtain mag, phos daily w/ repletion as needed, nutrition consulted, hemoglobin A1c pending. Severe protein calorie malnutrition: Patient although BMI 22.7 has lost 60 to 70pounds of the last year because of poor oral intake debility, as noted also concern for new onset diabetes with DKA, awaiting hemoglobin A1c, nutrition consulted for recommendations and evaluation. 09/09/24 1455<Electronically signed by Abbie Michelle MD> Cosigner Signature (if applicable): cc: Dr. Abbie Michelle MD; No Primary Care Physician ~* Signed ADDENDUM by Dr. Abbie Michelle MD on 09/09/24 at 1527 Addendum HgbA1c 6.5%, certainly could be a component of presentation but again anion gap and hydroxybutyrate acid levels also likely elevated given EWA/uremia. Given however the level that it is we will continue insulin drip for now. 09/09/24 1527<Electronically signed by Abbie Michelle MD> Cosigner Signature (if applicable): cc: Dr. Abbie Michelle MD; No Primary Care Physician ~* Signed [facility] Work Phone: Reason for referral (narrative)No reason for referral information availableWMiddletown [facility] Work Phone: Summary Purpose Family History No Family History Records Found Relationship Condition Age at Onset Recorded Date/T branden mother Hypertension Unknown Advance Directives No Advanced Directives Records Found Advance Directive Response Recorded Date/ Time Do you have a Healthcare Power of Senior Information Systems Architect? No September 09, 2024 12:13pm Advance Directive Response Recorded Date/ Time Do you have a Healthcare Power of Senior Information Systems Architect? No September 09, 2024 4:04pm Chief Complaint and Reason for Visit Chief Complaint Admit Date abdominal September 09, 2024 2:15p m EWA, CONCERN DKA, MA, INTRACTABLE N/V Ma y 2024 2:43pm Reason for Visit Admit Date Acute renal failure September 09, 2024 2:43p m Chief Complaint Admit Date abdominal September 09, 2024 2:15p m EWA, CONCERN DKA, MA, INTRACTABLE N/V Ma y 2024 2:43pm EWA, CONCERN DKA, MA, INTRACTABLE N/V Ma y 2024 7:26pm EWA, CONCERN DKA, MA, INTRACTABLE N/V Ma y 2024 12:20pm EWA, CONCERN DKA, MA, INTRACTABLE N/V Ma y 2024 5:42pm EWA, CONCERN DKA, MA, INTRACTABLE N/V Ma y 2024 5:28pm EWA, CONCERN DKA, MA, INTRACTABLE N/V Ma y 2024 7:30pm Reason for Visit Admit Date Abnormal weight loss September 09, 2024 2:43 pm Acute hypokalemia September 09, 2024 2:43p m Acute renal failure September 09, 2024 2:43p m Dysphagia September 09, 2024 2:43p m Additional Source Comments (unrecognized sect ion and content) No Status Records FoundNo Status Records Found INFORMATION SOURCE (unrecogn ized section and content) DATE CREATED AUTHOR 01/30/2021 Denton Ramos [facility] DATE CREATED AUTHOR AUTHOR'S STACY ATRYANN 11/17/2024 [facility] Care Teams (unrecognized sec tion and content) Team Status: Active Member Role Status Dates No Primary Care Physician Primary Care Provider Active Team Status: Active Member Role Status Dates Dr. Lata Duron DO Emergency Provider Active S tart: September 09, 2024 No Primary Care Physician Primary Care Provider Active Start: September 09, 2024 Dr. Abbie Michelle MD Attending Provider Active Start: September 09, 2024 Team Status: Active Member Role Status Dates Dr. Lata Duron DO Emergency Provider Active S tart: September 09, 2024 No Primary Care Physician Primary Care Provider Active Start: September 09, 2024 Dr. Abbie Michelle MD Admit Provider Active St art: September 09, 2024 Dr. Abbie Michelle MD Attending Provider Active Start: September 09, 2024 Dr. Emeli Lynn MD Other Provider Active Start: September 09, 2024 Team Status: Inactive Member Role Status Dates Dr. Lata Duron DO Emergency Provider Active S tart: September 09, 2024 End: September 12, 2024 No Primary Care Physician Primary Care Provider Active Start: September 09, 2024 End: September 12, 2024 Dr. Abbie Michelle MD Admit Provider Active St art: September 09, 2024 End: September 12, 2024 Dr. Abbie Michelle MD Other Provider Active St art: September 09, 2024 End: September 12, 2024 Dr. Jimenez Renee DO Attending Provider Active Start: September 09, 2024 End: September 12, 2024 Dr. Emeli Lynn MD Other Provider Active Start: September 09, 2024 End: September 12, 2024 Team Status: Active Member Role Status Dates Dr. Lata Duron DO Emergency Provider Active S tart: September 09, 2024 No Primary Care Physician Primary Care Provider Active Start: September 09, 2024 Dr. Abbie Michelle MD Admit Provider Active St art: September 09, 2024 Dr. Abbie Michelle MD Other Provider Active St art: September 09, 2024 Dr. Jimenez Renee , Other Provider Active S tart: September 09, 2024 Dr. Emeli Lynn MD Other Provider Active Start: September 09, 2024 Dr. Alo Cronin , Attending Provider Active Start: September 09, 2024 Team Status: Active Member Role Status Dates Dr. Lata Duron , DO Emergency Provider Active S tart: September 10, 2024 No Primary Care Physician Primary Care Provider Active Start: September 10, 2024 Dr. Abbie Michelle MD Admit Provider Active St art: September 10, 2024 Dr. Abbie Michelle MD Other Provider Active St art: September 10, 2024 Dr. Emeli Lynn MD Other Provider Active Start: September 10, 2024 Dr. Jimenez Renee , DO Other Provider Active S tart: September 10, 2024 Dr. Alo Cronin , DO Attending Provider Active Start: September 10, 2024 Team Status: Active Member Role Status Dates Dr. Lata Duron , DO Emergency Provider Active S tart: September 10, 2024 No Primary Care Physician Primary Care Provider Active Start: September 10, 2024 Dr. Abbie Michelle MD Admit Provider Active St art: September 10, 2024 Dr. Abbie Michelle MD Other Provider Active St art: September 10, 2024 Dr. Emeli Lynn MD Other Provider Active Start: September 10, 2024 Dr. Jimenez Renee , DO Attending Provider Active Start: September 10, 2024 Dr. Jimenez Renee , DO Other Provider Active S tart: September 10, 2024 Team Status: Active Member Role Status Dates Dr. Lata Duron DO Emergency Provider Active S tart: September 11, 2024 No Primary Care Physician Primary Care Provider Active Start: September 11, 2024 Dr. Abbie Michelle MD Admit Provider Active St art: September 11, 2024 Dr. Abbie Michelle MD Other Provider Active St art: September 11, 2024 Dr. Jimenez Renee , DO Other Provider Active S tart: September 11, 2024 Dr. Emeli Lynn MD Other Provider Active Start: September 11, 2024 Dr. Alo Cronin , DO Attending Provider Active Start: September 11, 2024 Team Status: Active Member Role Status Dates Dr. Lata Duron , DO Emergency Provider Active S tart: September 11, 2024 No Primary Care Physician Primary Care Provider Active Start: September 11, 2024 Dr. Abbie Michelle MD Admit Provider Active St art: September 11, 2024 Dr. Abbie Michelle MD Other Provider Active St art: September 11, 2024 Dr. Jimenez Renee , DO Attending Provider Active Start: September 11, 2024 Dr. Jimenez Renee , DO Other Provider Active S tart: September 11, 2024 Dr. Emeli Lynn MD Other Provider Active Start: September 11, 2024 Goals (unrecognized section and content) Goals may be documented in a n alternate section FOR RECORDS PERTAINING TO PATIENTS WHO ARE OR HAVE BEEN ENROLLED IN A CHEMICAL DEPENDENCY/SUBSTANCEABUSE PROGRAM, SOME INFORMATION MAY BE OMITTED. This clinical summary was aggregated from multiple sources. Caution should be exercised in using it in the provision of clinical care. This summary normalizes information from multiple sources, and as a consequence, information in this document may materially change the coding, format and clinical context of patient data. In addition, data may be omitted in some cases. CLINICAL DECISIONS SHOULD BE BASED ON THE PRIMARY CLINICAL RECORDS. [facility]. provides no warranty or guarantee of the accuracy or completeness of information in this document.
[2024-11-18] MEDS: Lactated Ringers 1,000 ML 15 ML IV (06:25)
--- NOTE | 2024-11-18 06:30 | PRE.ANES_ITS ---
ASA Classification* ASA Classification ASA Classification: 1 Assessment & Plan Anesthesia* Anesthesia Assessment Anesthesia Assessment: Discussed sedation and/or anesthesia options, risks, benefits, and alternatives with patient/parents/legal guardian/POA. Questions invited. The patient/parents/legal guardian/POA seems to understand and agrees to proceed with anesthesia plan. Reviewed the physical assessment, medical history, allergy history and patient home medications list prior to surgery/procedure/anesthetic and documented any changes. Performed airway and anesthesia risk assessments. Anesthesia Type Anesthesia Type: MAC History Source History Obtained from:: Patient and Chart Anesthesia Focused Assessment* Temperature: 98.0 F Pulse Rate: 75 Blood Pressure: 121/82 Respiratory Rate: 16 Pulse Ox: 100 Oxygen Delivery Method: Room Air Airway Assessment Mouth opens: >3 cm Mallampati Score: I Teeth Condition: Intact Neck Range of motion (ROM): Full ROM Labs Anesthesia Preop lab: CBC WBC 9.8 K/mm3 (4.4-11.0) 09/10/24 04:52 09/10/24 RBC 4.62 M/mm3 (4.6-6.2) 09/10/24 04:52 09/10/24 Hgb 13.4 g/dL (13.0-16.5) 09/10/24 04:52 09/10/24 Hct 36.9 % (40-54) L 09/10/24 04:52 09/10/24 Plt Count 141 K/mm3 (150-450) L 09/10/24 04:52 09/10/24 CHEMISTRY Potassium 3.6 mmol/L (3.3-5.1) 09/12/24 05:18 09/12/24 Sodium 154 mmol/L (133-145) H 09/12/24 05:18 09/12/24 Magnesium 3.5 mg/dL (1.5-2.2) H 09/10/24 04:52 09/10/24 Phosphorus 2.7 mg/dL (2.7-4.5) 09/11/24 04:35 09/11/24 BUN 92 mg/dL (4-19) H 09/12/24 05:18 09/12/24 Creatinine 1.08 mg/dL (0.70-1.20) 09/12/24 05:18 09/12/24 Glucose 131 mg/dL (70-99) H 09/12/24 05:18 09/12/24 POC Glucose 102 mg/dL (74-106) 09/10/24 11:03 09/10/24 COAG Pre-Assessment Diagnosis/Proposed Procedure Planned Operative Procedure(s): EGD Anesthesia History 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 When Was Last Pacemaker Check QUESTION #4 FULL TEXT: You/Your Family Experience fever (hyperthermia) with Anesthesia Last Oral Intake Last Oral intake: Last Oral Intake NPO since 00:00 11/18/24 06:26 Meds taken in AM with sips of No 11/18/24 06:26 water? Meds patient instructed to take am of surgery PONV PONV - field installation technician: PONV - field installation technician Female No 11/16/24 10:34 HX of Motion Sickness No 11/16/24 10:34 HX of N/V After Surgery No 11/16/24 10:34 Non-Smoker Yes 11/16/24 10:34 Duration of Surgery greater No 11/16/24 10:34 than 60 minutes Number of Risk Factors 1 11/16/24 10:34 PONV Score Low Risk 11/16/24 10:34 Height & Weight Height & Weight: Anesthesia: Height & Weight Height 5 ft 7 in 11/18/24 06:26 Weight: 74 kg 11/18/24 06:26 Body Mass Index (BMI) 25.5 11/18/24 06:26 Respiratory Assessment Respiratory Assessment - field installation technician: Respiratory Tract Infection Hx - field installation technician Hx Respiratory Tract Infection No 11/16/24 10:34 STOP Sleep Apnea STOP Sleep Apnea - field installation technician: STOP Sleep Apnea - field installation technician Hx Hypertension No 11/16/24 10:34 Hx Sleep Apnea No 11/16/24 10:34 CPAP BIPAP Do you snore loudly (louder No 11/16/24 10:34 than talking or can be heard Do you often feel tired/ No 11/16/24 10:34 fatigued/ sleepy during daytime? Has anyone observed you stop No 11/16/24 10:34 breathing during sleep? STOP Results Negative 11/16/24 10:34 QUESTION #5 FULL TEXT : Do you snore loudly (louder than talking or can be heard through closed doors)? Tobacco Use History Tobacco Use History - field installation technician: Tobacco Use History - field installation technician Tobacco Use Smoking Status Never smoker 11/16/24 10:34 Hx Tobacco Use No 11/16/24 10:34 Years Smoking Packs Smoked per Day Smoking Cessation Date was within the last 15 years Hx Smoking Cessation Date Hx Smoking Cessation Counseling Hematologic Medial History Hematologic Hx - field installation technician: Hematologic Medical Hx - transition manager Hx of Blood Transfusion No 11/16/24 10:34 Hx of Transfusion in last 3 No 11/16/24 10:34 Months Date of Last Transfusion (if within last 3 months) Ever experience any problems No 11/16/24 10:34 with transfusion(s)? Specify any problems Hx of Preganancy in last 3 N/A 11/16/24 10:34 Months Nurse Filling Out Transfusion VCHRISTIN 11/16/24 10:34 & Questions: Date: 11/16/24 11/16/24 10:34 Time: 10:35 11/16/24 10:34 Patient unable to answer at this time (ie. confused, unrespo /Reproduction History /Reproductive History - field installation technician: /Reproductive Hx- field installation technician Hx Now No 11/16/24 10:34 Gestational Age (in weeks): EDC: Hx Hx Para Hx Section SAB No 11/16/24 10:34 Active Medications Active Medications: Current Medications Generic Name Dose Route Start Last Admin Trade Name Freq PRN Reason Stop Dose Admin Lactated Ringer's 1,000 mls @ 15 mls/hr 11/18/24 06:00 11/18/24 06:25 IV 15 mls/hr .Q48H FREEMAN Administration PFSH Medical History Wears glasses Chewing tobacco dependence in remission Dysphagia No significant past medical history Abnormal weight loss Acute hypokalemia Acute renal failure Home Medications Medication Instructions Recorded Last Taken Type multivitamin (Daily Multi-Vitamin 1 tab PO DAILY 09/0911/13/24 History tablet) Allergy/AdvReac Type Severity Reaction Status Date / Time No Known Allergies Allergy Verified 11/16/24 10:28 Family History Mother Hypertension Father No problems noted. Surgical History History of esophagogastroduodenoscopy (EGD) History of skin graft Social History household members: none Smoking Status: Never smoker alcohol intake: never substance use type: does not use Review of Systems (Anesthesia) ROS Narrative System reviewed and no additional complaints, except as documented.
--- NOTE | 2024-11-18 07:04 | PCM.HP.STD ---
[facility] - General General Date of Admission: 11/18/24 Date of Service: 11/18/24 HPI Narrative KESHAV ARMSTRONG, is a 54 M who presents for Persistent nausea vomiting Patient presents with weight loss as well as nausea and abdominal bloating ongoing for 6 to 7 months. Patient states he has no primary care physician. He finally got tired of the weight loss and he is complaining of feeling weak with no energy. He has nausea and vomiting usually after he eats about 15 to 20 minutes later. He underwent an upper endoscopy approximately 2 months ago and was discovered to have esophageal motility disorder consistent with achalasia. He comes back in today for repeat upper endoscopy with dilation. [facility] Medical History Wears glasses Chewing tobacco dependence in remission Dysphagia No significant past medical history Abnormal weight loss Acute hypokalemia Acute renal failure Home Medications Medication Instructions Recorded Last Taken Type multivitamin (Daily Multi-Vitamin 1 tab PO DAILY 09/09/24 11/13/24 History tablet) Allergy/AdvReac Type Severity Reaction Status Date / Time No Known Allergies Allergy Verified 11/16/24 10:28 Family History Mother Hypertension Father No problems noted. Surgical History History of esophagogastroduodenoscopy (EGD) History of skin graft Social History household members: none Smoking Status: Never smoker alcohol intake: never substance use type: does not use ROS Constitutional Constitutional: Denies fatigue, fever(s), poor appetite, weight gain or weight loss Gastrointestinal Gastrointestinal: Denies belching, bloating, change in bowel habits, change in stool character, chewing difficulty, coffee ground emesis, constipation, cramping, diarrhea, dyspepsia, dysphagia, early satiety, excessive flatus, fecal incontinence, heartburn, hematemesis, hematochezia, hemorrhoids, loose stools, melena, nausea, odynophagia, rectal bleeding, tenesmus, vomiting or weight changes Vital Signs Vital Signs Vital Signs: 11/18/24 06:26 11/18/24 06:26 11/18/24 06:32 Temperature 98.0 F 98.0 F Temperature Source Temporal Pulse Rate 75 75 Respiratory Rate 16 16 Respiratory Pattern Normal Blood Pressure 121/82 H 121/82 H Blood Pressure Mean 95 Blood Pressure Source Monitor Blood Pressure Position Semi-Fowlers Blood Pressure Location Right Arm Pulse Ox 100 100 Oxygen Delivery Method Room Air Room Air Weight Weight: 163 lb 2.273 oz Body Mass Index (BMI) 25.5 Physical Exam Const alert, oriented x3, no apparent distress and healthy appearing General Appearance: cooperative GI normal to inspection, nondistended, normoactive bowel sounds, soft to palpation, non-tender and non-distended Percussion: normal to percussion Rectal Exam: deferred Assessment & Plan Assessment/Plan (1) Acute renal failure: (2) Acute hypokalemia: (3) Abnormal weight loss: (4) Dysphagia: PLAN: Esophageal dysphagia secondary to type I or type II achalasia. He is status post only mild dilation endoscopically. He will have to come back as an outpatient for further dilation and manometry studies to see what type of motility he has and whether he should get a myotomy with Monica fundoplication versus dilation by serial exams and Botox therapy. PLAN: Plan This is a pleasant 53-year-old male with no known past medical history presented to the emergency room with complaints of unintentional weight loss, extreme lethargy, lab work demonstrated creatinine 10.70, BUN 248, hemoglobin 18.7, lactic acid 2.0, carbon dioxide 16, potassium 2.4. Patient was initially treated with aggressive IV fluid resuscitation. He was discovered to have severe esophageal dysphagia secondary to achalasia. He will come back in today for further workup including esophageal dilation in the near future he will need esophageal manometry and possible Botox versus Heller myotomy.
--- NOTE | 2024-11-18 07:48 | OP.EGD_ITS ---
Patient Name: Thai Stringer Procedure Date: 11/18/2024 7:10 AM Date of : 1970 Age: 54 Procedure: Upper GI endoscopy Indications: Dysphagia, Abnormal UGI series, Abnormal CT of the GI tract, For management of achalasia, For therapy of achalasia Providers: Alo Cronin DO Referring MD: Kassandra Chicas Do Medicines: Monitored Anesthesia Care Patient Profile: This is a 54 year old male. Refer to note in patient chart for documentation of history and physical. Patient has symptoms of dysphagia with both liquids and solids, chronic nausea and chronic vomiting. Complications: No immediate complications. Procedure: Pre-Anesthesia Assessment: - Prior to the procedure, a History and Physical was performed, and patient medications and allergies were reviewed. The patient is competent. The risks and benefits of the procedure and the sedation options and risks were discussed with the patient. All questions were answered and informed consent was obtained. Patient identification and proposed procedure were verified by the physician in the pre-procedure area. Mental Status Examination: alert and oriented. Airway Examination: normal oropharyngeal airway and neck mobility. Respiratory Examination: clear to auscultation. CV Examination: normal. Prophylactic Antibiotics: The patient does not require prophylactic antibiotics. Prior Anticoagulants: The patient has taken no anticoagulant or antiplatelet agents except for NSAID medication. ASA Grade Assessment: II - A patient with mild systemic disease. After reviewing the risks and benefits, the patient was deemed in satisfactory condition to undergo the procedure. The anesthesia plan was to use monitored anesthesia care (MAC). Immediately prior to administration of medications, the patient was re-assessed for adequacy to receive sedatives. The heart rate, respiratory rate, oxygen saturations, blood pressure, adequacy of pulmonary ventilation, and response to care were monitored throughout the procedure. The physical status of the patient was re-assessed after the procedure. After obtaining informed consent, the endoscope was passed under direct vision. Throughout the procedure, the patient's blood pressure, pulse, and oxygen saturations were monitored continuously. The Endoscope was introduced through the mouth, and advanced to the second part of duodenum. The upper GI endoscopy was accomplished without difficulty. The patient tolerated the procedure well. Scope In: 7:17:54 AM Scope Out: 7:40:54 AM Total Procedure Duration Time 0 hours 23 minutes 0 seconds Findings: No appreciable esophageal motility was noted. In addition, a hypertonic lower esophageal sphincter was found. There was severe resistance to endoscope advancement into the stomach. The Z-line was regular. The gastroesophageal junction and cardia were normal on retroflexed view. A guidewire was placed and the scope was withdrawn. Dilation was performed with a Savary dilator with no resistance at 60 Fr. The dilation site was examined and showed mild improvement in luminal narrowing. Food was found in the entire esophagus. Removal was accomplished with a Smalls net. No gross lesions were noted in the entire examined stomach. No gross lesions were noted in the entire examined duodenum. Impression: - Achalasia. Dilated. - Food in the esophagus. Removal was successful. - No gross lesions in the entire stomach. - No gross lesions in the entire examined duodenum. Recommendation: - Discharge patient to home. - Liquid duiet - Continue present medications. - Esophageal manometry/ Botox and referral for Heller Myotomy Procedure Code(s): --- Professional --- 33201, Esophagogastroduodenoscopy, flexible, transoral; with removal of foreign body(s) 15728, Esophagogastroduodenoscopy, flexible, transoral; with insertion of guide wire followed by passage of dilator(s) through esophagus over guide wire CPT copyright 2021 [employer]. All rights reserved. The codes documented in this report are preliminary and upon garage helper review may be revised to meet current compliance requirements. Alo Cronin DO 11/18/2024 7:47:38 AM This report has been signed electronically. Number of Addenda: 0 Note Initiated On: 11/18/2024 7:10 AM
--- NOTE | 2024-11-18 07:48 | OP.CCLET_ITS ---
11/18/2024 Kassandra Chicas Do Re : Upper GI endoscopy procedure for Thai Stringer Dear [facility] This procedure was performed on Monday, November 18, 2024. My impressions and recommendations are as follows: Impressions : - Achalasia. Dilated. - Food in the esophagus. Removal was successful. - No gross lesions in the entire stomach. - No gross lesions in the entire examined duodenum. Recommendations : - Discharge patient to home. - Liquid duiet - Continue present medications. - Esophageal manometry/ Botox and referral for Heller Myotomy My findings are described in the full procedure note, which is enclosed. If I can be of further assistance, please feel free to contact me at . Sincerely, Alo Cronin, 11/18/2024 7:47:38 AM This report has been signed electronically.
--- NOTE | 2024-11-18 07:54 | PCM.POST.ANE ---
Anesthesia: Postop Eval I Current Vital Signs Temperature: 98.3 F Pulse Rate: 80 Blood Pressure: 109/86 Respiratory Rate: 16 Pulse Ox: 100 Oxygen Delivery Method: Room Air Assessment Airway patent: Yes Spontaneous unlabored respirations: Yes Mental status: Asleep nausea: No Vomiting: No Anesthesia Complication: Yes Anesthesia Complication Comment:: achalasia w/food bolus Fluid Hydration Crystalloid volume administer (ml): 800 Total IV fluid infused: 800 Progress Note Anesthesia document: Postop Eval 1 completed: Yes
--- NOTE | 2024-11-18 18:36 | PCM.POSTANE2 ---
Anesthesia Postop Eval I Sum Postop Eval Completion status Anesthesia document: Postop Eval 1 completed: Yes Anesthesia Postop Eval I Summary Anesthesia Postop Eval I Summary: Anesthesia Postop Eval I: Assessment Summary Airway patent Yes 11/18/24 07:56 [email or web address] Spontaneous unlabored Yes 11/18/24 07:56 [email or web address] respirations Mental status Asleep 11/18/24 07:56 [email or web address] nausea No 11/18/24 07:56 [email or web address] Vomiting No 11/18/24 07:56 [email or web address] Anesthesia Postop Eval I: Fluid Summary Crystalloid volume administer 800 11/18/24 07:56 [email or web address] (ml) Colloids volume administered ( ml) Blood Product volume administered (ml) Total IV fluid infused 800 11/18/24 07:56 [email or web address] Anesthesia Postop Eval I: Summary Notes Anesthesia Complication Yes 11/18/24 07:56 [email or web address] Anesthesia Complication achalasia w/food 11/18/24 07:56 [email or web address] Comment: bolus Post-operative progress note Anesthesia: Postop Eval II Evaluation Mental status: Awake Pain Level: 0 nausea: No Vomiting: No
== END 2024-11-18 08:28 | disposition home or self-care (01) ==
LOC: EN 05:46 → AC 05:47
PROVIDERS: PCP Family Medicine; Referring Provider Family Medicine; Visit Provider Internal Medicine Gastroenterology
PROC: 0DJ08ZZ Inspection of Upper Intestinal Tract, Via Natural or Artificial Opening Endoscopic (ICD-10-PCS; CPT 43235; principal; 2024-11-18 06:55)
DX: K22.0 Achalasia of cardia (principal); T18.128A Food in esophagus causing other injury, initial encounter; W44.F3XA Food entering into or through a natural orifice, initial encounter; N17.9 Acute kidney failure, unspecified; E87.6 Hypokalemia; R63.4 Abnormal weight loss; F17.221 Nicotine dependence, chewing tobacco, in remission
CPT/HCPCS: 43248; 43247; C1769; J2405

== ENCOUNTER 2024-11-27 10:37 | Day surgery (SDC) | payer MEDICAID, SELFPAY ==
[2024-11-27] MEDS: Lidocaine Jelly 2% 20 ML Syringe (URO-JET) 1 APPLIC (11:00)
[2024-11-27 11:02] VITALS: BP 127/72; PULSE 78; TEMP 36.7; O2SAT 95
--- OUTSIDE RECORDS SUMMARY | 2024-11-27 17:43 | XMS RPT_ITS | CCD ---
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 Lata Duron DO Emergency Provider [phone] Care Physician, No Primary Primary Care Provider Unavailable Miguel Angel PINTO, Dr. Abbie Negron Attending Provider Dr. Abbie Michelle MD Admit Provider Shane PINTO, Dr. Sainz Other Provider Dr. Abbie Michelle MD Other Provider Dr. Jimenez Renee DO Attending Provider Dr. Jimenez Renee DO Other Provider Dr. Alo Cronin DO Attending Provider Dr. Abbie Michelle MD Referring Provider Dr. Tu Feliciano MD Attending Provider Dr. Tu Feliciano MD Referring Provider [phone] Jimenez Renee DO Referring Provider [phone] Aviva DO, Kassandra Primary Care Provider [phone] Aviva DO Kassandra Referring Provider Friend Dr. Alo FERRIS Other Provider Care Physician, No Primary Primary Care Unava ilable Shane, Jayaprakas Consulting Unavailable White, Abbie L Admitting Unavailable TereletsJimenez franco Attending Unavailable White, Abbie L Consulting Unavailable TereletskyJimenez Consulting Unavailable White, Abbie L Referring Unavailable Alo Cronin Attending Unavailable Jimenez Renee Referring Unavailable Aviva VSC, Kassandra Referring Unavailable Aviva VSC, Kassandra Primary Care Unavailable Alo Cronin Attending Unavailable Aviva VSC, Kassandra Referring Unavailable Aviva VSC, Kassandra Primary Care Unavailable FriendAlo Attending Unavailable White, Abbie L Consulting Unavailable Care Physician, No Primary Primary Care Unava ilable White, Abbie L Admitting Unavailable Jimenez Renee Attending Unavailable Shane, Jayaprakas Consulting Unavailable Alo Cronin Consulting Unavailable Aviva VSC, Kassandra Referring Unavailable Aviva VSC, Kassandra Primary Care Unavailable Alo Cronin Attending Unavailable Care Physician, No Primary Primary Care Unava ilable Braden, Tu Referring Unavailable Braden, Tu Attending Unavailable Miguel Angel, Abbie Negron Attending Unavailable Care Physician, No Primary Primary Care Unava ilable Medications Current Medications Medication Drug Class(es) Dates Sig (Normalized) Sig (Original) Multivitamin (Daily Multi-Vitamin) tablet (4 sources) Start: 09-09-2024 Multivitamin (Daily Multi-Vitamin) tablet Active 1 {tbl} PO DAILY September 09, 2024 12:00am Completed/Discontinued Medications Medication Drug Class(es) Dates Sig (Normalized) Sig (Original) pantoprazole 40 mg delayed release oral tablet (3 sources) Proton Pump Inhibitor Start: 09-12-2024 End: 11-16-2024 take 1 tablet by mouth twice daily Pantoprazole 40 mg Tablet,Delayed Release (Dr/Ec) Discontinued 40 mg PO TWICE A DAY 60 0 September 12, 2024 12:00am November 16, 2024 10:29am Problems Problem Classification Problem Date Documented Da te Episodic/Chronic Abdominal pain (1 source) Unspecified abdominal pain; Translations: [Unspecified abdominal pain] Onset: 10-12-2024 Episodic Acute and unspecified renal failure (11 sources) Acute renal failure syndrome; Translations: [Acute kidney failure, unspecified] Onset: 11-24-2024 09-09-2024 Episodic Diabetes mellitus without complication (4 sources) Hyperglycemia; Translations: [Hyperglycemia, unspecified] 09-09-2024 Episodic Esophageal disorders (1 source) Achalasia of cardia; Translations: [Achalasia of cardia] Onset: 11-24-2024 Episodic Fluid and electrolyte disorders (10 sources) Acute hypokalemia; Translations: [Hypokalemia] Onset: 11-24-2024 09-09-2024 Episodic Other gastrointestinal disorders (8 sources) Dysphagia; Translations: [Dysphagia, unspecified] 09-11-2024 Episodic Other gastrointestinal disorders (1 source) Dysphagia, unspecified; Translations: [Dysphagia, unspecified] Onset: 11-24-2024 Episodic Other injuries and conditions due to external causes (1 source) Food lodged in esophagus; Translations: [Food in esophagus causing other injury, initial encounter] 11-23-2024 Episodic Other nutritional; endocrine; and metabolic disorders (9 sources) Abnormal weight loss; Translations: [Abnormal weight loss] 09-09-2024 Episodic Other nutritional; endocrine; and metabolic disorders (1 source) Abnormal weight loss; Translations: [Abnormal weight loss] Onset: 11-24-2024 Episodic Results Test Name Value Interpretation Reference Range [facility] Medical Records Department [address] [place] [address] Provation Physician Letter MR#: [id number] Acct: [id number] Name: KESHAV ARMSTRONG Rep #: [id number] : 1970 54 From: Alo Cronin DO PCP: Kassandra Chicas DO Status:[facility] 11/18/2024 Kassandra Chicas Do Re : Upper GI endoscopy procedure for Keshav Armstrong Dear Aviva This procedure was performed on Saturday, November 18, 2024. My impressions and recommendations are as follows: Impressions : - Achalasia. Dilated. - Food in the esophagus. Removal was successful. - No gross lesions in the entire stomach. - No gross lesions in the entire examined duodenum. Recommendations : - Discharge patient to home. - Liquid duiet - Continue present medications. - Esophageal manometry/ Botox and referral for Heller Myotomy My findings are described in the full procedure note, which is enclosed. If I can be of further assistance, please feel free to contact me at . Sincerely, Alo Cronin DO 11/18/2024 7:47:38 AM This report has been signed electronically. 11/18/24746 Date Alo Cronin DO Cosigner Signature: Date (if indicated) CC: Kassandra Chicas DO; Alo Cronin DO Date Dictated: 11/18/24709 Date Transcribed: Qa Consultant: MILDRED Signed Normal [facility] EGD Reporton 11-18-2024 EGD Report [facility] Medical Records Department [address] [place] [address] EGD Report MR#: [id number] Acct: [id number] Name: KESHAV ARMSTRONG Rep #: [id number] : 1970 54 From: Alo Cronin DO PCP: Kassandra Chicas DO Status[place] Patient Name: Keshav Armstrong Procedure Date: 11/18/2024 7:10 AM Date of : 1970 Age: 54 Procedure: Upper GI endoscopy Indications: Dysphagia, Abnormal UGI series, Abnormal CT of the GI tract, For management of achalasia, For therapy of achalasia Providers: Alo Cronin DO Referring MD: Kassandra Chicas Do Medicines: Monitored Anesthesia Care Patient Profile: This is a 54 year old male. Refer to note in patient chart for documentation of history and physical. Patient has symptoms of dysphagia with both liquids and solids, chronic nausea and chronic vomiting. Complications: No immediate complications. Procedure: Pre-Anesthesia Assessment: [...] patient has taken no anticoagulant or antiplatelet agents except for NSAID medication. ASA Grade Assessment: II - A patient [...] patient tolerated the procedure well. Scope In: 7:17:54 AM Scope Out: 7:40:54 AM Total Procedure Duration Time 0 hours 23 minutes 0 seconds Findings: No appreciable esophageal motility was noted. In addition, a hypertonic lower esophageal sphincter was found. There was severe resistance to endoscope advancement into the stomach. The Z-line was regular. The gastroesophageal junction and cardia were normal on retroflexed view. A guidewire was placed and the scope was withdrawn. Dilation was performed with a Savary dilator with no resistance at 60 Fr. The dilation site was examined and showed mild improvement in luminal narrowing. Food was found in the entire esophagus. Removal was accomplished with a Smalls net. No gross lesions were noted in the entire examined stomach. No gross lesions were noted in the entire examined duodenum. Impression: - Achalasia. Dilated. - Food in the esophagus. Removal was successful. - No gross lesions in the entire stomach. - No gross lesions in the entire examined duodenum. Recommendation: - Discharge patient to home. - Liquid duiet - Continue present medications. - Esophageal manometry/ Botox and referral for Heller Myotomy Procedure Code(s): --- Professional --- 48276, Esophagogastroduode noscopy, flexible, transoral; with removal of foreign body(s) 53979, Esophagogastroduode noscopy, flexible, transoral; with insertion of guide wire followed by passage of dilator(s) through esophagus over guide wire CPT copyright 2021 [employer]. All rights reserved. The codes documented in this report are preliminary and upon platform mill supervisor review may be revised to meet current compliance requirements. Alo Cronin DO 11/18/2024 7:47:38 AM This report has been signed electronically. Number of Addenda: 0 Note Initiated On: 11/18/2024 7:10 AM 11/18/24 0747 Date Alo Cat Signature: Date (if indicated) CC: Kassandra Chicas DO; Alo Cronin DO Date Dictated: 11/18/24 (more content not included)... Normal [facility] MR/POSTOP.[facility] 11-18-2024 MR/POSTOP.[facility] Medical Records Department [address] [place] [address] Anesthesia Postop Eval I 11/18/24 0754 MR#: [id number] Acct: [id number] Name: KESHAV ARMSTRONG Rep #: [id number] : 1970 54 From: To Green PCP: Kassandra Chicas DO Status[place] Y Race: C Location: [place] [address] Anesthesia: Postop Eval I Current Vital Signs Temperature: 98.3 F Pulse Rate: 80 Blood Pressure: 109/86 Respiratory Rate: 16 Pulse Ox: 100 Oxygen Delivery Method: Room Air Assessment Airway patent: Yes Spontaneous unlabored respirations: Yes Mental status: Asleep nausea: No Vomiting: No Anesthesia Complication: Yes Anesthesia Complication Comment:: achalasia w/food bolus Fluid Hydration Crystalloid volume administer (ml): 800 Total IV fluid infused: 800 Progress Note Anesthesia document: Postop Eval 1 completed: Yes 11/18/24 075 Date To Child Signature: Date CC: Signed Normal [facility] [id number] [facility] Medical Records Department [address] [place] [address] Anesthesia Postop Eval II 11/18/24 1836 MR#: [id number] Acct: [id number] Name: KESHAV ARMSTRONG Rep #: [id number] : 1970 54 From: Josefa Levine CRNA PCP: Kassandra Chicas DO Status:[facility] Y Race: C Location: [place] Anesthesia Postop Eval I Sum Postop Eval Completion status Anesthesia document: Postop Eval 1 completed: Yes Anesthesia Postop Eval I Summary Anesthesia Postop Eval I Summary: Anesthesia Postop Eval I: Assessment Summary Airway patent Yes 11/18/24 07:56 [email or web address] Spontaneous unlabored Yes 11/18/24 07:56 [email or web address] respirations Mental status Asleep 11/18/24 07:56 [email or web address] nausea No 11/18/24 07:56 [email or web address] Vomiting No 11/18/24 07:56 [email or web address] Anesthesia Postop Eval I: Fluid Summary Crystalloid volume administer 800 11/18/24 07:56 [email or web address] (ml) Colloids volume administered ( ml) Blood Product volume administered (ml) Total IV fluid infused 800 11/18/24 07:56 [email or web address] Anesthesia Postop Eval I: Summary Notes Anesthesia Complication Yes 11/18/24 07:56 [email or web address] Anesthesia Complication achalasia w/food 11/18/24 07:56 [email or web address] Comment: bolus Post-operative progress note Anesthesia: Postop Eval II Evaluation Mental status: Awake Pain Level: 0 nausea: No Vomiting: No 11/18/24 183 Date Josefa Levine CRNA Cosigner Signature: Date CC: Signed Normal [facility] Anion gap in Serum or Plasma Ordered By: Jimenez Renee on 09-12-2024 Anion gap [Moles/Vol] 12 mmol/L - [facility] BUN/creatinine ratioOrdered By: Jimenez Renee on 09-12-2024 Urea nitrogen/Creatinine [Mass ratio] 84.7 mg/mg High 02-15 [facility] Basic Metabolic Profile (BMP )on 09-12-2024 BUN/CRE 84.7 RATIO High 02-15 [facility] Comment on above: Performed By: #### L 500.2500 #### [facility] [address] [place], [address] Calcium [Mass/Vol] 8.5 mg/dL Normal 7.6-11.0 [facility] Comment on above: Performed By: #### L 500.2500 #### [facility] [address] [place], [address] Chloride [Moles/Vol] 121 mmol/L High 98-[address] [facility] Comment on above: Performed By: #### L 500.2500 #### [facility] [address] [place], [address] CO2 [Moles/Vol] 20.8 mmol/L Low 21.0-32.0 [facility] Comment on above: Performed By: #### L 500.2500 #### [facility] [address] [place], [address] Creatinine [Mass/Vol] 1.08 mg/dL Normal 0.70-1.20 [facility] Comment on above: Performed By: #### L 500.2500 #### [facility] [address] [place], [address] ECRCL 71.38 ml/min Normal 50-250 [facility] Comment on above: Performed By: #### L 500.2500 #### [facility] [address] [place], [address] GAP 12 Normal 5-15 [facility] Comment on above: Performed By: #### L 500.2500 #### [facility] [address] [place], [address] GFR/1.73 sq M.predicted among non-blacks MDRD (S/P/Bld) [Vol rate/Area] 82 mL/min/{1.73_m2} Normal >60 [facility] Comment on above: Result Comment: mL/m in/1.73m2 CKD-EPI Creatinine Equation (2020) Performed By: #### L 500.2500 #### [facility] [address] [place], [address] Glucose [Mass/Vol] 131 mg/dL High 70-99 [facility] Comment on above: Performed By: #### L 500.2500 #### [facility] [address] [place], [address] Potassium [Moles/Vol] 3.6 mmol/L Normal 3.3-5.1 [facility] Comment on above: Performed By: #### L 500.2500 #### [facility] [address] [place], [place], [address] Sodium [Moles/Vol] 154 mmol/L High 133-145 [facility] Comment on above: Performed By: #### L 500.2500 #### [facility] [address] [place], [place], [address] Urea nitrogen [Mass/Vol] 92 mg/dL High 4-19 [facility] Comment on above: Performed By: #### L 500.2500 #### [facility] [address] [place], [place], [address] Carbon dioxide, total [Moles /volume] in Central venous bloodOrdered By: Jimenez Renee on 09-12-2024 CO2 [Moles/Vol] 20.8 mmol/L Low 21.0-32.0 [facility] Chloride assayOrdered By: Jocelin Renee on 09-12-2024 Chloride [Moles/Vol] 121 mmol/L High 98-[address] [facility] Discharge Instructionon 08-27 Discharge Instruction [facility] Medical Records Department [address] [place] [address] Instructions for Home/Discharge Instructions 09/12/24 1046 MR#: [id number] Acct: [id number] Name: KESHAV ARMSTRONG Rep #: [id number] : 1970 53 From: Jimenez Renee DO [...] MD; No Primary Care Physician Signed Normal [facility] Glomerular filtration rate ( GFR) estimation/1.73 sq m using serum, plasma, or whole bOrdered By: Jimenez Renee on 09-12-2024 GFR/1.73 sq M.predicted among non-blacks MDRD (S/P/Bld) [Vol rate/Area] 82 mL/min/{1.73_m2} >60 [facility] Comment on above: mL/min/1.73m2 CKD-EP I Creatinine Equation (2020) Potassium measurement (mass/ volume)Ordered By: Jimenez Renee on 09-12-2024 Potassium (Unsp spec) [Mass/Vol] 3.6 mmol/L 3.3-5.1 [facility] Serum creatinine measurement (mass/volume)Ordered By: Jimenez Renee on 09-12-2024 Creatinine [Mass/Vol] 1.08 mg/dL 0.70-1.20 [facility] Serum glucose measurement (m ass/volume)Ordered By: Jimenez Renee on 09-12-2024 Glucose [Mass/Vol] 131 mg/dL High 70-99 [facility] Serum or plasma calcium agueda urement (mass/volume)Ordered By: Jimenez Renee on 09-12-2024 Calcium [Mass/Vol] 8.5 mg/dL 7.6-11.0 [facility] Serum or plasma urea nitroge n measurement (mass/volume)Ordered By: Jimenez Renee on 09-12-2024 Urea nitrogen [Mass/Vol] 92 mg/dL High 4-19 [facility] Sodium levelOrdered By: Jimenez Renee on 09-12-2024 Sodium [Moles/Vol] 154 mmol/L High 133-145 [facility] Renal Profileon 09-11-2024 Albumin [Mass/Vol] 3.3 g/dL Low 3.5-5.0 [facility] Comment on above: Performed By: #### L 501.080 #### [facility] [address] [place], [address] BUN/CRE 52.7 RATIO High 10-20 [facility] Comment on above: Performed By: #### L 501.080 #### [facility] [address] [place], [address] Calcium [Mass/Vol] 8.6 mg/dL Normal 7.6-11.0 [facility] Comment on above: Performed By: #### L 501.080 #### [facility] [address] [place], [address] Chloride [Moles/Vol] 110 mmol/L High 98-[address] [facility] Comment on above: Performed By: #### L 501.080 #### [facility] [address] [place], [address] CO2 [Moles/Vol] 19.6 mmol/L Low 21.0-32.0 [facility] Comment on above: Performed By: #### L 501.080 #### [facility] [address] [place], [address] Creatinine [Mass/Vol] 2.96 mg/dL High 0.70-1.20 [facility] Comment on above: Performed By: #### L 501.080 #### [facility] [address] [place], [address] ECRCL 26.04 ml/min Low 50-250 [facility] Comment on above: Performed By: #### L 501.080 #### [facility] [address] [place], [address] GAP 14 Normal 5-15 [facility] Comment on above: Performed By: #### L 501.080 #### [facility] [address] [place], [address] GFR/1.73 sq M.predicted among non-blacks MDRD (S/P/Bld) [Vol rate/Area] 24 mL/min/{1.73_m2} Low >60 [facility] Comment on above: Result Comment: mL/m in/1.73m2 CKD-EPI Creatinine Equation (2020) Performed By: #### L 501.080 #### [facility] [address] [place], [address] Glucose [Mass/Vol] 153 mg/dL High 70-99 [facility] Comment on above: Performed By: #### L 501.080 #### [facility] [address] [place], [address] Potassium [Moles/Vol] 3.3 mmol/L Normal 3.3-5.1 [facility] Comment on above: Result Comment: Hemo lysis present, Results??could be affected. ?? Performed By: #### L 501.080 #### [facility] [address] [place], [address] Sodium [Moles/Vol] 144 mmol/L Normal 133-145 [facility] Comment on above: Performed By: #### L 501.080 #### [facility] [address] [place], [address] Urea nitrogen [Mass/Vol] 156 mg/dL Invalid Interpretation Code 4- [facility] Comment on above: Result Comment: Crit ical Result(s) Called at: 09/11/2024-03:56 by: Ignacio Michelle to Debi Marcelo??Results read back by same. Performed By: #### L 501.080 #### [facility] [address] [place], [address] Serum or plasma albumin agueda urement (mass/volume)Ordered By: Keyur Manning on 09-11-2024 Albumin [Mass/Vol] 3.3 g/dL Low 3.5-5.0 [facility] 12 Lead EKGon 09-10-2024 12 Lead EKG [facility] Cardiovascular Services [address] [place] [address] 12 Lead EKG 09/10/24 1156 MR#: [id number] Acct: [id number] Name: KESHAV ARMSTRONG Rep #: [id number] : 1970 53 From: Tu Feliciano MD Attending Dr: Dr. Jimenez Renee DO Status: D IS IN Ordering Dr: Luis Torres MD Date: 09/10/24 Location: [facility] Sex: M C Admitted: 09/09/24 Test Reason [...] UNCONFIRMED Confirmed by BRADEN PINTO, TU ([id number]), general expeditor VARUN MACK ([id number]) on 09/14/2024 9:47:35 AM Referred By: Confirmed By: TU FELICIANO MD 09/14/24 0947 Date Tu Feliciano MD CC: Dr. Luis Torres MD; Dr. Jimenez Renee DO; No Primary Care Physician Signed Normal [facility] Absolute lymphocyte countOrd ered By: Abbie Michelle on 09-10-2024 Lymphocytes Auto (Unsp spec) [#/Vol] 0.87 10*3/uL 0.83-4.51 [facility] Absolute neutrophil countOrd ered By: Abbie Michelle on 09-10-2024 Neutrophils (Bld) [#/Vol] 8.2 10*3/uL High 2.0-7.7 [facility] Automated lymphocyte count a s percentage of total leukocytesOrdered By: Abbie Michelle on 09-10-2024 Lymphocytes/100 WBC Auto (Unsp spec) 8.9 % Low 19-41 [facility] Basic Metabolic Profile (BMP )on 09-10-2024 BUN/CRE 35.0 RATIO High 10-20 [facility] Comment on above: Performed By: #### L 501.9985 #### [facility] [address] [place], [address] Calcium [Mass/Vol] 8.6 mg/dL Normal 7.6-11.0 [facility] Comment on above: Performed By: #### L 501.9985 #### [facility] [address] [place], [address] Chloride [Moles/Vol] 102 mmol/L Normal 98-[address] [facility] Comment on above: Performed By: #### L 501.9985 #### [facility] [address] [place], [address] CO2 [Moles/Vol] 18.2 mmol/L Low 21.0-32.0 [facility] Comment on above: Performed By: #### L 501.9985 #### [facility] [address] [place], [address] Creatinine [Mass/Vol] 5.83 mg/dL High 0.70-1.20 [facility] Comment on above: Performed By: #### L 501.9985 #### [facility] [address] [place], [address] ECRCL 13.22 ml/min Low 50-250 [facility] Comment on above: Performed By: #### L 501.9985 #### [facility] [address] [place], [address] GAP 19 High 5-15 [facility] Comment on above: Performed By: #### L 501.9985 #### [facility] [address] [place], [address] GFR/1.73 sq M.predicted among non-blacks MDRD (S/P/Bld) [Vol rate/Area] 11 mL/min/{1.73_m2} Low >60 [facility] Comment on above: Result Comment: mL/m in/1.73m2 CKD-EPI Creatinine Equation (2020) Performed By: #### L 501.9985 #### [facility] [address] [place], [address] Glucose [Mass/Vol] 108 mg/dL High 70-99 [facility] Comment on above: Performed By: #### L 501.9985 #### [facility] [address] [place], [address] Potassium [Moles/Vol] 3.2 mmol/L Low 3.3-5.1 [facility] Comment on above: Performed By: #### L 501.9985 #### [facility] [address] [place], [address] Sodium [Moles/Vol] 140 mmol/L Normal 133-145 [facility] Comment on above: Performed By: #### L 501.9985 #### [facility] [address] [place], [address] Urea nitrogen [Mass/Vol] 204 mg/dL Invalid Interpretation Code 4-19 [facility] Comment on above: Result Comment: Crit ical Result(s) Called at 1020: by: KEYUR HURD. ??Results read back by same. Performed By: #### L 501.9985 #### [facility] [address] [place], [address] BUN/CRE 30.5 RATIO High 10-20 [facility] Comment on above: Order Comment: Comme nts: May add to ED labs Performed By: #### L 501.2300 #### [facility] [address] [place], [address] Calcium [Mass/Vol] 8.2 mg/dL Normal 7.6-11.0 [facility] [facility] Comment on above: Order Comment: Comme nts: May add to ED labs Performed By: #### L [id number] #### [facility] [address] [place], [address] Chloride [Moles/Vol] 98 mmol/L Normal 98-[address] [facility] Comment on above: Order Comment: Comme nts: May add to ED labs Performed By: #### L [id number] #### [facility] [address] [place], [address] CO2 [Moles/Vol] 17.4 mmol/L Low 21.0-32.0 [facility] Comment on above: Order Comment: Comme nts: May add to ED labs Performed By: #### L [id number] #### [facility] [address] [place], [address] Creatinine [Mass/Vol] 7.18 mg/dL High 0.70-1.20 [facility] Comment on above: Order Comment: Comme nts: May add to ED labs Performed By: #### L [id number] #### [facility] [address] [place], [address] ECRCL 10.74 ml/min Low 50-250 [facility] Comment on above: Order Comment: Comme nts: May add to ED labs Performed By: #### L [id number] #### [facility] [address] [place], [address] GAP 21 High 5-15 [facility] Comment on above: Order Comment: Comme nts: May add to ED labs Performed By: #### L [id number] #### [facility] [address] [place], [address] GFR/1.73 sq M.predicted among non-blacks MDRD (S/P/Bld) [Vol rate/Area] 8 mL/min/{1.73_m2} Low >60 [facility] Comment on above: Order Comment: Comme nts: May add to ED labs Result Comment: mL/m in/1.73m2 CKD-EPI Creatinine Equation (2020) Performed By: #### L [id number] #### [facility] [address] [place], [address] Glucose [Mass/Vol] 176 mg/dL High 70-99 [facility] Comment on above: Order Comment: Comme nts: May add to ED labs Performed By: #### L [id number] #### [facility] [address] [place], [address] Potassium [Moles/Vol] 2.5 mmol/L Invalid Interpretation Code 3.3-5.1 [facility] Comment on above: Order Comment: Comme nts: May add to ED labs Result Comment: Crit ical Result(s) Called at: by:??Results read back by same. Performed By: #### L [id number] #### [facility] [address] [place], [address] Sodium [Moles/Vol] 137 mmol/L Normal 133-145 [facility] Comment on above: Order Comment: Comme nts: May add to ED labs Performed By: #### L 501.2300 #### [facility] [address] [place], [address] Urea nitrogen [Mass/Vol] 219 mg/dL Invalid Interpretation Code 4-19 [facility] Comment on above: Order Comment: Comme nts: May add to ED labs Result Comment: Crit ical Result(s) Called at: 0237 by:??BELINDA ROMERON TO GALLITO LOWDEN Results read back by same. Performed By: #### L [id number] #### [facility] [address] [place], [address] Basophil percentageOrdered B y: Abbie White on 09-10-2024 Basophils/100 WBC (Bld) 0.4 % 0-1 [facility] Bedside Glucoseon 09-10-2024 FINGERSTICK GLU 102 mg/dL Normal 74-106 [facility] Comment on above: Result Comment: JAZMIN GEMENT OF PATIENT CARE PER NURSING PROTOCOL Performed By: #### L 501.2300 #### [facility] [address] [place], [address] FINGERSTICK GLU 110 mg/dL High 74-106 [facility] Comment on above: Result Comment: JAZMIN GEMENT OF PATIENT CARE PER NURSING PROTOCOL Performed By: #### L 501.080 #### [facility] [address] [place], [address] FINGERSTICK GLU 99 mg/dL Normal 74-106 [facility] Comment on above: Result Comment: JAZMIN GEMENT OF PATIENT CARE PER NURSING PROTOCOL Performed By: #### L 501.080 #### [facility] [address] [place], [address] FINGERSTICK GLU 79 mg/dL Normal 74-106 [facility] Comment on above: Result Comment: JAZMIN GEMENT OF PATIENT CARE PER NURSING PROTOCOL Performed By: #### L 501.080 #### [facility] [address] [place], [address] FINGERSTICK GLU 83 mg/dL Normal 74-106 [facility] Comment on above: Result Comment: JAZMIN GEMENT OF PATIENT CARE PER NURSING PROTOCOL Performed By: #### L 501.080 #### [facility] [address] [place], [address] FINGERSTICK GLU 92 mg/dL Normal 74-106 [facility] Comment on above: Result Comment: JAZMIN GEMENT OF PATIENT CARE PER NURSING PROTOCOL Performed By: #### L 501.080 #### [facility] [address] [place], [address] FINGERSTICK GLU 100 mg/dL Normal 74-106 [facility] Comment on above: Result Comment: JAZMIN GEMENT OF PATIENT CARE PER NURSING PROTOCOL Performed By: #### L 501.080 #### [facility] [address] [place], [address] FINGERSTICK GLU 169 mg/dL High 74-106 [facility] Comment on above: Result Comment: JAZMIN GEMENT OF PATIENT CARE PER NURSING PROTOCOL Performed By: #### L [id number] #### [facility] [address] [place], [address] FINGERSTICK GLU 137 mg/dL High 74-106 [facility] Comment on above: Result Comment: JAZMIN GEMENT OF PATIENT CARE PER NURSING PROTOCOL Performed By: #### L [id number] #### [facility] [address] [place], [address] FINGERSTICK GLU 132 mg/dL High 74-106 [facility] Comment on above: Result Comment: JAZMIN GEMENT OF PATIENT CARE PER NURSING PROTOCOL Performed By: #### L [id number] #### [facility] [address] [place], [address] FINGERSTICK GLU 163 mg/dL High 74-106 [facility] Comment on above: Result Comment: JAZMIN GEMENT OF PATIENT CARE PER NURSING PROTOCOL Performed By: #### L [id number] #### [facility] [address] [place], [address] FINGERSTICK GLU 59 mg/dL Low 74-106 [facility] Comment on above: Result Comment: JAZMIN GEMENT OF PATIENT CARE PER NURSING PROTOCOL Performed By: #### L 501.080 #### [facility] [address] [place], [address] Bilirubin, totalOrdered By: Abbie Michelle on 09-10-2024 Bilirubin [Mass/Vol] 0.86 mg/dL 0.00-1.[address] [facility] CBC W/Diff, Automatedon 08-27 Absolute Lymph 0.87 X10 3/uL Normal 0.83-4.51 [facility] Comment on above: Performed By: #### L 501.080 #### [facility] [address] [place], [address] Absolute Neut 8.2 X10 3/uL High 2.0-7.7 [facility] Comment on above: Performed By: #### L 501.080 #### [facility] [address] [place], [address] Basophils/100 WBC (Bld) 0.4 % Normal 0-1 [facility] Comment on above: Performed By: #### L [id number] #### [facility] [address] [place], [address] Eosinophils/100 WBC (Bld) 1.3 % Normal 0-5 [facility] Comment on above: Performed By: #### L 501.080 #### [facility] [address] [place], [address] Erythrocyte distribution width (RBC) [Ratio] 13.2 % Normal 11.6-14.6 [facility] Comment on above: Performed By: #### L 501.080 #### [facility] [address] [place], [address] Hematocrit (Bld) [Volume fraction] 36.9 % Low 40-54 [facility] Comment on above: Performed By: #### L 501.080 #### [facility] [address] [place], [address] Hemoglobin (Bld) [Mass/Vol] 13.4 g/dL Normal 13.0-16.5 [facility] Comment on above: Performed By: #### L 501.080 #### [facility] [address] [place], [address] IG% 0.200 Normal 0.0-0.9 [facility] Comment on above: Result Comment: IG% - Immature Granulocytes (promyelocytes, myelocytes and metamyelocytes) > 1% indicates that a LEFT SHIFT is Present. Performed By: #### L 501.080 #### [facility] [address] [place], [address] Lymphocytes/100 WBC (Bld) 8.9 % Low 19-41 [facility] Comment on above: Performed By: #### L [id number] #### [facility] [address] [place], [address] MCH (RBC) [Entitic mass] 29.0 pg Normal 27.0-32.0 [facility] Comment on above: Performed By: #### L [id number] #### [facility] [address] [place], [address] MCHC (RBC) [Mass/Vol] 36.3 g/dL High 32-36 [facility] Comment on above: Performed By: #### L [id number] #### [facility] [address] [place], [address] MCV (RBC) [Entitic vol] 79.9 fL Low 80-94 [facility] Comment on above: Performed By: #### L [id number] #### [facility] [address] [place], [address] Monocytes/100 WBC (Bld) 5.6 % Normal 0-10 [facility] Comment on above: Performed By: #### L [id number] #### [facility] [address] [place], [address] Neutrophils/100 WBC (Bld) 83.6 % High 47-70 [facility] Comment on above: Performed By: #### L 501.080 #### [facility] [address] [place], [address] Nucleated RBC (Bld) [#/Vol] 0 10*3/uL Normal 0-5 [facility] Comment on above: Performed By: #### L [id number] #### [facility] [address] [place], [address] Platelet mean volume (Bld) [Entitic vol] 12.4 fL High 6.2-12.0 [facility] Comment on above: Performed By: #### L [id number] #### [facility] [address] [place], [address] Platelets (Bld) [#/Vol] 141 10*3/uL Low 150-450 [facility] Comment on above: Performed By: #### L 501.080 #### [facility] [address] [place], [address] RBC (Bld) [#/Vol] 4.62 10*6/uL Normal 4.6-6.2 [facility] Comment on above: Performed By: #### L 501.080 #### [facility] [address] [place], [address] RDW SD 37.7 fl Normal 35.1-43.9 [facility] Comment on above: Performed By: #### L 501.080 #### [facility] [address] [place], [address] WBC (Bld) [#/Vol] 9.8 10*3/uL Normal 4.4-11.0 [facility] Comment on above: Performed By: #### L 501.080 #### [facility] [address] [place], [address] Comprehensive Metabolic Prof ilnelsy 09-10-2024 Albumin [Mass/Vol] 3.5 g/dL Normal 3.5-5.0 [facility] Comment on above: Order Comment: Call MD with results STAT Performed By: #### L [id number] #### [facility] [address] [place], [address] Albumin/Globulin [Mass ratio] 1.8 {ratio} Normal 0.9-2.4 [facility] Comment on above: Order Comment: Call MD with results STAT Performed By: #### L [id number] #### [facility] [address] [place], [address] ALK PHOS 60 U/L Normal 40-129 [facility] Comment on above: Order Comment: Call MD with results STAT Performed By: #### L [id number] #### [facility] [address] [place], [address] ALT [Catalytic activity/Vol] 10 U/L Normal <=46 [facility] Comment on above: Order Comment: Call MD with results STAT Performed By: #### L [id number] #### [facility] [address] [place], [address] AST [Catalytic activity/Vol] 9 U/L Normal <=37 [facility] Comment on above: Order Comment: Call MD with results STAT Performed By: #### L [id number] #### [facility] [address] [place], [address] Bilirubin [Mass/Vol] 0.86 mg/dL Normal 0.00-1.[address] [facility] Comment on above: Order Comment: Call MD with results STAT Performed By: #### L [id number] #### [facility] [address] [place], [address] BUN/CRE 33.1 RATIO High 10-20 [facility] Comment on above: Order Comment: Call MD with results STAT Performed By: #### L [id number] #### [facility] [address] [place], [address] Calcium [Mass/Vol] 8.6 mg/dL Normal 7.6-11.0 [facility] Comment on above: Order Comment: Call MD with results STAT Performed By: #### L [id number] #### [facility] [address] [place], [address] Chloride [Moles/Vol] 101 mmol/L Normal 98-[address] [facility] Comment on above: Order Comment: Call MD with results STAT Performed By: #### L [id number] #### [facility] [address] [place], [address] CO2 [Moles/Vol] 17.3 mmol/L Low 21.0-32.0 [facility] Comment on above: Order Comment: Call MD with results STAT Performed By: #### L [id number] #### [facility] [address] [place], [address] Creatinine [Mass/Vol] 6.53 mg/dL High 0.70-1.20 [facility] Comment on above: Order Comment: Call MD with results STAT Performed By: #### L [id number] #### [facility] [address] [place], [address] ECRCL 11.81 ml/min Low 50-250 [facility] Comment on above: Order Comment: Call MD with results STAT Performed By: #### L [id number] #### [facility] [address] [place], [address] GAP 22 High 5-15 [facility] Comment on above: Order Comment: Call MD with results STAT Performed By: #### L [id number] #### [facility] [address] [place], [address] GFR/1.73 sq M.predicted among non-blacks MDRD (S/P/Bld) [Vol rate/Area] 9 mL/min/{1.73_m2} Low >60 [facility] Comment on above: Order Comment: Call MD with results STAT Result Comment: mL/m in/1.73m2 CKD-EPI Creatinine Equation (2020) Performed By: #### L [id number] #### [facility] [address] [place], [address] Globulin (S) [Mass/Vol] 2.0 g/dL Low 2.2-4.2 [facility] Comment on above: Order Comment: Call MD with results STAT Performed By: #### L [id number] #### [facility] [address] [place], [address] Glucose [Mass/Vol] 90 mg/dL Normal 70-99 [facility] Comment on above: Order Comment: Call MD with results STAT Performed By: #### L [id number] #### [facility] [address] [place], [address] Potassium [Moles/Vol] 2.5 mmol/L Invalid Interpretation Code 3.3-5.1 [facility] Comment on above: Order Comment: Call MD with results STAT Result Comment: Crit ical Result(s) Called at 0651: by: KEYUR ZAMORA TO [facility]. ??Results read back by same. Critical Result(s) Called at: by:??Results read back by same. Critical Result(s) Called at: by:??Results read back by same. Performed By: #### L [id number] #### [facility] [address] [place], [address] Sodium [Moles/Vol] 140 mmol/L Normal 133-145 [facility] Comment on above: Order Comment: Call MD with results STAT Performed By: #### L [id number] #### [facility] [address] [place], [address] T PROT 5.5 g/dL Low 5.9-8.4 [facility] Comment on above: Order Comment: Call MD with results STAT Performed By: #### L [id number] #### [facility] [address] [place], [address] Urea nitrogen [Mass/Vol] 216 mg/dL Invalid Interpretation Code 08-15 [facility] Comment on above: Order Comment: Call MD with results STAT Result Comment: CRIT ICAL RESULT CALLED TO LUIS FERNANDOEVERPIA BY KEYUR ZAMORA. RESULTS READ BACK BY SAME. 0655 Critical Result(s) Called at: by:??Results read back by same. Performed By: #### L [id number] #### [facility] [address] [place], [place], [address] Consultation - Nephrologyon 09-10-2024 Consultation - Nephrology [facility] Medical Records Department [address] [place] [address] Consultation - Nephrology 09/10/24 1446 MR#: [id number] Acct: [id number] Name: KESHAV ARMSTRONG Rep #: [id number] : 1970 53 From: Keyur MCKEON PCP: Care Physician,No Primary Status:ADM IN Location: [place] [address] Assessment Plan Assessment/Plan (1) Acute renal failure: [...] medications. Denies hematuria. Denies arthralgias. Denies rash. [facility] Medical History No significant past medical history [...] Sl. Cloudy, Urine pH 6.0, Ur Specific Lane 1.020, Urine Protein 30 H, Urine Glucose [...] 28.5 H, (more content not included)... Normal [facility] EGD Reporton 09-10-2024 EGD Report [facility] Medical Records Department [address] [place] [address] EGD Report MR#: [id number] Acct: [id number] Name: KESHAV ARMSTRONG Rep #: [id number] : 1970 53 From: Alo Cronin DO [...] pathology results. Procedure Code(s): --- Professional --- 77009, Esophagogastroduode noscopy, flexible, transoral; with insertion of guide wire followed by passage of dilator(s) through esophagus over guide wire 69792, 59,51, Esophagogastroduode noscopy, flexible, transoral; with biopsy, single or multiple CPT copyright 2021 [employer]. All rights reserved. The codes documented in this report are preliminary and upon platform mill supervisor review may be revised to meet current compliance requirements. Alo Cronin DO 09/10/2024 12:55:52 PM This report has been signed electronically. Number of Addenda: 0 Note Initiated On: 09/10/2024 12:22 PM 09/10/24 1255 Date Alo Cat Signature: Date (if indicated) CC: No Primary Care Physician; Alo Friend, DO Date Dictated: 09/10/24 1222 Date Transcribed: Qa Consultant: MILDRED Signed Normal [facility] Eosinophil percentageOrdered By: Abbie Michelle on 09-10-2024 Eosinophils/100 WBC (Bld) 1.3 % 0-5 [facility] Erythrocyte distribution wid th ratioOrdered By: Abbie Miguel Angel on 09-10-2024 Erythrocyte distribution width (RBC) [Ratio] 13.2 % 11.6-14.6 [facility] Erythrocyte distribution wid th standard deviationOrdered By: Abbie Michelle on 09-10-2024 Erythrocyte distribution width (RBC) [Ratio] 37.7 fl 35.1-43.9 [facility] deOrdered By: Jimenez Renee on 09-10-2024 Glucose [Mass/Vol] 102 mg/dL 74-106 [facility] Comment on above: MANAGEMENT OF PATIEN T CARE PER NURSING PROTOCOL Hematocrit Auto (Bld) [Volum e fraction]Ordered By: Abbie Michelle on 09-10-2024 Hematocrit (Bld) [Volume fraction] 36.9 % Low 40-54 [facility] Hemoglobin measurementOrdere d By: Abbie Michelle on 09-10-2024 Hemoglobin (Bld) [Mass/Vol] 13.4 g/dL 13.0-16.5 [facility] Immature granulocytes/100 WB C Auto (Bld)Ordered By: Abbie Michelle on 09-10-2024 Immature granulocytes/100 WBC (Bld) 0.200 % 0.0-0.9 [facility] Comment on above: IG% - Immature Granu locytes (promyelocytes, myelocytes and metamyelocytes) > 1% indicates that a LEFT SHIFT is Present. Laboratory - Chemistry and C hemistry - challengeOrdered By: Abbie Michelle on 09-10-2024 AST [Catalytic activity/Vol] 9 U/L <38 [facility] MCV (mean corpuscular volume ) determinationOrdered By: Abbie Michelle on 09-10-2024 MCV (RBC) [Entitic vol] 79.9 fL Low 80-94 [facility] MR/POSTOP.ANEon 09-10-2024 MR/POSTOP.ANE [facility] Medical Records Department [address] [place] [address] Anesthesia Postop Eval I 09/10/24 1259 MR#: [id number] Acct: [id number] Name: KESHAV ARMSTRONG Rep #: [id number] : 1970 53 From: To Green PCP: Care Physician,No Primary Status:ADM IN Y Race: C Location: ICU ICU06 Anesthesia: Postop Eval I Current Vital Signs [...] 1 completed: Yes 09/10/24 1300 Date To Child Signature: Date CC: Signed Normal [facility] MR/[id number] 09-10-2024 [facility] Medical Records Department [address] [place] [address] Anesthesia Postop Eval II 09/10/24 1435 MR#: [id number] Acct: [id number] Name: KESHAV ARMSTRONG Rep #: [id number] : 1970 53 From: Luis Torres MD [...] Anesthesia Complication: No 09/10/24 1435 Date Luis Child Signature: Date CC: Signed Normal [facility] Magnesiumon 09-10-2024 Magnesium [Mass/Vol] 3.5 mg/dL High 1.5-2.[address] [facility] Comment on above: Performed By: #### L [id number] #### [facility] [address] [place] [address], [address] Magnesium measurement (mass/ volume)Ordered By: Abbie Michelle on 09-10-2024 Magnesium (Unsp spec) [Mass/Vol] 3.5 mg/dL High 1.5-2.2 [facility] Mean corpuscular hemoglobin (MCH) determinationOrdered By: Abbie Michelle on 09-10-2024 MCH (RBC) [Entitic mass] 29.0 pg 27.0-32.0 [facility] Mean corpuscular hemoglobin concentration (MCHC) determinationOrdered By: Abbie Michelle on 09-10-2024 MCHC (RBC) [Mass/Vol] 36.3 g/dL High 32-36 [facility] Mean platelet volume determi nationOrdered By: Abbie White on 09-10-2024 Platelet mean volume (Bld) [Entitic vol] 12.4 fL High 6.2-12.0 [facility] Monocyte percentageOrdered B y: Abbie White on 09-10-2024 Monocytes/100 WBC (Bld) 5.6 % 0-10 [facility] Neutrophil percentageOrdered By: White on 09-10-2024 Neutrophils/100 WBC (Bld) 83.6 % High 47-70 [facility] Nucleated red blood cell per centageOrdered By: Abbie White on 09-10-2024 Nucleated RBC/100 WBC (Bld) [Ratio] 0 % 0-5 [facility] Phosphoruson 09-10-2024 Phosphate [Mass/Vol] 3.7 mg/dL Normal 2.7-4.[address] [facility] Comment on above: Performed By: #### L [id number] #### [facility] [address] [place] [address], [id number] Platelet countOrdered By: Nette halima Miguel Angel on 09-10-2024 Platelets (Bld) [#/Vol] 141 10*3/uL Low 150-450 [facility] RBC Auto (Bld) [#/Vol]Ordere d By: Abbie White on 09-10-2024 RBC (Bld) [#/Vol] 4.62 10*6/uL 4.6-6.2 [facility] Serum globulin measurementOr dered By: Abbie White on 09-10-2024 Globulin (S) [Mass/Vol] 2.0 g/dL Low 2.2-4.2 [facility] Serum or plasma alanine rea otransferase (ALT) measurementOrdered By: Abbie White on 09-10-2024 ALT [Catalytic activity/Vol] 10 U/L <47 [facility] Serum or plasma albumin/glob ulin mass ratioOrdered By: White on 09-10-2024 Albumin/Globulin [Mass ratio] 1.8 {ratio} 0.9-2.4 [facility] Serum or plasma alkaline radha sphatase measurementOrdered By: Abbie White on 09-10-2024 ALP [Catalytic activity/Vol] 60 U/L 40-129 [facility] Surgery Specimen Level Meli 09-10-2024 Surgery Specimen Level IV Patient Age/Sex Location Account Attending Physician KESHAV ARMSTRONG 53/M [facility] [id number] Dr. Jimenez Renee DO Specimen: [id number] Received: 09/10/24 Status: RADHA Billingsley Num: [id number] Spec Type: EGD BIOPSY Subm Dr: Alo Cronin DO HEADER OPERATION: EGD with biopsy and dilitation PRE-OP DIAGNOSIS: Nausea/vomiting TISSUE SUBMITTED: A- Distal esophagus biopsy MICROSCOPIC DIAGNOSIS A. Esophagus, distal, biopsy: Squamous mucosa with mild reactive changes. Negative for eosinophils. MICROSCOPIC DESCRIPTION Slides are reviewed. GROSS DESCRIPTION A. Received in formalin in a container labeled with the patient's name, date of , and distal esophagus biopsy are 2 rizo-pink fragments of mucosal tissue each measuring 0.5 x 0.2 x 0.2 cm. Submitted in toto in A1. [facility] 09-10-[address] [facility]:[id number] Patient Age/Sex Location Account Attending Physician KESHAV ARMSTRONG 53/M [facility] [id number] Dr. Jimenez Renee DO Signed (signatur e on file) Dr. Eliza Kay MD 09/22/24 1702 Normal [facility] Comment on above: Performed By: #### L 501.080 #### [facility] [address] [place], [address] Total proteinOrdered By: Nilda Michelle on 09-10-2024 Protein [Mass/Vol] 5.5 g/dL Low 5.9-8.4 [facility] White blood cell (WBC) count Ordered By: Abbie Michelle on 09-10-2024 WBC (Bld) [#/Vol] 9.8 10*3/uL 4.4-11.0 [facility] 12 Lead EKGon 09-09-2024 12 Lead EKG [facility] Cardiovascular Services [address] [place] [address] 12 Lead EKG 09/09/24 1455 MR#: [id number] Acct: [id number] Name: KESHAV ARMSTRONG Rep #: [id number] : 1970 53 From: Tu Feliciano MD Attending Dr: Dr. Jimenez Renee DO Status: D IS IN Ordering Dr: Lata Duron DO Date: 09/09/24 Location: [facility] Sex: M C Admitted: 09/09/24 Test Reason : Blood Pressure : */* mmHG Vent. Rate : 86 BPM Atrial Rate : 86 BPM P-R Int : 154 ms QRS Dur : 96 ms QT Int : 458 ms P-R-T Axes : 43 2 60 degrees QTcB Int : 548 ms Normal sinus rhythm Prolonged QT Abnormal ECG Confirmed by TU FELICIANO MD ([id number]), general expeditor VARUN MACK ([id number]) on 09/14/2024 9:02:13 AM Referred By: CHRISTOFER/ORLANDO Confirmed By: TU FELICIANO MD 09/14/24 0902 Date Tu Feliciano MD CC: Dr. Jimenez Renee, DO; Dr. Lata Duron, DO; No Primary Care Physician Signed Normal [facility] Abdomen/Pelvis W IV Cont ONL Yon 09-09-2024 Abdomen/Pelvis W IV Cont ONLY [facility] Imaging Services [address] [place], [place] [address] Abdomen/Pelvis W IV Cont ONLY MR#: [id number] Acct: [id number] Name: KESHAV ARMSTRONG Rep #: [id number] : 1970 M 53 From: Yuri Mazariegos MD PCP: Care Physician,No Primary Status: REG ER Study: Abdomen/Pelvis W IV Cont ONLY Date of Exam: Exam# [id number] Ordering Dr: Lata Duron DO PROCEDURE: ABDOMEN/PELVIS [...] Lata Duron, DO; No Primary Care Physician Qa Consultant: Signed Normal [facility] Absolute lymphocyte countOrd ered By: Lata Duron on 09-09-2024 Lymphocytes Auto (Unsp spec) [#/Vol] 0.69 10*3/uL Low 0.83-4.51 [facility] Absolute neutrophil countOrd ered By: Lata Duron on 09-09-2024 Neutrophils (Bld) [#/Vol] 10.3 10*3/uL High 2.0-7.7 [facility] Amorphous sediment detection in urine sediment by light microscopyOrdered By: Lata Duron on 09-09-2024 Amorphous sediment LM Ql (Urine sed) 1+ [facility] Anion gap in Serum or Plasma Ordered By: Lata Duron on 09-09-2024 Anion gap [Moles/Vol] 40 mmol/L High 5-15 [facility] Assessment of wrist artery p atency prior to arterial punctureOrdered By: Abbie Michelle on 09-09-2024 Arterial patency Wrist artery --pre arterial puncture Positive [facility] Automated lymphocyte count a s percentage of total leukocytesOrdered By: Lata Duron on 09-09-2024 Lymphocytes/100 WBC Auto (Unsp spec) 5.9 % Low 19-41 [facility] BUN/creatinine ratioOrdered By: Lata Duron on 09-09-2024 Urea nitrogen/Creatinine [Mass ratio] 23.2 mg/mg High 10-20 [facility] Basic Metabolic Profile (BMP )on 09-09-2024 BUN/CRE 28.5 RATIO High 10-20 [facility] Comment on above: Order Comment: Call MD with results STAT Performed By: #### L 501.080 #### [facility] [address] [place], [address] Calcium [Mass/Vol] 8.5 mg/dL Normal 7.6-11.0 [facility] Comment on above: Order Comment: Call MD with results STAT Performed By: #### L 501.080 #### [facility] [address] [place], [address] Chloride [Moles/Vol] 98 mmol/L Normal 98-[address] [facility] Comment on above: Order Comment: Call MD with results STAT Performed By: #### L 501.080 #### [facility] [address] [place], [address] CO2 [Moles/Vol] 17.4 mmol/L Low 21.0-32.0 [facility] Comment on above: Order Comment: Call MD with results STAT Performed By: #### L 501.080 #### [facility] [address] [place], [address] Creatinine [Mass/Vol] 8.06 mg/dL Invalid Interpretation Code 0.70-1.20 [facility] Comment on above: Order Comment: Call MD with results STAT Result Comment: Crit ical Result(s) Called at: by:??Results read back by same. Critical Result(s) Called at: 2150 by:??YESENIA BLACKWOOD TO PARMINDER TOURE Results read back by same. Performed By: #### L 501.080 #### [facility] [address] [place], [address] ECRCL 9.56 ml/min Invalid Interpretation Code 50-250 [facility] Comment on above: Order Comment: Call MD with results STAT Performed By: #### L 501.080 #### [facility] [address] [place], [address] GAP 24 High 5-15 [facility] Comment on above: Order Comment: Call MD with results STAT Performed By: #### L 501.080 #### [facility] [address] [place], [address] GFR/1.73 sq M.predicted among non-blacks MDRD (S/P/Bld) [Vol rate/Area] 7 mL/min/{1.73_m2} Low >60 [facility] Comment on above: Order Comment: Call MD with results STAT Result Comment: mL/m in/1.73m2 CKD-EPI Creatinine Equation (2020) Performed By: #### L 501.080 #### [facility] [address] [place], [address] Glucose [Mass/Vol] 105 mg/dL High 70-99 [facility] Comment on above: Order Comment: Call MD with results STAT Performed By: #### L 501.080 #### [facility] [address] [place], [address] Potassium [Moles/Vol] 2.5 mmol/L Invalid Interpretation Code 3.3-5.1 [facility] Comment on above: Order Comment: Call MD with results STAT Result Comment: Crit ical Result(s) Called at: 2150 by: YESENIA BLACKWOOD TO PARMINDER TOURE??Results read back by same. Performed By: #### L 501.080 #### [facility] [address] [place], [address] Sodium [Moles/Vol] 139 mmol/L Normal 133-145 [facility] Comment on above: Order Comment: Call MD with results STAT Performed By: #### L 501.080 #### [facility] [address] [place], [address] Urea nitrogen [Mass/Vol] 230 mg/dL Invalid Interpretation Code 4-19 [facility] Comment on above: Order Comment: Call MD with results STAT Result Comment: Crit ical Result(s) Called at: 2150 by:??YESENIA BLACKWOOD TO PARMINDER TOURE Results read back by same. Performed By: #### L 501.080 #### [facility] [address] [place], [address] BUN/CRE 25.1 RATIO High 10-20 [facility] Comment on above: Order Comment: Call MD with results STAT Performed By: #### L 501.080 #### [facility] [address] [place], [address] Calcium [Mass/Vol] 9.6 mg/dL Normal 7.6-11.0 [facility] Comment on above: Order Comment: Call MD with results STAT Performed By: #### L 501.080 #### [facility] [address] [place], [address] Chloride [Moles/Vol] 89 mmol/L Low 98-[address] [facility] Comment on above: Order Comment: Call MD with results STAT Performed By: #### L 501.080 #### [facility] [address] [place], [address] CO2 [Moles/Vol] 16.8 mmol/L Low 21.0-32.0 [facility] Comment on above: Order Comment: Call MD with results STAT Performed By: #### L 501.080 #### [facility] [address] [place], [address] Creatinine [Mass/Vol] 9.67 mg/dL Invalid Interpretation Code 0.70-1.20 [facility] Comment on above: Order Comment: Call MD with results STAT Result Comment: Crit ical Result(s) Called at: by:??Results read back by same. Critical Result(s) Called at: 1732 by:??YESENIA CHÁVEZ Results read back by same. Performed By: #### L 501.080 #### [facility] [address] [place], [address] ECRCL 8.23 ml/min Invalid Interpretation Code 50-250 [facility] Comment on above: Order Comment: Call MD with results STAT Performed By: #### L 501.080 #### [facility] [address] [place], [address] GAP 33 High 5-15 [facility] Comment on above: Order Comment: Call MD with results STAT Performed By: #### L [id number] #### [facility] [address] [place], [address] GFR/1.73 sq M.predicted among non-blacks MDRD (S/P/Bld) [Vol rate/Area] 6 mL/min/{1.73_m2} Low >60 [facility] Comment on above: Order Comment: Call MD with results STAT Result Comment: mL/m in/1.73m2 CKD-EPI Creatinine Equation (2020) Performed By: #### L 501.080 #### [facility] [address] [place], [address] Glucose [Mass/Vol] 82 mg/dL Normal 70-99 [facility] Comment on above: Order Comment: Call MD with results STAT Performed By: #### L [id number] #### [facility] [address] [place], [address] Potassium [Moles/Vol] 2.5 mmol/L Invalid Interpretation Code 3.3-5.1 [facility] Comment on above: Order Comment: Call MD with results STAT Result Comment: Crit ical Result(s) Called at: 1732 by:??YESENIA BLACKWOOD TO SHAW CHÁVEZ Results read back by same. Performed By: #### L 501.080 #### [facility] [address] [place], [address] Sodium [Moles/Vol] 138 mmol/L Normal 133-145 [facility] Comment on above: Order Comment: Call MD with results STAT Performed By: #### L [id number] #### [facility] [address] [place], [address] Urea nitrogen [Mass/Vol] 243 mg/dL Invalid Interpretation Code 08-15 [facility] Comment on above: Order Comment: Call MD with results STAT Result Comment: Crit ical Result(s) Called at: 1732 by: YESENIA BLACKWOOD TO SHAW PARKERBER??Results read back by same. Performed By: #### L 501.080 #### [facility] [address] [place], [address] Basophil percentageOrdered B y: Remus Ungur on 09-09-2024 Basophils/100 WBC (Bld) 0.2 % 0-1 [facility] Bedside Glucoseon 09-09-2024 FINGERSTICK GLU 77 mg/dL Normal 74-106 [facility] Comment on above: Result Comment: JAZMIN GEMENT OF PATIENT CARE PER NURSING PROTOCOL Performed By: #### L [id number] #### [facility] [address] [place], [address] FINGERSTICK GLU 80 mg/dL Normal 74-106 [facility] Comment on above: Result Comment: JAZMIN GEMENT OF PATIENT CARE PER NURSING PROTOCOL Performed By: #### L 501.2300 #### [facility] [address] [place], [address] FINGERSTICK GLU 103 mg/dL Normal 74-106 [facility] Comment on above: Result Comment: JAZMIN GEMENT OF PATIENT CARE PER NURSING PROTOCOL Performed By: #### L [id number] #### [facility] [address] [place], [address] FINGERSTICK GLU 132 mg/dL High 74-106 [facility] Comment on above: Result Comment: JAZMIN GEMENT OF PATIENT CARE PER NURSING PROTOCOL Performed By: #### L [id number] #### [facility] [address] [place], [address] FINGERSTICK GLU 149 mg/dL High 74-106 [facility] Comment on above: Result Comment: JAZMIN GEMENT OF PATIENT CARE PER NURSING PROTOCOL Performed By: #### L 501.080 #### [facility] [address] [place], [address] FINGERSTICK GLU 181 mg/dL High 74-106 [facility] Comment on above: Result Comment: JAZMIN GEMENT OF PATIENT CARE PER NURSING PROTOCOL Performed By: #### L 501.080 #### [facility] [address] [place], [address] FINGERSTICK GLU 54 mg/dL Low 74-106 [facility] Comment on above: Result Comment: JAZMIN GEMENT OF PATIENT CARE PER NURSING PROTOCOL Performed By: #### L 501.080 #### [facility] [address] [place], [address] FINGERSTICK GLU 130 mg/dL High 74-106 [facility] Comment on above: Result Comment: JAZMIN GEMENT OF PATIENT CARE PER NURSING PROTOCOL Performed By: #### L [id number] #### [facility] [address] [place], [address] Beta-Hydroxbytyrateon 2024 BETA-HYDROXYBUT 3.5 mmol/L Normal 0.0-0.3 [facility] Comment on above: Order Comment: Comme nts: may add to ED labs Performed By: #### L 501.6901, L501.5200 #### [facility] [address] [place], [address] Beta-hydroxybutyrateOrdered By: Abbie White on 09-09-2024 Beta hydroxybutyrate [Mass/Vol] 3.5 mmol/L 0.0-0.3 [facility] Bilirubin Test strip Ql (U)O rdered By: Lata Duron on 09-09-2024 Bilirubin Ql (U) 1 mg/dL High Negative [facility] Comment on above: COLOR OF URINE MAY A FFECT DIPSTICK RESULTS. Bilirubin, totalOrdered By: Lata Duron on 09-09-2024 Bilirubin [Mass/Vol] 1.16 mg/dL 0.00-1.[address] [facility] Positive Normal [facility] Comment on above: Performed By: #### L [id number] #### [facility] [address] [place], [address] Base excess Calc (Bld) [Moles/Vol] -5 mmol/L Low -2 to +2 [facility] Comment on above: Performed By: #### L [id number] #### [facility] [address] [place], [address] Blood Gas Type ART Normal [facility] Comment on above: Performed By: #### L [id number] #### [facility] [address] [place], [address] CO2 [Moles/Vol] 19 mmol/L Normal [facility] Comment on above: Performed By: #### L [id number] #### [facility] [address] [place], [address] FI02 21.0 Normal [facility] Comment on above: Performed By: #### [id number] #### [facility] [address] [place], [address] HCO3 (Bld) [Moles/Vol] 17.9 mmol/L Low 22-26 [facility] Comment on above: Performed By: #### [id number] #### [facility] [address] [place], [address] Mode Not entered Normal [facility] Comment on above: Performed By: #### L [id number] #### [facility] [address] [place], [address] O2 Delivery Dev Not entered Normal [facility] Comment on above: Performed By: #### L [id number] #### [facility] [address], [address] pCO2 22.3 mmHg Low 35-45 [facility] Comment on above: Performed By: #### L [id number] #### [facility] [address] [place], [address] pH (Bld) 7.51 [pH] High 7.35-7.45 [facility] Comment on above: Performed By: #### L [id number] #### [facility] [address] [place], [address] PO2 113 mmHG High 75-100 [facility] Comment on above: Performed By: #### L [id number] #### [facility] [address] [place], [address] SITE R Radial Normal [facility] Comment on above: Performed By: #### L [id number] #### [facility] [address] [place], [address] SO2 99 Normal 95-99 [facility] Comment on above: Performed By: #### L [id number] #### [facility] [address] [place], [address] Blood base excess determinat ionOrdered By: Abbie Michelle on 09-09-2024 Base excess Calc (BldV) [Moles/Vol] -5 mmol/L Low -2-2 [facility] Blood bicarbonate measuremen tOrdered By: Abbie Michelle on 09-09-2024 HCO3 (Bld) [Moles/Vol] 17.9 mmol/L Low 22-26 [facility] CBC W/Diff, Automatedon 08-27 Hemoglobin (Bld) [Mass/Vol] 18.7 g/dL Invalid Interpretation Code 13.0-16.5 [facility] Comment on above: Result Comment: CRIT ICAL VALUE CALLED TO DANI FLOYD (ER) 09/09/24 1256 Benedict Bustos. RESULTS READ BACK BY SAME. Performed By: #### L 501.080 #### [facility] [address] [place], [address] Absolute Lymph 0.69 X10 3/uL Low 0.83-4.51 [facility] Comment on above: Performed By: #### L 501.080 #### [facility] [address] [place], [address] Absolute Neut 10.3 X10 3/uL High 2.0-7.7 [facility] Comment on above: Performed By: #### L 501.080 #### [facility] [address] [place], [address] Basophils/100 WBC (Bld) 0.2 % Normal 0-1 [facility] Comment on above: Performed By: #### L 501.080 #### [facility] [address] [place], [address] Eosinophils/100 WBC (Bld) 0.1 % Normal 0-5 [facility] Comment on above: Performed By: #### L [id number] #### [facility] [address] [place], [address] Erythrocyte distribution width (RBC) [Ratio] 13.1 % Normal 11.6-14.6 [facility] Comment on above: Performed By: #### L 501.080 #### [facility] [address] [place], [address] Hematocrit (Bld) [Volume fraction] 51.6 % Normal 40-54 [facility] Comment on above: Performed By: #### L 501.080 #### [facility] [address] [place], [address] IG% 0.400 Normal 0.0-0.9 [facility] Comment on above: Result Comment: IG% - Immature Granulocytes (promyelocytes, myelocytes and metamyelocytes) > 1% indicates that a LEFT SHIFT is Present. Performed By: #### L 501.080 #### [facility] [address] [place], [address] Lymphocytes/100 WBC (Bld) 5.9 % Low 19-41 [facility] Comment on above: Performed By: #### L 501.080 #### [facility] [address] [place], [address] MCH (RBC) [Entitic mass] 28.6 pg Normal 27.0-32.0 [facility] Comment on above: Performed By: #### L 501.080 #### [facility] [address] [place], [address] MCHC (RBC) [Mass/Vol] 36.2 g/dL High 32-36 [facility] Comment on above: Performed By: #### L [id number] #### [facility] [address] [place], [address] MCV (RBC) [Entitic vol] 78.9 fL Low 80-94 [facility] Comment on above: Performed By: #### L [id number] #### [facility] [address] [place], [address] Monocytes/100 WBC (Bld) 5.5 % Normal 0-10 [facility] Comment on above: Performed By: #### L 501.080 #### [facility] [address] [place], [address] Neutrophils/100 WBC (Bld) 87.9 % High 47-70 [facility] Comment on above: Performed By: #### L 501.080 #### [facility] [address] [place], [address] Nucleated RBC (Bld) [#/Vol] 0 10*3/uL Normal 0-5 [facility] Comment on above: Performed By: #### L 501.080 #### [facility] [address] [place], [address] Platelet mean volume (Bld) [Entitic vol] 13.8 fL High 6.2-12.0 [facility] Comment on above: Performed By: #### L [id number] #### [facility] [address] [place], [address] Platelets (Bld) [#/Vol] 206 10*3/uL Normal 150-450 [facility] Comment on above: Performed By: #### L 501.080 #### [facility] [address] [place], [address] RBC (Bld) [#/Vol] 6.54 10*6/uL High 4.6-6.2 [facility] Comment on above: Performed By: #### L 501.080 #### [facility] [address] [place], [address] RDW SD 36.9 fl Normal 35.1-43.9 [facility] Comment on above: Performed By: #### L 501.080 #### [facility] [address] [place], [address] WBC (Bld) [#/Vol] 11.7 10*3/uL High 4.4-11.0 [facility] Comment on above: Performed By: #### L 501.080 #### [facility] [address] [place], [address] Carbon dioxide, total [Moles /volume] in Central venous bloodOrdered By: Lata Duron on 09-09-2024 CO2 [Moles/Vol] 16.8 mmol/L Low 21.0-32.0 [facility] Chloride assayOrdered By: Margaux Duron on 09-09-2024 Chloride [Moles/Vol] 82 mmol/L Low 98-[address] [facility] Comprehensive Metabolic Prof ilon 09-09-2024 Albumin [Mass/Vol] 5.0 g/dL Normal 3.5-5.0 [facility] Comment on above: Performed By: #### L 501.080 #### [facility] [address] [place], [address] Albumin/Globulin [Mass ratio] 1.5 {ratio} Normal 0.9-2.4 [facility] Comment on above: Performed By: #### L 501.080 #### [facility] [address] [place], [address] ALK PHOS 91 U/L Normal 40-129 [facility] Comment on above: Performed By: #### L 501.080 #### [facility] [address] [place], [address] ALT [Catalytic activity/Vol] 17 U/L Normal <=46 [facility] Comment on above: Performed By: #### L 501.080 #### [facility] [address] [place], [address] AST [Catalytic activity/Vol] 9 U/L Normal <=37 [facility] Comment on above: Performed By: #### L 501.080 #### [facility] [address] [place], [address] Bilirubin [Mass/Vol] 1.16 mg/dL Normal 0.00-1.[address] [facility] Comment on above: Performed By: #### L 501.080 #### [facility] [address] [place], [address] BUN/CRE 23.2 RATIO High 10-20 [facility] Comment on above: Performed By: #### L 501.080 #### [facility] [address] [place], [address] Calcium [Mass/Vol] 10.6 mg/dL Normal 7.6-11.0 [facility] Comment on above: Performed By: #### L [id number] #### [facility] [address] [place], [address] Chloride [Moles/Vol] 82 mmol/L Low 98-[address] [facility] Comment on above: Performed By: #### L 501.080 #### [facility] [address] [place], [address] CO2 [Moles/Vol] 16.8 mmol/L Low 21.0-32.0 [facility] Comment on above: Performed By: #### L 501.080 #### [facility] [address] [place], [address] Creatinine [Mass/Vol] 10.70 mg/dL Invalid Interpretation Code 0.70-1.20 [facility] Comment on above: Result Comment: Crit ical Result(s) Called at: by:??Results read back by same. Critical Result(s) Called at 1354: by: KEYUR ZAMORA TO [facility]. ??Results read back by same. Performed By: #### L 501.080 #### [facility] [address] [place], [address] ECRCL 7.44 ml/min Invalid Interpretation Code 50-250 [facility] Comment on above: Performed By: #### L 501.080 #### [facility] [address] [place], [address] GAP 40 High 5-15 [facility] Comment on above: Performed By: #### L 501.080 #### [facility] [address] [place], [address] GFR/1.73 sq M.predicted among non-blacks MDRD (S/P/Bld) [Vol rate/Area] 5 mL/min/{1.73_m2} Low >60 [facility] Comment on above: Result Comment: mL/m in/1.73m2 CKD-EPI Creatinine Equation (2020) Performed By: #### L 501.080 #### [facility] [address] [place], [address] Globulin (S) [Mass/Vol] 3.3 g/dL Normal 2.2-4.2 [facility] Comment on above: Performed By: #### L 501.080 #### [facility] [address] [place], [address] Glucose [Mass/Vol] 190 mg/dL High 70-99 [facility] Comment on above: Performed By: #### L 501.080 #### [facility] [address] [place], [address] Potassium [Moles/Vol] 2.4 mmol/L Invalid Interpretation Code 3.3-5.1 [facility] Comment on above: Result Comment: Crit ical Result(s) Called at 1354: by: KEYUR ZAMORA TO [facility]. ??Results read back by same. Performed By: #### L 501.080 #### [facility] [address] [place], [address] Sodium [Moles/Vol] 139 mmol/L Normal 133-145 [facility] Comment on above: Performed By: #### L 501.080 #### [facility] [address] [place], [address] T PROT 8.3 g/dL Normal 5.9-8.4 [facility] Comment on above: Performed By: #### L 501.080 #### [facility] [address] [place], [address] Urea nitrogen [Mass/Vol] 248 mg/dL Invalid Interpretation Code 4-19 [facility] Comment on above: Result Comment: Crit ical Result(s) Called at 1353: by: KEYUR ZAMORA TO DTENNANT. ??Results read back by same. Performed By: #### L 501.080 #### [facility] [address] [place], [address] Creatinine, Urine (random)on 09-09-2024 UR CREAT 284.00 mg/dL High 39.00-259.00 [facility] Comment on above: Performed By: #### L 501.080 #### [facility] [address] [place], [address] Emergency Department Summary on 09-09-2024 Emergency Department Summary [facility] Medical Records Department [address] [place] [address] Emergency Department Summary 09/09/24 MR#: [id number] Acct: [id number] Name: KESHAV ARMSTRONG Rep #: [id number] : 1970 53 From: Lata Duron DO PCP: Care Physician,No Primary Status:ADM IN [...] no medical history. No prior abdominal surgeries. [facility] Medical History (Updated 09/09/24 @ 14:41 by [...] Exam: stren (more content not included)... Normal [facility] Eosinophil percentageOrdered By: Lata Duron on 09-09-2024 Eosinophils/100 WBC (Bld) 0.1 % 0-5 [facility] Erythrocyte distribution wid th ratioOrdered By: Lata Duron on 09-09-2024 Erythrocyte distribution width (RBC) [Ratio] 13.1 % 11.6-14.6 [facility] Erythrocyte distribution wid th standard deviationOrdered By: Lata Duron on 09-09-2024 Erythrocyte distribution width (RBC) [Ratio] 36.9 fl 35.1-43.9 [facility] Glomerular filtration rate ( GFR) estimation/1.73 sq m using serum, plasma, or whole bOrdered By: Lata Duron on 09-09-2024 GFR/1.73 sq M.predicted among non-blacks MDRD (S/P/Bld) [Vol rate/Area] 5 mL/min/{1.73_m2} Low >60 [facility] Comment on above: mL/min/1.73m2 CKD-EP I Creatinine Equation (2020) H AND P Exam - [facility] 09-09-2024 H&P Exam - Hospitalist [facility] Medical Records Department [address] [place] [address] H P Exam - Hospitalist 09/09/24 1415 MR#: [id number] Acct: [id number] Name: KESHAV ARMSTRONG Rep #: [id number] : 1970 53 From: Abbie Michelle MD PCP: Care Physician,No Primary Status:ADM IN Location: ICU ICU06-1 HPI - General General Date of Admission: 09/09/24 Date of Service: 09/09/24 Chief Complaint: Intractable N/V, unable to take adequate PO, weight loss, abd bloating. HPI Narrative The patient is a 53 y/o M w/ no prior notable PMHx who presents to the [facility] ED on 09/09/2024 with history of significant [...] the ED patient administered maintenance IV fluids. [facility] Medical History (Updated 09/09/24 @ 14:41 by [...] current pain. (more content not included)... Normal [facility] Hematocrit Auto (Bld) [Volum e fraction]Ordered By: Lata Duron on 09-09-2024 Hematocrit (Bld) [Volume fraction] 51.6 % 40-54 [facility] Hemoglobin A1con 09-09-2024 HbA1c (Bld) [Mass fraction] 6.5 % High <=5.6 [facility] Comment on above: Result Comment: Norm al < 5.7 % Prediabetic 5.7 - 6.4 % Diabetic >or= 6.5 % Please note range changes. Performed By: #### L 501.9985 #### [facility] [address] [place] [address]. [place], [address] Hemoglobin A1c percentageOrd ered By: Abbie Michelle on 09-09-2024 HbA1c (Bld) [Mass fraction] 6.5 % High <5.7 [facility] Comment on above: Normal < 5.7 % Predi abetic 5.7 - 6.4 % Diabetic >or= 6.5 % Please note range changes. Hemoglobin measurementOrdere d By: Lata Duron on 09-09-2024 Hemoglobin (Bld) [Mass/Vol] 18.7 g/dL High 13.0-16.5 [facility] Comment on above: CRITICAL VALUE BRIGGS D TO DANI FLOYD (ER)09/09/24 1256 Benedict Bustos.RESULTS READ BACK BY SAME. Immature granulocytes/100 WB C Auto (Bld)Ordered By: Lata Duron on 09-09-2024 Immature granulocytes/100 WBC (Bld) 0.400 % 0.0-0.9 [facility] Comment on above: IG% - Immature Granu locytes (promyelocytes, myelocytes and metamyelocytes) > 1% indicates that a LEFT SHIFT is Present. Ketones Test strip Ql (U)Ord ered By: Lata Duron on 09-09-2024 Ketones Ql (U) Negative Negative [facility] Kidney and Bladderon 025 Kidney and Bladder [facility] Imaging Services [address] [facility] [place] [address] Kidney and Bladder MR#: [id number] Acct: [id number] Name: KESHAV ARMSTRONG Rep #: [id number] : 1970 M 53 From: Jimenez Bhakta MD PCP: Care Physician,No Primary Status: ADM IN Study: Kidney and Bladder Date of Exam: 09/09/24 Exam# [id number] Ordering Dr: Abbie Michelle MD EXAM: US [...] bladder or due to cystitis. Reading Location: [facility] CC: Dr. Abbie Michelle MD; No Primary Care Physician Qa Consultant: Signed Normal [facility] - Chemistry and C hemistry - challengeOrdered By: Lata Duron on 09-09-2024 AST [Catalytic activity/Vol] 9 U/L <38 [facility] Lactic Acidon 09-09-2024 Lactate [Moles/Vol] 1.6 mmol/L Normal 0.0-2.0 [facility] Comment on above: Performed By: #### L 501.9985 #### [facility] [address] [facility] [place], [address] Lactate [Moles/Vol] 2.0 mmol/L Normal 0.0-2.0 [facility] Comment on above: Order Comment: Y Result Comment: Crit ical Result(s) Called at 1354: by: KEYUR ZAMORA TO DTENNANT. ??Results read back by same. Performed By: #### L 501.080 #### [facility] [address] [place], [address] Lactic acid measurementOrder ed By: Lata Duron on 09-09-2024 Lactate [Moles/Vol] 1.6 mmol/L 0.0-2.0 [facility] Lactate [Moles/Vol] 2.0 mmol/L 0.0-2.0 [facility] Comment on above: Critical Result(s) C alled at 1354: by: KEYUR ZAMORA TO [facility]. Results read back by same. Lipaseon 09-09-2024 Lipase [Catalytic activity/Vol] 241 U/L High 13-75 [facility] Comment on above: Result Comment: Nabeel manzano note: LIPASE revised reference range effective 22. New Lipase methodology. Expected to produce lower values than the previous assay method. NEW Reference Range: 13 - 75 U/L Performed By: #### L 503.6005, L501.2450, L500.4050 #### [facility] [address] [place], [address] Lipase measurementOrdered By : Lata Duron on 09-09-2024 Lipase [Catalytic activity/Vol] 241 U/L High 13-75 [facility] Comment on above: Please note:LIPASE r evised reference range effective 22. New Lipase methodology. Expected to produce lower values than the previous assay method. NEW Reference Range: 13 - 75 U/L M8200.1000on 09-09-2024 M8200.1000 Normal Reference Range = Negative MRSA DNA Nose Ql AYSHA+probe GeneXpert Instrument, PCR method MRSA PCR MRSA NEGATIVE Normal [facility] Comment on above: Performed By: #### L 501.080 #### [facility] [address] [place], [address] MCV (mean corpuscular volume ) determinationOrdered By: Lata Duron on 09-09-2024 MCV (RBC) [Entitic vol] 78.9 fL Low 80-94 [facility] MR/CON.PCM.GIon 09-09-2024 MR/CON.PCM.GI [facility] Medical Records Department [address] [place] [address] Consultation - GI 09/09/241925 MR#: [id number] Acct: [id number] Name: KESHAV ARMSTRONG Rep #: [id number] : 1970 53 From: Alo Cronin DO PCP: Care Physician,No Primary Status:ADM IN Location: [place] [address] HPI Consult Data Date of Consult: 09/11/24 [...] eats about 15 to 20 minutes later. [facility] Medical History No significant past medical history [...] 87.9 H, Lymph % (Auto) 5.9 L, [place] % (Auto) 5.5, Eos % (Auto) 0.1, [...] Sl. Cloudy, Urine pH 6.0, Ur Specific Lane 1.020, Urine Protein 30 H, Urine Glucose [...] Imaging Ra (more content not included)... Normal [facility] Magnesiumon 09-09-2024 Magnesium [Mass/Vol] 4.8 mg/dL High 1.5-2.[address] [facility] Comment on above: Order Comment: Comme nts: may add to ED labs Performed By: #### L 501.5615, L501.4405 #### [facility] [place], [address] Magnesium measurement (mass/ volume)Ordered By: Abbie Michelle on 09-09-2024 Magnesium (Unsp spec) [Mass/Vol] 4.8 mg/dL High 1.5-2.2 [facility] Mean corpuscular hemoglobin (MCH) determinationOrdered By: Lata Duron on 09-09-2024 MCH (RBC) [Entitic mass] 28.6 pg 27.0-32.0 [facility] Mean corpuscular hemoglobin concentration (MCHC) determinationOrdered By: Lata Duron on 09-09-2024 MCHC (RBC) [Mass/Vol] 36.2 g/dL High 32-36 [facility] Mean platelet volume determi nationOrdered By: Lata Duron on 09-09-2024 Platelet mean volume (Bld) [Entitic vol] 13.8 fL High 6.2-12.0 [facility] Measurement, pHOrdered By: Wing Michelle on 09-09-2024 pH (Unsp spec) 7.51 [pH] High 7.35-7.45 [facility] Microscopic analysis of urin e for red blood cells (RBC)Ordered By: Lata Duron on 09-09-2024 Microscopic analysis of urine for red blood cells (RBC) 0-5 SEEN /hpf 0-5 [facility] Monocyte percentageOrdered B y: Lata Duron on 09-09-2024 Monocytes/100 WBC (Bld) 5.5 % 0-10 [facility] Mucus LM Ql (Urine sed)Order ed By: Lata Duron on 09-09-2024 Mucus Ql (Urine sed) 0 SEEN /hpf [facility] Nasal methicillin resistant Staphylococcus aureus (MRSA) DNA detection by PCROrdered By: Abbie Michelle on 09-09-2024 MRSA DNA AYSHA+probe Ql (Nose) [facility] Neutrophil percentageOrdered By: Lata Duron on 09-09-2024 Neutrophils/100 WBC (Bld) 87.9 % High 47-70 [facility] Nitrite Test strip Ql (U)Ord ered By: Lata Duron on 09-09-2024 Nitrite Ql (U) Negative Negative [facility] No Panel InformationOrdered By: Abbie Michelle on 09-09-2024 Blood Gas Sample Site R Radial [facility] Blood Gas Specimen Type ART [facility] Blood Gas Vent Mode Not entered [facility] Oxygen Delivery Device Not entered [facility] Nucleated red blood cell per centageOrdered By: Lata Durno on 09-09-2024 Nucleated RBC/100 WBC (Bld) [Ratio] 0 % 0-5 [facility] Osmolality, Serumon 09-10-19 25 OSMOLALITY,SER 406 mOsm/KG High 275-295 [facility] Comment on above: Performed By: #### L 501.080 #### [facility] [address] [facility] [place], [place], [address] Phosphoruson 09-09-2024 Phosphate [Mass/Vol] 9.6 mg/dL Invalid Interpretation Code 2.7-4.5 [facility] Comment on above: Order Comment: Comme nts: May add to ED labs Result Comment: Crit ical Result(s) Called at: 1530 by: YESENIA BLACKWOOD TO DENI??Results read back by same. Performed By: #### L 501.2300 #### [facility] [address] [facility] [place], [place], [address] Platelet countOrdered By: Margaux Duron on 09-09-2024 Platelets (Bld) [#/Vol] 206 10*3/uL 150-450 [facility] Potassium measurement (mass/ volume)Ordered By: Lata Duron on 09-09-2024 Potassium (Unsp spec) [Mass/Vol] 2.4 mmol/L Low 3.3-5.1 [facility] Comment on above: Critical Result(s) C alled at 1354: by: KEYUR ZAMORA TO THEE. Results read back by same. Protein Test strip Ql (U)Ord ered By: Lata Duron on 09-09-2024 Protein Ql (U) 30 mg/dl High Negative [facility] RBC Auto (Bld) [#/Vol]Ordere d By: Lata Duron on 09-09-2024 RBC (Bld) [#/Vol] 6.54 10*6/uL High 4.6-6.2 [facility] Random urine creatinine agueda urement (mass/volume)Ordered By: Abbie Michelle on 09-09-2024 Creatinine Unsp time (U) [Mass/Vol] 284.00 mg/dL High 39.00-259.00 [facility] Serum creatinine measurement (mass/volume)Ordered By: Lata Duron on 09-09-2024 Creatinine [Mass/Vol] 10.70 mg/dL High 0.70-1.20 [facility] Comment on above: Critical Result(s) C alled at: by: Results read back by same.Critical Result(s) Called at 1354: by: KEYUR ZAMORA TO [facility]. Results read back by same. Serum globulin measurementOr dered By: Lata Duron on 09-09-2024 Globulin (S) [Mass/Vol] 3.3 g/dL 2.2-4.2 [facility] Serum glucose measurement (m ass/volume)Ordered By: Lata Duron on 09-09-2024 Glucose [Mass/Vol] 190 mg/dL High 70-99 [facility] Serum or plasma alanine rea otransferase (ALT) measurementOrdered By: Lata Duron on 09-09-2024 ALT [Catalytic activity/Vol] 17 U/L <47 [facility] Serum or plasma albumin agueda urement (mass/volume)Ordered By: Lata Duron on 09-09-2024 Albumin [Mass/Vol] 5.0 g/dL 3.5-5.0 [facility] Serum or plasma albumin/glob ulin mass ratioOrdered By: Lata Duron on 09-09-2024 Albumin/Globulin [Mass ratio] 1.5 {ratio} 0.9-2.4 [facility] Serum or plasma alkaline radha sphatase measurementOrdered By: Lata Duron on 09-09-2024 ALP [Catalytic activity/Vol] 91 U/L 40-129 [facility] Serum or plasma calcium agueda urement (mass/volume)Ordered By: Lata Duron on 09-09-2024 Calcium [Mass/Vol] 10.6 mg/dL 7.6-11.0 [facility] Serum or plasma urea nitroge n measurement (mass/volume)Ordered By: Remus Ungefrain on 09-09-2024 Urea nitrogen [Mass/Vol] 248 mg/dL High 4-19 [facility] Comment on above: Critical Result(s) C alled at 1353: by: KEYUR ZAMORA TO DTENNANT. Results read back by same. Sodium levelOrdered By: Maria Doloresu s Ungefrain on 09-09-2024 Sodium [Moles/Vol] 139 mmol/L 133-145 [facility] Squamous epithelial cells de tection in urine sediment by light microscopyOrdered By: Remus Ungefrain on 09-09-2024 Epithelial cells.squamous LM Ql (Urine sed) 0-5 SEEN /hpf 0-5 [facility] Total carbon dioxide measure mentOrdered By: Abbie Michelle on 09-09-2024 CO2 [Moles/Vol] 19 mmol/L [facility] Total proteinOrdered By: Maria Dolores us Oliverio on 09-09-2024 Protein [Mass/Vol] 8.3 g/dL 5.9-8.4 [facility] Urinalysis, Completeon 09-09 AMORPHOUS 1+ Normal [facility] Comment on above: Order Comment: CLEAN CATCH Performed By: #### L 501.080 #### [facility] [address] [place], [address] EPI,SQUAMOUS 0-5 SEEN Normal 0-5 [facility] Comment on above: Order Comment: CLEAN CATCH Performed By: #### L 501.080 #### [facility] [address] [place], [address] RBC 0-5 SEEN Normal 0-5 [facility] Comment on above: Order Comment: CLEAN CATCH Performed By: #### L 501.080 #### [facility] [address] [place], [address] WBC 0-5 SEEN Normal 0-5 [facility] Comment on above: Order Comment: CLEAN CATCH Performed By: #### L 501.080 #### [facility] [address] [place], [place], [address] BACTERIA 0 SEEN Normal None Seen [facility] Comment on above: Order Comment: CLEAN CATCH Performed By: #### L 501.080 #### [facility] [address] [place], [address] Mucus Ql (Urine sed) 0 SEEN Normal [facility] Comment on above: Order Comment: CLEAN CATCH Performed By: #### L 501.080 #### [facility] [address] [place], [address] Urine Sodiumon 09-09-2024 UR NA < 20 Normal Not Establ. [facility] Comment on above: Performed By: #### L 501.080 #### [facility] [address] [place], [place], [address] Urine clarityOrdered By: Maria Dolores Duron on 09-09-2024 Clarity (U) Sl. Cloudy Clear [facility] Urine color determinationOrd ered By: Lata Duron on 09-09-2024 Color (U) Yellow Yellow [facility] Urine glucose detectionOrder ed By: Lata Duron on 09-09-2024 Glucose Ql (U) Normal mg/dl Normal [facility] Urine leukocyte esterase det ection by dipstickOrdered By: Lata Duron on 09-09-2024 Leukocyte esterase Test strip Ql (U) Negative Negative [facility] Urine pHOrdered By: Lata Tejeda gur on 09-09-2024 pH (U) 6.0 [pH] 5.0 - 8.0 [facility] Urine sediment bacteria coun t by microscopy (number/high power field)Ordered By: Lata Duron on 09-09-2024 Bacteria LM.HPF (Urine sed) [#/Area] 0 /[HPF] None Seen [facility] Urine sodium measurement (mo les/volume)Ordered By: Abbie Michelle on 09-09-2024 Sodium (U) [Moles/Vol] mmol/L Not Establ. [facility] Urine specific gravity measu rementOrdered By: Lata Duron on 09-09-2024 Specific gravity (U) [Rel density] 1.020 1.002-1.030 [facility] Urine urobilinogen measureme ntOrdered By: Lata Duron on 09-09-2024 Urobilinogen Ql (U) Normal mg/dl Normal [facility] White blood cell (WBC) count Ordered By: Lata Duron on 09-09-2024 WBC (Bld) [#/Vol] 11.7 10*3/uL High 4.4-11.0 [facility] White blood cell countOrdere d By: Lata Duron on 09-09-2024 White blood cell count 0-5 SEEN /hpf 0-5 [facility] Vital Signs Date Time Vital Sign Value Performing Clinician Faci lity 11-27-2024 11:02-0400 Body temperature 98 [degF] Dr. Lata Duron DO Work Phone: 1(728)810-746194 [place] [address] 11-27-2024 11:02-0400 Diastolic blood pressure 72 mm[Hg] Dr. aLta Duron DO Work Phone: 7(124)983-512894 [place] [address] 11-27-2024 11:02-0400 Heart rate 78 /min Dr. Lata Duron DO Work Phone: 6(415)808-844394 [place] [address] 11-27-2024 11:02-0400 SaO2% (BldA) [Mass fraction] 95 % Dr. Lata Duron DO Work Phone: 6(216)075-715794 [place] [address] 11-27-2024 11:02-0400 Systolic blood pressure 127 mm[Hg] Dr. Lata Duron DO Work Phone: [facility] 11-18-2024 08:06-0400 Body temperature 98.2 [degF] Dr. Lata Duron DO Work Phone: 9(859)972-927994 [place] [address] 11-18-2024 08:06-0400 Diastolic blood pressure 89 mm[Hg] Dr. Lata uDron DO Work Phone: [facility] 11-18-2024 08:06-0400 Heart rate 77 /min Dr. Lata Duron DO Work Phone: 5(147)720-351194 [place] [address] 11-18-2024 08:06-0400 Respiratory rate 16 /min Dr. Lata Duron DO Work Phone: [facility] 11-18-2024 08:06-0400 SaO2% (BldA) [Mass fraction] 98 % Dr. Lata Duron DO Work Phone: 6(068)751-444694 [place] [address] 11-18-2024 08:06-0400 Systolic blood pressure 112 mm[Hg] Dr. Lata Duron DO Work Phone: 5(730)138-506394 [place] [address] 11-18-2024 06:26-0400 Body height 170.[address] Lata Duron DO Work Phone: 4(447)450-628755 [place] [address] 11-18-2024 06:26-0400 Body mass index (BMI) [Ratio] 25.5 kg/m2 Dr. Lata Duron DO Work Phone: 8(809)105-856694 [place] [address] 11-18-2024 06:26-0400 Body weight [address] Lata Duron DO Work Phone: 5(287)086-852755 [place] [address] 09-12-2024 11:00-0400 Body temperature 98.1 [degF] Dr. Lata Duron DO Work Phone: 8(940)803-672294 [place] [address] 09-12-2024 11:00-0400 Diastolic blood pressure 76 mm[Hg] Dr. Lata Duron DO Work Phone: 2(871)175-081194 [place] [address] 09-12-2024 11:00-0400 Heart rate 66 /min Dr. Lata Duron DO Work Phone: 1(103)731-007194 [place] [address] 09-12-2024 11:00-0400 Respiratory rate 14 /min Dr. Lata Duron DO Work Phone: 0(822)021-022694 [place] [address] 09-12-2024 11:00-0400 SaO2% (BldA) [Mass fraction] 95 % Dr. Lata Duron DO Work Phone: 1(790)276-710994 [place] [address] 09-12-2024 11:00-0400 Systolic blood pressure 116 mm[Hg] Dr. Lata Duron DO Work Phone: 4(452)125-063594 [place] [address] 09-12-2024 07:36-0400 Body temperature 97.1 [degF] Dr. Lata Duron DO Work Phone: 6(423)871-996894 [place] [address] 09-12-2024 07:36-0400 Diastolic blood pressure 84 mm[Hg] Dr. Lata Duron DO Work Phone: 0(382)464-363955 [place] [address] 09-12-2024 07:36-0400 Heart rate 89 /min Dr. Lata Duron DO Work Phone: 6(162)384-414255 [place] [address] 09-12-2024 07:36-0400 Respiratory rate 16 /min Dr. Lata Duron DO Work Phone: 2(068)204-991955 [place] [address] 09-12-2024 07:36-0400 SaO2% (BldA) [Mass fraction] 100 % Dr. Lata Duron DO Work Phone: 2(848)447-589155 [place] [address] 09-12-2024 07:36-0400 Systolic blood pressure 114 mm[Hg] Dr. Lata Duron DO Work Phone: 9(992)607-152194 [place] [address] 09-12-2024 05:10-0400 Body mass index (BMI) [Ratio] 25.2 kg/m2 Dr. Lata Duron DO Work Phone: 0(184)718-287894 [place] [address] 09-12-2024 05:10-0400 Body weight 72.[address] Lata Duron DO Work Phone: 7(653)935-673094 [place] [address] 09-10-2024 10:22-0400 Body height [address] Lata Duron DO Work Phone: 3(833)459-270094 [place] [address] 09-09-2024 14:16-0400 Body temperature 96.2 [degF] Dr. Lata Duron DO Work Phone: 7(359)479-294594 [place] [address] 09-09-2024 14:16-0400 Diastolic blood pressure 114 mm[Hg] Dr. Lata Duron DO Work Phone: 2(466)740-758894 [place] [address] 09-09-2024 14:16-0400 Heart rate 94 /min Dr. Lata Duron DO Work Phone: 9(301)878-637594 [place] [address] 09-09-2024 14:16-0400 Respiratory rate 16 /min Dr. Lata Duron DO Work Phone: [facility] 09-09-2024 14:16-0400 SaO2% (BldA) [Mass fraction] 100 % Dr. Lata Duron DO Work Phone: [facility] 09-09-2024 14:16-0400 Systolic blood pressure 129 mm[Hg] Dr. Lata Duron DO Work Phone: [facility] 09-09-2024 12:06-0400 Body height 170.[address] Lata Duron DO Work Phone: [facility] 09-09-2024 12:06-0400 Body mass index (BMI) [Ratio] 22.7 kg/m2 Dr. Lata Duron DO Work Phone: [facility] [facility] 09-09-2024 12:06-0400 Body weight 65.[address] Lata Duron DO Work Phone: [facility] Encounters Encounter Date Encounter Type Care Provider Facility Start: 11-27-2024 End: 11-27-2024 Admission to same day surgery center Alo Cronin DO -Endoscopy Work Phone: Start: 11-27-2024 End: 11-27-2024 ambulatory Kassandra Chicas [facility] Facility:[facility] Start: 11-18-2024 ambulatory Alo Cronin Facility :[facility] Start: 11-18-2024 Non-patient / Non-visit Alo Beltre nd DO [facility] Start: 11-18-2024 End: 11-18-2024 Admission to same day surgery center Alo Cronin DO -Endoscopy Work Phone: Start: 11-18-2024 End: 11-18-[address] Lata Duron DO Work Phone: -Endoscopy Start: 09-12-2024 Non-patient / Non-visit Dr. Jimenez Tovar DO [facility] Work Phone: Start: 09-11-2024 Non-patient / Non-visit Dr. Jimenez [facility] Work Phone: Start: 09-11-2024 Non-patient / Non-visit Alo Beltre nd DO -[facility] Start: 09-10-2024 Non-patient / Non-visit Dr. Jimenez [facility] Work Phone: Start: 09-10-2024 End: 09-10-2024 ambulatory No Primary Care Physician Facility[facility] Start: 09-10-2024 End: 09-10-2024 Non-patient / Non-visit Alo Cronin DO [facility] Start: 09-09-2024 Non-patient / Non-visit Alo Beltre nd DO [facility] Start: 09-09-2024 End: 09-12-2024 Evaluation and management of inpatient Dr. Abbie Michelle MD -Intensive Care Unit Work Phone: Start: 09-09-2024 ambulatory No Primary Car e Physician Facility:[facility] Start: 09-09-2024 Non-patient / Non-visit Dr. Abbie Michelle MD -[facility] Work Phone: Start: 01-30-2021 End: 01-30-2021 ambulatory [facility] Start: 09-02-2020 End: 09-02-2020 ambulatory [facility] Start: 02-23-2020 End: 02-23-2020 ambulatory [facility] Procedures Date Procedure Procedure Detail Performing Clinician Start: 11-27-[address] Lata Duron DO Work Phone: Start: 11-18-[address] Lata zuniga DO Work Phone: Start: 09-12-[address] Lata [...] Critical Result(s) Called at: 1530 by: Suzanne CHEEMA Results read back by same. Plan of Treatment Date Care Activity Detail Author Start: 11-27-2024 Patient discharge [facility] Start: 11-18-2024 Egd flexible foreign body removal EGD REMOVE FOREIGN BODY [facility] Start: 11-18-2024 Egd insert guide wire dilator passage esophagus EGD GUIDE WIRE INSERTION [facility] Start: 11-18-2024 Patient discharge [facility] Start: 09-12-2024 Patient discharge [facility] Start: 09-11-2024 Provision of activity privileges [facility] Start: 09-10-2024 Application of intermittent pneumatic compression device [facility] Start: 09-10-2024 Serum inorganic phosphate measurement [facility] Start: 09-09-2024 Assessment of risk of venous thromboembolism [facility] Start: 09-09-2024 Continuous pulse oximetry [facility] Start: 09-09-2024 End: 09-09-2024 Following clinical pathway protocol [facility] Start: 09-09-2024 Incentive spirometry [facility] Start: 09-09-2024 Inhalation therapy procedure [place] Start: 09-09-2024 Insertion of catheter into peripheral vein [facility] Start: 09-09-2024 Introduction of urinary catheter [facility] Start: 09-09-2024 Lab findings surveillance [facility] Start: 09-09-2024 Measuring intake and output [facility] Start: 09-09-2024 Methicillin resistant Staphylococcus aureus (MRSA) DNA [Presence] in Nose by AYSHA with probe detection [facility] Start: 09-09-2024 Notification of physician [facility] Start: 09-09-2024 Oxygen therapy [facility] Start: 09-09-2024 Patient education [facility] Start: 09-09-2024 Patient referral to dietitian [facility] Start: 09-09-2024 Providing care according to standard [facility] Start: 09-09-2024 Provision of activity privileges [facility] Start: 09-09-2024 Referral to gastroenterology service [facility] Start: 09-09-2024 Referral to windchill administrator [facility] Start: 09-09-2024 Referral to occupational therapist [facility] Start: 09-09-2024 Referral to service [facility] Start: 09-09-[address] [facility] Start: 09-09-2024 [facility] Start: 09-09-2024 Gas panel - Arterial blood [facility] Start: 09-09-2024 Complete ultrasound of kidneys and bladder Kidney and Bladder [facility] Start: 09-09-2024 Gas panel - Arterial blood [facility] Start: 09-09-2024 Verification routine [facility] Start: 09-09-2024 Admission procedure [facility] Start: 09-09-2024 Patient referral to dietitian [facility] Alanine aminotransfe rase [Enzymatic activity/volume] in Serum or Plasma [facility] Albumin [Mass/volume ] in Serum or Plasma [facility] Alkaline phosphatase [Enzymatic activity/volume] in Serum or Plasma [facility] Anion gap in Serum or Plasma [facility] Anion gap in Serum or Plasma [facility] Anion gap in Serum or Plasma [facility] Anion gap in Serum or Plasma [facility] Bilirubin measurement, urine [facility] Bilirubin, total measurement [facility] BUN/Creatinine ratio [facility] BUN/Creatinine ratio [facility] BUN/Creatinine ratio [facility] BUN/Creatinine ratio [facility] Calcium [Mass/volume ] in Serum or Plasma [facility] Calcium [Mass/volume ] in Serum or Plasma [facility] Calcium [Mass/volume ] in Serum or Plasma [facility] Calcium [Mass/volume ] in Serum or Plasma [facility] Carbon dioxide, tota l [Moles/volume] in Central venous blood [facility] Carbon dioxide, tota l [Moles/volume] in Central venous blood [facility] Carbon dioxide, tota l [Moles/volume] in Central venous blood [facility] Carbon dioxide, tota l [Moles/volume] in Central venous blood [facility] Creatinine [Mass/vol ume] in Serum or Plasma [facility] Creatinine [Mass/vol ume] in Serum or Plasma [facility] Creatinine [Mass/vol ume] in Serum or Plasma [facility] Creatinine [Mass/vol ume] in Serum or Plasma [facility] Creatinine [Mass/vol ume] in Urine collected for unspecified duration [facility] Erythrocyte mean cor puscular volume determination [facility] Glucose [Mass/volume ] in Serum or Plasma [facility] Glucose [Mass/volume ] in Serum or Plasma [facility] Glucose [Mass/volume ] in Serum or Plasma [facility] Glucose [Mass/volume ] in Serum or Plasma [facility] Hematocrit [Volume F raction] of Blood [facility] Hemoglobin [Mass/vol ume] in Blood [facility] Hemoglobin [Presence ] in Urine [facility] Leukocytes [#/volume ] in Blood [facility] Magnesium measurement [facility] Mean corpuscular hem oglobin concentration determination [facility] Mean corpuscular hem oglobin determination [facility] Measurement of keton es in urine using dipstick [facility] Measurement of renal function [facility] Measurement of renal function [facility] Measurement of renal function [facility] Measurement of renal function [facility] Microscopic urinalysis [facility] Neutrophil count [place] Neutrophil percent differential count [facility] Patient referral [place] Work Phone: pH of Urine [facility] Platelets [#/volume] in Blood [facility] Potassium measurement [facility] Potassium measurement [facility] Potassium measurement [facility] Potassium measurement [facility] Red blood cell count [facility] Red cell distributio n width determination [facility] Serum chloride measurement [facility] Serum chloride measurement [facility] Serum chloride measurement [facility] Serum chloride measurement [facility] Sodium [Moles/volume ] in Urine [facility] Sodium measurement [facility] Sodium measurement [facility] Sodium measurement [facility] Sodium measurement [facility] Specific gravity of Urine [facility] Total protein measurement [facility] Urea nitrogen [Mass/ volume] in Serum or Plasma [facility] Urea nitrogen [Mass/ volume] in Serum or Plasma [facility] Urea nitrogen [Mass/ volume] in Serum or Plasma [facility] Urea nitrogen [Mass/ volume] in Serum or Plasma [facility] Urine blood test [place] Urine dipstick for glucose [facility] Urine dipstick for l eukocyte esterase [facility] Urine dipstick for nitrite [facility] Urine dipstick for protein [facility] Urine examination [facility] Urine microscopy: ep ithelial cells [facility] Urine Microscopy: wh ite cells [facility] Urobilinogen [Presen ce] in Urine [facility] Payers Date Payer Category Payer Unknown [id number] 2024 Self-pay 2024 Unknown [id number] Unknown [id number] 2.16.8 [id number] Unknown [id number] 2.16.8 [id number] Unknown [id number] 2.16.8 [id number] Unknown [id number] 2.16.8 [id number] Unknown [id number] 2.16.8 [id number] Unknown [id number] 2.16.8 [id number] Unknown [id number] 2.16.8 [id number] Unknown [id number] 2.16.8 [id number] Unknown [id number] 2.16.8 [id number] Unknown [id number] 2.16.8 [id number] Unknown [id number] 2.16.8 [id number] Unknown [id number] 2.16.8 [id number] Social History Date Type Detail Facility Start: 09-09-2024 End: 11-16-2024 Tobacco smoking status NHIS Never smoked tobacco (finding) [facility] Start: 1970 Sex Assigned At Male W [facility] Goals Date Patient Goal Desired Activity /State Functional Status Date Assessment Result Facility 09-12-2024 Functional status Ambulates [facility] Work Phone: Mental Status Date Assessment Result Facility 11-27-2024 Cognitive function Awake;Alert;A ppropriate;Foll ows Commands [facility] Work Phone: 11-18-2024 Cognitive function Voice/Name;Touch/Shaki ng [facility] Work Phone: 09-12-2024 Cognitive function Appropriate;Cooperativ e [facility] Work Phone: 09-12-2024 Cognitive function Arousable To Voice/Nam e [facility] Work Phone: Clinical Notes 09-09-2024 to 11-18-2024 Note Date & Type Note Facility 11-18-2024 Consult note [facility] 11-18-2024 Procedure note [facility] 11-18-2024 Procedure note [facility] 11-18-2024 History and physi aishwarya note [facility] 11-18-2024 Note [facility] Medical Records Department [address] [place] [address] History Physical Exam 11/18/24 0704 MR#: [id number] Acct: [id number] Name: KESHAV ARMSTRONG Rep #: [id number] : 1970 54 From: Alo Cronin DO PCP: Kassandra Chicas DO Status:[facility] Location: [place] [address] HPI - General General Date of Admission: 11/18/24 Date of Service: 11/18/24 HPI Narrative KESHAV ARMSTRONG, is a 54 M who presents for Persistent nausea vomiting Patient presents with weight loss as well as nausea and abdominal bloating ongoing for 6 to 7 months. Patient states he has no primary care physician. He finally got tired of the weight loss and he is complaining of feeling weak with no energy. He has nausea and vomiting usually after he eats about 15 to 20 minutes later. He underwent an upper endoscopy approximately 2 months ago and was discovered to have esophageal motility disorder consistent with achalasia. He comes back in today for repeat upper endoscopy with dilation. [facility] Medical History Wears glasses Chewing tobacco dependence in remission Dysphagia No significant past medical history Abnormal weight loss Acute hypokalemia Acute renal failure Home Medications ???Medication ???Instructions ???Recorded ???Last Taken ???Type multivitamin (Daily Multi-Vitamin 1 tab PO DAILY 09/09/24 11/13/24 History tablet) Allergy/AdvReac Type Severity Reaction Status Date / Time No Known Allergies Allergy Verified 11/16/24 10:28 Family History Mother Hypertension Father No problems noted. Surgical History History of esophagogastroduodenoscopy (EGD) History of skin graft Social History household [...] rectal bleeding, tenesmus, vomiting or weight changes Vital Signs Vital Signs Vital Signs: 11/18/24 06:26 11/18/24 06:26 11/18/24 06:32 Temperature 98.0 F 98.0 F Temperature Source Temporal Pulse Rate 75 75 Respiratory Rate 16 16 Respiratory Pattern Normal Blood Pressure 121/82 H 121/82 H Blood Pressure Mean 95 Blood Pressure Source Monitor Blood Pressure Position Semi-Fowlers Blood Pressure Location Right Arm Pulse Ox 100 100 Oxygen Delivery Method Room Air Room Air Weight Weight: 163 lb 2.273 oz Body Mass Index (BMI) 25.5 Physical Exam Const alert, oriented x3, no apparent distress and healthy appearing General Appearance: cooperative GI normal to inspection, nondistended, normoactive bowel sounds, soft to palpation, non-tender and non- distended Percussion: normal to percussion Rectal Exam: deferred Assessment Plan Assessment/Plan (1) Acute renal failure: [...] initially treated with aggressive IV fluid resuscitation. He was discovered to have severe esophageal dysphagia secondary to achalasia. He will come back in today for further workup including esophageal dilation in the near future he will need esophageal manometry and possible Botox versus Heller myotomy. 11/18/24 0708 Cosigner Signature (if applicable): CC: Kassandra Chicas DO; Alo Cronin DO Signed [facility] 11-18-2024 Consult note [facility] 09-12-2024 Progress note Note Date/Time September 12, 2024 9:21am [facility] Medical Records Department [address] [place] [address] Progress Note - Hospitalist 09/11/241929 MR#: [id number] Acct: [id number] Name: KESHAV ARMSTRONG Rep #:[id number] 2 : 1970 53 From: Jimenez Renee DO PCP: Care Physician,No Primary Status :ADM IN Location: [place] [address] Reason for Visit Reason for Visit: Diagnoses [...] Document 09/10/24 15:49 LO (Rec: 09/10/24 15:49 [id number]) Nutrition Malnutrition Evidence of Yes Malnutrition Exists [...] Plus high-protein 4 times a day with med Scripped, nutritional services will follow Total clinical time spent by myself addressing the patient's medical issues, reviewing all of his data, and collaborating with patient's care team: 35 minutes Charges/Coding Visit Charges Inpatient E&M: 01336 Subs Hosp L2 09/12/24 0921 <Electronically signed by Jimenez Renee DO> Cosigner Signature (if applicable): CC: ~ Signed [facility] Work Phone: 1(961) 785-750405-17-2025 Discharge summary [facility] Medical Records Department [address] [place] [address] Instructions for Home/Discharge Instructions 09/12/24 1046 MR#: [id number] Acct: [id number] Name: EKSHAV ARMSTRONG Rep #:[id number] : 1970 53 From: Jimenez Renee [...] be placed): Home, Self Care 09/12/24 1112Jimenez Renee DO CC: Dr. Abbie Michelle MD; Dr. Emeli Lynn MD; No Primary Care Physician ~ Signed [facility]05-17-2025 [facility] Medical Records Department [address] [place] [address] Discharge Summary 09/12/24 1112 MR#: [id number] Acct: [id number] Name: KESHAV ARMSTRONG Rep #: [id number] : 1970 53 From: Jimenez Renee DO PCP: Care Physician,No Primary Status:DIS IN Location: [facility] [id number] Providers Date of Admission: 09/09/24 Date of Discharge: 09/12/24 Primary Care Physician: No Primary Care Phys Consultations 09/09/24 15:56 Consult: Gastroenterology Routine Consulting Provider: [facility] Reason for Consult: intractable N/V, abnormal esophagus EMERGENT Consult: No Notified: Yes Date Notified: 09/09/24 Time Notified: 14:45 Method of Notification: Text Consult: Nephrology Routine Consulting Provider: Emeli Lynn Reason for Consult: EWA EMERGENT Consult: No MD Notified: Yes Date [...] and examined in the emergency room at [facility] after being sent in from a [facility] with complaint of abdominal distention loss [...] on 09/12/2024. Medical Rec (more content not included)...[facility]05-17-2025 Progress note [facility] Medical Records Department [address] [place] [address] Progress Note - Hospitalist 09/11/24 193 MR#: [id number] Acct: [id number] Name: KESHAV ARMSTRONG Rep #:[id number] : 1970 53 From: Jimenez Renee DO PCP: Care Physician,No Primary Status :ADM IN Location: [place] [address] Reason for Visit Reason for Visit: Diagnoses Hypokalemia (09/09/24) Acute kidney failure, unspecified (09/09/24) Dysphagia, unspecified (09/09/24) Abnormal weight loss (09/09/24) Subjective Subjective Patient was seen and examined today, his creatinine is improved-his creatinine was 2.96 and BUN kyo296 today. Patient has no complaints to this [...] 09/10/24 15:49 LO (Rec: 09/10/24 15:49 LO [id number]) Nutrition Malnutrition Evidence of Yes Malnutrition Exists [...] Carbon Dioxide 19.6 L, Anion Gap 14, IPN296 H*, Creatinine 2.96 H, Estim Creat Clear [...] protein 4 times a day with med Scripped, nutritional services will follow Total clinical time spent by myself addressing the patient's medical issues, reviewing all of his data, and collaborating with patient's care team: 35 minutes Charges/Coding Visit Charges Inpatient E&M: 76515 Subs Hosp L2 09/12/24 0921 Cosigner Signature (if applicable): CC: ~ Signed [facility]05-16-2025 Progress note Author Alo Cronin [facility] Note Date/Time September 11, 2024 5:30p m [facility] Medical Records Department [address] [place] [address] Progress Note 09/11/24 1728 MR#: [id number] Acct: [id number] Name: KESHAV ARMSTRONG Rep #:[id number] : 1970 53 From: Alo Cronin DO PCP: Care Physician,No Primary Status :ADM IN Location: [place] [address] Progress Note Patient did tolerate liquids and [...] cr is better Visit Charges Inpatient E&M: 42633 Subs Hosp L3 09/11/24 1730 <Electronically signed by Alo Cronin DO> Alo Cronin DO Cosigner Signature (if applicable): CC: ~ Signed [facility] Work Phone: 1(440) 703-729805-16-2025 Progress note Author Emeli Lynn [facility] Note Date/Time September 11, 2024 4:08p m [facility] Medical Records Department [address] [place] [address] Progress Note - Nephrology 09/11/24 1607 MR#: [id number] Acct: [id number] Name: KESHAV ARMSTRONG Rep #:[id number] : 1970 53 From: Emeli alonzo MD PCP: Care Physician,No Primary Status :ADM IN Location: [place] [address] Subjective Subjective no new complaints Objective Data [...] 09/10/24 15:49 LO (Rec: 09/10/24 15:49 LO [id number]) Nutrition Malnutrition Evidence of Yes Malnutrition Exists [...] Cosigner Signature (if applicable): CC: ~ Signed [facility] Work Phone: 1(791) 634-219805-16-2025 Progress note [facility] Medical Records Department [address] [place] [address] Progress Note 09/11/24 1728 MR#: [id number] Acct: [id number] Name: KESHAV ARMSTRONG Rep #:[id number] : 1970 53 From: Alo Friend DO PCP: Care Physician,No Primary Status :ADM IN Location: [place] [address] Progress Note Patient did tolerate liquids and [...] cr is better Visit Charges Inpatient E&M: 43471 [facility] Hosp L3 09/11/24 9034 Alo Friend DO Cosigner Signature (if applicable): CC: ~ Signed [facility]05-16-2025 Progress note [facility] Medical Records Department [address] [place] [address] Progress Note - Nephrology 09/11/24 1607 MR#: [id number] Acct: [id number] Name: KESHAV ARMSTRONG Rep #:[id number] : 1970 53 From: Emeli alonzo MD PCP: Care Physician,No Primary Status :ADM IN Location: [place] [address] Subjective Subjective no new complaints Objective Data [...] 09/10/24 15:49 LO (Rec: 09/10/24 15:49 LO [id number]) Nutrition Malnutrition Evidence of Yes Malnutrition Exists [...] Carbon Dioxide 19.6 L, Anion Gap 14, [id number] H*, Creatinine 2.96 H, Estim Creat Clear [...] Cosigner Signature (if applicable): CC: ~ Signed [facility]05-16-2025 Consult note Author Keyur Manning [facility] Note Date/Time September 11, 2024 10:09 am [facility] Medical Records Department [address] [place] [address] Consultation - Nephrology 09/10/24 1446 MR#: [id number] Acct: [id number] Name: KESHAV ARMSTRONG Rep #:[id number] : 1970 53 From: Keyur sellers [employer] PCP: Care Physician,No Primary Status :ADM IN Location: [place] [address] 1 Assessment & Plan Assessment/Plan (1) Acute renal [...] Consult: 09/10/24 HPI Narrative HPI Narrative: KESHAV ARMTSRONG, is a 53 M with no known [...] medications. Denies hematuria. Denies arthralgias. Denies rash. [facility] Medical History No significant past medical history [...] Sl. Cloudy, Urine pH 6.0, Ur Specific Lane 1.020, Urine Protein 30 H, Urine Glucose [...] 83.6 H, Lymph % (Auto) 8.9 L, [place] % (Auto) 5.6, Eos % (Auto) 1.3, [...] bladder or due to cystitis. Reading Location: [facility] 09/10/24 8254 <Electronically signed by Keyur MCKEON> Cosigner Signature (if applicable): 09/11/24 1009 <Electronically signed by Emeli Lynn MD> CC: No Primary Care Physician~ Signed [facility] Work Phone: 1(749) 923-195705-16-2025 Consult note Author Alo Friend [facility] Note Date/Time September 11, 2024 8:36a m [facility] Medical Records Department [address] [place] [address] [place] [address] Consultation - GI 09/09/241925 MR#: [id number] Acct: [id number] Name: KESHAV ARMSTRONG Rep #:[id number] : 1970 53 From: Alo Cronin DO PCP: Care Physician,No Primary Status :ADM IN Location: [place] [address] HPI Consult Data Date of Consult: 09/11/24 [...] eats about 15 to 20 minutes later. [facility] Medical History No significant past medical history [...] 87.9 H, Lymph % (Auto) 5.9 L, [place] % (Auto) 5.5, Eos % (Auto) 0.1, [...] Sl. Cloudy, Urine pH 6.0, Ur Specific Lane 1.020, Urine Protein 30 H, Urine Glucose [...] can indicate inflammatory bowel disease. Reading [facility] Ren[facility]ound 09/09/24 14:51 IMPRESSION: Bladder wall thickening which may be due to the decompressed state of the bladder or due to cystitis. Reading Location: [id number] Assessment & Plan Assessment/Plan (1) Acute renal [...] of 3. Charges/Coding Visit Charges Inpatient E&M: 95801 Init Hosp L3 09/11/24 0836 <Electronically signed by Alo Friend DO> Cosigner Signature (if applicable): CC: No Primary Care Physician~ Signed [facility] Work Phone: 1(996) 115-720505-16-2025 Consult note [facility] Medical Records Department [address] [place] [address] Consultation - Nephrology 09/10/24 1446 MR#: [id number] Acct: [id number] Name: KESHAV ARMSTRONG Rep #:[id number] 2 : 1970 53 From: [employer] PCP: Care Physician,No Primary Status :ADM IN Location: [place] [address] Assessment & Plan Assessment/Plan (1) Acute renal [...] medications. Denies hematuria. Denies arthralgias. Denies rash. [facility] Medical History No significant past medical history [...] Sl. Cloudy, Urine pH 6.0, Ur Specific Lane 1.020, Urine Protein 30 H, Urine Glucose [...] 83.6 H, Lymph % (Auto) 8.9 L, [place] % (Auto) 5.6, Eos % (Auto) 1.3, [...] bladder or due to cystitis. Reading Location: [facility] 09/10/24 7328 Cosigner Signature (if applicable): 09/11/24 1009 CC: No Primary Care Physician~ Signed [facility]05-16-2025 Consult note [facility] Medical Records Department [address] [place] [address] Consultation - GI 09/09/241925 MR#: [id number] Acct: [id number] Name: KESHAV ARMSTRONG Rep #:[id number] 9 : 1970 53 From: Alo Cronin DO PCP: Care Physician,No Primary Status :ADM IN Location: [place] [address] HPI Consult Data Date of Consult: 09/11/24 [...] eats about 15 to 20 minutes later. [facility] Medical History No significant past medical history [...] 87.9 H, Lymph % (Auto) 5.9 L, [place] % (Auto) 5.5, Eos % (Auto) 0.1, [...] Sl. Cloudy, Urine pH 6.0, Ur Specific Lane 1.020, Urine Protein 30 H, Urine Glucose [...] can indicate inflammatory bowel disease. Reading [facility] Renal Ultrasound 09/09/24 14:51 IMPRESSION: Bladder wall thickening which may be due to the decompressed state of the bladder or due to cystitis. Reading Location: [id number] Assessment & Plan Assessment/Plan (1) Acute renal [...] of 3. Charges/Coding Visit Charges Inpatient E&M: 07598 Init Hosp L3 09/11/24 0836 Cosigner Signature (if applicable): CC: No Primary Care Physician~ Signed [facility]05-15-2025 Progress note Author Jimenez Renee [facility] Note Date/Time September 10, 2024 5:48p m [facility] Medical Records Department [address] [place] [address] Progress Note - Hospitalist 09/10/24 1742 MR#: [id number] Acct: [id number] Name: KESHAV ARMSTRONG Rep #:[id number] 7 : 1970 53 From: Jimenez Renee [...] Freq: Status: Active Protocol: Document 09/10/24 15:49 MAIKEL (Rec: 09/10/24 15:49 [id number]) Nutrition Malnutrition Evidence of Yes Malnutrition Exists [...] 83.6 H, Lymph % (Auto) 8.9 L, [place] % (Auto) 5.6, Eos % (Auto) 1.3, [...] bladder or due to cystitis. Reading Location: [facility] Physical Exam Const alert, oriented x3, no [...] 35 minutes Charges/Coding Visit Charges Inpatient E&M: 67840 Subs Hosp L2 09/10/241747 <Electronically signed by Jimenez Renee DO> Cosigner Signature (if applicable): CC: ~ Signed [facility] Work Phone: 1([phone]) 391-582205-15-2025 Progress note [facility] Medical Records Department [address] [place] [address] Progress Note - Hospitalist 09/10/241741 MR#: [id number] Acct: [id number] Name: KESHAV ARMSTRONG Rep #:[id number] 7 : 1970 53 From: Jimenez Renee [...] Document 09/10/24 15:49 LO (Rec: 09/10/24 15:49 [id number]) Nutrition Malnutrition Evidence of Yes Malnutrition Exists [...] 83.6 H, Lymph % (Auto) 8.9 L, [place] % (Auto) 5.6, Eos % (Auto) 1.3, [...] bladder or due to cystitis. Reading Location: [facility] Physical Exam Const alert, oriented x3, [...] 35 minutes Charges/Coding Visit Charges Inpatient E&M: 03264 Subs Hosp L2 09/10/24 7711 Cosigner Signature (if applicable): CC: ~ Signed [facility]05-15-2025 Consult note Author Luis Torres [facility] Note Date/Time September 10, 2024 2:35p m [facility] Medical Records Department [address] [place] [address] Anesthesia Postop Eval II 09/10/24 1435 MR#: [id number] Acct: [id number] Name: KESHAV ARMSTRONG Rep #:[id number] 0 : 1970 53 From: Luis Westfall [...] No Complications Anesthesia Complication: No 09/10/24 1435 <Electronically signed by Luis Torres MD> Date _ Luis Torres MD [facility] Signature: Date CC: ~ Signed [facility] Work Phone: 1(376) 209-416205-15-2025 Consult note Author To Green [facility] Note Date/Time September 10, 2024 1:00p [facility] Medical Records Department [address] [place] [address] [place] [address] Anesthesia Postop Eval I 09/10/24 1259 MR#: [id number] Acct: [id number] Name: KESHAV ARMSTRONG Rep #:[id number] 5 : 1970 53 From: To Green PCP: Care Physician,No Primary Status :ADM IN Y Race: C Location: ICU ICU Anesthesia: Postop Eval I Current Vital Signs [...] by To Green > Date _ To Child Signature: Date CC: ~ Signed [facility] Work Phone: 1([phone]) [phone] Consult note [facility] Medical Records Department [address] [place] [address] Anesthesia Postop Eval II 09/10/24 1435 MR#: [id number] Acct: [id number] Name: KESHAV ARMSTRONG Rep #:[id number] 0 : 1970 53 From: Luis Westfall PCP: Care Physician,No Primary Status :ADM IN Y Race: C Location: ICU ICU Anesthesia Postop Eval I Sum Postop Eval [...] No 09/10/24 1435 MD> Date _ Luis Andersonignradha Signature: Date CC: ~ Signed [facility]05-15-2025 Progress note Author Alo Friend [facility] Note Date/Time September 10, 2024 12:22 pm [facility] Medical Records Department [address] [place] [address] Progress Note 09/10/24 1220 MR#: [id number] Acct: [id number] Name: KESHAV ARMSTRONG Rep #:[id number] 6 : 1970 53 From: Alo Cronin [...] prior notable PMHx who presents to the [facility] ED on 09/09/2024 with history of significant [...] ASA of 3. Visit Charges Inpatient E&M: 94638 Subs Hosp L3 09/10/24 1222 <Electronically signed by Alo Cronin DO> Alo Cronin DO Cosigner Signature (if applicable): CC: ~ Signed [facility] Work Phone: 1(539) 292-683005-15-2025 Consult note Author Luis Torres [facility] Note Date/Time September 10, 2024 11:51 am [facility] Medical Records Department [address] [place] [address] Pre-Anesthesia Evaluation 09/10/24 1138 MR#: [id number] Acct: [id number] Name: KESHAV ARMSTRONG Rep #:[id number] 2 : 1970 53 From: Luis Westfall PCP: Care Physician,No Primary Status :ADM IN Y Race: C Location: ICU [place] [address] ASA Classification* ASA Classification ASA Classification: 3 [...] Procedure(s): EGD Anesthesia History Anesthesia History - crop picker: Anesthesia History - crop picker Hx Hospitalization Any Problems With Anesthesia Cholinesterase [...] take am of surgery PONV PONV - crop picker: PONV - crop picker Female HX of Motion Sickness HX of N/V After Surgery Non-Smoker Duration of Surgery greater than 60 minutes Number of Risk Factors PONV Score Height & Weight Height & Weight: Anesthesia: Height & Weight Height 5 ft 6.93 in 09/10/24 10:22 Weight: 69.4 kg 09/10/24 10:22 Body Mass Index (BMI) 24.0 09/10/24 05:33 Respiratory Assessment Respiratory Assessment - crop picker: Respiratory Tract Infection Hx - crop picker Hx Respiratory Tract Infection STOP Sleep Apnea STOP Sleep Apnea - crop picker: STOP Sleep Apnea - crop picker Hx Hypertension No 09/09/24 16:04 Hx Sleep [...] Tobacco Use History Tobacco Use History - crop picker: Tobacco Use History - crop picker Tobacco Use Smoking Status Never smoker 09/09/24 16:04 Hx Tobacco Use No 09/09/24 16:04 Years Smoking Packs Smoked per Day Smoking Cessation Date was within the last 15 years Hx Smoking Cessation Date Hx Smoking Cessation Counseling Hematologic Medial History Hematologic Hx - crop picker: 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 Hx of Blood Transfusion No 09/09/24 16:04 [...] confused, unrespo /Reproduction History /Reproductive History - crop picker: /Reproductive Hx- crop picker Hx Now Gestational Age (in weeks): EDC: [...] oriented x3 and moves all extremities 09/10/24 1153 <Electronically signed by Luis Torres MD> Date _ Luis Torres MD Cosign Signature: Date CC: ~ Signed [facility] Work Phone: 1(558) 254-460305-15-2025 Consult note [facility] Medical Records Department [address] [place] [address] Anesthesia Postop Eval I 09/10/24 1259 MR#: [id number] Acct: [id number] Name: KESHAV ARMSTRONG Rep #:[id number] 5 : 1970 53 From: To Green PCP: Care Physician,No Primary Status :ADM IN Y Race: C Location: ICU ICU -1 Anesthesia: Postop Eval I Current Vital [...] To Child Signature: Date CC: ~ Signed [facility]05-15-2025 Procedure note [facility] Medical Records Department [address] [place] [address] EGD Report MR#: [id number] Acct: [id number] Name: KESHAV ARMSTRONG Rep #:[id number] 1 : 1970 53 From: Alo Cronin [...] pathology results. Procedure Code(s): --- Professional --- 80064, Esophagogastroduodenoscopy, flexible, transoral; with insertion of guide wire followed by passage of dilator(s) through esophagus over guide wire 38638, 59,51, Esophagogastroduodenoscopy, flexible, transoral; with biopsy, single or multiple CPT copyright 2021 [employer]. All rights reserved. The codes documented in this report are preliminary and upon platform mill supervisor review may be revised to meet current compliance requirements. Alo Cronin DO 09/10/2024 12:55:52 PM This report has been signed electronically. Number of Addenda: 0 Note Initiated On: 09/10/2024 12:22 PM 09/10/24 1255 Date _ Alo Cronin DO Cosigner Signature: Date (if indicated) CC: No Primary Care Physician; Alo Cronin DO ~ Date Dictated: 09/10/24 1222 Date Transcribed: Qa Consultant: RF Signed [facility]05-15-2025 Procedure note [facility] Medical Records Department [address] [place] [address] Operative Report - CC Letter MR#: [id number] Acct: [id number] Name: KESHAV ARMSTRONG Rep #:[id number] 2 : 1970 53 From: Alo Cronin [...] PM This report has been signed electronically. 09/10/24 1255 Date _ Alo Cronin DO Cosigner Signature: Date (if indicated) CC: Dr. Abbie Michelle MD; Dr. Emeli Lynn MD; Dr. Jimenez Renee DO;No Primary Care Physician ~ Date Dictated: 09/10/24 1222 Date Transcribed: Qa Consultant: RF Signed [facility]05-15-2025 Progress note [facility] Medical Records Department [address] [place] [address] Progress Note 09/10/24 1220 MR#: [id number] Acct: [id number] Name: KESHAV ARMSTRONG Rep #:[id number] 6 : 1970 53 From: Alo Cronin [...] prior notable PMHx who presents to the [facility] ED on 09/09/2024 with history of significant [...] ASA of 3. Visit Charges Inpatient E&M: 63189 Subs Hosp L3 09/10/24 1222 Alo Friend DO Cosigner Signature (if applicable): CC: ~ Signed [facility]05-15-2025 Consult note [facility] Medical Records Department [address] [place] [address] Pre-Anesthesia Evaluation 09/10/24 1138 MR#: [id number] Acct: [id number] Name: KESHAV ARMSTRONG Rep #:[id number] 2 : 1970 53 From: Luis Westfall PCP: Care Physician,No Primary Status :ADM IN Y Race: C Location: ICU ICU06 -1 ASA Classification* ASA Classification ASA Classification: [...] Procedure(s): EGD Anesthesia History Anesthesia History - crop picker: Anesthesia History - crop picker Hx Hospitalization Any Problems With Anesthesia Cholinesterase [...] take am of surgery PONV PONV - crop picker: PONV - crop picker Female HX of Motion Sickness HX of N/V After Surgery Non-Smoker Duration of Surgery greater than 60 minutes Number of Risk Factors PONV Score Height & Weight Height & Weight: Anesthesia: Height & Weight Height 5 ft 6.93 in 09/10/24 10:22 Weight: 69.4 kg 09/10/24 10:22 Body Mass Index (BMI) 24.0 09/10/24 05:33 Respiratory Assessment Respiratory Assessment - crop picker: Respiratory Tract Infection Hx - crop picker Hx Respiratory Tract Infection STOP Sleep Apnea STOP Sleep Apnea - crop picker: STOP Sleep Apnea - crop picker Hx Hypertension No 09/09/24 16:04 Hx Sleep [...] Tobacco Use History Tobacco Use History - crop picker: Tobacco Use History - crop picker Tobacco Use Smoking Status Never smoker 09/09/24 16:04 Hx Tobacco Use No 09/09/24 16:04 Years Smoking Packs Smoked per Day Smoking Cessation Date was within the last 15 years Hx Smoking Cessation Date Hx Smoking Cessation Counseling Hematologic Medial History Hematologic Hx - crop picker: 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 Hx of Blood Transfusion No 09/09/24 16:04 [...] confused, unrespo /Reproduction History /Reproductive History - crop picker: /Reproductive Hx- crop picker Hx Now Gestational Age (in weeks): EDC: [...] extremities 09/10/24 1151 MD> Date _ Luis Torres MD Cosigner Signature: Date CC: ~ Signed [facility]05-14-2025 Discharge summary Author [facility] Note Date/Time September 09, 2024 3:48p m [facility] Medical Records Department [address] [place] [address] Emergency Department Summary 09/09/24 MR#: [id number] Acct: [id number] Name: KESHAV ARMSTRONG Rep #:[id number] 2 : 1970 53 From: Lata Ok [facility] PCP: Care Physician,No Primary Status :ADM IN [...] no medical history. No prior abdominal surgeries. [facility] Medical History (Updated 09/09/24 @ 14:41 by [...] 87.9 H Lymph % (Auto) 5.9 L [place] % (Auto) 5.5 Eos % (Auto) 0.1 [...] can indicate inflammatory bowel disease. Reading [facility] E[facility] Initial EKG: Attestation: I personally reviewed and interpreted this EKG as follows: Comments: Sinus rhythm with rate of 86 bpm with prolonged QT of 458. QTc is 548 Critical Care Time Critical care time (excluding procedures): 30-74 minutes, Including time spent:,Discussing w/Patient &/or Family/Psychotherapist Counselor, Discussing w/Consultants, ArrangingAdmission or Transfer, Performing Direct Patient Care at Bedside and - (30 minutes) Discharge Plan Dx/Rx/DC Orders Clinical Impression: Acute renal failure, Acute hypokalemia, Hyperglycemia, Abnormal weight loss Disposition Disposition: [facility] What to do if you have Problems For any increased pain, shortness of breath, bleeding, nausea or vomiting, chestpain, or any unexpected problems, contact your Primary Care Provider. Call [facility] ([phone]) or report to the closest Emergency Room. Call 911 if necessary. 09/09/24 1548 <Electronically signed by Lata Duron DO> Cosigner Signature (if applicable): CC: No Primary Care Physician ~ Signed [facility] Work Phone: 1([phone]) [phone] Radiology Diagnostic study note [facility] Imaging Services [address] [place] [address] Kidney and Bladder MR#: [id number] Acct: [id number] Name: KESHAV ARMSTRONG Rep #: [id number] 6 : 1970 M 53 From: Lynne Bhakta MD PCP: Care Physician,No Primary Status: ADM IN Study:Kidney and Bladder Date of Exam: 0 09/09/24 Exam# [id number] Ordering Dr: Nette Michelle MD EXAM: US [...] bladder or due to cystitis. Reading Location: [facility] CC: Dr. Abbie Michelle MD; No Primary Care Physician ~ Qa Consultant: Signed [facility]05-14-2025 History and physical note Author Abbie Michelle [facility] Note Date/Time September 09, 2024 3:27p m [facility] Medical Records Department [address] [place] [address] H&P Exam - Hospitalist 09/09/24 1415 MR#: [id number] Acct: [id number] Name: KESHAV ARMSTRONG Rep #:[id number] 9 : 1970 53 From: Abbie Michelle MD PCP: Care Physician,No Primary Status :ADM IN Location: ICU ICU06-1 HPI - General General Date of Admission: 09/09/24 Date of Service: 09/09/24 Chief Complaint: Intractable N/V, unable to take adequate PO, weight loss, abd bloating. HPI Narrative The patient is a 53 y/o M w/ no prior notable PMHx who presents to the [facility] ED on 09/09/2024 with history of significant [...] the ED patient administered maintenance IV fluids. [facility] Medical History (Updated 09/09/24 @ 14:41 by [...] 87.9 H, Lymph % (Auto) 5.9 L, [place] % (Auto) 5.5, Eos % (Auto) 0.1, [...] can indicate inflammatory bowel disease. [facility] Assessment & Plan Assessment/Plan (1) Acute renal failure: PLAN: Plan The patient is a 53 y/o M w/ no prior notable PMHx who presents to the [facility] ED on 09/09/2024 with history of significant [...] biopsy needs. Charges/Coding Visit Charges Inpatient E&M: 29474 Init Hosp L3 09/09/24 1442 <Electronically signed [...] MD; No Primary Care Physician ~* Signed [facility] Work Phone: 1(102) 820-999205-14-2025 Evaluation note* Diagnosis Onset Date Resolution Status Admit Date Abnormal weight loss acute September 09, 2024 2:43pm Acute hypokalemia acute August 2:43pm Acute renal failure acute August 272024 2:43pm Dysphagia acute September 09, 2024 2:43pm [facility] Work Phone: [phone]) 570-512305-14-2025 Evaluation note* Diagnosis Onset Date Resolution Status Admit Date Abnormal weight loss inactive September 09, 2024 2:43pm Acute hypokalemia inactive August 2:43pm Acute renal failure inactive August 272024 2:43pm Dysphagia inactive September 09, 2024 2:43pm Abnormal weight loss inactive November 18, 2024 5:45am Acute hypokalemia inactive November 182024 5:45am Acute renal failure inactive November 18, 2024 5:45am Dysphagia inactive November 18 5:45am [facility] Work Phone: [phone]) [phone] Discharge summary [facility] Medical Records Department [address] [place] [address] Emergency Department Summary 09/09/24 MR#: [id number] Acct: [id number] Name: KESHAV ARMSTRONG Rep #:[id number] 2 : 1970 53 From: Lata Duorn DO PCP: Care Physician,No Primary Status :ADM [...] no medical history. No prior abdominal surgeries. [facility] Medical History (Updated 09/09/24 @ 14:41 by [...] 87.9 H Lymph % (Auto) 5.9 L [place] % (Auto) 5.5 Eos % (Auto) 0.1 [...] can indicate inflammatory bowel disease. [facility] EKG Initial EKG: Attestation: I personally reviewed and interpreted this EKG as follows: Comments: Sinus rhythm with rate of 86 bpm with prolonged QT of 458. QTc is 548 Critical Care Time Critical care time (excluding procedures): 30-74 minutes, Including time spent:,Discussing w/Patient &/or Family/Psychotherapist Counselor, Discussing w/Consultants, ArrangingAdmission or Transfer, Performing Direct Patient Care at Bedside and - (30 minutes) Discharge Plan Dx/Rx/DC Orders Clinical Impression: Acute renal failure, Acute hypokalemia, Hyperglycemia, Abnormal weight loss Disposition Disposition: [facility] Care [facility] What to do if you have Problems For any increased pain, shortness of breath, bleeding, nausea or vomiting, chestpain, or any unexpected problems, contact your Primary Care Provider. Call [facility] ([phone]) or report tothe closest Emergency Room. Call 911 if necessary. 09/09/24 2777 Cosigner Signature (if applicable): CC: No Primary Care Physician ~ Signed [facility]05-14-2025 History and physical note [facility] Medical Records Department [address] [place] [address] H&P Exam - Hospitalist 09/09/24 1415 MR#: [id number] Acct: [id number] Name: KESHAV ARMSTRONG Rep #:[id number] 9 : 1970 53 From: Abbie Michelle MD PCP: Care Physician,No Primary Status :ADM IN Location: ICU ICU06-1 HPI - General General Date of Admission: 09/09/24 Date of Service: 09/09/24 Chief Complaint: Intractable N/V, unable to take adequate PO, weight loss, abd bloating. HPI Narrative The patient is a 53 y/o M w/ no prior notable PMHx who presents to the [facility] ED on 09/09/2024 with history of significant [...] the ED patient administered maintenance IV fluids. [facility] Medical History (Updated 09/09/24 @ 14:41 by [...] 87.9 H, Lymph % (Auto) 5.9 L, [place] % (Auto) 5.5, Eos % (Auto) 0.1, [...] prior notable PMHx who presents to the [facility] ED on 09/09/2024 with history of significant [...] biopsy needs. Charges/Coding Visit Charges Inpatient E&M: 07739 Init Hosp L3 09/09/24 1442 Cosigner Signature [...] Care Physician ~* Signed ADDENDUM by Dr. Abbei Michelle MD on 09/09/24 at 1527 Addendum HgbA1c 6.5%, certainly could be a component of presentation but again anion gap and hydroxybutyrateacid levels also likely elevated given EWA/uremia. Given however the level that it is we will continue insulin drip for now. 09/09/24 1527 Cosigner Signature (if applicable): cc: Dr. Abbie Michelle MD; No Primary Care Physician ~* Signed [facility]05-14-2025 Discharge summary Author Lata Duron [facility] Note Date/Time September 09, 2024 3:48p m [facility] Medical Records Department [address] [place] [address] Emergency Department Summary 09/09/24 MR#: [id number] Acct: [id number] Name: KESHAV ARMSTRONG Rep #:[id number] 2 : 1970 53 From: Lata Koenigefrain PCP: Care Physician,No Primary Status :ADM IN [...] no medical history. No prior abdominal surgeries. [facility] Medical History (Updated 09/09/24 @ 14:41 by [...] 87.9 H Lymph % (Auto) 5.9 L [place] % (Auto) 5.5 Eos % (Auto) 0.1 [...] can indicate inflammatory bowel disease. [facility] EK Initial EKG: Attestation: I personally reviewed and interpreted this EKG as follows: Comments: Sinus rhythm with rate of 86 bpm with prolonged QT of 458. QTc is 548 Critical Care Time Critical care time (excluding procedures): 30-74 minutes, Including time spent:,Discussing w/Patient &/or Family/Psychotherapist Counselor, Discussing w/Consultants, ArrangingAdmission or Transfer, Performing Direct Patient Care at Bedside and - (30 minutes) Discharge Plan Dx/Rx/DC Orders Clinical Impression: Acute renal failure, Acute hypokalemia, Hyperglycemia, Abnormal weight loss Disposition Disposition: [facility] Care [facility] What to do if you have Problems For any increased pain, shortness of breath, bleeding, nausea or vomiting, chestpain, or any unexpected problems, contact your Primary Care Provider. Call [facility] ([phone]) or report to the closest Emergency Room. Call 911 if necessary. 09/09/24 3815 <Electronically signed by Lata Duron DO> Cosigner Signature (if applicable): CC: No Primary Care Physician ~ Signed [facility] Work Phone: 1(563) 662-300005-14-2025 Radiology Diagnostic study note [facility] Imaging Services [address] [place] [address] Abdomen/Pelvis W IV Cont ONLY MR#: [id number] Acct: [id number] Name: KESHAV ARMSTRONG Rep #: [id number] 0 : 1970 M 53 From: Tiffanie Mazariegos MD PCP: Care Physician,No Primary Status: REG ER Study:Abdomen/Pelvis W IV Cont ONLY Date of E xam: 09/09/24 Exam# [id number] Ordering Dr: Margaux Duron DO PROCEDURE: ABDOMEN/PELVIS [...] disease. Reading Location: [facility] CC: Dr. Lata Duron DO; No Primary Care Physician ~ Qa Consultant: [facility] Umair [facility] Note Date/Time November 18, 2024 6:32 am [facility] Medical Records Department [address] [place] [address] Pre-Anesthesia Evaluation 11/18/24 0630 MR#: [id number] Acct: [id number] Name: KESHAV ARMSTRONG Rep #:[id number] 5 : 1970 54 From: Umair Mcdonald MD PCP: Kassandra Chicas DO Status:REG [facility] Y Race: C Location: [place] [address] ASA Classification* ASA Classification ASA Classification: 1 Assessment & Plan Anesthesia* Anesthesia Assessment Anesthesia Assessment: Discussed sedation and/or anesthesia options, risks, benefits, and alternatives with patient/parents/legal guardian/POA. Questions invited. The patient/parents/legal guardian/POA seems to understand and agrees to proceedwith anesthesia plan. Reviewed the physical assessment, medical history, allergy history and patient home medications list prior to surgery/procedure/anesthetic and documented any changes. Performed airway and anesthesia risk assessments. Anesthesia Type Anesthesia Type: MAC History Source History Obtained from:: Patient and Chart Anesthesia Focused Assessment* Temperature: 98.0 F Pulse Rate: 75 Blood Pressure: 121/82 Respiratory Rate: 16 Pulse Ox: 100 Oxygen Delivery Method: Room Air Airway Assessment Mouth opens: >3 cm Mallampati Score: I Teeth Condition: Intact Neck Range of motion (ROM): Full ROM Labs Anesthesia Preop lab: CBC WBC 9.8 K/mm3 (4.4-11.0) 09/10/24 04:52 09/10/24 RBC 4.62 M/mm3 (4.6-6.2) 09/10/24 04:52 09/10/24 Hgb 13.4 g/dL (13.0-16.5) 09/10/24 04:52 09/10/24 Hct 36.9 % (40-54) L 09/10/24 04:52 09/10/24 Plt Count 141 K/mm3 (150-450) L 09/10/24 04:52 09/10/24 CHEMISTRY Potassium 3.6 mmol/L (3.3-5.1) 09/12/24 05:18 09/12/24 Sodium 154 mmol/L (133-145) H 09/12/24 05:18 09/12/24 Magnesium 3.5 mg/dL (1.5-2.2) H 09/10/24 04:52 09/10/24 Phosphorus 2.7 mg/dL (2.7-4.5) 09/11/24 04:35 09/11/24 BUN 92 mg/dL (4-19) H 09/12/24 05:18 09/12/24 Creatinine 1.08 mg/dL (0.70-1.20) 09/12/24 05:18 09/12/24 Glucose 131 mg/dL (70-99) H 09/12/24 05:18 09/12/24 POC Glucose 102 mg/dL (74-106) 09/10/24 11:03 09/10/24 COAG Pre-Assessment Diagnosis/Proposed Procedure Planned Operative Procedure(s): EGD Anesthesia History Anesthesia History - crop picker: Anesthesia History - crop picker Hx Hospitalization Yes: 08/202411/16/24 10:34 Any Problems With Anesthesia No 11/16/24 10:34 Cholinesterase deficiency No 11/16/24 10:34 You/Your Family Experience No 11/16/24 10:34 fever (hyperthermia) with Relationship Recent Exposure to Contagious No 11/18/24 06:26 Disease Does patient have nerve No 11/16/24 10:34 stimulator Patient instructed to have device shut off --Does patient have Pacemaker No 11/18/24 06:26 or ICD? When Was Last Pacemaker Check QUESTION #4 FULL TEXT: You/Your Family Experience fever (hyperthermia) with Anesthesia Last Oral Intake Last Oral intake: Last Oral Intake NPO since 00:00 11/18/24 06:26 Meds taken in AM with sips of No 11/18/24 06:26 water? Meds patient instructed to take am of surgery PONV PONV - crop picker: PONV - crop picker Female No 11/16/24 10:34 HX of Motion Sickness No 11/16/24 10:34 HX of N/V After Surgery No 11/16/24 10:34 Non-Smoker Yes 11/16/24 10:34 Duration of Surgery greater No 11/16/24 10:34 than 60 minutes Number of Risk Factors 1 11/16/24 10:34 PONV Score Low Risk 11/16/24 10:34 Height & Weight Height & Weight: Anesthesia: Height & Weight Height 5 ft 7 in 11/18/24 06:26 Weight: 74 kg 11/18/24 06:26 Body Mass Index (BMI) 25.5 11/18/24 06:26 Respiratory Assessment Respiratory Assessment - crop picker: Respiratory Tract Infection Hx - crop picker Hx Respiratory Tract Infection No 11/16/24 10:34 STOP Sleep Apnea STOP Sleep Apnea - crop picker: STOP Sleep Apnea - crop picker Hx Hypertension No 11/16/24 10:34 Hx Sleep Apnea No 11/16/24 10:34 CPAP BIPAP Do you snore loudly (louder No 11/16/24 10:34 than talking or can be heard Do you often feel tired/ No 11/16/24 10:34 fatigued/ sleepy during daytime? Has anyone observed you stop No 11/16/24 10:34 breathing during sleep? STOP Results Negative 11/16/24 10:34 QUESTION #5 FULL TEXT : Do you snore loudly (louder than talking or can be heard through closed doors)? 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 Specify any problems Hx of Preganancy in last 3 N/A 11/16/24 10:34 Months Nurse Filling Out Transfusion VCHRISTIN 11/16/24 10:34 & Questions: Date: 11/16/24 11/16/24 10:34 Time: 10:35 11/16/24 10:34 Patient unable to answer at this time (ie. confused, unrespo /Reproduction History /Reproductive History - crop picker: /Reproductive Hx- crop picker Hx Now No 11/16/24 10:34 Gestational Age (in weeks): EDC: Hx Hx Para Hx Section SAB No 11/16/24 10:34 Active Medications Active Medications: Current Medications Generic Name Dose Route Start Last Admin Trade Name Freq PRN Reason Stop Dose Admin Lactated Ringer's 1,000 mls @ 15 mls/hr 11/18/24 06:00 11/18/24 06:25 IV 15 mls/hr .Q48H FREEMAN Administration PFSH Medical History Wears glasses Chewing tobacco dependence in remission Dysphagia No significant past medical history Abnormal weight loss Acute hypokalemia Acute renal failure Home Medications ?Medication ?Instructions ?Recorded ?Last Taken ?Type multivitamin (Daily Multi-Vitamin 1 tab PO DAILY 09/0911/13/24 History tablet) Allergy/AdvReac Type Severity Reaction Status Date / Time No Known Allergies Allergy Verified 11/16/24 10:28 Family History Mother Hypertension Father No problems noted. Surgical History History of esophagogastroduodenoscopy (EGD) History of skin graft Social History household members: none Smoking Status: Never smoker alcohol intake: never substance use type: does not use Review of Systems (Anesthesia) ROS Narrative System reviewed and no additional complaints, except as documented. 11/18/24631 <Electronically signed by Umair melton MD> Date _ Umair Child Signature: Date CC: ~ Signed [facility] Work Phone: Consult note Author To Green [facility] Note Date/Time November 18, 2024 7:56 am [facility] Medical Records Department [address] [place] [id number] Anesthesia Postop Eval I 11/18/24 0754 MR#: [id number] Acct: [id number] Name: KESHAV ARMSTRONG Rep #:[id number] 5 : 1970 54 From: To Green PCP: Kassandra Chicas DO Status:REG [facility] Y Race: C Location: [place] [address] Anesthesia: Postop Eval I Current Vital Signs Temperature: 98.3 F Pulse Rate: 80 Blood Pressure: 109/86 Respiratory Rate: 16 Pulse Ox: 100 Oxygen Delivery Method: Room Air Assessment Airway patent: Yes Spontaneous unlabored respirations: Yes Mental status: Asleep nausea: No Vomiting: No Anesthesia Complication: Yes Anesthesia Complication Comment:: achalasia w/food bolus Fluid Hydration Crystalloid volume administer (ml): 800 Total IV fluid infused: 800 Progress Note Anesthesia document: Postop Eval 1 completed: Yes 11/18/24 0756 <Electronically signed by To Green > Date _ To Child Signature: Date CC: ~ Signed [facility] Work Phone: Discharge summary Author Jimenez Renee [facility] Note Date/Time September 12, 2024 11:12 am [facility] Medical Records Department [address] [place] [address] Instructions for Home/Discharge Instructions 09/12/24 1046 MR#: [id number] Acct: [id number] Name: KESHAV ARMSTRONG Rep #:[id number] : 1970 53 From: Jimenez Renee [...] MD; No Primary Care Physician ~ Signed [facility] Work Phone: Evaluation note* Diagnosis Onset Date Resolution Status Admit Date Acute renal failure acute August 272024 2:43pm [facility] Work Phone: History and physical note Author Abbie Michelle [facility] Note Date/Time September 09, 2024 3:27p m [facility] Medical Records Department [address] [place] [address] H&P Exam - Hospitalist 09/09/24 1415 MR#: [id number] Acct: [id number] Name: KESHAV ARMSTRONG Rep #:[id number] : 1970 53 From: Abbie Michelle MD PCP: Care Physician,No Primary Status :ADM IN Location: ICU ICU06-1 HPI - General General Date of Admission: 09/09/24 Date of Service: 09/09/24 Chief Complaint: Intractable N/V, unable to take adequate PO, weight loss, abd bloating. HPI Narrative The patient is a 53 y/o M w/ no prior notable PMHx who presents to the [facility] ED on 09/09/2024 with history of significant [...] the ED patient administered maintenance IV fluids. [facility] Medical History (Updated 09/09/24 @ 14:41 by [...] (Updated 09/09/24 @ 14:[address] Abbie Michlele MD) History of skin graft Social History [...] 87.9 H, Lymph % (Auto) 5.9 L, [place] % (Auto) 5.5, Eos % (Auto) 0.1, [...] can indicate inflammatory bowel disease. Reading Location: [facility] Assessment & Plan Assessment/Plan (1) Acute renal failure: PLAN: Plan The patient is a 53 y/o M w/ no prior notable PMHx who presents to the [facility] ED on 09/09/2024 with history of significant [...] biopsy needs. Charges/Coding Visit Charges Inpatient E&M: 34079 Init Hosp L3 09/09/24 1442 <Electronically signed [...] MD; No Primary Care Physician ~* Signed [facility] Work Phone: History and physical note Author Alo Cronin [facility] Note Date/Time November 18, 2024 7:08 am [facility] Medical Records Department [address] [place] [address] History & Physical Exam 11/18/24 0704 MR#: [id number] Acct: [id number] Name: KESHAV ARMSTRONG Rep #:[id number] : 1970 54 From: Alo Cronin DO PCP: Kassandra Chicas DO Status:[facility] Location: [place] [address] HPI - General General Date of Admission: 11/18/24 Date of Service: 11/18/24 HPI Narrative KSEHAV ARMSTRONG, is a 54 M who presents for Persistent nausea vomiting Patient presents with weight loss as well as nausea and abdominal bloating ongoing for 6 to 7 months. Patient states he has no primary care physician. Hefinally got tired of the weight loss and he is complaining of feeling weak with no energy. He has nausea and vomiting usually after he eats about 15 to 20 minutes later. He underwent an upper endoscopy approximately 2 months ago and was discovered to have esophageal motility disorder consistent with achalasia. He comes back in today for repeat upper endoscopy with dilation. [facility] Medical History Wears glasses Chewing tobacco dependence in remission Dysphagia No significant past medical history Abnormal weight loss Acute hypokalemia Acute renal failure Home Medications ?Medication ?Instructions ?Recorded ?Last Taken ?Type multivitamin (Daily Multi-Vitamin 1 tab PO DAILY 09/0911/13/24 History tablet) Allergy/AdvReac Type Severity Reaction Status Date / Time No Known Allergies Allergy Verified 11/16/24 10:28 Family History Mother Hypertension Father No problems noted. Surgical History History of esophagogastroduodenoscopy (EGD) History of skin graft Social History household [...] rectal bleeding, tenesmus, vomiting or weight changes Vital Signs Vital Signs Vital Signs: 11/18/24 06:26 11/18/24 06:26 11/18/24 06:32 Temperature 98.0 F 98.0 F Temperature Source Temporal Pulse Rate 75 75 Respiratory Rate 16 16 Respiratory Pattern Normal Blood Pressure 121/82 H 121/82 H Blood Pressure Mean 95 Blood Pressure Source Monitor Blood Pressure Position Semi-Fowlers Blood Pressure Location Right Arm Pulse Ox 100 100 Oxygen Delivery Method Room Air Room Air Weight Weight: 163 lb 2.273 oz Body Mass Index (BMI) 25.5 Physical Exam Const alert, oriented x3, no [...] initially treated with aggressive IV fluid resuscitation. He was discovered to have severe esophageal dysphagia secondary to achalasia. He will come back in today for further workup including esophageal dilation in the near future he will needesophageal manometry and possible Botox versus Heller myotomy. 11/18/24 0708 <Electronically signed by Alo Cronin DO> Cosigner Signature (if applicable): CC: Kassandra Chicas DO; Alo Cronin DO~ Signed [facility] Work Phone: Reason for referral (narrative)No reason for referral information availableWUniversity [facility]als [facility] Work Phone: Summary Purpose Family History Relationship Condition Age at Onset Recorded Date/T branden mother Hypertension Unknown Advance Directives Advance Directive Response Recorded Date/ Time Do you have a Healthcare Power of Clinical Nursing Professor? No September 09, 2024 12:13pm Advance Directive Response Recorded Date/ Time Do you have a Healthcare Power of Clinical Nursing Professor? No September 09, 2024 4:04pm Advance Directive Response Recorded Date/ Time Do you have a Healthcare Power of Clinical Nursing Professor? No September 09, 2024 4:04pm Do you have a Healthcare Power of Clinical Nursing Professor? No November 16, 2024 10:34am Chief Complaint and Reason for Visit Chief [...] m Dysphagia September 09, 2024 2:43p m Chief Complaint Admit Date abdominal September 09, 2024 2:15p m EWA, CONCERN DKA, MA, INTRACTABLE N/V Ma y 2024 2:43pm EWA, CONCERN DKA, MA, INTRACTABLE N/V Ma y 2024 7:26pm PREOP September 10, 2024 11:56 am EWA, CONCERN DKA, MA, INTRACTABLE N/V Ma y 2024 12:20pm EWA, CONCERN DKA, MA, INTRACTABLE N/V Ma y 2024 5:42pm EWA, CONCERN DKA, MA, INTRACTABLE N/V Ma y 2024 5:28pm EWA, CONCERN DKA, MA, INTRACTABLE N/V Ma y 2024 7:30pm EWA, CONCERN DKA, MA, INTRACTABLE N/V Ma y 2024 11:12am Reason for Visit Admit Date Abnormal weight loss September 09, 2024 2:43 pm Acute hypokalemia September 09, 2024 2:43p m Acute renal failure September 09, 2024 2:43p m Dysphagia September 09, 2024 2:43p m Abnormal weight loss November 18, 2024 5:4 5am Acute hypokalemia November 18, 2024 5:45 am Acute renal failure November 18, 2024 5:45 am Dysphagia November 18, 2024 5:45 am Additional Source Comments (unrecognized sect ion and content) No Status Records FoundNo Status Records Found INFORMATION SOURCE (unrecogn ized section and content) DATE CREATED AUTHOR 01/30/2021 [facility] DATE CREATED AUTHOR AUTHOR'S ORGANIZ ATION 11/26/2024 [facility] Care Teams (unrecognized sec tion and content) [...] September 09, 2024 Dr. Jimenez Renee , DO Other Provider Active S tart: September 09, 2024 Dr. Emeli Lynn MD Other Provider Active Start: September 09, 2024 Dr. Alo Cronin , DO Attending Provider Active Start: September 09, [...] Active Member Role Status Dates Dr. Lata Durno , DO Emergency Provider Active S tart: [...] Active St art: September 11, 2024 Dr. Abbei Michelle MD Other Provider Active St art: [...] art: September 11, 2024 Dr. Jimenez Renee DO Attending Provider Active Start: September 11, 2024 Dr. Jimenez Renee , DO Other Provider Active S tart: September 11, 2024 Dr. Emeli Lynn MD Other Provider Active Start: September 11, 2024 Team Status: Active Member Role/Relationship Status Dates Kassandra Chicas [facility] DO Primary Care Provider Active Team Status: Active Member Role/Relationship Status Dates Dr. Lata Duron DO Emergency Provider Active S tart: September 09, 2024 No Primary Care Physician Primary Care Provider Active Start: September 09, 2024 Dr. Abbie Michelle MD Attending Provider Active Start: September 09, 2024 Team Status: Inactive Member Role/Relationship Status Dates Dr. Lata Duron DO Emergency [...] September 12, 2024 Team Status: Active Member Role/Relationship Status Dates Dr. Lata Duron DO Emergency Provider Active S tart: September 09, 2024 No Primary Care Physician Primary Care Provider Active Start: September 09, 2024 Dr. Abbie Michelle MD Admit Provider Active St art: September 09, 2024 Dr. Abbie Michelle MD Referring Provider Active Start: September 09, 2024 Dr. Abbie Michelle MD Other Provider Active St art: September 09, 2024 Dr. Jimenez Renee , DO Other Provider Active S tart: September 09, 2024 Dr. Emeli Lynn MD Other Provider Active Start: September 09, 2024 Dr. Alo Cronin , DO Attending Provider Active Start: September 09, 2024 Team Status: Active Member Role/Relationship Status Dates No Primary Care Physician Primary Care Provider Active Start: September 10, 2024 End: September 10, 2024 Dr. Tu Feliciano MD Attending Provider Active S tart: September 10, 2024 End: September 10, 2024 Dr. Tu Feliciano MD Referring Provider Active S tart: September 10, 2024 End: September 10, 2024 Team Status: Active Member Role/Relationship Status Dates Dr. Lata Duron , DO Emergency Provider Active S tart: September 10, 2024 No Primary Care Physician Primary Care Provider Active Start: September 10, 2024 Dr. Abbie Michelle MD Admit Provider Active St art: September 10, 2024 Dr. Abbie Michelle MD Referring Provider Active Start: September 10, 2024 Dr. Abbie Michelle MD Other Provider Active St art: September 10, 2024 Dr. Emeli Lynn MD Other Provider Active Start: September 10, 2024 Dr. Jimenez Renee , DO Other Provider Active S tart: September 10, 2024 Dr. Alo Cronin , Attending Provider Active Start: September 10, 2024 Team Status: Active Member Role/Relationship Status Dates Dr. Lata Duron , DO [...] Start: September 10, 2024 Dr. Jimenez Renee DO Attending Provider Active Start: September 10, 2024 Dr. Jimenez Renee , DO Other Provider Active S tart: September 10, 2024 Team Status: Active Member Role/Relationship Status Dates Dr. Lata Duron , DO Emergency Provider Active S tart: September 11, 2024 No Primary Care Physician Primary Care Provider Active Start: September 11, 2024 Dr. Abbie Michelle MD Admit Provider Active St art: September 11, 2024 Dr. Abbie Michelle MD Other Provider Active St art: September 11, 2024 Dr. Jimenez Renee , DO Referring Provider Active Start: September 11, 2024 Dr. Jimenez Renee , DO Other Provider Active S tart: September 11, 2024 Dr. Emeli Lynn MD Other Provider Active Start: September 11, 2024 Dr. Alo Cronin , DO Attending Provider Active Start: September 11, 2024 Team Status: Active Member Role/Relationship Status Dates Dr. Lata Duron DO Emergency [...] Other Provider Active Start: September 11, 2024 Team Status: Active Member Role/Relationship Status Dates Dr. Lata Duron DO Emergency Provider Active S tart: September 12, 2024 No Primary Care Physician Primary Care Provider Active Start: September 12, 2024 Dr. Abbie Michelle MD Admit Provider Active St art: September 12, 2024 Dr. Abbie Michelle MD Other Provider Active St art: September 12, 2024 Dr. Jimenez Renee , DO Attending Provider Active Start: September 12, 2024 Dr. Jimenez Renee , DO Other Provider Active S tart: September 12, 2024 Dr. Emeli Lynn MD Other Provider Active Start: September 12, 2024 Team Status: Inactive Member Role/Relationship Status Dates Dr. Alo Cronin , Attending Provider Active Start: November 18, 2024 End: November 18, 2024 Kassandra Chicas VSC, DO Primary Care Provider Active Start: November 18, 2024 End: November 18, 2024 Kassandra Aviva VSC, DO Referring Provider Active Start: November 18, 2024 End: November 18, 2024 Team Status: Active Member Role/Relationship Status Dates Dr. Alo Cronin , Attending Provider Active Start: November 18, 2024 Dr. Alo Cronin , DO Other Provider Active St art: November 18, 2024 Kassandra Aviva VSC, DO Primary Care Provider Active Start: November 18, 2024 Kassandra Chicas VSC, DO Referring Provider Active Start: November 18, 2024 Team Status: Inactive Member Role/Relationship Status Dates Kassandra Chicas VSC, DO Primary Care Provider Active Start: November 27, 2024 End: November 27, 2024 Kassandra Chicas VSC, DO Referring Provider Active Start: November 27, 2024 End: November 27, 2024 Dr. Alo Cronin , DO Attending Provider Active Start: November 27, 2024 End: November 27, 2024 Goals (unrecognized section and content) Goals [...] BE BASED ON THE PRIMARY CLINICAL RECORDS. [facility]. provides no warranty or guarantee of the accuracy or completeness of information in this document.
== END 2024-11-27 11:15 | disposition home or self-care (01) ==
PROVIDERS: PCP Family Medicine; Referring Provider Family Medicine; Visit Provider Internal Medicine Gastroenterology
PROC: F00ZJWZ Instrumental Swallowing and Oral Function Assessment using Swallowing Equipment (ICD-10-PCS; CPT 43235; principal; 2024-11-27 10:55)
DX: K22.89 Other specified disease of esophagus (principal)
CPT/HCPCS: 91010

== ENCOUNTER → 2025-02-18 | Outpatient (CLI) | payer MEDICAID, SELFPAY ==
[2025-02-18 19:12] LABS: PSA,Total- Diagnostic 1.39 ng/mL (0.00-4.00)
== END | disposition home or self-care (01) ==
LOC: VSLAB 13:35
PROVIDERS: PCP Family Medicine; Visit Provider Family Medicine
DX: N40.0 Benign prostatic hyperplasia without lower urinary tract symptoms (principal)
CPT/HCPCS: 36415; 84153